=== PATIENT | female | born 1970 | race Caucasian/White ===

== ENCOUNTER 2017-05-13 05:35 | Inpatient (IN) | payer MEDICARE, MEDICAID ==
[2017-05-13 06:06] LABS: #Eosinphils 0.1 thou/uL (0.0-0.7); #Lymphocytes 2.1 thou/uL (1.20-3.40); #Monocytes 0.7 thou/uL (0.11-0.59); #Neutrophils 7.8 thou/uL (1.40-6.50); %Basophils 0.4 % (0.0-1.0); %Eosinophils 0.8 % (0.0-10.0); %Lymphocytes 19.8 % (21.0-51.0); %Monocytes 6.5 % (0.0-10.0); %Neutrophils 72.5 % (42.0-75.0); Hemoglobin 14.6 g/dL (12.0-16.0); Mean Corpuscular HGB CONC 32.3 g/dL (32.0-36.0); Mean Corpuscular Hemoglobin 29.3 pg (27.0-31.0); Mean Corpuscular Volume 90.7 fl (81.0-99.0); Mean Platelet Volume 8.3 fL (7.4-10.4); Platelet Count 373 thou/uL (130-400); RBC Distribution Width 14.6 % (11.5-14.5); Red Blood Cell (RBC) Count 4.99 mill/uL (4.20-5.40); White Blood Cell (WBC) Count 10.8 thou/uL (4.8-10.8)
[2017-05-13] MEDS ORDERED: Nitroglycerin 2% Ointment 1 INCH/1 GM Packet ONE (06:15)
[2017-05-13] MEDS ORDERED: Metoprolol Tartrate 5 MG/5 ML VIAL ONE (06:15)
[2017-05-13 06:23] LABS: ALT (SGPT) 9 U/L (8-55); AST (SGOT) 9 U/L (5-34); Alkaline Phosphatase 97 U/L (40-150); Anion Gap 14 mmol/L (10-20); BUN (Urea Nitrogen) 19 mg/dL (7.0-18.7); Bilirubin, Total 0.2 mg/dL (0.2-1.2); CK (CPK) 32 U/L (29-168); Calc. Creatinine Clearance 0 mL/min (70-130); Calcium 9.7 mg/dL (7.8-10.44); Carbon Dioxide 22 mmol/L (22-29); Chloride 98 mmol/L (98-107); Estimated GFR-MDRD 58; Globulin 3.2 g/dL (2.4-3.5); Lipase 14 U/L (8-78); Potassium 4.4 mmol/L (3.5-5.1); Protein, Total 7.2 g/dL (6.0-8.3); Sodium 130 mmol/L (136-145)
[2017-05-13 06:27] LABS: CKMB 1.4 ng/mL (0-6.6); Troponin I 0.011 ng/mL (< 0.028)
[2017-05-13 06:29] LABS: Glucose 568 mg/dL (70-105)
[2017-05-13] MEDS ORDERED: Insulin Regular 300 UNITS/3 ML VIAL ONE (06:32)
[2017-05-13 06:49] LABS: Magnesium 1.9 mg/dL (1.6-2.6)
[2017-05-13 06:55] LABS: Bicarbonate (HCO3v) 23.5 mmol/L (1.0-85.0); CO2 Tension (PvCO2) 34.2 mmHg (41.0-51.0); Calcium, Ionized 1.08 mmol/L (1.12-1.32); Hemoglobin - Calc 16.1 g/dL (12.0-18.0); O2 Tension (PvO2) 98.3 mmHg (35.0-45.0); Potassium 3.8 mmol/L (3.4-4.7); T. Carbon Dioxide 24.5 mmol/L (1.0-85.0); pH (Venous) 7.445 (7.35-7.45)
[2017-05-13] MEDS ORDERED: HYDROcodone/Acetaminophen 10/325 mg Tablet ONE (06:57)
[2017-05-13] MEDS ORDERED: Insulin Regular 300 UNITS/3 ML VIAL SC SCH (07:00)
[2017-05-13] MEDS ORDERED: Metoprolol Tartrate 5 MG/5 ML VIAL IVP SCH (07:00)
[2017-05-13] MEDS ORDERED: Nitroglycerin 2% Ointment 1 INCH/1 GM Packet TOP SCH (07:00)
[2017-05-13] MEDS ORDERED: Sodium Chloride 0.9% 1,000 ML IV SCH (07:00)
[2017-05-13] MEDS ORDERED: cefTRIAXone\\ROCEPHIN 2 GM in Sodium Chloride 0.9% 100 ML IVPB SCH ×2 (07:00→10:30)
[2017-05-13] MEDS ORDERED: Azithromycin 500 MG in Sodium Chloride 0.9% 250 ML 250 ML IVPB SCH ×2 (07:00→11:00)
--- NOTE | 2017-05-13 07:42 | RAD ---
2 VIEWS CHEST: Date: 05/13/17 COMPARISON: 07/27/16. HISTORY: Chest pain for 3 weeks. FINDINGS: Two views of the chest show a normal sized cardiomediastinal silhouette. The patient is status post s ternotomy. There is no evidence of consolidation, mass, or pleural effusion. Degenerative changes are seen in the spine. IMPRESSION: No evidence of acute cardiopulmonary disease. POS: [facility]
[2017-05-13 08:03] LABS: Bilirubin Negative (Negative); Blood, Urine Negative (Negative); Clarity CLEAR (Clear); Glucose, Urine (Dipstick) >=1000 mg/dL (Negative); Leukocyte Negative (Negative); Nitrite Negative (Negative); Protein, Urine (Dipstick) Negative (Neg-Trace); Specific Gravity, Urine 1.031 (1.002-1.036); Urobilinogen 0.2 mg/dL (0.2-1.0)
[2017-05-13 09:36] LABS: Troponin I Less than 0.010 ng/mL (< 0.028)
[2017-05-13] MEDS ORDERED: Artificial Tears 18 DROP/0.9 ML EA EYE PRN (09:40)
[2017-05-13] MEDS ORDERED: Ondansetron HCl/PF 4 MG/2 ML Vial IVP PRN (09:40)
[2017-05-13] MEDS ORDERED: Insulin Regular 300 UNITS/3 ML VIAL SC PRN (09:40)
[2017-05-13] MEDS ORDERED: Mag-Al 1200 mg/1200 mg/30 ML UDCUP PO PRN (09:40)
[2017-05-13] MEDS ORDERED: hydrALAZINE 20 MG/ML VIAL SLOW IVP PRN (09:40)
[2017-05-13] MEDS ORDERED: Milk Of Magnesia 30 ML UDCUP PO PRN (09:40)
[2017-05-13] MEDS ORDERED: Zolpidem Tartrate 5 MG TAB PO PRN (09:40)
[2017-05-13] MEDS ORDERED: Senokot 8.6 MG TAB PO PRN (09:40)
[2017-05-13] MEDS ORDERED: Loratadine 10 MG TAB PO PRN (09:40)
[2017-05-13] MEDS ORDERED: Loperamide HCl 2 MG CAP PO PRN (09:40)
[2017-05-13] MEDS ORDERED: Diabetic Tussin 200 MG/10 ML UDCUP PO PRN (09:40)
[2017-05-13] MEDS ORDERED: Ondansetron ODT 4 MG TAB PO PRN (09:40)
[2017-05-13] MEDS ORDERED: Acetaminophen 325 MG TAB PO PRN (09:40)
[2017-05-13] MEDS ORDERED: Sodium Chloride 0.65% Nasal 44 ML BOT EA NARE PRN (09:40)
[2017-05-13] MEDS ORDERED: Dextrose 5% in Water 1,000 ML IV PRN (09:40)
[2017-05-13] MEDS ORDERED: Dextrose 50% Abboject 50 ML SYRINGE SLOW IVP PRN (09:40)
[2017-05-13] MEDS ORDERED: Eucerin (Mineral Oil/Petrolatum,White) 30 gm Jar TOP PRN (09:40)
[2017-05-13] MEDS ORDERED: Chloraseptic Spray 180 ml Bottle PO PRN (09:40)
[2017-05-13] MEDS ORDERED: Nitroglycerin 0.4 MG TAB (25 Tab Bottle) SL PRN (09:40)
[2017-05-13 11:17] VITALS: BMI 50.8
[2017-05-13] MEDS: Insulin Regular 300 UNITS/3 ML VIAL SC PRN ×2 (11:55→17:11)
[2017-05-13] MEDS ORDERED: Cyclobenzaprine 10 MG TAB PO PRN (11:58)
[2017-05-13] MEDS: Enoxaparin Sodium 40 MG/0.4 ML SYRINGE SC SCH (12:16)
[2017-05-13] MEDS: oxyCODONE ER 20 MG TAB PO SCH ×3 (12:16→19:50)
[2017-05-13] MEDS: Famotidine 20 MG TAB PO SCH ×2 (12:18→19:49)
[2017-05-13] MEDS ORDERED: Benzonatate 100 MG CAP PO PRN (12:40)
[2017-05-13 13:24] LABS: Troponin I 0.012 ng/mL (< 0.028)
[2017-05-13] MEDS: HYDROcodone/Acetaminophen 10/325 mg Tablet PO PRN ×2 (13:47→21:34)
--- NOTE | 2017-05-13 14:11 | HP ---
PRIMARY CARE PHYSICIAN: Dr. Coni Crooks. REASON FOR ADMISSION: Hyperglycemia, chest pain, and atypical pneumonia. HISTORY OF PRESENT ILLNESS: A 46-year-old female, who has multiple medical problems including HIV, d iabetes, hypertension, coronary artery disease, required CABG, who came to the emergency room for sofya luation of chest pain. Patient has on and off chest pain for about 1 month. She was describing ches t pain, squeezing sensation in the substernal area associated with nausea, shortness of breath, and w eakness. The patient gets this pain on exertion and gets better with relaxation. This type of on an d off pain was keep going on for about 1 month. She was trying to come to the hospital, but she was ignoring her symptoms. She also started feeling shortness of breath after the exertion. For the las t 1 week, the patient was having upper respiratory infection including runny nose, sore throat, and c ough, which has gradually gotten worse. She was having fever at home. She was feeling excessive madhav phoresis because of coughing, her chest pain gotten worse and she was feeling more weak and more fati gued and that is why she decided to come to the emergency room for evaluation. Her intensity of pain is about 7/10. Currently, her main symptom is cough and shortness of breath and low grade fever. To day in the emergency room, patient was found with hyperglycemia, pseudohyponatremia, and her chest x- ray was consistent with atypical chronic interstitial changes. REVIEW OF SYSTEMS: The following complete review of systems was negative, unless otherwise mentioned in the HPI or below: Constitutional: Weight loss or gain, ability to conduct usual activities. Skin: Rash, itching. Eyes: Double vision, pain. ENT/Mouth: Nose bleeding, neck stiffness, pain, tenderness. Cardiovascular: Palpitations, dyspnea on exertion, orthopnea. Respiratory: Shortness of breath, wheezing, cough, hemoptysis, fever or night sweats. Gastrointestinal: Poor appetite, abdominal pain, heartburn, nausea, vomiting, constipation, or diarrh ea. Genitourinary: Urgency, frequency, dysuria, nocturia. Musculoskeletal: Pain, swelling. Neurologic/Psychiatric: Anxiety, depression. Allergy/Immunologic: Skin rash, bleeding tendency. Please see my HPI for pertinent positives and negatives, other review of systems reviewed and negativ e except as mentioned in the HPI. ALLERGIES: SEROQUEL, GEODON, and LATEX. CURRENT HOME MEDICATIONS: ProAir HFA 2 puffs q.4 hourly p.r.n., aspirin 81 mg p.o. daily, Clonazepam 0.5 mg p.o. b.i.d., Flexeril 5 mg p.o. t.i.d. p.r.n., Genvoya tablet daily, Prozac 20 mg p.o. b.i.d. , Humalog insulin as per sliding scale, Coalgood 10 two tablets q.i.d. p.r.n., Lantus 75 units subcu b.i .d., lamotrigine 100 mg p.o. b.i.d., Remeron 15 mg p.o. at bedtime, OxyContin ER 20 mg p.o. b.i.d., p erphenazine 4 mg p.o. t.i.d., Lyrica 100 mg p.o. b.i.d., and Ambien 12.5 mg p.o. at bedtime. EMERGENCY ROOM COURSE: Patient has received Rocephin, azithromycin, Coalgood, IV fluid, Novolin R 10 un its, nitropatch 1 inch, and metoprolol tartrate 5 mg IV push. PAST MEDICAL HISTORY: HIV, diabetes type 2, hypertension, dyslipidemia, coronary artery disease; req uiring CABG, morbid obesity, and gastroesophageal reflux disease. PAST SURGICAL HISTORY: Right wrist surgery, right knee surgery, cholecystectomy, CABG x4, x2, hysterectomy, and thyroidectomy. PAST PSYCHIATRIC HISTORY: Anxiety, depression, bipolar disorder, schizophrenia, history of inpatient psychiatric admission in [place]. SOCIAL HISTORY: The patient is smoking about 1 pack per day since the age of 13. She lives at home with her roommate. She denies any alcohol abuse. She denies any other illicit drug abuse. FAMILY HISTORY: Positive for diabetes, hypertension, and coronary artery disease among several famil y members. PHYSICAL EXAMINATION: VITAL SIGNS: Currently, blood pressure 141/92, pulse 101, respiratory rate 18, temperature 98.4, sat uration 93% on room air, and weight 148.3 kilograms. GENERAL: Patient is currently alert, awake, in no obvious acute distress. HEENT: Head is normocephalic, atraumatic. Eyes: Pupils round, reactive to light. Extraocular musc les intact. ENT: Oropharynx within normal limits, mild pharyngeal erythema noted. No exudate. No oral thrush. NECK: Supple, no JVD, no thyromegaly, no carotid bruits. LUNGS: Bilateral coarse breath sounds noted. No rhonchi, rales, or wheezing. No accessory muscles of respiration in use. CARDIAC: S1 and S2, regular, tachycardia, no murmur, no gallop, no rub. ABDOMEN: Obesity limiting examination. No peritoneal sign, no organomegaly, no mass, no distention, no suprapubic tenderness, no Perez sign. BACK: Unremarkable, no CVA tenderness. EXTREMITIES: Upper extremity passive movement of all joints are normal. Lower extremities: No mansoor a. Good peripheral pulsation. SKIN: No skin rash. HEMATOLOGICAL: No lymphadenopathy. PSYCHIATRIC: Normal affect. NEUROLOGIC: Nonfocal examination. SIGNIFICANT LABORATORY DATA: EKG based on my review reveals normal sinus rhythm, slightly prolonged QTC interval, nonspecific ST-T changes. Chest x-ray: Diffuse interstitial changes, no lobar consoli dation. CBC: WBC 10.8, hemoglobin 14.6, platelets 373. D-dimer less than 0.27. VBG: pH 7.44, bicarbonate 23.5, CO2 of 34.2, O2 of 98.3. BMP: Sodium 130, potassium 4.4, chloride 98, carbon dioxide 22, BUN 19, creatinine 1.02, glucose 568 , calcium 9.7. LFT: AST 9, ALT 9, alkaline phosphatase 97, albumin 4.0, lipase 14. CK is 32, CK-MB 1.4, troponin l ess than 0.010. Urinalysis: Glucosuria, serum ketones 0.08. ASSESSMENT AND PLAN: 1. Chest pain. The patient's chest pain description is atypical for angina. Given she has coronary artery disease and coronary artery bypass graft required in her young age as well as her underlying risk factors are not well controlled due to noncompliance. She is at risk for coronary artery diseas e. Her D-dimer is negative, so thromboembolic disorder is extremely unlikely. At this point, we lauren l do serial cardiac enzymes x3. We will consider doing stress test before discharge. We will try to do stress test tomorrow morning. We will keep her n.p.o. after midnight. Meanwhile, we will contin ue with nitro patch q.8 hourly, aspirin 325 mg p.o. daily. We will check lipid profile for risk stra tification. 2. Atypical pneumonia. Patient has cough, respiratory symptoms, low grade fever. She does not have leukocytosis, but she has underlying HIV. At this point, we will check respiratory virus panel to r ule out any associated viral illness. Meanwhile, we will treat with Rocephin, azithromycin, and symp tomatic treatment for cough. 3. Hyperglycemia associated with diabetes type 2. This patient was not taking insulin because of he r noncompliance. At this time, I will resume Levemir insulin 75 units subcu b.i.d., Humalog insulin as per aggressive sliding scale and we will adjust insulin dose depending upon Accu-Cheks. 4. Pseudohyponatremia likely due to hyperglycemia. We will repeat BMP tomorrow. 5. Morbid obesity with BMI of 50. Dietary education given, weight loss education given. Healthy li festyle measures discussed with the patient. 6. Tobacco abuse disorder. Smoking cessation counseling given. We will offer nicotine patch if nee ded. 7. Anxiety and depression. We will continue Clonazepam 0.5 mg p.o. b.i.d., Prozac 20 mg p.o. b.i.d. , Remeron 15 mg p.o. daily, lamotrigine 100 mg twice daily, and perphenazine 4 mg t.i.d. 8. Chronic low back pain and chronic pain disorder. We will continue Flexeril 5 mg p.o. t.i.d. p.r. n., Lyrica 100 mg p.o. b.i.d., and OxyContin 20 mg q.12 hourly, and Coalgood on a p.r.n. basis. 9. Human immunodeficiency virus. We will continue Genvoya 1 tablet p.o. at bedtime. 10. Coronary artery disease with history of coronary artery bypass grafting. We will monitor on tel emetry floor. 11. Deep venous thrombosis prophylaxis. Lovenox 40 mg subcu daily. 12. Gastrointestinal prophylaxis. Pepcid 20 mg p.o. b.i.d. 13. Code status: The patient is FULL CODE. The patient does not have any surrogate decision maker. Disposition plan based on clinical course. We are expecting patient's stay in hospital for more than 2 midnights. Plan of care discussed with the patient in detail.
[2017-05-13] MEDS: Nitroglycerin 2% Ointment 1 INCH/1 GM Packet TOP SCH ×2 (16:20→19:57)
[2017-05-13] MEDS: Perphenazine 2 MG TAB PO SCH ×2 (17:01→19:50)
[2017-05-13] MEDS: Elviteg/Cob/Emtri/Tenof Alafen [Genvoya Tablet] 1 EACH PO SCH (17:12)
[2017-05-13] MEDS: clonazePAM 0.5 MG TAB PO SCH (19:49)
[2017-05-13] MEDS: FLUoxetine HCl 20 MG CAP PO SCH (19:49)
[2017-05-13] MEDS: INSULIN DETEMIR SC SCH (19:49)
[2017-05-13] MEDS: guaiFENesin ER 600 MG TAB PO SCH (19:49)
[2017-05-13] MEDS: lamoTRIgine 100 MG TAB PO SCH (19:49)
[2017-05-13] MEDS: Pregabalin 50 MG CAP PO SCH (19:50)
[2017-05-13] MEDS ORDERED: INSULIN GLARGINE HUM REC ANLOG 75 UNIT SQ SCH (21:00)
[2017-05-14 04:43] LABS: #Basophils 0.1 thou/uL (0.0-0.2); #Eosinphils 0.2 thou/uL (0.0-0.7); #Lymphocytes 2.4 thou/uL (1.20-3.40); #Monocytes 0.6 thou/uL (0.11-0.59); #Neutrophils 5.1 thou/uL (1.40-6.50); %Basophils 0.7 % (0.0-1.0); %Lymphocytes 28.7 % (21.0-51.0); %Monocytes 7.6 % (0.0-10.0); Hemoglobin 14.1 g/dL (12.0-16.0); Mean Corpuscular HGB CONC 32.1 g/dL (32.0-36.0); Mean Corpuscular Hemoglobin 29.4 pg (27.0-31.0); Mean Corpuscular Volume 91.5 fl (81.0-99.0); Mean Platelet Volume 8.7 fL (7.4-10.4); Platelet Count 297 thou/uL (130-400); RBC Distribution Width 14.5 % (11.5-14.5); White Blood Cell (WBC) Count 8.3 thou/uL (4.8-10.8)
[2017-05-14 05:08] LABS: Anion Gap 14 mmol/L (10-20); BUN (Urea Nitrogen) 15 mg/dL (7.0-18.7); Calc. Creatinine Clearance 187 mL/min (70-130); Calcium 10.2 mg/dL (7.8-10.44); Carbon Dioxide 26 mmol/L (22-29); Cardiac Risk 6.8 (Less than 4.5); Chloride 102 mmol/L (98-107); Cholesterol 251 mg/dl (< 200 Desired); Estimated GFR-MDRD 72; Glucose 213 mg/dL (70-105); HDL Cholesterol 37 mg/dL (>60 Neg Risk); Potassium 4.6 mmol/L (3.5-5.1); Sodium 137 mmol/L (136-145); Triglycerides 506 mg/dL (Less than 150)
[2017-05-14] MEDS: cefTRIAXone\\ROCEPHIN 2 GM in Sodium Chloride 0.9% 100 ML IVPB SCH (05:53)
[2017-05-14] MEDS: Nitroglycerin 2% Ointment 1 INCH/1 GM Packet TOP SCH ×3 (05:57→20:39)
[2017-05-14] MEDS ORDERED: Regadenoson 0.4 MG/5 ML SYRINGE ONE (08:15)
[2017-05-14] MEDS: Azithromycin 500 MG in Sodium Chloride 0.9% 250 ML 250 ML IVPB SCH (08:29)
[2017-05-14] MEDS: oxyCODONE ER 20 MG TAB PO SCH ×2 (08:40→17:51)
--- NOTE | 2017-05-14 08:59 | PDOC.PN ---
- Subjective Encounter Start Date: 05/14/17 Encounter Start Time: 07:10 -: old records requested/rev Patient seen and examined. No new complaints. No overnight events - Objective Resuscitation Status: Resuscitation Status FULL:Full Resuscitation MAR Reviewed: Yes Vital Signs & Weight: Vital Signs (12 hours) Temp Pulse Resp BP Pulse Ox 05/14/17 07:57 98.6 F 76 20 05/14/17 07:46 98.6 F 76 20 155/73 H 92 L 05/14/17 04:00 97.9 F 89 18 156/81 H 97 Weight Weight 315 lb 1.6 oz I&O: 05/13/17 05/14/17 05/15/17 06:59 06:59 06:59 Intake Total 720 200 Balance 720 200 Result Diagrams: 05/14/17 04:09 05/14/17 04:09 Additional Labs: Accuchecks 05/13/17 05/13/17 05/13/17 19:48 16:31 10:59 POC Glucose 316 H 313 H 373 H Phys Exam - Physical Examination Constitutional: NAD HEENT: PERRLA, moist MMs, sclera anicteric Neck: no JVD, supple Respiratory: no wheezing, no rales, no rhonchi Cardiovascular: RRR, no significant murmur, no rub Gastrointestinal: soft, non-tender, no distention, positive bowel sounds Musculoskeletal: no edema, pulses present Neurological: non-focal, normal sensation, moves all 4 limbs Psychiatric: normal affect, A&O x 3 Skin: no rash, normal turgor Dx/Plan (1) Atypical pneumonia Code(s): J18.9 - PNEUMONIA, UNSPECIFIED ORGANISM Status: Acute (2) Chest pain Code(s): R07.9 - CHEST PAIN, UNSPECIFIED Status: Acute (3) Hyperglycemia due to type 2 diabetes mellitus Code(s): E11.65 - TYPE 2 DIABETES MELLITUS WITH HYPERGLYCEMIA Status: Acute (4) Hyponatremia Code(s): E87.1 - HYPO-OSMOLALITY AND HYPONATREMIA Status: Acute (5) Anxiety and depression Code(s): F41.8 - OTHER SPECIFIED ANXIETY DISORDERS Status: Chronic (6) Dyslipidemia Code(s): E78.5 - HYPERLIPIDEMIA, UNSPECIFIED Status: Chronic (7) HIV (human immunodeficiency virus infection) Status: Chronic (8) Hypertension Code(s): I10 - ESSENTIAL (PRIMARY) HYPERTENSION Status: Chronic (9) Morbid obesity with BMI of 50.0-59.9, adult Code(s): E66.01 - MORBID (SEVERE) OBESITY DUE TO EXCESS CALORIES; Z68.43 - BODY MASS INDEX (BMI) 50-59.9 , ADULT Status: Chronic (10) Noncompliance with medication regimen Code(s): Z91.14 - PATIENT'S OTHER NONCOMPLIANCE WITH MEDICATION REGIMEN Status : Chronic - Plan cont current plan of care, continue antibiotics * add tricor 145 mg po daily * medication reviewed as below * symptomatic treatment. * today stress test and echo * continue rocephin and azithromycin * control diabetes today Review of Systems - Review of Systems ENT: negative: Ear Pain, Ear Discharge, Nose Pain, Nose Discharge, Nose Congestion, Mouth Pain, Mouth Swelling, Throat Pain, Throat Swelling, Other Respiratory: negative: Cough, Dry, Shortness of Breath, Hemoptysis, SOB with Excertion, Pleuritic Pain, Sputum, Wheezing Cardiovascular: negative: chest pain, palpitations, orthopnea, paroxysmal nocturnal dyspnea, edema, light headedness, other Gastrointestinal: negative: Nausea, Vomiting, Abdominal Pain, Diarrhea, Constipation, Melena, Hematochezia, Other Genitourinary: negative: Dysuria, Frequency, Incontinence, Hematuria, Retention , Other Musculoskeletal: negative: Neck Pain, Shoulder Pain, Arm Pain, Back Pain, Hand Pain, Leg Pain, Foot Pain, Other Skin: negative: Rash, Lesions, Gamaliel, Bruising, Other - Medications/Allergies Allergies/Adverse Reactions: Allergies Allergy/AdvReac Type Severity Reaction Status Date / Time latex Allergy Rash Verified 11/24/16 13:24 quetiapine [From Seroquel] Allergy Verified 11/24/16 13:24 ziprasidone [From Geodon] Allergy Anaphylaxis Verified 11/24/16 13:24 Medications: Current Medications Acetaminophen (Tylenol) 650 mg PO Q4H PRN PRN Reason: Headache/Fever or Pain Hydrocodone Bitart/Acetaminophen (Adrian 5/325) 1 tab PO Q4H PRN PRN Reason: Moderate Pain (4-6) Hydrocodone Bitart/Acetaminophen (Adrian 10/325) 2 tab PO QID PRN PRN Reason: Pain Last Admin: 05/13/17 21:34 Dose: 2 tab Al Hydroxide/Mg Hydroxide (Maalox) 30 ml PO Q6H PRN PRN Reason: Heartburn or Indigestion Artificial Tears (Tears Naturale) 0 drop EA EYE PRN PRN PRN Reason: Dry Eyes Aspirin (Aspirin) 325 mg PO DAILY [facility] Benzonatate (Tessalon) 100 mg PO Q4H PRN PRN Reason: Cough Clonazepam (Klonopin) 0.5 mg PO BID [facility] Last Admin: 05/13/17 19:49 Dose: 0.5 mg Cyclobenzaprine HCl (Flexeril) 5 mg PO TID PRN PRN Reason: Muscle Spasm Dextrose/Water (Dextrose 50%) 25 gm SLOW IVP PRN PRN PRN Reason: Hypoglycemia Enoxaparin Sodium (Lovenox) 40 mg SC 0900 [facility] Last Admin: 05/13/17 12:16 Dose: 40 mg Famotidine (Pepcid) 20 mg PO BID [facility] Last Admin: 05/13/17 19:49 Dose: 20 mg Fluoxetine HCl (Prozac) 20 mg PO BID [facility] Last Admin: 05/13/17 19:49 Dose: 20 mg Glucagon (Glucagon) 1 mg IM PRN PRN PRN Reason: Hypoglycemia Guaifenesin (Robitussin Sf) 200 mg PO Q4H PRN PRN Reason: Cough Guaifenesin (Mucinex) 600 mg PO Q12HR [facility] Last Admin: 05/13/17 19:49 Dose: 600 mg Hydralazine HCl (Apresoline) 10 mg SLOW IVP Q4H PRN PRN Reason: Systolic BP > 180 Dextrose/Water (D5w) 1,000 mls @ 0 mls/hr IV .Q0M PRN; As Directed PRN Reason: Hypoglycemia Ceftriaxone Sodium 2 gm/ (Sodium Chloride) 100 mls @ 200 mls/hr IVPB 0700 [facility] Last Admin: 05/14/17 05:53 Dose: 100 mls Azithromycin 500 mg/ Sodium (Chloride) 250 mls @ 250 mls/hr IVPB 0800 [facility] Last Admin: 05/14/17 08:29 Dose: 250 mls Insulin Detemir 75 units/ (Syringe) 0.75 mls @ 0 mls/hr SC BID [facility] Last Admin: 05/13/17 19:49 Dose: 0.75 mls Insulin Human Regular (Humulin R) 0 units SC .AGGRESSIVE SLIDING PRN PRN Reason: Aggressive Sliding Scale Last Admin: 05/13/17 17:11 Dose: 11 unit Insulin Human Regular (Humulin R) 0 units SC .BEDTIME SLIDING SC PRN PRN Reason: Bedtime Correctional Scale Lamotrigine (Lamictal) 100 mg PO BID [facility] Last Admin: 05/13/17 19:49 Dose: 100 mg Loperamide HCl (Imodium) 2 mg PO PRN PRN PRN Reason: Diarrhea/Loose Stools Loratadine (Claritin) 10 mg PO DAILYPRN PRN PRN Reason: Sinus Symptoms Magnesium Hydroxide (Milk Of Magnesium) 30 ml PO DAILYPRN PRN PRN Reason: Constipation Mineral Oil/White Petrolatum (Eucerin Cream) 0 gm TOP BIDPRN PRN PRN Reason: Dry Skin Mirtazapine (Remeron) 15 mg PO DAILY [facility] Nitroglycerin (Nitrostat) 0.4 mg SL Q5MIN PRN PRN Reason: Chest Pain Nitroglycerin (Nitro-Bid 2% Ointment) 0.5 inch TOP Q8HR [facility] Last Admin: 05/14/17 05:57 Dose: Not Given Ondansetron HCl (Zofran Odt) 4 mg PO Q6H PRN PRN Reason: Nausea/Vomiting Ondansetron HCl (Zofran) 4 mg IVP Q6H PRN PRN Reason: Nausea/Vomiting Oxycodone HCl (Oxycontin) 20 mg PO 0600,1800 [facility] Last Admin: 05/14/17 08:40 Dose: 20 mg Elviteg/Cob/Emtri/Tenof Alafen [ Genvoya Tablet] 1 Each 1 each PO 1700 [facility] Last Admin: 05/13/17 17:12 Dose: 1 each Perphenazine (Trilafon) 4 mg PO TID [facility] Last Admin: 05/13/17 19:50 Dose: 4 mg Phenol (Chloraseptic [place] 180 Ml Bot) 0 ml PO PRN PRN PRN Reason: Sore Throat Pregabalin (Lyrica) 100 mg PO BID [facility] Last Admin: 05/13/17 19:50 Dose: 100 mg Senna (Senokot) 2 tab PO HSPRN PRN PRN Reason: Constipation Sodium Chloride ([place] Nasal [place] 0.65%) 0 ml EA NARE QIDPRN PRN PRN Reason: Nasal Congestion Zolpidem Tartrate (Ambien) 5 mg PO HSPRN PRN PRN Reason: Insomnia
[2017-05-14] MEDS: Enoxaparin Sodium 40 MG/0.4 ML SYRINGE SC SCH (09:45)
[2017-05-14] MEDS: INSULIN DETEMIR SC SCH ×3 (09:45→20:26)
[2017-05-14] MEDS: FLUoxetine HCl 20 MG CAP PO SCH ×2 (11:41→20:35)
[2017-05-14] MEDS: Fenofibrate Nanocrystallized 145 MG TAB PO SCH (11:41)
[2017-05-14] MEDS: lamoTRIgine 100 MG TAB PO SCH ×2 (11:41→20:35)
[2017-05-14] MEDS: Pregabalin 50 MG CAP PO SCH ×2 (11:41→20:35)
[2017-05-14] MEDS: clonazePAM 0.5 MG TAB PO SCH ×2 (11:42→20:35)
[2017-05-14] MEDS: Famotidine 20 MG TAB PO SCH ×2 (11:42→20:35)
[2017-05-14] MEDS: HYDROcodone/Acetaminophen 5/325 mg Tablet PO PRN ×2 (11:42→16:05)
[2017-05-14] MEDS: guaiFENesin ER 600 MG TAB PO SCH ×2 (11:42→20:35)
[2017-05-14] MEDS: Mirtazapine 15 MG TAB PO SCH (11:42)
[2017-05-14] MEDS: Aspirin 325 MG TAB PO SCH (11:42)
[2017-05-14] MEDS: Elviteg/Cob/Emtri/Tenof Alafen [Genvoya Tablet] 1 EACH PO SCH (11:50)
[2017-05-14] MEDS: Perphenazine 2 MG TAB PO SCH ×3 (11:58→20:39)
--- NOTE | 2017-05-14 13:04 | NM ---
CARDIAC SPECT WITH EJECTION FRACTION AND WALL MOTION: HISTORY: 46-year-old female with chest pain. History of coronary artery disease. Status post coronary artery b ypass graft. HIV. Hypertension. Diabetes mellitus. Dyslipidemia. Smoking history. TECHNIQUE/FINDINGS: Lexiscan sestamibi study is performed. Patient was injected with 30.2 mCi technetium-99m sestamibi intravenously for stress images and patie nt was injected with 32.0 mCi of technetium-99m sestamibi intravenously for resting images. Multiple SPECT images in the short axis, vertical long axis, and horizontal long axis demonstrate abn ormal decreased activity on both stress and resting images in the inferior septum, inferior and poste rolateral pringle, evidence for large area of infarct. No scan evidence for overt ischemia. TID: 1.11 LHR: 0.32 EDV: Elevated at 131 mL EF: 50% MYOCARDIAL PERFUSION WALL MOTION: There is some septal hypokinesis. 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 No scan e vidence for ischemia. Elevated EDV. Septal hypokinesis. POS: [facility]
[2017-05-14] MEDS: Insulin Regular 300 UNITS/3 ML VIAL SC PRN (17:51)
[2017-05-15] MEDS: HYDROcodone/Acetaminophen 10/325 mg Tablet PO PRN ×3 (00:22→13:02)
[2017-05-15] MEDS: Insulin Regular 300 UNITS/3 ML VIAL SC PRN (05:12)
[2017-05-15] MEDS: cefTRIAXone\\ROCEPHIN 2 GM in Sodium Chloride 0.9% 100 ML IVPB SCH (05:40)
[2017-05-15] MEDS: oxyCODONE ER 20 MG TAB PO SCH (05:40)
[2017-05-15] MEDS: Nitroglycerin 2% Ointment 1 INCH/1 GM Packet TOP SCH (05:43)
[2017-05-15] MEDS: Fenofibrate Nanocrystallized 145 MG TAB PO SCH (08:11)
[2017-05-15] MEDS: Aspirin 325 MG TAB PO SCH (08:11)
[2017-05-15] MEDS: FLUoxetine HCl 20 MG CAP PO SCH (08:12)
[2017-05-15] MEDS: guaiFENesin ER 600 MG TAB PO SCH (08:12)
[2017-05-15] MEDS: lamoTRIgine 100 MG TAB PO SCH (08:12)
[2017-05-15] MEDS: Pregabalin 50 MG CAP PO SCH (08:12)
[2017-05-15] MEDS: Famotidine 20 MG TAB PO SCH (08:12)
[2017-05-15] MEDS: clonazePAM 0.5 MG TAB PO SCH (08:13)
[2017-05-15] MEDS: Mirtazapine 15 MG TAB PO SCH (08:13)
[2017-05-15] MEDS: Enoxaparin Sodium 40 MG/0.4 ML SYRINGE SC SCH (08:13)
[2017-05-15 08:26] VITALS: BP 130/72; TEMP 98.3
[2017-05-15] MEDS: Azithromycin 500 MG in Sodium Chloride 0.9% 250 ML 250 ML IVPB SCH (10:19)
[2017-05-15] MEDS: INSULIN DETEMIR SC SCH (10:19)
[2017-05-15] MEDS: Perphenazine 2 MG TAB PO SCH (10:20)
--- NOTE | 2017-05-15 10:20 | PDOC.PN ---
- Subjective Encounter Start Date: 05/15/17 Encounter Start Time: 09:00 Patient seen and examined. No new complaints. No overnight events - Objective Resuscitation Status: Resuscitation Status FULL:Full Resuscitation MAR Reviewed: Yes Vital Signs & Weight: Vital Signs (12 hours) Temp Pulse Resp BP Pulse Ox 05/15/17 08:00 98.3 F 82 18 130/72 98 05/15/17 07:41 98.2 F 79 16 05/15/17 03:33 98.2 F 79 16 133/73 92 L Weight Weight 322 lb 11.2 oz I&O: 05/14/17 05/15/17 05/16/17 06:59 06:59 06:59 Intake Total 720 2460 Balance 720 2460 Result Diagrams: 05/14/17 04:09 05/14/17 04:09 Additional Labs: Accuchecks 05/15/17 05/14/17 05/14/17 05:08 20:29 16:58 POC Glucose 327 H 342 H 382 H 05/14/17 11:35 POC Glucose 246 H Radiology Reviewed by me: Yes EKG Reviewed by me: Yes Phys Exam - Physical Examination Constitutional: NAD HEENT: PERRLA, moist MMs, sclera anicteric Neck: no JVD, supple Respiratory: no wheezing, no rales, no rhonchi Cardiovascular: RRR, no significant murmur, no rub Gastrointestinal: soft, non-tender, no distention, positive bowel sounds Musculoskeletal: no edema, pulses present Neurological: non-focal, normal sensation, moves all 4 limbs Psychiatric: normal affect, A&O x 3 Skin: no rash, normal turgor Dx/Plan (1) Atypical pneumonia Code(s): J18.9 - PNEUMONIA, UNSPECIFIED ORGANISM Status: Acute (2) Chest pain Code(s): R07.9 - CHEST PAIN, UNSPECIFIED Status: Acute (3) Hyperglycemia due to type 2 diabetes mellitus Code(s): E11.65 - TYPE 2 DIABETES MELLITUS WITH HYPERGLYCEMIA Status: Acute (4) Hyponatremia Code(s): E87.1 - HYPO-OSMOLALITY AND HYPONATREMIA Status: Acute (5) Anxiety and depression Code(s): F41.8 - OTHER SPECIFIED ANXIETY DISORDERS Status: Chronic (6) Dyslipidemia Code(s): E78.5 - HYPERLIPIDEMIA, UNSPECIFIED Status: Chronic (7) HIV (human immunodeficiency virus infection) Status: Chronic (8) Hypertension Code(s): I10 - ESSENTIAL (PRIMARY) HYPERTENSION Status: Chronic (9) Morbid obesity with BMI of 50.0-59.9, adult Code(s): E66.01 - MORBID (SEVERE) OBESITY DUE TO EXCESS CALORIES; Z68.43 - BODY MASS INDEX (BMI) 50-59.9 , ADULT Status: Chronic (10) Noncompliance with medication regimen Code(s): Z91.14 - PATIENT'S OTHER NONCOMPLIANCE WITH MEDICATION REGIMEN Status : Chronic - Plan cont current plan of care, continue antibiotics * medication reviewed as below * symptomatic treatment * see discharge karen. Review of Systems - Review of Systems ENT: negative: Ear Pain, Ear Discharge, Nose Pain, Nose Discharge, Nose Congestion, Mouth Pain, Mouth Swelling, Throat Pain, Throat Swelling, Other Respiratory: negative: Cough, Dry, Shortness of Breath, Hemoptysis, SOB with Excertion, Pleuritic Pain, Sputum, Wheezing Cardiovascular: negative: chest pain, palpitations, orthopnea, paroxysmal nocturnal dyspnea, edema, light headedness, other Gastrointestinal: negative: Nausea, Vomiting, Abdominal Pain, Diarrhea, Constipation, Melena, Hematochezia, Other Genitourinary: negative: Dysuria, Frequency, Incontinence, Hematuria, Retention , Other Musculoskeletal: negative: Neck Pain, Shoulder Pain, Arm Pain, Back Pain, Hand Pain, Leg Pain, Foot Pain, Other Skin: negative: Rash, Lesions, Gamaliel, Bruising, Other - Medications/Allergies Allergies/Adverse Reactions: Allergies Allergy/AdvReac Type Severity Reaction Status Date / Time latex Allergy Rash Verified 11/24/16 13:24 quetiapine [From Seroquel] Allergy Verified 11/24/16 13:24 ziprasidone [From Geodon] Allergy Anaphylaxis Verified 11/24/16 13:24 Medications: Current Medications Acetaminophen (Tylenol) 650 mg PO Q4H PRN PRN Reason: Headache/Fever or Pain Hydrocodone Bitart/Acetaminophen ([place] 5/325) 1 tab PO Q4H PRN PRN Reason: Moderate Pain (4-6) Last Admin: 05/14/17 16:05 Dose: 1 tab Hydrocodone Bitart/Acetaminophen ([place] 10/325) 2 tab PO QID PRN PRN Reason: Pain Last Admin: 05/15/17 08:11 Dose: 2 tab Al Hydroxide/Mg Hydroxide (Maalox) 30 ml PO Q6H PRN PRN Reason: Heartburn or Indigestion Artificial Tears (Tears Naturale) 0 drop EA EYE PRN PRN PRN Reason: Dry Eyes Aspirin (Aspirin) 325 mg PO DAILY [facility] Last Admin: 05/15/17 08:11 Dose: 325 mg Benzonatate (Tessalon) 100 mg PO Q4H PRN PRN Reason: Cough Clonazepam (Klonopin) 0.5 mg PO BID [facility] Last Admin: 05/15/17 08:13 Dose: 0.5 mg Cyclobenzaprine HCl (Flexeril) 5 mg PO TID PRN PRN Reason: Muscle Spasm Dextrose/Water (Dextrose 50%) 25 gm SLOW IVP PRN PRN PRN Reason: Hypoglycemia Enoxaparin Sodium (Lovenox) 40 mg SC 0900 [facility] Last Admin: 05/15/17 08:13 Dose: 40 mg Famotidine (Pepcid) 20 mg PO BID [facility] Last Admin: 05/15/17 08:12 Dose: 20 mg Fenofibrate (Tricor) 145 mg PO DAILY [facility] Last Admin: 05/15/17 08:11 Dose: 145 mg Fluoxetine HCl (Prozac) 20 mg PO BID [facility] Last Admin: 05/15/17 08:12 Dose: 20 mg Glucagon (Glucagon) 1 mg IM PRN PRN PRN Reason: Hypoglycemia Guaifenesin (Robitussin Sf) 200 mg PO Q4H PRN PRN Reason: Cough Guaifenesin (Mucinex) 600 mg PO Q12HR [facility] Last Admin: 05/15/17 08:12 Dose: 600 mg Hydralazine HCl (Apresoline) 10 mg SLOW IVP Q4H PRN PRN Reason: Systolic BP > 180 Dextrose/Water (D5w) 1,000 mls @ 0 mls/hr IV .Q0M PRN; As Directed PRN Reason: Hypoglycemia Ceftriaxone Sodium 2 gm/ (Sodium Chloride) 100 mls @ 200 mls/hr IVPB 0700 [facility] Last Admin: 05/15/17 05:40 Dose: 100 mls Azithromycin 500 mg/ Sodium (Chloride) 250 mls @ 250 mls/hr IVPB 0800 [facility] Last Admin: 05/14/17 08:29 Dose: 250 mls Insulin Detemir 75 units/ (Syringe) 0.75 mls @ 0 mls/hr SC BID [facility] Last Admin: 05/14/17 20:26 Dose: 0.75 mls Insulin Human Regular (Humulin R) 0 units SC .AGGRESSIVE SLIDING PRN PRN Reason: Aggressive Sliding Scale Last Admin: 05/15/17 05:12 Dose: 11 unit Insulin Human Regular (Humulin R) 0 units SC .BEDTIME SLIDING SC PRN PRN Reason: Bedtime Correctional Scale Last Admin: 05/14/17 20:34 Dose: 5 unit Lamotrigine (Lamictal) 100 mg PO BID [facility] Last Admin: 05/15/17 08:12 Dose: 100 mg Loperamide HCl (Imodium) 2 mg PO PRN PRN PRN Reason: Diarrhea/Loose Stools Loratadine (Claritin) 10 mg PO DAILYPRN PRN PRN Reason: Sinus Symptoms Magnesium Hydroxide (Milk Of Magnesium) 30 ml PO DAILYPRN PRN PRN Reason: Constipation Mineral Oil/White Petrolatum (Eucerin Cream) 0 gm TOP BIDPRN PRN PRN Reason: Dry Skin Mirtazapine (Remeron) 15 mg PO DAILY [facility] Last Admin: 05/15/17 08:13 Dose: 15 mg Nitroglycerin (Nitrostat) 0.4 mg SL Q5MIN PRN PRN Reason: Chest Pain Nitroglycerin (Nitro-Bid 2% Ointment) 0.5 inch TOP Q8HR [facility] Last Admin: 05/15/17 05:43 Dose: Not Given Ondansetron HCl (Zofran Odt) 4 mg PO Q6H PRN PRN Reason: Nausea/Vomiting Ondansetron HCl (Zofran) 4 mg IVP Q6H PRN PRN Reason: Nausea/Vomiting Oxycodone HCl (Oxycontin) 20 mg PO 0600,1800 [facility] Last Admin: 05/15/17 05:40 Dose: 20 mg Elviteg/Cob/Emtri/Tenof Alafen [ Genvoya Tablet] 1 Each 1 each PO 1700 [facility] Last Admin: 05/14/17 11:50 Dose: 1 each Perphenazine (Trilafon) 4 mg PO TID [facility] Last Admin: 05/14/17 20:39 Dose: 4 mg Phenol (Chloraseptic [place] 180 Ml Bot) 0 ml PO PRN PRN PRN Reason: Sore Throat Pregabalin (Lyrica) 100 mg PO BID [facility] Last Admin: 05/15/17 08:12 Dose: 100 mg Senna (Senokot) 2 tab PO HSPRN PRN PRN Reason: Constipation Sodium Chloride ([place] Nasal [place] 0.65%) 0 ml EA NARE QIDPRN PRN PRN Reason: Nasal Congestion Zolpidem Tartrate (Ambien) 5 mg PO HSPRN PRN PRN Reason: Insomnia
--- NOTE | 2017-05-15 10:28 | DIS ---
DATE OF ADMISSION: 05/13/2017 DATE OF DISCHARGE: 05/15/2017 PRIMARY CARE PHYSICIAN: Dr. Coni Crooks. DISCHARGE DISPOSITION: Home. PRIMARY DISCHARGE DIAGNOSES: 1. Atypical pneumonia. 2. Chest pain, ruled out acute coronary syndrome. 3. Hyperglycemia due to diabetes type 2, due to noncompliance. 4. Pseudohyponatremia. 5. Hypertriglyceridemia. SECONDARY DISCHARGE DIAGNOSES: Noncompliance with medication, morbid obesity with BMI 53, hypertensi on, human immunodeficiency virus, dyslipidemia, anxiety and depression, tobacco abuse disorder. PRIMARY PROCEDURE/OPERATION: None. RADIOLOGICAL INVESTIGATION: Chest x-ray was showing no acute process, but we suspected interstitial infiltration. Stress test showed large area of infarct in the inferior septum and inferior wall and inferolateral wall, but no evidence of reversible ischemia. SIGNIFICANT LABORATORY DATA: WBC 8.3, hemoglobin 14.1, platelet 297. D-dimer less than 0.27. Sodiu m 137, potassium 4.6, BUN 15, creatinine 0.85, triglyceride 506, cholesterol 251, HDL 37. LFTs juani l. Cardiac enzymes negative. Urinalysis: Glucosuria. Serum ketones normal. Blood culture negativ e. Urine culture negative. DISCHARGE MEDICATIONS: ProAir HFA 2 puffs q.4 hourly p.r.n., aspirin 81 mg p.o. daily, Tessalon 100 mg q.4 hourly p.r.n., Coreg 3.125 mg p.o. b.i.d., clonazepam 0.5 mg p.o. b.i.d., Flexeril 5 mg p.o. t .i.d. p.r.n., Genvoya 1 tablet p.o. at bedtime, Prozac 20 mg p.o. b.i.d., Mucinex 600 mg twice daily for 7 days, Humalog insulin as per sliding scale, [place] 10 one or two tablets q.i.d. p.r.n., Lantus i nsulin 75 units subcu b.i.d., lamotrigine 100 mg p.o. b.i.d., Levaquin 500 mg p.o. daily for 7 days, Remeron 15 mg p.o. daily, Zofran 4 mg q.4 hourly p.r.n., OxyContin 20 mg p.o. twice daily, perphenazi ne 4 mg p.o. t.i.d., Lyrica 100 mg p.o. b.i.d., Ambien 12.5 mg p.o. at bedtime. CONTRAINDICATIONS: None. CODE STATUS: FULL CODE. INPATIENT CONSULTANTS: None. ALLERGIES: LATEX, SEROQUEL, and GEODON. DISCHARGE PLAN: Post hospital, the patient will follow up with primary care physician in 1 week. HOSPITAL COURSE: A 46-year-old female who was admitted by me. Please see my HPI for further details . She was admitted on 05/13/2017. She was having mainly chest pain. She was having cough and she w as not taking her medication. She was found with hyperglycemia. She had a chest x-ray, which showed interstitial infiltration. Her chest pain description was atypical. During this admission, we yessi mare her as if atypical pneumonia given her cough, shortness of breath, and chest pain. Regarding teresa st pain and her history of coronary artery disease, we did a stress test, which was negative for any reversible ischemia. Her hyperglycemia was controlled with her home dose of insulin therapy. While in hospital, I provided counseling to avoid smoking, and we provided healthy lifestyle measure education. Her triglyceride was very high and that is why we started TriCor as well. The patient is seen and examined at bedside today. Upon discharge, we are prescribing Levaquin thera py. While in hospital, we treated her with Rocephin and azithromycin, and rest of medications will b e continued as per previous. The patient is seen and examined at bedside today. All review of systems reviewed with her and boyd mendosa. PHYSICAL EXAMINATION: VITAL SIGNS: Currently, temperature 98.3, pulse 82, respiratory rate 18, saturation 98%, blood press ure 130/72, weight 322 pounds. GENERAL: The patient is currently alert, awake, in no acute distress. HEAD: Normocephalic, atraumatic. EYES: Pupils round and reactive to light. Extraocular muscles intact. ENT: Oropharynx within normal limits. Moist mucous membranes. No oral lesions. No pharyngeal eryt sebastián, no exudate. NEUROLOGIC: Nonfocal examination. All new medication prescription given to her and patient is medically stable for discharge today.
== END 2017-05-15 13:32 | disposition home or self-care (01) | DRG 194 ==
LOC: ERS 05:35 → 2SE 09:36
PROVIDERS: ADMIT Internal Medicine; ATTEND Internal Medicine
DX: J18.9 Pneumonia, unspecified organism (principal); E87.1 Hypo-osmolality and hyponatremia; E11.65 Type 2 diabetes mellitus with hyperglycemia; Z68.43 Body mass index [BMI] 50.0-59.9, adult; E78.1 Pure hyperglyceridemia; E66.01 Morbid (severe) obesity due to excess calories; F41.9 Anxiety disorder, unspecified; F32.9 Major depressive disorder, single episode, unspecified; Z21 Asymptomatic human immunodeficiency virus [HIV] infection status; F17.210 Nicotine dependence, cigarettes, uncomplicated; I25.10 Atherosclerotic heart disease of native coronary artery without angina pectoris; K21.9 Gastro-esophageal reflux disease without esophagitis; I10 Essential (primary) hypertension; G89.29 Other chronic pain; M54.5 Low back pain; Z91.14 Patient's other noncompliance with medication regimen; Z88.8 Allergy status to other drugs, medicaments and biological substances; Z91.040 Latex allergy status; Z79.4 Long term (current) use of insulin; Z79.82 Long term (current) use of aspirin; Z79.899 Other long term (current) drug therapy; Z95.1 Presence of aortocoronary bypass graft
CPT/HCPCS: 36415; 36416; 71046; 78452; 80048; 80053; 80061; 81003; 82010; 82330; 82553; 82803; 83690; 83735; 84100; 84484; 85025; 85379; 87040; 87086; 93005; 93017; 93306; 96365; 96367; 96375; 99406; A9500; J0456; J0696; J1650; J1815; J2785; J7050; Q0175

== ENCOUNTER 2017-07-21 15:14 | Outpatient (CLI) | payer MEDICARE, MEDICAID ==
--- NOTE | 2017-07-21 17:00 | CT ---
HISTORY: Thyroid nodule status post thyroid cancer. Contrast enhanced CT images of the soft tissue neck is performed. Sternotomy wires seen. There is abnormal enlargement of the pulmonary outflow tract. Surgical jolie seen in the thyroid bed. No significant evidence of residual thyroid gland is seen. By history, the patient has had previous thyroid ultrasound. I do not have access to outside thyroid imaging. There is some minimal left distal common carotid calcifications seen. IMPRESSION: Postsurgical changes in the thyroid bed with no definite significant evidence of residual thyroid tis alex remaining. POS: [facility]
== END 2017-07-21 15:15 | disposition home or self-care (01) ==
LOC: CT 15:14
PROVIDERS: ATTEND Otolaryngology Plastic Surgery within the Head & Neck
DX: E04.1 Nontoxic single thyroid nodule (principal); Z98.890 Other specified postprocedural states
CPT/HCPCS: 70491

== ENCOUNTER 2017-08-16 20:52 | Emergency (ER) | payer MEDICARE, MEDICAID ==
--- NOTE | 2017-08-16 21:41 | RAD ---
FOUR VIEWS OF THE RIGHT KNEE 08/16/17 INDICATION: History of fall with right knee pain. FINDINGS: There is moderate degenerative arthrosis of the right knee. No acute fracture or subluxation is evide nt. There are surgical clips within the soft tissues anteromedial to the right proximal tibia likely related to saphenous vein harvesting. IMPRESSION: No acute osseous abnormality. POS: [facility]
--- NOTE | 2017-08-16 21:42 | RAD ---
THREE VIEWS OF THE LEFT ANKLE: 08/16/17 INDICATION: Fall with ankle pain. FINDINGS: No acute fracture or subluxation is evident. The visualized hindfoot appears within normal limits. IMPRESSION: No acute osseous abnormality. POS: [facility]
[2017-08-16] MEDS ORDERED: Ketorolac Tromethamine 60 MG/2 ML VIAL ONE (22:37)
== END 2017-08-16 23:49 | disposition home or self-care (01) ==
LOC: ERS 20:52
DX: M25.561 Pain in right knee (principal); M25.572 Pain in left ankle and joints of left foot; G89.29 Other chronic pain; M54.9 Dorsalgia, unspecified; M54.2 Cervicalgia; E11.9 Type 2 diabetes mellitus without complications; E78.5 Hyperlipidemia, unspecified; I10 Essential (primary) hypertension; F41.9 Anxiety disorder, unspecified; F31.9 Bipolar disorder, unspecified; F17.210 Nicotine dependence, cigarettes, uncomplicated; Z71.6 Tobacco abuse counseling; Z79.4 Long term (current) use of insulin; Z79.899 Other long term (current) drug therapy; Z21 Asymptomatic human immunodeficiency virus [HIV] infection status; F20.9 Schizophrenia, unspecified; W18.30XA Fall on same level, unspecified, initial encounter
CPT/HCPCS: 96372; 99406; J1885

== ENCOUNTER 2017-11-25 13:49 | Inpatient (IN) | payer MEDICARE, MEDICAID ==
[2017-11-25 14:31] LABS: Bilirubin Negative (Negative); Blood, Urine Negative (Negative); Clarity CLEAR (Clear); Glucose, Urine (Dipstick) >=1000 mg/dL (Negative); Leukocyte Negative (Negative); Nitrite Negative (Negative); Protein, Urine (Dipstick) Negative (Neg-Trace); Specific Gravity, Urine 1.029 (1.002-1.036); Urobilinogen 0.2 mg/dL (0.2-1.0)
[2017-11-25 14:38] LABS: #Eosinphils 0.1 thou/uL (0.0-0.7); #Lymphocytes 2.2 thou/uL (1.20-3.40); #Monocytes 0.5 thou/uL (0.11-0.59); #Neutrophils 7.8 thou/uL (1.40-6.50); %Basophils 0.4 % (0.0-1.0); %Eosinophils 0.5 % (0.0-10.0); %Lymphocytes 20.8 % (21.0-51.0); %Monocytes 5.1 % (0.0-10.0); %Neutrophils 73.3 % (42.0-75.0); Hemoglobin 15.1 g/dL (12.0-16.0); Mean Corpuscular HGB CONC 32.9 g/dL (32.0-36.0); Mean Corpuscular Hemoglobin 30.1 pg (27.0-31.0); Mean Corpuscular Volume 91.5 fL (78.0-98.0); Mean Platelet Volume 9.4 fL (7.4-10.4); Platelet Count 229 thou/uL (130-400); RBC Distribution Width 16.5 % (11.5-14.5); Red Blood Cell (RBC) Count 5.01 mill/uL (4.20-5.40); White Blood Cell (WBC) Count 10.7 thou/uL (4.8-10.8)
--- NOTE | 2017-11-25 14:51 | RAD ---
CHEST TWO VIEWS: History: Shortness of breath. Comparison: 05-25-17 FINDINGS: Heart size is enlarged. Mild pulmonary venous congestion. No pneumothorax or effusion. IMPRESSION: Cardiomegaly. Mild edema. POS: [facility]
[2017-11-25 15:02] LABS: ALT (SGPT) 7 U/L (8-55); AST (SGOT) 7 U/L (5-34); Albumin 3.5 g/dL (3.5-5.0); Alkaline Phosphatase 98 U/L (40-150); Anion Gap 18 mmol/L (10-20); BUN (Urea Nitrogen) 13 mg/dL (7.0-18.7); Bilirubin, Total 0.2 mg/dL (0.2-1.2); Calc. Creatinine Clearance 0 mL/min (70-130); Carbon Dioxide 21 mmol/L (22-29); Chloride 95 mmol/L (98-107); Estimated GFR-MDRD 52; Globulin 2.9 g/dL (2.4-3.5); Protein, Total 6.4 g/dL (6.0-8.3); Sodium 130 mmol/L (136-145)
[2017-11-25 15:19] LABS: Glucose 734 mg/dL (70-105)
[2017-11-25] MEDS ORDERED: Acetaminophen 500 MG TAB ONE (15:47)
[2017-11-25] MEDS ORDERED: Insulin Regular 300 UNITS/3 ML VIAL ONE (16:35)
[2017-11-25 19:34] LABS: Lactic Acid 2.2 mmol/L (0.5-2.2)
[2017-11-25] MEDS ORDERED: Ondansetron HCl/PF 4 MG/2 ML Vial IVP PRN ×2 (21:25→21:57)
[2017-11-25] MEDS ORDERED: Ondansetron ODT 4 MG TAB SL PRN (21:25)
[2017-11-25] MEDS ORDERED: Sodium Chloride 0.9% 1,000 ML IV SCH ×2 (21:25→22:00)
[2017-11-25] MEDS ORDERED: Mag-Al 1200 mg/1200 mg/30 ML UDCUP PO PRN (21:57)
[2017-11-25] MEDS ORDERED: Senokot 8.6 MG TAB PO PRN (21:57)
[2017-11-25] MEDS ORDERED: Calcium Carbonate 500 MG ChewTAB PO PRN (21:57)
[2017-11-25] MEDS ORDERED: Acetaminophen 325 MG TAB PO PRN (21:57)
[2017-11-25] MEDS ORDERED: Bisacodyl 5 MG TAB PO PRN (21:57)
[2017-11-25 21:58] VITALS: BMI 54.1
[2017-11-25] MEDS ORDERED: hydrALAZINE 20 MG/ML VIAL SLOW IVP PRN (22:02)
[2017-11-25] MEDS ORDERED: Dextrose 50% Abboject 50 ML SYRINGE SLOW IVP PRN (22:02)
[2017-11-25] MEDS ORDERED: Dextrose 5% in Water 1,000 ML IV PRN (22:02)
[2017-11-25] MEDS ORDERED: cloNIDine 0.1 MG TAB PO PRN (22:02)
[2017-11-25] MEDS ORDERED: PROVENTIL INHALER 6.7 G (200 INHALATIONS) INH PRN (22:05)
[2017-11-25] MEDS ORDERED: Cyclobenzaprine 10 MG TAB PO PRN (22:05)
[2017-11-25] MEDS ORDERED: Carvedilol 3.125 MG TAB PO SCH (22:45)
[2017-11-25] MEDS ORDERED: Pregabalin 50 MG CAP PO SCH (22:45)
[2017-11-25] MEDS ORDERED: Famotidine 20 MG TAB PO SCH (22:45)
[2017-11-25] MEDS ORDERED: HYDROcodone/Acetaminophen 10/325 mg Tablet PO SCH (22:45)
[2017-11-25] MEDS ORDERED: FLUoxetine HCl 20 MG CAP PO SCH (22:45)
[2017-11-25] MEDS ORDERED: clonazePAM 0.5 MG TAB PO SCH (22:45)
[2017-11-25] MEDS ORDERED: oxyCODONE ER 10 MG TAB PO SCH (22:45)
[2017-11-25] MEDS: HumaLOG 300 UNITS/3 ML VIAL SC PRN (23:08)
[2017-11-26 00:25] LABS: CKMB 0.9 ng/mL (0-6.6); Troponin I Less than 0.010 ng/mL (< 0.028)
--- NOTE | 2017-11-26 00:32 | HP ---
PRIMARY CARE PHYSICIAN: Coni Crooks MD CHIEF COMPLAINT: Shortness of breath and generalized weakness. HISTORY OF PRESENT ILLNESS: Ms. Obrien is a 47-year-old female with past medical history of HIV, cur rently under care with Dr. Sellers who is well controlled as well as diabetes; hypertension; dyslipidem ia; coronary artery disease, status post CABG in 2014; and history of CVA who presented to the emerge ncy room with above-mentioned complaint. History is mainly obtained by the patient herself. [facility] medical records have been reviewed. She was last admitted to our facility in 05/2017 for pneumon ia. The patient reports that she has been feeling short of breath since yesterday. She denies any chest pain, but had some heaviness yesterday which has since resolved. She denies any lower extremity swel ling. She denies any orthopnea or PND. She denies any recent illnesses. No fever, chills, runny no se, or sore throat. No sick contacts. Upon presentation to the emergency room, she was 96% on room air, but little bit tachycardic with a h eart rate of 114. She was found to have hyperglycemia with blood sugar of 734 and mild acute kidney insufficiency with a creatinine of 1.12 and sodium of 130. Her lactic acid was elevated to 4.8. Uri nalysis showed glucosuria and beta hydroxybutyrate levels were normal. Chest x-ray was negative for any evidence of infection or fluid overload. Dr. Sellers was contacted by the emergency room physician and he wanted the patient to come in for observation and rule out infection. Cultures have been obt ained in the emergency room including blood and urine. The patient almost left AMA from the emergenc y room for not getting adequate pain control. PAST MEDICAL HISTORY: 1. Diabetes mellitus type 2, HIV well controlled, compliant with medication follows with Dr. Sellers. 2. Dyslipidemia. 3. Hypertension. 4. Coronary artery disease, status post CABG x4 vessels in 2014. 5. CVA. 6. Left foot drop. 7. History of thyroid cancer, status post thyroidectomy. The patient follows up with Dr. Carlson at [facility]. She is scheduled to undergo radiation therapy later this year. 8. Bipolar disorder. 9. Schizophrenia, requiring multiple psychiatric admissions. PAST SURGICAL HISTORY: 1. CABG x4. 2. Cholecystectomy. 3. Left knee surgery. 4. section x2. 5. Hysterectomy. 6. Thyroidectomy in 10/2016. SOCIAL HISTORY: Smokes 1 pack of cigarettes per day since she was 13 years of age. She lives at [facility] with a roommate. No history of drug or alcohol abuse. FAMILY HISTORY: Significant for diabetes, hypertension, and coronary artery disease among several [facility] members. ALLERGIES: Include LATEX, QUETIAPINE, AND RISPERIDONE. CURRENT HOME MEDICATIONS: As follows, [place] 2 tabs p.o. q.i.d., TriCor 145 mg daily, fluoxetine 20 m g p.o. b.i.d., Flexeril 5 mg p.o. t.i.d. p.r.n., mirtazapine 15 mg daily, lamotrigine 100 mg daily, G envoya 1 tablet at bedtime, Lantus 90 units b.i.d., Humalog 35 units b.i.d., OxyContin 20 mg every 12 hours, Zofran 4 mg every 4 hours p.r.n., clonazepam 0.5 mg p.o. b.i.d., Ambien 12.5 mg at bedtime, L yrica 100 mg p.o. b.i.d., perphenazine 16 mg p.o. b.i.d., Coreg 3.125 mg p.o. b.i.d., aspirin 81 mg d aily, albuterol inhaler as needed. REVIEW OF SYSTEMS: A 12-point review of systems was done. It is negative except for those mentioned in the history and physical. LABORATORY AD DIAGNOSTIC DATA: CBC is unremarkable. Serum chemistries: Sodium 130, chloride 95, bi carbonate 21, creatinine 1.12, blood sugar 734 with repeat blood sugar of 397. Lactic acid 4.8 with repeat lactic acid of 2.2. Urinalysis positive for glucosuria. Beta hydroxybutyrate 0.14. Chest x- ray by my review has no evidence of pleural effusion, edema or infiltrate. Twelve lead EKG by my rev iew shows sinus tachycardia without any acute ST or T-wave changes. PHYSICAL EXAMINATION: VITAL SIGNS: Most recent vital signs, temperature 98.3, pulse of 88, respirations 20, saturating 93% on room air, blood pressure 161/71. GENERAL: No acute distress, awake, alert, oriented x3. She is able to talk in full sentences withou t any acute respiratory distress, though she reports that she feels short of breath. HEENT: Mucous membrane is moist and pink. No oropharyngeal exudate or erythema. Head is normocepha lic, atraumatic. Pupils are equal, reactive to light and accommodation. Extraocular movement intact . NECK: Supple without any lymphadenopathy, JVD, or bruits. CHEST: Clear to auscultation without any wheezing, rales, or rhonchi. Rate and rhythm is regular wi thout any murmur, rubs, or gallops. ABDOMEN: Morbidly obese, soft, nontender, nondistended, positive bowel sounds. EXTREMITIES: Free of any cyanosis, clubbing, or edema. NEUROLOGIC: Nonfocal. PSYCHIATRIC: Normal affect. SKIN: Free of any rashes or bruises. Feel warm and dry to touch. IMPRESSION AND PLAN: 1. Shortness of breath, no clear evidence of hypoxia at this time. No evidence to suggest infection versus edema. We will check BNP and cardiac enzymes that were not done in the emergency room. I cherry ve reviewed her last echocardiogram done in 05/2017, which showed preserved ejection fraction of 55-6 0% without any significant diastolic dysfunction either. She had a cardiac stress test as well in , which did not have any evidence of ischemia. At this time, she will be treated symptomaticall y. We will add DuoNeb as needed and stop the IV fluids that has been started in the emergency room. 2. Lactic acidosis likely secondary to dehydration, it has been normalized. Stop the fluids now to prevent any pulmonary edema. Follow the results of the blood culture. No indication for antibiotics at this time. 3. Hyperglycemia. The patient seems to be uncontrolled diabetic. Continue her home medication and add insulin sliding aggressive scale for now. Blood sugar is much better for now. 4. Acute kidney insufficiency. Recheck labs in the morning. Avoid any more fluid versus resuscitat ion at this point. Avoid any nephrotoxic medications. 5. Morbid obesity, body mass index of 54. 6. History of coronary artery disease. Resume her home medications as dictated above. 7. History of bipolar disorder and schizophrenia. Resume home medications as above. 8. Hypertension, currently uncontrolled. We will restart her Coreg and add p.r.n. antihypertensives . 9. Code status: FULL CODE. Discussed with the patient. 10. Human immunodeficiency virus. We will consult Infectious Disease, Dr. Sellers in the morning. Gi samia her presentation with lactic acidosis and question of some infection. Reportedly, her viral load was undetectable and her CD4 count was "good." We will restart her Genvoya for now. 11. Deep venous thrombosis and gastrointestinal prophylaxis and ambulate patient frequently with the walking program. DISPOSITION: Ms. Obrien is currently being admitted to the hospital for possible infection and hypog lycemia and acute renal insufficiency. Estimated length of stay is at least 2-3 midnight. Further m anagement will depend upon her clinical course.
[2017-11-26] MEDS: Nystatin Powder 15 GM BOT TOP PRN ×2 (00:45→12:02)
[2017-11-26 05:29] LABS: #Eosinphils 0.2 thou/uL (0.0-0.7); #Lymphocytes 1.8 thou/uL (1.20-3.40); #Monocytes 0.5 thou/uL (0.11-0.59); #Neutrophils 5.3 thou/uL (1.40-6.50); %Basophils 0.5 % (0.0-1.0); %Lymphocytes 23.4 % (21.0-51.0); %Monocytes 5.9 % (0.0-10.0); %Neutrophils 68.2 % (42.0-75.0); Hemoglobin 13.9 g/dL (12.0-16.0); Mean Corpuscular HGB CONC 32.4 g/dL (32.0-36.0); Mean Corpuscular Hemoglobin 29.2 pg (27.0-31.0); Mean Corpuscular Volume 90.2 fL (78.0-98.0); Platelet Count 193 thou/uL (130-400); RBC Distribution Width 16.5 % (11.5-14.5); Red Blood Cell (RBC) Count 4.75 mill/uL (4.20-5.40); White Blood Cell (WBC) Count 7.8 thou/uL (4.8-10.8)
[2017-11-26 05:35] LABS: Anion Gap 13 mmol/L (10-20); BUN (Urea Nitrogen) 11 mg/dL (7.0-18.7); Calc. Creatinine Clearance 222 mL/min (70-130); Calcium 8.3 mg/dL (7.8-10.44); Carbon Dioxide 25 mmol/L (22-29); Chloride 102 mmol/L (98-107); Estimated GFR-MDRD 85; Glucose 406 mg/dL (70-105); Potassium 4.5 mmol/L (3.5-5.1); Sodium 135 mmol/L (136-145)
[2017-11-26] MEDS: HumaLOG 300 UNITS/3 ML VIAL SC PRN ×3 (06:07→16:55)
[2017-11-26] MEDS: Fenofibrate Nanocrystallized 145 MG TAB PO SCH (08:51)
[2017-11-26] MEDS: FLUoxetine HCl 20 MG CAP PO SCH ×2 (08:51→21:05)
[2017-11-26] MEDS: Famotidine 20 MG TAB PO SCH ×2 (08:52→21:06)
[2017-11-26] MEDS: Mirtazapine 15 MG TAB PO SCH (08:52)
[2017-11-26] MEDS: lamoTRIgine 100 MG TAB PO SCH (08:52)
[2017-11-26] MEDS: Carvedilol 3.125 MG TAB PO SCH ×2 (08:54→21:06)
[2017-11-26] MEDS: Enoxaparin Sodium 40 MG/0.4 ML SYRINGE SC SCH (08:55)
[2017-11-26] MEDS: clonazePAM 0.5 MG TAB PO SCH ×2 (08:55→21:04)
[2017-11-26] MEDS: HumaLOG 300 UNITS/3 ML VIAL SC SCH ×2 (08:57→21:10)
[2017-11-26] MEDS ORDERED: Non-Formulary Item 1 EACH (Insulin Glargine,Hum.Rec.Anlog [Lantus Solostar] 90 UNIT) SQ SCH (09:00)
[2017-11-26] MEDS: HYDROcodone/Acetaminophen 10/325 mg Tablet PO SCH ×3 (09:01→16:56)
[2017-11-26] MEDS: Pregabalin 50 MG CAP PO SCH ×2 (09:03→21:05)
[2017-11-26] MEDS: oxyCODONE ER 10 MG TAB PO SCH ×2 (09:05→21:05)
[2017-11-26] MEDS: Insulin Glargine 90 UNITS in Pre-Filled Syringe 1 EACH SC SCH ×2 (09:51→21:08)
--- NOTE | 2017-11-26 10:54 | PDOC.PN ---
- Subjective Encounter Start Date: 11/26/17 Encounter Start Time: 10:52 Feeling much better today. Breathing better, but still feels out of breath when she tries to go outside and smoke. Requested a nicotine patch. She reports she has been taking Clindamycin for the ulcer/infection of the left great toe. This was left over from a previous infection. - Objective Vital Signs & Weight: Vital Signs (12 hours) Temp Pulse Resp BP Pulse Ox 11/26/17 09:10 98.7 F 71 18 92 L 11/26/17 07:26 98.7 F 71 18 161/81 H 92 L 11/26/17 04:00 98.8 F 73 22 H 148/79 H 93 L 11/26/17 00:00 98.7 F 83 22 H 147/72 H 95 Weight Weight 325 lb I&O: 11/25/17 11/26/17 11/27/17 06:59 06:59 06:59 Intake Total 700 Balance 700 Result Diagrams: 11/26/17 04:09 11/26/17 04:09 Additional Labs: Accuchecks 11/26/17 11/25/17 05:39 21:48 POC Glucose 357 H 397 H Phys Exam - Physical Examination Constitutional: NAD Morbidly obese. Neck: no JVD, supple Respiratory: no rales, no rhonchi Modest scatted wheezes. Diminished BS througout. Cardiovascular: RRR, no significant murmur Gastrointestinal: soft, non-tender, no distention, positive bowel sounds Musculoskeletal: no edema No touch sensation in the feet. Deviation from normal: Ulceration of the base of the left great toe. Halo of erythema. Dx/Plan (1) Dyspnea Code(s): R06.00 - DYSPNEA, UNSPECIFIED Status: Acute (2) Diabetes Code(s): E11.9 - TYPE 2 DIABETES MELLITUS WITHOUT COMPLICATIONS Status: Acute (3) Diabetic ulcer of foot associated with diabetes mellitus due to underlying condition, limited to breakdown of skin Code(s): E08.621 - DIABETES MELLITUS DUE TO UNDERLYING CONDITION W FOOT ULCER; L97.501 - NON-PRS CHR ULCER OTH PRT UNSP FOOT LIMITED TO BRKDWN SKIN Status: Acute (4) Hyperglycemia due to type 2 diabetes mellitus Code(s): E11.65 - TYPE 2 DIABETES MELLITUS WITH HYPERGLYCEMIA Status: Acute (5) Dyslipidemia Code(s): E78.5 - HYPERLIPIDEMIA, UNSPECIFIED Status: Chronic Comment: Continue with home meds. (6) HIV (human immunodeficiency virus infection) Status: Chronic (7) Hypertension Code(s): I10 - ESSENTIAL (PRIMARY) HYPERTENSION Status: Chronic Comment: Home meds. (8) Morbid obesity with BMI of 50.0-59.9, adult Code(s): E66.01 - MORBID (SEVERE) OBESITY DUE TO EXCESS CALORIES; Z68.43 - BODY MASS INDEX (BMI) 50-59.9 , ADULT Status: Chronic - Plan * Wound care in now to eval the wound on the left great toe. * Will cover with abx for now. * Await cultures. * Nebs as needed * Nicotine patch. * Change to carb consistent diet as she is not remotely close to adhering to a diabetic diet now.
[2017-11-26] MEDS: Nicotine 21 MG PATCH TD SCH (12:00)
[2017-11-26] MEDS: GENVOYA PO SCH (16:56)
--- NOTE | 2017-11-26 23:58 | CON ---
DATE OF CONSULTATION: 11/26/2017 REASON FOR CONSULTATION: Hyperglycemia with hyperosmolar syndrome and elevated lactic acid and respiratory symptoms. HISTORY OF PRESENT ILLNESS: This is a 47-year-old with longstanding HIV infection with adequate control with antiretroviral therapy, good compliance, suppressed viral load and CD4 in the mid 600 range when last checked, just a few months ago, who presents with dyspnea, weakness, and cough. The O2 sats were 93%. Initial temperature was 98.3. She was oriented. White cell count was 10.7, hemoglobin 15. Sodium 135, creatinine 0.73. Initial glucose was 734 and the lactic acid 4.8. Two sets of blood cultures thus far negative. Urine culture pending. Initial urinalysis was normal. Radiology studies included a chest x-ray with cardiomegaly and pulmonary venous congestion. Currently, she is feeling better. She denies headaches. Still coughing intermittently, but breathing better, some wheezing, kind of dark sputum production, no abdominal pain, no dysuria, no diarrhea, no constipation, no bleeding, no joint symptoms. PAST MEDICAL HISTORY: Longstanding HIV infection with adequate adherence to antiretroviral therapy, type 2 diabetes, chronic smoking, probably an element of COPD, bipolar disorder, schizophrenia, dyslipidemia, hypertension, coronary artery disease, bypass graft surgery. PAST SURGICAL HISTORY: Includes also , hysterectomy. SOCIAL HISTORY: Current smoker, lives at home with a roommate and daughter. No drug use. FAMILY HISTORY: Diabetes and high blood pressure. ALLERGIES: LATEX, QUETIAPINE, RISPERIDONE. CURRENT MEDICATIONS: Tylenol, [place], Maalox, Proventil, DuoNeb, aspirin, Dulcolax, Tums, Coreg, Klonopin, Catapres, Flexeril, Lovenox, Pepcid, TriCor, Prozac, hydralazine, insulin, lamotrigine, mirtazapine, Nystatin, Zofran, OxyContin, Genvoya, pregabalin, Senokot. PHYSICAL EXAMINATION: VITAL SIGNS: The patient has been afebrile, BP 130/80, pulse 88, respirations 16, O2 sat 91%-93%. SKIN EXAM: Shows the ulcer in the medial aspect of the left great toe. This area scab has been debrided by Wound Care and now has a healthy-appearing base. No lymphadenopathy. HEENT: Ocular movements conjugate. Oral cavity moist. Numerous teeth in place with some decay. NECK: Supple, no jugular vein distention. LUNGS: With symmetric air entry, faint expiratory wheezing. HEART: S1 and S2, regular rate. No S3 or S4. ABDOMEN: Soft, not distended, no ascites. EXTREMITIES: No joint inflammatory activity. Moves extremities equally. Pulses 1+ in dorsalis pedis. NEUROLOGIC: Cognitive function appears to be intact. LABORATORY DATA: The latest labs with white cell count 7.8, hemoglobin 13, creatinine 0.73, sodium 135, repeat lactic acid 2.2. ASSESSMENT: Longstanding human immunodeficiency virus infection; coronary artery disease; psychiatric illness, on multiple psychotropic medications; admitted with diffuse weakness, hyperglycemia, and elevated lactate. DISCUSSION: Differential diagnosis includes type B hyperlactatemia associated with hyperglycemia, possible drug use that was not reported; for example, cocaine can be associated with type B hyperlactatemia. She did have some decrease in CO2 on admission to 21 and has since recovered. The other possibility that she was transiently bacteremic from possibly, for example, the foot ulcer, which then caused a transient decrease in blood pressure and hypoperfusion, but this appears to be less likely. She takes a number of medications plus antiretroviral medication and maybe that interacted to lead to type B hyperlactatemia. From practical standpoint, we would continue with the current measures. I do not think she has been given any antimicrobial therapy. If she has remained stable, then discharge planning as long as her blood cultures remain negative. GAL
[2017-11-27] MEDS: HYDROcodone/Acetaminophen 10/325 mg Tablet PO SCH ×5 (00:11→22:26)
[2017-11-27] MEDS: HumaLOG 300 UNITS/3 ML VIAL SC PRN ×4 (05:37→21:15)
[2017-11-27] MEDS: Carvedilol 3.125 MG TAB PO SCH ×2 (08:28→21:10)
[2017-11-27] MEDS: FLUoxetine HCl 20 MG CAP PO SCH ×2 (08:28→21:07)
[2017-11-27] MEDS: lamoTRIgine 100 MG TAB PO SCH (08:28)
[2017-11-27] MEDS: Fenofibrate Nanocrystallized 145 MG TAB PO SCH (08:28)
[2017-11-27] MEDS: Famotidine 20 MG TAB PO SCH ×2 (08:28→21:10)
[2017-11-27] MEDS: Mirtazapine 15 MG TAB PO SCH (08:28)
[2017-11-27] MEDS: clonazePAM 0.5 MG TAB PO SCH ×2 (08:29→21:07)
[2017-11-27] MEDS: Pregabalin 50 MG CAP PO SCH ×2 (08:29→21:07)
[2017-11-27] MEDS: oxyCODONE ER 10 MG TAB PO SCH ×2 (08:30→21:08)
[2017-11-27] MEDS: HumaLOG 300 UNITS/3 ML VIAL SC SCH ×2 (08:39→21:13)
[2017-11-27] MEDS: Enoxaparin Sodium 40 MG/0.4 ML SYRINGE SC SCH (08:40)
[2017-11-27] MEDS: Insulin Glargine 90 UNITS in Pre-Filled Syringe 1 EACH SC SCH ×2 (10:00→21:12)
--- NOTE | 2017-11-27 10:53 | PDOC.PN ---
- Subjective Encounter Start Date: 11/27/17 Encounter Start Time: 10:52 No complaints today. Daughter wheeling her downstairs. - Objective Vital Signs & Weight: Vital Signs (12 hours) Temp Pulse Resp BP Pulse Ox 11/27/17 08:00 98.2 F 89 18 142/84 H 98 Weight Admit Weight 325 lb Weight 325 lb I&O: 11/26/17 11/27/17 11/28/17 06:59 06:59 06:59 Intake Total 700 1310 Balance 700 1310 Result Diagrams: 11/26/17 04:09 11/26/17 04:09 Additional Labs: Accuchecks 11/27/17 11/26/17 11/26/17 04:08 19:07 16:39 POC Glucose 188 H 292 H 359 H 11/26/17 11:01 POC Glucose 219 H Phys Exam - Physical Examination Constitutional: NAD Morbidly obese Respiratory: no wheezing, no rales, no rhonchi, clear to auscultation bilateral Cardiovascular: RRR, no significant murmur, no rub Gastrointestinal: soft, non-tender, no distention, positive bowel sounds Musculoskeletal: no edema Wound dressed Psychiatric: normal affect Dx/Plan (1) Dyspnea Code(s): R06.00 - DYSPNEA, UNSPECIFIED Status: Resolved (2) Diabetes Code(s): E11.9 - TYPE 2 DIABETES MELLITUS WITHOUT COMPLICATIONS Status: Acute Comment: Poor control. Patient has not been terribly compliant with diet. Continue with ISS. (3) Diabetic ulcer of foot associated with diabetes mellitus due to underlying condition, limited to breakdown of skin Code(s): E08.621 - DIABETES MELLITUS DUE TO UNDERLYING CONDITION W FOOT ULCER; L97.501 - NON-PRS CHR ULCER OTH PRT UNSP FOOT LIMITED TO BRKDWN SKIN Status: Acute Comment: Wound Care eval'd patient again. Will need outpatient follow up. (4) Hyperglycemia due to type 2 diabetes mellitus Code(s): E11.65 - TYPE 2 DIABETES MELLITUS WITH HYPERGLYCEMIA Status: Acute (5) Dyslipidemia Code(s): E78.5 - HYPERLIPIDEMIA, UNSPECIFIED Status: Chronic Comment: Continue with home meds. (6) HIV (human immunodeficiency virus infection) Status: Chronic (7) Hypertension Code(s): I10 - ESSENTIAL (PRIMARY) HYPERTENSION Status: Chronic Comment: Home meds. (8) Morbid obesity with BMI of 50.0-59.9, adult Code(s): E66.01 - MORBID (SEVERE) OBESITY DUE TO EXCESS CALORIES; Z68.43 - BODY MASS INDEX (BMI) 50-59.9 , ADULT Status: Chronic - Plan * Appreciate the ID consult. She is afeb with no leukocytosis. Will watch until the blood cultures are negative in the morning and then discharge for outpatient follow up.
[2017-11-27] MEDS: Nicotine 21 MG PATCH TD SCH (11:56)
[2017-11-27] MEDS: GENVOYA PO SCH (17:01)
[2017-11-28] MEDS: HumaLOG 300 UNITS/3 ML VIAL SC PRN ×2 (05:15→12:01)
[2017-11-28] MEDS: Nystatin Powder 15 GM BOT TOP PRN (05:21)
[2017-11-28] MEDS: oxyCODONE ER 10 MG TAB PO SCH (08:16)
[2017-11-28] MEDS: Insulin Glargine 90 UNITS in Pre-Filled Syringe 1 EACH SC SCH (08:17)
[2017-11-28] MEDS: Carvedilol 3.125 MG TAB PO SCH (08:18)
[2017-11-28] MEDS: Pregabalin 50 MG CAP PO SCH (08:18)
[2017-11-28] MEDS: Famotidine 20 MG TAB PO SCH (08:19)
[2017-11-28] MEDS: Mirtazapine 15 MG TAB PO SCH (08:19)
[2017-11-28] MEDS: Fenofibrate Nanocrystallized 145 MG TAB PO SCH (08:19)
[2017-11-28] MEDS: FLUoxetine HCl 20 MG CAP PO SCH (08:19)
[2017-11-28] MEDS: clonazePAM 0.5 MG TAB PO SCH (08:19)
[2017-11-28] MEDS: HYDROcodone/Acetaminophen 10/325 mg Tablet PO SCH ×3 (08:19→16:04)
[2017-11-28] MEDS: lamoTRIgine 100 MG TAB PO SCH (08:19)
[2017-11-28] MEDS: Enoxaparin Sodium 40 MG/0.4 ML SYRINGE SC SCH (08:20)
[2017-11-28] MEDS: HumaLOG 300 UNITS/3 ML VIAL SC SCH (08:21)
[2017-11-28] MEDS: Nicotine 21 MG PATCH TD SCH (10:22)
--- NOTE | 2017-11-28 14:13 | PQF ---
DATE: 11-28-17 ATTN: DR. OCTAVIA LINDQUIST Please exercise your independent, professional judgment in responding to the clarification form. Clinical indicators are provided on the bottom of this form for your review Please check appropriate box(s): [ x] Acute Renal Failure (ARF) / Acute Kidney Injury (PEACE) [ ] Acute on Chronic Renal Failure please specify Stage of CKD (see below) [ ] CKD without ARF/PEACE please specify Stage of CKD [ ] Other diagnosis [ ] Unable to determine In addition, please specify: Present on Admission (POA): [ x] Yes [ ] No [ ] Unable to determine National Kidney Foundation Guidelines for CKD Staging Stage I Kidney damage with normal or increased GFR GFR > 90 Stage II Kidney damage with mildly decreased GFR GFR 60-89 Stage III Kidney damage with moderately decreased GFR GFR 30-59 Stage IV Kidney damage with severely decreased GFR GFR 16- 29 Stage V Kidney failure GFR<15 ESRD End Stage Renal Disease On dialysis Acute Renal Failure/Acute Kidney Failure defined as: Increases in SCr by (>) 0.3 mg/dl within 48 hours OR- Increases in SCr by (>) 1.5 times baseline, known or presumed to have occurred within the prior 7 days OR- Urine volume < 0.5 ml/kg/hour for 6 hours (KDIGO supplement 2012 for RIFLE/MCKENZIE criteria) For continuity of documentation, please document condition throughout progress notes and discharge summary. Thank You. CLINICAL INDICATORS - SIGNS / SYMPTOMS / LABS H&P: MILD ACUTE KIDNEY INSUFFICIENCY WITH A CREATININE OF 1.12, GENERALIZED WEAKNESS H&P: ACUTE KIDNEY INSUFFICIENCY. RECHECK LABS IN MORNING. AVOID ANY MORE FLUID VS RESUSCITATION AT THIS POINT. AVOID ANY NEPHROTOXIC MEDICATIONS. GFR: 11-25-17: 52 11-26-17: 85 CREATININE: 11-25-17: 1.12 11-26-17: 0.73 BUN: 11-25-17: 13 11-26-17: 11 RISK FACTORS: H&P: LACTIC ACIDOSIS LIKELY SECONDARY TO DEHYDRATION H&P: HOME MEDS: NARCO, FLEXERIL, ASA, OXYCONTIN, LYRICA TREATMENTS: H&P: ACUTE KIDNEY INSUFFICIENCY. RECHECK LABS IN MORNING. AVOID ANY MORE FLUID VS RESUSCITATION AT THIS POINT. AVOID ANY NEPHROTOXIC MEDICATIONS. This form is maintained as a part of the permanent medical record) 2014 [employer]. All Rights Reserved [email or web address] Office: [phone] [facility]
[2017-11-28] MEDS: GENVOYA PO SCH (16:05)
[2017-11-28 16:44] VITALS: BP 121/77; TEMP 98.6
== END 2017-11-28 16:57 | disposition home or self-care (01) | DRG 682 ==
LOC: ERS 13:49 → EEVIPCON 20:54 → T4-A 20:54
PROVIDERS: ADMIT Family Medicine; ATTEND Family Medicine
DX: N17.9 Acute kidney failure, unspecified (principal); E11.00 Type 2 diabetes mellitus with hyperosmolarity without nonketotic hyperglycemic-hyperosmolar coma (NKHHC); B20 Human immunodeficiency virus [HIV] disease; Z68.43 Body mass index [BMI] 50.0-59.9, adult; E87.2 Acidosis; R06.02 Shortness of breath; E86.0 Dehydration; E11.621 Type 2 diabetes mellitus with foot ulcer; L97.521 Non-pressure chronic ulcer of other part of left foot limited to breakdown of skin; I10 Essential (primary) hypertension; I25.10 Atherosclerotic heart disease of native coronary artery without angina pectoris; N28.9 Disorder of kidney and ureter, unspecified; E66.01 Morbid (severe) obesity due to excess calories; C73 Malignant neoplasm of thyroid gland; E11.65 Type 2 diabetes mellitus with hyperglycemia; F31.9 Bipolar disorder, unspecified; F20.9 Schizophrenia, unspecified; F17.210 Nicotine dependence, cigarettes, uncomplicated; Z86.73 Personal history of transient ischemic attack (TIA), and cerebral infarction without residual deficits; M21.372 Foot drop, left foot; E78.5 Hyperlipidemia, unspecified; J44.9 Chronic obstructive pulmonary disease, unspecified; Z95.1 Presence of aortocoronary bypass graft; Z79.4 Long term (current) use of insulin; Z79.82 Long term (current) use of aspirin; Z79.899 Other long term (current) drug therapy
CPT/HCPCS: 36415; 36416; 71046; 80048; 80053; 81003; 82010; 82553; 83605; 83880; 84484; 85025; 87040; 87077; 87086; 93005; 94760; 96361; 96374; 96375; A4216; J1650; J1815; J2270

== ENCOUNTER 2018-01-26 08:04 | Outpatient (CLI) | payer MEDICARE, MEDICAID ==
[2018-01-26] MEDS ORDERED: Sodium Chloride 0.9% 15 ML NEB ONE (10:14)
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
== END 2018-01-26 08:05 | disposition home or self-care (01) ==
LOC: WCC 08:04
PROVIDERS: ATTEND Family Medicine
DX: E11.621 Type 2 diabetes mellitus with foot ulcer (principal); L97.529 Non-pressure chronic ulcer of other part of left foot with unspecified severity; I10 Essential (primary) hypertension; G43.909 Migraine, unspecified, not intractable, without status migrainosus; I25.10 Atherosclerotic heart disease of native coronary artery without angina pectoris; M21.372 Foot drop, left foot; M54.5 Low back pain; Z86.39 Personal history of other endocrine, nutritional and metabolic disease; Z86.73 Personal history of transient ischemic attack (TIA), and cerebral infarction without residual deficits; Z90.89 Acquired absence of other organs
CPT/HCPCS: 11042; 82962; 97139; G0463; 36416; 99203; A4218

== ENCOUNTER 2018-02-03 13:58 | Outpatient (CLI) | payer MEDICARE, MEDICAID ==
--- NOTE | 2018-02-03 16:09 | MRI ---
NONCONTRAST MRI LUMBAR SPINE: Date: 02/03/18 HISTORY: Low back pain that radiates down into bilateral lower extremities. Lumbar stenosis. History of prior lumbar surgery in 2010. FINDINGS: There are postsurgical changes at the lumbosacral junction with metallic susceptibility artifact rela mare to bipedicular screws and posterior rods transfixing the lumbosacral junction. There are interver tebral cage devices seen within the intervertebral disc space. Conus medullaris terminates at the level of the L1 vertebral body and has a normal appearance. There is normal signal intensity seen throughout the bone marrow. L1-2 Level: There is no disc bulge or disc herniation. Central spinal canal and neural foramina are patent. L2-3 Level: There is no disc bulge or disc herniation. Central spinal canal and neural foramina are patent. L3-4 Level: There is no disc bulge or disc herniation. Central spinal canal and neural foramina are patent. L4-5 Level: There is mild disc osteophyte complex which results in slight flattening of the anterior aspect of th e thecal sac. The neural foramina are patent bilaterally. L5-S1 Level: Postsurgical changes related to posterior fusion are noted as described above. There is posterior ost eophyte formation present. There is heterogeneous material seen centrally within the anterior aspect of the central spinal canal and epidural space which extends posterior to the central aspect of the S 1 vertebral body. While this could be related to calcification or ossification, this is favored to re present extrusion of disc material inferiorly to the level of the lower portion of the S1 vertebral b krys. This results in slight mass effect on the anterior aspect of the thecal sac and there is encroac hment on the traversing S1 nerve roots, but it does not appear to particularly displace or deform the traversing S1 nerve roots. The neural foramina at this level are patent. Mild subcutaneous edema posterior to the lumbar spine which is nonspecific. Paravertebral soft tissue s otherwise within normal limits. Increased T2-weighted signal intensity lesions are seen in the inferior pole left kidney, largest luciano suring approximately 2.8 cm, statistically likely representing small cysts. Low density lesions were seen in this region on prior CT lumbar spine dated 12/01/16. These lesions are favored to represent r enal cysts, but follow-up renal sonogram for confirmation would be helpful. IMPRESSION: 1. Mild degenerative changes at the L4-5 level, but there is no significant narrowing of the neural foramina. 2. Postsurgical changes related to posterior fusion at the lumbosacral junction. There is heterogene ous material seen posterior to the S1 vertebral body which is favored to represent extrusion of disc material inferiorly, which results in only slight mass effect on the anterior aspect of the thecal sa c with encroachment on the traversing bilateral S1 nerve roots without deformity or displacement of t hese nerve roots. 3. Increased T2-weighted signal intensity lesions in the inferior pole left kidney. These lesions ar e favored to represent renal cysts, but follow-up renal sonogram for confirmation would be helpful. POS: [facility]
== END 2018-02-03 13:59 | disposition home or self-care (01) ==
LOC: TBSIIMAG 13:58
PROVIDERS: ATTEND Family Medicine
DX: M48.061 Spinal stenosis, lumbar region without neurogenic claudication (principal); M47.896 Other spondylosis, lumbar region; N28.9 Disorder of kidney and ureter, unspecified; Z98.1 Arthrodesis status
CPT/HCPCS: 72148

== ENCOUNTER 2018-06-09 06:25 | Inpatient (IN) | payer MEDICARE, OTHER ==
[2018-06-09 07:43] LABS: #Eosinphils 0.1 thou/uL (0.0-0.7); #Lymphocytes 1.5 thou/uL (1.20-3.40); #Monocytes 0.6 thou/uL (0.11-0.59); #Neutrophils 7.6 thou/uL (1.40-6.50); %Basophils 0.4 % (0.0-1.0); %Eosinophils 1.2 % (0.0-10.0); %Lymphocytes 14.7 % (21.0-51.0); %Monocytes 6.3 % (0.0-10.0); %Neutrophils 77.4 % (42.0-75.0); Hemoglobin 16.2 g/dL (12.0-16.0); Mean Corpuscular HGB CONC 32.3 g/dL (32.0-36.0); Mean Corpuscular Hemoglobin 29.4 pg (27.0-31.0); Mean Corpuscular Volume 90.8 fL (78.0-98.0); Mean Platelet Volume 10.3 fL (7.4-10.4); Platelet Count 306 thou/uL (130-400); RBC Distribution Width 13.7 % (11.5-14.5); Red Blood Cell (RBC) Count 5.52 mill/uL (4.20-5.40); White Blood Cell (WBC) Count 9.8 thou/uL (4.8-10.8)
[2018-06-09 08:09] LABS: ALT (SGPT) 8 U/L (8-55); AST (SGOT) 8 U/L (5-34); Albumin 3.8 g/dL (3.5-5.0); Alkaline Phosphatase 125 U/L (40-150); Anion Gap 21 mmol/L (10-20); BUN (Urea Nitrogen) 14 mg/dL (7.0-18.7); Bilirubin, Total 0.3 mg/dL (0.2-1.2); Calc. Creatinine Clearance 0 mL/min (70-130); Calcium 9.2 mg/dL (7.8-10.44); Carbon Dioxide 19 mmol/L (22-29); Chloride 91 mmol/L (98-107); Estimated GFR-MDRD 46; Globulin 3.5 g/dL (2.4-3.5); Potassium 4.4 mmol/L (3.5-5.1); Protein, Total 7.3 g/dL (6.0-8.3); Sodium 127 mmol/L (136-145)
[2018-06-09 08:24] LABS: Glucose 845 mg/dL (70-105)
--- NOTE | 2018-06-09 08:30 | RAD ---
2 VIEWS CHEST: Date: 06/09/18 COMPARISON: 11/25/17. HISTORY: Dyspnea. Chest pain on inspiration. FINDINGS: Two views of the chest show a normal sized cardiomediastinal silhouette. The patient is status post C ABG. There is no evidence of consolidation, mass, or pleural effusion. IMPRESSION: No evidence of acute cardiopulmonary disease. POS: [facility]
[2018-06-09] MEDS ORDERED: Insulin Regular 300 UNITS/3 ML VIAL ONE (08:33)
[2018-06-09 09:03] LABS: Base Excess-Venous 1.5 mmol/L (-2.0 to 3.0); CO2 Tension (PvCO2) 44.5 mmHg (40.0-50.0); Calcium, Ionized 1.08 mmol/L (See Comments:); Chloride 94 mmol/L (98-107); Hemoglobin - Calc 17.6 g/dL (12.0-16.0); O2 Tension (PvO2) 51.7 mmHg (35.0-45.0); Potassium 4.3 mmol/L (3.5-5.1); Sodium 128 mmol/L (138-145); T. Carbon Dioxide 28.4 mmol/L (22.0-28.0); pH (Venous) 7.392 (7.320-7.430); vO2 Saturation-calc 85.6 % (60.0-85.0)
[2018-06-09 09:07] LABS: Lipase 21 U/L (8-78); Magnesium 2.2 mg/dL (1.6-2.6); Phosphorus 3.1 mg/dL (2.3-4.7)
[2018-06-09] MEDS ORDERED: HUMULIN R 100 UNITS in Sodium Chloride 0.9% 100 ML IVPB SCH ×2 (09:30→09:45)
[2018-06-09] MEDS ORDERED: Sodium Chloride 0.9% 1,000 ML IV PRN ×4 (09:36)
[2018-06-09] MEDS ORDERED: Dextrose 5 %-0.45 % NaCl 1,000 ML IV PRN (09:36)
[2018-06-09] MEDS ORDERED: NS 0.9% w/ 20 MEQ KCL 1,000 ML IV PRN (09:36)
[2018-06-09] MEDS ORDERED: Zolpidem Tartrate 5 MG TAB PO PRN (09:36)
[2018-06-09] MEDS ORDERED: Ondansetron ODT 4 MG TAB PO PRN (09:36)
[2018-06-09] MEDS ORDERED: CCU Electrolyte Replacement 1 EACH IVPB ONE (09:36)
[2018-06-09] MEDS ORDERED: Potassium Chloride 40 MEQ in Premix Bag 1 BAG IVPB PRN (10:08)
[2018-06-09] MEDS ORDERED: Potassium Chloride 40 MEQ in Sodium Chloride 0.9% 250 ML 250 ML IVPB PRN (10:08)
[2018-06-09] MEDS ORDERED: Potassium Phosphate 15 MMOL in Sodium Chloride 0.9% 250 ML 250 ML IV PRN (10:08)
[2018-06-09] MEDS ORDERED: Potassium Chloride 20 MEQ TAB PO PRN (10:08)
[2018-06-09] MEDS ORDERED: CCU ELECTROLYTE REPLACEMENT PROTOCOL FS PRN (10:08)
[2018-06-09] MEDS ORDERED: Magnesium Oxide 400 MG TAB PO PRN ×2 (10:08)
[2018-06-09] MEDS ORDERED: Potassium Phosphate 12 MMOL in Sodium Chloride 0.9% 250 ML 250 ML IV PRN (10:08)
[2018-06-09] MEDS ORDERED: Magnesium 2 GM/NS 0.9% 100 ML 2 GM in Premix Bag 1 BAG IVPB PRN (10:08)
[2018-06-09] MEDS ORDERED: Potassium Phosphate 9 MMOL in Sodium Chloride 0.9% 100 ML IVPB PRN (10:08)
[2018-06-09 10:37] LABS: Anion Gap 16 mmol/L (10-20); BUN (Urea Nitrogen) 13 mg/dL (7.0-18.7); Calc. Creatinine Clearance 0 mL/min (70-130); Calcium 9.3 mg/dL (7.8-10.44); Carbon Dioxide 22 mmol/L (22-29); Chloride 94 mmol/L (98-107); Estimated GFR-MDRD 53; Potassium 4.3 mmol/L (3.5-5.1); Sodium 128 mmol/L (136-145)
[2018-06-09 10:57] LABS: Glucose 665 mg/dL (70-105)
[2018-06-09 11:08] VITALS: BMI 48.6
--- NOTE | 2018-06-09 11:08 | HP ---
PRIMARY CARE PHYSICIAN: No PCP. HISTORY OF PRESENT ILLNESS: The patient referred to [facility] Hospitalist Service by [facility]. The patient presented in the emergency room complaining of some shortness of breath, some pleuritic chest pain, some cough. No fever, but some chills. She was suspicious that her pneumonia had come back. She was seen, evaluated, and referred to the hospitalist service for diabetic ketoacidosis. It is pertinent that she has multiple medical problems and had stopped all of her medications with the exception of her HIV medicines. PAST MEDICAL HISTORY: She is HIV positive for about 2-1/2 years. She has a history of coronary artery disease, post coronary artery bypass graft in the distant past. She has diabetes mellitus, type 2, insulin dependent. She has a history of thyroid cancer in 10/2017. She had 2 surgeries on the same. She has failed to comply with prescribed radiation therapy. She has hypertension and dyslipidemia. She has a left footdrop, bipolar/schizophrenia disease. In addition to her coronary artery bypass graft in 2014, she has cholecystectomy, left knee surgery, section x2, hysterectomy, and the aforementioned thyroidectomy a year ago. CURRENT MEDICATIONS: The only medication she admits to taking at the present time is GENVOYA one tablet at bedtime, her HIV medicine. She has been on large doses of Lantus, OxyContin, clonazepam, Lyrica, perphenazine. She has also been on TriCor, fluoxetine, lamotrigine, Coreg, and aspirin in the past. ALLERGIES: SHE IS ALLERGIC TO GEODON AND SEROQUEL. FAMILY HISTORY: Father and a cousin have hepatitis C. Father and grandfather had diabetes mellitus. Her mother has coronary artery disease. SOCIAL HISTORY: Status: She is . She has been from her for about 12 years. Cigarettes: She is down from two packs a day to half a pack a day. She denies alcohol. She states she has used meth in the past, but none recently. REVIEW OF SYSTEMS: GENERAL: She has headache, pain behind her right eye every day. No dizziness or fainting. EYES: She has blurred vision. No double vision or flashing lights. EARS, NOSE, AND THROAT: No ear pain or drainage. No nasal bleeding. No trouble swallowing. CARDIAC: No chest pain other than the pleuritic pain. No pressure or chest pain with exertion, etc. No orthopnea or paroxysmal nocturnal dyspnea. RESPIRATIONS: No asthma or wheezing, but she has had a cough, nonproductive. GASTROINTESTINAL: She has had nausea and recently she has had diarrhea for months. She states there are occasional streaks of blood in her stools. No formed stools. No abdominal pain. GENITOURINARY: No hematuria, nocturia, or dysuria. MUSCULOSKELETAL: She has a left footdrop. She said it occurred post coronary artery bypass graft. No pain or swelling in her legs. NEUROLOGIC: She states she had a stroke post coronary artery bypass graft that left with a footdrop. PSYCHIATRIC: Long history of bipolar and schizophrenic disorder. She is oriented x3. SKIN: She has a rash under left breast and her buttocks. HEME/LYMPH: No tender or swollen lymph nodes in the axilla, inguinal, or cervical area. PHYSICAL EXAMINATION: VITAL SIGNS: Her blood pressure was 148/78, pulse 100, respirations 20, and temperature 98. HEAD, EYES, EARS, NOSE, AND THROAT: Revealed pupils equal, round, and reactive to light. Extraocular movements are intact. Sclerae are white. Tympanic membranes clear. Nose is clear. Mouth, she is edentulous. NECK: No jugular venous distention, adenopathy, or thyromegaly. CHEST: Clear to auscultation and percussion. HEART: Regular rate and rhythm. First and second heart sounds are clear. There are no murmurs or gallops. ABDOMEN: Soft. Bowel sounds are normal. No hepatosplenomegaly. No mass. No rebound. No bruits. EXTREMITIES: Reveal no cyanosis, clubbing, or edema. PULSES: Carotid, radial, and femoral pulses are intact. Pedal pulses diminished symmetrically. SKIN: Warm and dry without bruises or rash. HEME/LYMPH: No tender or swollen lymph nodes in the axilla, inguinal, or cervical area. NEUROLOGIC: Cranial nerves 2 through 12 intact. Moves all extremities. Left footdrop. Decreased sensation in her feet. IMAGING STUDIES: Chest x-ray; post median sternotomy changes, vertical heart, no heart failure or infiltrate, reviewed by me. EKG, pending, we will review when available. LABORATORY DATA: Beta-hydroxybutyrate 1.02. Sodium 127, potassium 4.4, CO2 of 19, BUN 14, creatinine 1.25, blood sugar 845, . Liver function test unremarkable. D-dimer less than 0.027. White count 9.8 with mild neutrophilia, hemoglobin 16.2, and platelet count 306,000. ADMITTING DIAGNOSES: 1. Diabetic ketoacidosis secondary to noncompliance. 2. Human immunodeficiency virus, on medications. 3. Bipolar/schizophrenia, off medicines. 4. Coronary artery disease, post coronary artery bypass graft, off medicines. 5. Diabetes mellitus, type 2, insulin dependent, off medicines. 6. Hypertension, off medicines. 7. Thyroid cancer, postoperative, has not had radiation therapy as instructed. PLAN: 1. Diabetic ketoacidosis protocol with insulin infusion. 2. Resume previous aspirin and Coreg doses. As her diabetic ketoacidosis stabilizes, other of her previous medicines will be introduced as appropriate. Lantus insulin and a regular insulin with meals will be instituted. Job ID: [id number]
[2018-06-09] MEDS: NS 0.9% w/ 20 MEQ KCL 1,000 ML IV PRN ×2 (13:38→15:49)
[2018-06-09 14:29] LABS: Anion Gap 10 mmol/L (10-20); BUN (Urea Nitrogen) 11 mg/dL (7.0-18.7); Calc. Creatinine Clearance 191 mL/min (70-130); Calcium 8.7 mg/dL (7.8-10.44); Carbon Dioxide 25 mmol/L (22-29); Chloride 102 mmol/L (98-107); Estimated GFR-MDRD 82; Glucose 266 mg/dL (70-105); Potassium 3.3 mmol/L (3.5-5.1); Sodium 134 mmol/L (136-145)
[2018-06-09] MEDS: Acetaminophen 325 MG TAB PO PRN ×2 (14:35→23:06)
[2018-06-09] MEDS ORDERED: [UNRECOGNIZED DRUG - OTHER] PO SCH (17:00)
[2018-06-09 18:06] LABS: Anion Gap 9 mmol/L (10-20); BUN (Urea Nitrogen) 10 mg/dL (7.0-18.7); Calc. Creatinine Clearance 208 mL/min (70-130); Calcium 8.3 mg/dL (7.8-10.44); Carbon Dioxide 25 mmol/L (22-29); Chloride 104 mmol/L (98-107); Estimated GFR-MDRD 90; Glucose 162 mg/dL (70-105); Potassium 3.7 mmol/L (3.5-5.1); Sodium 134 mmol/L (136-145)
[2018-06-09] MEDS: D5 1/2 NS w/20 mEq KCL 1,000 ML IV PRN ×2 (18:26→22:08)
[2018-06-09] MEDS: Carvedilol 3.125 MG TAB PO SCH (20:19)
[2018-06-10 00:28] VITALS: TEMP 97.6
[2018-06-10] MEDS: D5 1/2 NS w/20 mEq KCL 1,000 ML IV PRN ×2 (02:12→06:12)
[2018-06-10 06:51] LABS: Anion Gap 11 mmol/L (10-20); BUN (Urea Nitrogen) 7 mg/dL (7.0-18.7); Calc. Creatinine Clearance 208 mL/min (70-130); Calcium 8.1 mg/dL (7.8-10.44); Carbon Dioxide 21 mmol/L (22-29); Chloride 105 mmol/L (98-107); Estimated GFR-MDRD 90; Glucose 259 mg/dL (70-105); Potassium 4.2 mmol/L (3.5-5.1); Sodium 133 mmol/L (136-145)
[2018-06-10] MEDS: Carvedilol 3.125 MG TAB PO SCH (08:55)
[2018-06-10] MEDS: Acetaminophen 325 MG TAB PO PRN (08:56)
[2018-06-10] MEDS ORDERED: Aspirin Chewable 81 MG TAB PO SCH (09:00)
[2018-06-10] MEDS ORDERED: Enoxaparin Sodium 40 MG/0.4 ML SYRINGE SC SCH (09:00)
[2018-06-10] MEDS ORDERED: Dextrose 50% Abboject 50 ML SYRINGE SLOW IVP PRN (11:07)
[2018-06-10] MEDS ORDERED: Dextrose 5% in Water 1,000 ML IV PRN (11:07)
[2018-06-10] MEDS ORDERED: Insulin Regular 300 UNITS/3 ML VIAL SC PRN ×2 (11:07)
[2018-06-10] MEDS ORDERED: clonazePAM 0.5 MG TAB PO PRN (11:10)
[2018-06-10] MEDS ORDERED: DC Electrolyte Protocol FS ONE (11:12)
[2018-06-10] MEDS ORDERED: 1/2 NS w/KCL 20 mEq 1,000 ML IV SCH (11:15)
[2018-06-10] MEDS ORDERED: Fluconazole 100 MG TAB PO SCH (11:15)
[2018-06-10] MEDS ORDERED: Insulin Glargine 25 UNITS in Pre-Filled Syringe 1 EACH SC SCH ×2 (11:15→21:00)
[2018-06-10] MEDS ORDERED: Insulin Regular 300 UNITS/3 ML VIAL SC SCH ×2 (11:30→16:30)
--- NOTE | 2018-06-10 13:58 | PDOC.PN ---
- Subjective Encounter Start Date: 06/10/18 Encounter Start Time: 11:30 Patient seen and examined for DKA. No CP. SOB improved. No new complaints. No overnight events - Objective Resuscitation Status - Order Detail: 06/09/18 09:34 Resuscitation Status Routine Resuscitation Status: FULL: Full Resuscitation MAR Reviewed: Yes Vital Signs & Weight: Vital Signs (12 hours) Temp Pulse Ox 06/10/18 08:00 98 06/10/18 04:00 97.6 F Weight Admit Weight 292 lb Weight 292 lb Most Recent Monitor Data Heart Rate from ECG 66 NIBP 121/57 NIBP BP-Mean 78 Respiration from ECG 18 SpO2 95 I&O: 06/09/18 06/10/18 06/11/18 06:59 06:59 06:59 Intake Total 30191 2257 Output Total 4850 2250 Balance 6647 7 Result Diagrams: 06/09/18 07:37 06/10/18 05:18 Additional Labs: Accuchecks 06/10/18 06/10/18 06/10/18 09:00 07:59 07:41 POC Glucose 267 H 200 H 211 H 06/10/18 06/10/18 06/10/18 06:10 05:20 04:08 POC Glucose 243 H 237 H 245 H 06/10/18 06/10/18 06/10/18 03:00 02:14 01:12 POC Glucose 249 H 241 H 231 H 06/10/18 06/09/18 06/09/18 00:00 23:04 22:08 POC Glucose 217 H 168 H 139 H 06/09/18 06/09/18 06/09/18 21:01 20:08 19:13 POC Glucose 128 H 134 H 154 H 06/09/18 06/09/18 06/09/18 18:42 16:04 15:16 POC Glucose 157 H 216 H 250 H 06/09/18 14:24 POC Glucose 263 H Radiology Reviewed by me: Yes (CXR - Neg) EKG Reviewed by me: Yes (Tele SR) Phys Exam - Physical Examination Constitutional: NAD HEENT: PERRLA, sclera anicteric Neck: no nodes, no JVD Respiratory: no wheezing, no rales, no rhonchi, clear to auscultation bilateral Cardiovascular: RRR, no significant murmur, no rub no heaves Gastrointestinal: soft, non-tender, no distention, positive bowel sounds Musculoskeletal: no edema Neurological: non-focal, normal sensation, moves all 4 limbs Psychiatric: normal affect, A&O x 3 Dx/Plan - Plan IMPRESSION: 1. DKA 2. CAD 3. Hyponatremia/Hypokalemia 4. CAD 5. HIV 6. Med noncompliance 7. Morbid obesity PLAN: DC Insulin drip Start Lantus 25 units BID with aggressive sliding scale AM labs Resume HIV meds Confirm other home meds Counselled on med compliance Patient already scheduled to see Dr Michael at [facility] Review of Systems - Review of Systems Respiratory: negative: Cough, Dry, Shortness of Breath, Hemoptysis, SOB with Excertion, Pleuritic Pain, Sputum, Wheezing Cardiovascular: negative: chest pain, palpitations, orthopnea, paroxysmal nocturnal dyspnea, edema, light headedness, other Gastrointestinal: negative: Nausea, Vomiting, Abdominal Pain, Diarrhea, Constipation, Melena, Hematochezia, Other - Medications/Allergies Allergies/Adverse Reactions: Allergies Allergy/AdvReac Type Severity Reaction Status Date / Time latex Allergy Rash Verified 11/25/17 21:45 quetiapine [From Seroquel] Allergy Verified 11/25/17 21:45 ziprasidone [From Geodon] Allergy Anaphylaxis Verified 11/25/17 21:45
--- NOTE | 2018-06-10 14:06 | DIS ---
DATE OF ADMISSION: 06/09/2018 DATE OF DISCHARGE: 06/10/2018 DISCHARGE DISPOSITION: The patient signed against medical advice. The patient was seen and examined on the day of discharge. Denies any new complaints. No chest pain, shortness of breath, or palpitations reported. Vital signs were stable. SIGNIFICANT LABS: Ketones of 1.02. Blood sugar on admission was 665 with sodium of 128. BRIEF HOSPITAL COURSE: The patient is a 47-year-old female with HIV and diabetes mellitus type 2, presented to the hospital with generalized weakness along with shortness of breath. Please note that the patient has discontinued taking all of her medications. She is followed by [facility] and currently takes all of her psychotropic medications. She is also compliant with HIV medications. She used to be on more than 100 units of long-acting insulin and more than 30 units three times a day of short-acting insulin. She has not taken her insulin for few weeks. Her workup was consistent with diabetic ketoacidosis. She was started on insulin drip. Her labs were monitored closely with Accu-Cheks every hour. Anion gap has closed. She was started on subcu insulin. However, the patient signed against medical advice. Risks, not limited to, was discussed with the patient. She stated understanding. She was extensively counseled to be compliant with all of her medications. She was given an appointment with Dr. Michael at [facility]. FINAL DIAGNOSES: 1. Diabetic ketoacidosis. 2. Hyponatremia. 3. Hypokalemia. 4. Diabetes mellitus type 2. 5. Morbid obesity with a body mass index of 48.6. 6. Dehydration. 7. Coronary artery disease, status post coronary artery bypass grafting. 8. Human immunodeficiency viruses, followed by Dr. Sellers. 9. History of thyroid cancer. 10. Hypertension. 11. Dyslipidemia. 12. Schizophrenia/bipolar disorder, followed by [facility]. 13. Medication noncompliance. Job ID: [id number]
[2018-06-10] MEDS ORDERED: Nystatin Powder 15 GM BOT TOP SCH (21:00)
[2018-06-10] MEDS ORDERED: Non-Formulary Item 1 EACH (Fluoxetine Hcl [Fluoxetine Hcl] 20 MG) PO SCH (21:00)
[2018-06-10] MEDS ORDERED: lamoTRIgine 100 MG TAB PO SCH (21:00)
[2018-06-10] MEDS ORDERED: FLUoxetine HCl 20 MG CAP PO SCH (21:00)
[2018-06-10] MEDS ORDERED: Perphenazine 2 MG TAB PO SCH (21:00)
[2018-06-11] MEDS ORDERED: Insulin Regular 300 UNITS/3 ML VIAL SC SCH (07:30)
[2018-06-11] MEDS ORDERED: Mirtazapine 15 MG TAB PO SCH (09:00)
[2018-06-11] MEDS ORDERED: Insulin Glargine 25 UNITS in Pre-Filled Syringe 1 EACH SC SCH (09:00)
[2018-06-11] MEDS ORDERED: Fluconazole 100 MG TAB PO SCH (09:00)
--- NOTE | 2018-06-12 06:59 | CON ---
DATE OF CONSULTATION: HISTORY OF PRESENT ILLNESS: A 47-year-old morbidly obese female, long-time two pack a day smoker, 132 kg, presented to the hospital with shortness breath, cough, apparently green sputum. She also denies chills or sweats. Mostly, she can barely walk even 50 feet without getting markedly short of breath. She says this is secondary to a CVA, which had left her with some left-sided weakness. She has multiple medical problems for someone being only 47 years of age. PAST MEDICAL HISTORY: HIV, she says this is secondary to blood transfusion done in the past. She clearly was doing methamphetamine abuse; history of coronary artery disease, status post CABG; diabetes; hypertension; stroke; thyroid cancer; and multiple pneumonias. PAST SURGICAL HISTORY: Previous surgeries otherwise included multiple bypass surgery in [place], [place]; thyroid surgery; hysterectomy; bipolar disorder. Seeing someone for drug abuse, suicide problems. Previous lung collapse, apparently requiring respiratory failure vent. MEDICATIONS: Home medicine includes; 1. Clonazepam 0.5 twice a day. 2. Zolpidem 12.5. 3. Lyrica 100 twice a day. 4. OxyContin 20 twice a day. 5. Zofran. 6. Mirtazapine 15 twice a day. 7. Synthroid 1 mcg. 8. Lamotrigine 100 once a day. 9. Insulin 90 twice a day. 10. Prozac 20. 11. Genvoya one tablet a day. 12. Coreg 3.125. 13. Aspirin. 14. Albuterol HFA. ALLERGIES: INCLUDING GEODON AND SEROQUEL. SOCIAL HISTORY: At one time, she was a afterschool. Tobacco, as noted. Alcohol, as noted. Substance abuse in the past. She is clean right now. REVIEW OF SYSTEMS: Ten-point negative, but pertinent for maybe snoring, sleep apnea, and daytime fatigue. PHYSICAL EXAMINATION: VITAL SIGNS: Blood pressure is 103/48, heart rate 67, respiratory rate 24, sats 98% on 2 L, and afebrile. CHEST: With decreased breath sounds. No wheezing. CARDIAC: Normal S1 and S2. No gallops. ABDOMEN: No masses. IMPRESSION: 1. Uncontrolled diabetes. 2. Coronary artery disease. 3. Human immunodeficiency virus. 4. Chronic obstructive pulmonary disease. 5. Sleep apnea. 6. Bipolar disorder. PLAN: Pulmonary-bryson, she needs an outpatient sleep study. She can be transitioned over to her home medication. At this stage, continue neb treatments, supportive care, PT. Encourage to lose weight. Primary will follow while in the MICU. Job ID: [id number]
== END 2018-06-10 13:30 | disposition left against medical advice (07) | DRG 638 ==
LOC: ERS 06:25 → IMCU/EMU 09:31
PROVIDERS: ADMIT Internal Medicine; ATTEND Internal Medicine
DX: E11.10 Type 2 diabetes mellitus with ketoacidosis without coma (principal); E87.1 Hypo-osmolality and hyponatremia; Z68.42 Body mass index [BMI] 45.0-49.9, adult; E87.6 Hypokalemia; E66.01 Morbid (severe) obesity due to excess calories; E86.0 Dehydration; I25.10 Atherosclerotic heart disease of native coronary artery without angina pectoris; I10 Essential (primary) hypertension; E78.5 Hyperlipidemia, unspecified; F31.9 Bipolar disorder, unspecified; F20.9 Schizophrenia, unspecified; F17.210 Nicotine dependence, cigarettes, uncomplicated; J44.9 Chronic obstructive pulmonary disease, unspecified; G47.30 Sleep apnea, unspecified; Z21 Asymptomatic human immunodeficiency virus [HIV] infection status; Z85.850 Personal history of malignant neoplasm of thyroid; Z95.1 Presence of aortocoronary bypass graft; Z91.14 Patient's other noncompliance with medication regimen; Z90.49 Acquired absence of other specified parts of digestive tract; Z90.710 Acquired absence of both cervix and uterus; Z90.89 Acquired absence of other organs; Z98.890 Other specified postprocedural states; Z88.8 Allergy status to other drugs, medicaments and biological substances; Z86.73 Personal history of transient ischemic attack (TIA), and cerebral infarction without residual deficits; Z79.82 Long term (current) use of aspirin; Z79.899 Other long term (current) drug therapy; Z79.4 Long term (current) use of insulin
CPT/HCPCS: 36415; 36416; 71046; 80048; 80053; 82010; 82330; 82803; 83690; 83735; 83930; 84100; 84484; 85025; 85379; 93005; 94640; 96361; 96365; J1650; J1815; J1825; J3480; J7050; J7620; Q0175

== ENCOUNTER 2018-09-28 16:20 | Inpatient (IN) | payer MEDICARE, OTHER ==
[2018-09-28 18:17] LABS: #Eosinphils 0.1 thou/uL (0.0-0.7); #Lymphocytes 1.8 thou/uL (1.20-3.40); #Monocytes 0.8 thou/uL (0.11-0.59); #Neutrophils 12.8 thou/uL (1.40-6.50); %Basophils 0.1 % (0.0-1.0); %Eosinophils 0.9 % (0.0-10.0); %Lymphocytes 11.6 % (21.0-51.0); %Monocytes 5.1 % (0.0-10.0); %Neutrophils 82.3 % (42.0-75.0); Hemoglobin 14.3 g/dL (12.0-16.0); Mean Corpuscular HGB CONC 30.8 g/dL (32.0-36.0); Mean Corpuscular Hemoglobin 27.9 pg (27.0-31.0); Mean Corpuscular Volume 90.5 fL (78.0-98.0); Mean Platelet Volume 9.2 fL (7.4-10.4); Platelet Count 308 thou/uL (130-400); RBC Distribution Width 14.3 % (11.5-14.5); Red Blood Cell (RBC) Count 5.14 mill/uL (4.20-5.40); White Blood Cell (WBC) Count 15.5 thou/uL (4.8-10.8)
[2018-09-28] MEDS ORDERED: Lidocaine 1% w/Epinephrine 1:100K 20 ML VIAL ONE (18:34)
[2018-09-28 18:37] LABS: ALT (SGPT) 11 U/L (8-55); AST (SGOT) 8 U/L (5-34); Albumin 3.6 g/dL (3.5-5.0); Alkaline Phosphatase 136 U/L (40-150); Anion Gap 16 mmol/L (10-20); BUN (Urea Nitrogen) 15 mg/dL (7.0-18.7); Bilirubin, Total 0.4 mg/dL (0.2-1.2); Calc. Creatinine Clearance 0 mL/min (70-130); Calcium 9.2 mg/dL (7.8-10.44); Carbon Dioxide 26 mmol/L (22-29); Chloride 97 mmol/L (98-107); Estimated GFR-MDRD 63; Globulin 3.2 g/dL (2.4-3.5); Glucose 273 mg/dL (70-105); Potassium 4.5 mmol/L (3.5-5.1); Protein, Total 6.8 g/dL (6.0-8.3); Sodium 134 mmol/L (136-145)
[2018-09-28] MEDS ORDERED: Clindamycin/D5W 600 mg/50 ml Premix Bag ONE (19:34)
[2018-09-28] MEDS ORDERED: Ondansetron PF 4 MG/2 ML Vial ONE (19:34)
[2018-09-28] MEDS ORDERED: Piperacillin/Tazobactam 4.5 GM VIAL ONE (19:34)
[2018-09-28] MEDS ORDERED: Morphine 4 MG/ML VIAL ONE (19:34)
--- NOTE | 2018-09-28 20:18 | RAD ---
PORTABLE CHEST: 09/28/18 HISTORY: Cough. COMPARISON: 09/14/16. Cardiomegaly with postop sternotomy change. Vascular congestion. Mild interstitial congestion. No jenise eolar infiltrate or edema. No significant effusion. IMPRESSION: Cardiomegaly with mild vascular congestion. Mild interstitial congestion is noted. POS: [facility]
[2018-09-28] MEDS ORDERED: Dextrose 50% Abboject 50 ML SYRINGE SLOW IVP PRN (20:25)
[2018-09-28] MEDS ORDERED: Dextrose 5% in Water 1,000 ML IV PRN (20:25)
[2018-09-28] MEDS ORDERED: Acetaminophen 650 MG Suppository PR PRN (20:36)
--- NOTE | 2018-09-28 21:50 | HP ---
CHIEF COMPLAINT: Persistent cough, bilateral arm swelling. HISTORY OF PRESENT ILLNESS: Ms. Obrien is a 47-year-old woman with a known history of diabetes, noncompliant with insulin, and positive for HIV. However, she is compliant with HIV medications and follows with Dr. Sellers. The patient is also morbidly obese with a history of recurrent abscesses. She presents with complaints of feeling generally unwell since yesterday. She states she noted swelling in the bilateral arms over the weekend. Her arms became red and warm to touch and she noted a recurrent abscess to the left axilla. Last night, she developed a severe persisting cough with associated shortness of breath. The patient states she has difficulty taking in a deep breath due to the fact that it exacerbates her cough and causes coughing fits. Her cough is dry without any sputum or hemoptysis. She denies experiencing any fevers, but feels generally drained and achy. Has not been around anyone sick at home. She has not had any fevers or sweats. In the ED, she underwent I and D of the left axillary abscess and was started on IV antibiotic treatment with vancomycin, clindamycin, and also given Zosyn. Laboratory studies done demonstrated an elevated white count of 15.5 and a lactic acid of 2.7. Her glucose is elevated at 273. The patient's vital signs are stable. REVIEW OF SYSTEMS: All other review of systems apart from those mentioned above in HPI are negative. She has long-standing peripheral vascular disease with pain and decreased circulation involving the bilateral legs. This is at baseline. PAST MEDICAL HISTORY: 1. Type 2 diabetes mellitus. 2. Noncompliance with diabetes medications including insulin. 3. HIV positive. 4. Hyperlipidemia. 5. Hypertension. 6. CVA. 7. Left footdrop. 8. DC in 2015. 9. History of thyroid cancer, status post thyroidectomy. 10. Tobacco use. 11. Anxiety. 12. Bipolar. 13. Schizophrenia requiring multiple inpatient psychiatric admissions. 14. Recurrent abscesses, the last I and D was done in 2014. PAST SURGICAL HISTORY: 1. Cholecystectomy. 2. Left knee surgery. 3. CABG x4. 4. . 5. Hysterectomy. 6. Thyroidectomy. SOCIAL HISTORY: The patient denies any alcohol consumption. Denies any drug use. Currently smokes one pack per day since age 13. ALLERGIES: 1. GEODON. 2. LATEX. 3. SEROQUEL. CURRENT MEDICATIONS: 1. Taylor. 2. Oxycodone. 3. Lyrica. 4. Klonopin. 5. Ambien. 6. Remeron. PHYSICAL EXAMINATION: GENERAL: The patient appears generally well, morbidly obese, and in no acute distress. VITAL SIGNS: Temperature 98.3, pulse 96, respirations 18, O2 saturation 95% on room air, blood pressure 106/64. HEENT: Normocephalic, atraumatic. Pupils are equal, round, and reactive to light. Sclerae are without icterus. Oropharynx is clear. No erythema or exudates. NECK: Supple without lymphadenopathy. LUNGS: No audible wheezing. The patient with difficulty on deep inspirations due to persistent coughing fits. CARDIAC: Regular rate and rhythm. ABDOMEN: Obese, soft, nontender, nondistended. No guarding or rigidity. No renal angle tenderness. EXTREMITIES: Upper extremities are notable for swelling bilaterally, worse on the right side. Slight erythema and warmth. Left axilla with wound from I and D. Lower extremities are notable for cool touch to bilateral lower extremities and stasis dermatitis involving the bilateral lower legs with rubor/cyanotic appearance to the left toe. NEUROLOGIC: Alert and oriented x3. LABORATORY DATA: White blood count 15.5, hemoglobin 14.3, hematocrit 46.5, platelets 308. Sodium 134, potassium 4.5, carbon dioxide 26, anion gap 16, BUN 15, creatinine 0.95, GFR 63, glucose 273, lactic acid 2.7, calcium 9.2, total bilirubin 0.4, AST 8, ALT 11, alkaline phosphatase 136, albumin 3.6. IMAGING DATA: The patient states she just underwent a chest x-ray prior to be coming in. IMPRESSION AND PLAN: Ms. Obrien is presenting for management of the following. 1. Cough with shortness of breath. The patient states she is a chronic smoker and often does have a cough that has significantly worsened since last night. It is nonproductive. We will await results of the chest x-ray to assess for any underlying pneumonia. Continue to monitor O2 saturations. She is not short of breath at present and states this is with exertion only. She does have a persistent cough, especially exacerbated with deep inspiration. We will provide DuoNeb and cough suppressants. The patient has undergone an echocardiogram in May 2017. At that time, she had an EF of 55% to 60% with borderline concentric left ventricular hypertrophy. We will check BNP. She may benefit from repeat echocardiogram. 2. Leukocytosis with lactic acidosis, attributed to left axillary abscess and possibly bilateral upper extremity cellulitis. The patient on IV antibiotics. Continue with treatment. We will request blood cultures. 3. Hyperglycemia. The patient noncompliant with diabetes medications. Insulin sliding scale ordered and we will continue to monitor glucose. 4. Hypertension. Resume home medications once verified. Monitor blood pressure. 5. Bipolar/schizophrenia. Resume home medications once verified. 6. Gastrointestinal prophylaxis. 7. Full code status. Her surrogate decision maker is her son, Nayan Peng. The patient's case will be discussed with attending for further recommendations. Job ID: [id number]
[2018-09-28 22:26] VITALS: BMI 49.6
[2018-09-28] MEDS: Acetaminophen 325 MG TAB PO PRN (22:26)
[2018-09-28] MEDS: Benzonatate 100 MG CAP PO SCH (22:26)
[2018-09-28] MEDS: Nicotine 14 MG PATCH TD SCH (22:26)
[2018-09-28] MEDS: Famotidine/PF 20 mg/2ml Vial SLOW IVP SCH (22:26)
[2018-09-28] MEDS: guaiFENesin 200 MG TAB PO PRN (22:27)
[2018-09-28] MEDS ORDERED: Vancomycin HCl 1.5 GM in Sodium Chloride 0.9% 250 ML 300 ML IVPB SCH (23:00)
[2018-09-28] MEDS: HumaLOG 300 UNITS/3 ML VIAL SC PRN (23:40)
[2018-09-29] MEDS ORDERED: Nystatin Powder 15 GM BOT TOP PRN (00:35)
[2018-09-29] MEDS: Piperacillin/Tazobactam 4.5 GM in Sodium Chloride 0.9% 100 ML IVPB SCH ×4 (01:11→20:58)
[2018-09-29 01:32] LABS: Bilirubin Negative (Negative); Blood, Urine Negative (Negative); Clarity CLOUDY (Clear); Glucose, Urine (Dipstick) >=1000 mg/dL (Negative); Leukocyte Negative (Negative); Nitrite Negative (Negative); Protein, Urine (Dipstick) 100 mg/dL (Neg-Trace); Specific Gravity, Urine 1.024 (1.002-1.036); Urobilinogen 0.2 mg/dL (0.2-1.0)
[2018-09-29 01:38] LABS: Urine Culture Reflex No No
[2018-09-29 01:39] LABS: Amphetamine Detected (NotDetected); Barbiturates Screen Not Detected (NotDetected); Benzodiazepine Screen Not Detected (NotDetected); Cocaine Metabolite Screen Not Detected (NotDetected); Medtox Control Line Valid? VALID (VALID); Medtox Reader # READER 1; Methadone Not Detected (NotDetected); Methamphetamine Detected (NotDetected); Opiate Screen Detected (NotDetected); Oxycodone Screen Not Detected (NotDetected); Phencyclidine (PCP) Not Detected (NotDetected); THC/Cannabinoid Screen Not Detected (NotDetected); Tricyclic Screen Not Detected (NotDetected)
[2018-09-29 01:52] LABS: RBC/HPF 0-3 HPF (0-3); WBC/HPF 0-3 HPF (0-3)
[2018-09-29 01:53] LABS: Bacteria/HPF None Seen HPF (None Seen); Hyaline Casts/LPF NONE SEEN LPF (0-3 Hyaline)
[2018-09-29] MEDS: Clindamycin/D5W 600 MG in Premix Bag 1 BAG IVPB SCH ×4 (02:13→21:53)
[2018-09-29] MEDS: guaiFENesin 200 MG TAB PO PRN (02:14)
[2018-09-29] MEDS ORDERED: Clindamycin/D5W 600 MG in Premix Bag 1 BAG IVPB SCH (04:45)
[2018-09-29] MEDS ORDERED: HumaLOG 300 UNITS/3 ML VIAL SC SCH (06:00)
[2018-09-29] MEDS: Acetaminophen 325 MG TAB PO PRN ×3 (06:02→20:29)
[2018-09-29] MEDS: Famotidine/PF 20 mg/2ml Vial SLOW IVP SCH ×2 (08:27→20:44)
[2018-09-29 08:41] LABS: #Eosinphils 0.2 thou/uL (0.0-0.7); #Lymphocytes 1.2 thou/uL (1.20-3.40); #Monocytes 0.5 thou/uL (0.11-0.59); #Neutrophils 9.2 thou/uL (1.40-6.50); %Basophils 0.2 % (0.0-1.0); %Eosinophils 1.6 % (0.0-10.0); %Lymphocytes 10.5 % (21.0-51.0); %Monocytes 4.6 % (0.0-10.0); %Neutrophils 83.1 % (42.0-75.0); Hemoglobin 12.9 g/dL (12.0-16.0); Mean Corpuscular HGB CONC 33.6 g/dL (32.0-36.0); Mean Corpuscular Hemoglobin 30.2 pg (27.0-31.0); Mean Corpuscular Volume 89.7 fL (78.0-98.0); Mean Platelet Volume 9.5 fL (7.4-10.4); Platelet Count 222 thou/uL (130-400); RBC Distribution Width 14.2 % (11.5-14.5); Red Blood Cell (RBC) Count 4.28 mill/uL (4.20-5.40)
[2018-09-29 09:09] LABS: Lactic Acid 2.3 mmol/L (0.5-2.2)
[2018-09-29 09:16] LABS: Anion Gap 15 mmol/L (10-20); BUN (Urea Nitrogen) 20 mg/dL (7.0-18.7); Calc. Creatinine Clearance 142 mL/min (70-130); Calcium 9.3 mg/dL (7.8-10.44); Carbon Dioxide 26 mmol/L (22-29); Chloride 98 mmol/L (98-107); Estimated GFR-MDRD 49; Glucose 466 mg/dL (70-105); Potassium 4.3 mmol/L (3.5-5.1); Sodium 135 mmol/L (136-145)
[2018-09-29] MEDS: Benzonatate 100 MG CAP PO SCH ×3 (09:43→20:29)
[2018-09-29] MEDS ORDERED: Insulin Glargine 60 UNITS in Pre-Filled Syringe 1 EACH SC SCH ×2 (10:45→21:00)
--- NOTE | 2018-09-29 14:17 | PDOC.PN ---
- Subjective Encounter Start Date: 09/29/18 Encounter Start Time: 10:40 Still has some pain in the axilla. Blood sugars are very high. She says the Humalog no longer works for her. Persistent cough. - Objective Resuscitation Status - Order Detail: 09/28/18 20:36 Resuscitation Status Routine Co-Sign Provider: Resuscitation Status: FULL: Full Resuscitation Vital Signs & Weight: Vital Signs (12 hours) Temp Pulse Resp BP Pulse Ox 09/29/18 10:26 85 16 92 L 09/29/18 08:00 99.0 F 96 20 151/83 H 93 L 09/29/18 06:50 93 16 94 L 09/29/18 04:00 99.0 F 96 22 H 114/57 L Weight Weight 336 lb I&O: 09/28/18 09/29/18 09/30/18 06:59 06:59 06:59 Intake Total 2250 Balance 2250 Result Diagrams: 09/29/18 08:13 09/29/18 08:13 Additional Labs: Accuchecks 09/29/18 09/29/18 09/28/18 10:55 05:10 23:42 POC Glucose 396 H 414 H 393 H Phys Exam - Physical Examination Constitutional: NAD Extremely obese. Respiratory: no wheezing, no rhonchi Scattered rales. Cardiovascular: RRR, no significant murmur, no rub Gastrointestinal: soft, non-tender, no distention, positive bowel sounds Musculoskeletal: no edema, pulses present Psychiatric: normal affect, A&O x 3 Deviation from normal: Left axilla with packing strip from the I and D opening with persistent -: brown purulent fluid draining with compression. Dx/Plan (1) Abscess of axilla, left Code(s): L02.412 - CUTANEOUS ABSCESS OF LEFT AXILLA Status: Acute (2) Diabetes Code(s): E11.9 - TYPE 2 DIABETES MELLITUS WITHOUT COMPLICATIONS Status: Acute Comment: Poor control. Patient has not been terribly compliant with diet. Continue with ISS. (3) Hyperglycemia due to type 2 diabetes mellitus Code(s): E11.65 - TYPE 2 DIABETES MELLITUS WITH HYPERGLYCEMIA Status: Acute (4) HIV (human immunodeficiency virus infection) Status: Chronic (5) Hypertension Code(s): I10 - ESSENTIAL (PRIMARY) HYPERTENSION Status: Chronic Comment: Home meds. (6) Morbid obesity with BMI of 50.0-59.9, adult Code(s): E66.01 - MORBID (SEVERE) OBESITY DUE TO EXCESS CALORIES; Z68.43 - BODY MASS INDEX (BMI) 50-59.9, ADULT Status: Chronic - Plan * Continue ABX. * Consult surgery - may need more aggressive intervention of the abscess. * Infection complicated by HIV status although she is apparently compliant and a good white cell count. * Infection also compromised by the poorly controlled DM. Blood sugars are extremely high. On huge doses of insulin at home. On Moderate SSI here. Will re-introduce long-acting insulin similar to her home dose. Continue SSI. *
--- NOTE | 2018-09-29 14:28 | CON ---
DATE OF CONSULTATION: 09/29/2018 CHIEF COMPLAINT: Left axillary pain and drainage. HISTORY OF PRESENT ILLNESS: This is a 47-year-old female with history of diabetes mellitus, who presents with swelling and pain in the left axilla. She underwent I and D in the emergency room last night. I have been consulted for whether this needs any further surgery. She is complaining of pain in the area. PAST MEDICAL HISTORY: Includes type 2 diabetes, noncompliance, HIV positive, hyperlipidemia, hypertension, history of drop foot, MT, anxiety, and bipolar. MEDICATIONS: See list. ALLERGIES: LATEX, QUETIAPINE, AND . SOCIAL HISTORY: Smokes pack a day. No alcohol or other drugs. REVIEW OF SYSTEMS: Otherwise negative. PHYSICAL EXAMINATION: VITAL SIGNS: Blood pressure is 151/83, pulse 96, and respirations 20. She is afebrile. T-max is 99.0. HEENT: Sclerae anicteric. Oropharynx clear. NECK: No lymphadenopathy. CHEST: Clear. HEART: Regular rate and rhythm. ABDOMEN: Soft and nontender. EXTREMITIES: Examination the left axilla reveals open wound with iodoform presents. The iodoform was removed. There was no significant purulence present. Dressings were replaced. ASSESSMENT: Left axillary abscess, status post incision and drainage. No further incision and drainage needed for now. PLAN: Just cover with dry dressings daily. We will follow with you to be sure that she does not require any additional treatment for this. Job ID: [id number]
[2018-09-29] MEDS: HYDROcodone/Acetaminophen 7.5/325 mg Tablet PO PRN ×2 (15:33→21:53)
[2018-09-29] MEDS: HumaLOG 300 UNITS/3 ML VIAL SC PRN ×2 (17:00→20:42)
[2018-09-29] MEDS: Nicotine 14 MG PATCH TD SCH (22:15)
[2018-09-30] MEDS: Piperacillin/Tazobactam 4.5 GM in Sodium Chloride 0.9% 100 ML IVPB SCH ×4 (02:06→20:03)
[2018-09-30] MEDS: Acetaminophen 325 MG TAB PO PRN ×2 (02:28→20:20)
[2018-09-30] MEDS: guaiFENesin 200 MG TAB PO PRN ×2 (03:05→12:00)
[2018-09-30] MEDS: Clindamycin/D5W 600 MG in Premix Bag 1 BAG IVPB SCH ×4 (03:05→21:04)
[2018-09-30] MEDS: HumaLOG 300 UNITS/3 ML VIAL SC PRN ×3 (03:11→16:42)
[2018-09-30] MEDS: HYDROcodone/Acetaminophen 7.5/325 mg Tablet PO PRN ×4 (04:13→22:42)
[2018-09-30 08:44] LABS: Vancomycin, Trough 13.2 ug/mL
[2018-09-30] MEDS: Benzonatate 100 MG CAP PO SCH ×3 (08:46→20:03)
[2018-09-30] MEDS: Insulin Glargine 120 UNITS in Pre-Filled Syringe 1 EACH SC SCH (08:47)
[2018-09-30] MEDS: Famotidine/PF 20 mg/2ml Vial SLOW IVP SCH ×2 (08:47→20:03)
[2018-09-30] MEDS ORDERED: GENVOYA PO SCH (09:00)
--- NOTE | 2018-09-30 11:22 | PDOC.GSPN ---
Surgery Progress Note: Subj - Subjective Narrative: Still complaining of pain in left axilla Surgery Progress Note: Obj - Vital signs Vital signs: Vital Signs - Most Recent Temp Pulse Resp BP Pulse Ox 98.6 F 84 18 138/61 92 L 09/30/18 06:56 09/30/18 11:16 09/30/18 11:16 09/30/18 06:56 09/30/18 11:16 - Physical Exam General: no distress Wound: other (left axillary wound with small amount of drainage, No erythema) Surgery Progress Note: Results - Labs Result Diagrams: 09/29/18 08:13 09/29/18 08:13 Lab results: Laboratory Results - last 24 hr 09/30/18 09/30/18 09/30/18 00:22 03:12 06:14 POC Glucose 426 H 377 H 250 H Vancomycin Trough 09/30/18 08:01 POC Glucose Vancomycin Trough 13.2 Surgery Progress Note: A/P - Problem (1) Abscess of axilla, left Current Visit: Yes Code(s): L02.412 - CUTANEOUS ABSCESS OF LEFT AXILLA Status: Acute Assessment and Plan: packing removed. -no further I&D needed.
--- NOTE | 2018-09-30 12:50 | PDOC.PN ---
- Subjective Encounter Start Date: 09/30/18 Encounter Start Time: 10:30 Doing ok. Thinks she has been on a fluid restriction and wants that stopped. Axilla feels better. Has her home Tresiba and HIV meds. Would like to take those. - Objective Resuscitation Status - Order Detail: 09/28/18 20:36 Resuscitation Status Routine Co-Sign Provider: Resuscitation Status: FULL: Full Resuscitation Vital Signs & Weight: Vital Signs (12 hours) Temp Pulse Resp BP Pulse Ox 09/30/18 11:16 84 18 92 L 09/30/18 08:40 95 09/30/18 08:20 80 18 95 09/30/18 06:56 98.6 F 80 19 138/61 91 L 09/30/18 03:52 98.2 F 88 18 165/82 H 91 L 09/30/18 02:41 88 16 94 L Weight Weight 336 lb I&O: 09/29/18 09/30/18 10/01/18 06:59 06:59 06:59 Intake Total 2250 Balance 2250 Result Diagrams: 09/29/18 08:13 09/29/18 08:13 Additional Labs: Accuchecks 09/30/18 09/30/18 09/30/18 11:32 06:14 03:12 POC Glucose 316 H 250 H 377 H 09/30/18 09/29/18 09/29/18 00:22 20:41 16:33 POC Glucose 426 H 362 H 421 H Phys Exam - Physical Examination Constitutional: NAD Morbidly obese Respiratory: no wheezing, no rales, no rhonchi, clear to auscultation bilateral Cardiovascular: RRR, no significant murmur, no rub Gastrointestinal: soft, non-tender, no distention, positive bowel sounds Musculoskeletal: no edema Psychiatric: normal affect, A&O x 3 Skin: no rash, normal turgor, cap refill <2 seconds Deviation from normal: Left axilla lesion with no drng. Still indurated. Minimal erythema. Dx/Plan (1) Abscess of axilla, left Code(s): L02.412 - CUTANEOUS ABSCESS OF LEFT AXILLA Status: Acute (2) Diabetes Code(s): E11.9 - TYPE 2 DIABETES MELLITUS WITHOUT COMPLICATIONS Status: Acute Comment: Poor control. Patient has not been terribly compliant with diet. Continue with ISS. (3) Hyperglycemia due to type 2 diabetes mellitus Code(s): E11.65 - TYPE 2 DIABETES MELLITUS WITH HYPERGLYCEMIA Status: Acute (4) HIV (human immunodeficiency virus infection) Status: Chronic (5) Hypertension Code(s): I10 - ESSENTIAL (PRIMARY) HYPERTENSION Status: Chronic Comment: Home meds. (6) Morbid obesity with BMI of 50.0-59.9, adult Code(s): E66.01 - MORBID (SEVERE) OBESITY DUE TO EXCESS CALORIES; Z68.43 - BODY MASS INDEX (BMI) 50-59.9, ADULT Status: Chronic - Plan * Will continue IV abx today. * Looking better. May be able to change to po's tomorrow. * No cultures obtained from the abscess. Blood cultures negative. * Allow her to use her own HIV meds and Tresiba. * No fluid restriction order.
[2018-09-30] MEDS ORDERED: Ondansetron ODT 4 MG TAB PO PRN (16:11)
[2018-09-30] MEDS ORDERED: Ondansetron PF 4 MG/2 ML Vial SLOW IVP PRN (16:11)
[2018-09-30] MEDS: Nicotine 14 MG PATCH TD SCH (20:21)
[2018-10-01] MEDS: HumaLOG 300 UNITS/3 ML VIAL SC PRN ×4 (00:36→12:45)
[2018-10-01] MEDS: Piperacillin/Tazobactam 4.5 GM in Sodium Chloride 0.9% 100 ML IVPB SCH ×3 (01:51→15:53)
[2018-10-01] MEDS: Clindamycin/D5W 600 MG in Premix Bag 1 BAG IVPB SCH ×3 (02:46→15:53)
[2018-10-01] MEDS: HYDROcodone/Acetaminophen 7.5/325 mg Tablet PO PRN ×3 (04:38→15:50)
[2018-10-01] MEDS ORDERED: Levothyroxine Sodium 125 MCG TAB PO SCH ×2 (06:00)
[2018-10-01] MEDS: guaiFENesin 200 MG TAB PO PRN (06:21)
[2018-10-01] MEDS: Benzonatate 100 MG CAP PO SCH ×2 (08:40→15:48)
[2018-10-01] MEDS: Famotidine/PF 20 mg/2ml Vial SLOW IVP SCH (08:41)
[2018-10-01] MEDS: Insulin Glargine 120 UNITS in Pre-Filled Syringe 1 EACH SC SCH (08:41)
[2018-10-01] MEDS ORDERED: GENVOYA PO SCH (09:00)
[2018-10-01 09:08] LABS: Vancomycin, Trough 18.3 ug/mL
[2018-10-01 16:46] VITALS: BP 154/89; TEMP 97.7
--- NOTE | 2018-10-02 00:08 | DIS ---
DATE OF ADMISSION: 09/28/2018 DATE OF DISCHARGE: 10/01/2018 DISCHARGE DIAGNOSES: 1. Abscess of the left axilla. 2. Rhinovirus infection. 3. HIV positive. 4. Severe hyperglycemia secondary to diabetes mellitus. 5. History of bipolar/schizophrenia. 6. History of hypothyroidism. HISTORY OF PRESENT ILLNESS: The patient is a 47-year-old female with severe morbid obesity with a BMI of 50, who has HIV positivity and history of bipolar disorder and schizophrenia. The patient has extreme insulin resistance and diabetes and has had prior abscesses of the skin. She presented to the hospital primarily presenting with some cough and shortness of breath and incidentally with the abscess in the left axilla. The patient had mild lactic acidosis and leukocytosis with a white count of 15.5. The patient was initially worrisome for high white count and her respiratory symptoms. However, chest x-rays remained negative. No evidence of pneumonia. She had left axillary skin abscess, I and D'd in the emergency department. Blood cultures were obtained. Unfortunately, the fluid from the abscess was not sent for culture. HOSPITAL COURSE: The patient was admitted to the hospital, started on broad-spectrum antibiotics to cover the abscess and potential underlying pneumonia. Her blood sugars went extremely high and we continued with her insulin and ultimately were able to get her back on her usual home regimen and her blood sugars improved greatly. Her abscess in the axilla shows some persistent drainage. Surgery was consulted and felt that there was no additional intervention necessary. She remained afebrile and her white count did come down. She continued to have a persistent cough. However, respiratory viral screen did show rhinovirus with the patient's abscess looking better. She was felt to be in stable condition and ready for discharge to home. PHYSICAL EXAMINATION: VITAL SIGNS: On the day of discharge, temperature is 98.3, pulse 74, respirations 22, O2 saturation 92% on room air, BP 128/63 up to 152/77. GENERAL APPEARANCE: Morbidly obese, age-appropriate female. She is in no distress. She is awake, alert, and oriented. HEART: Regular rate and rhythm. LUNGS: Clear bilaterally without significant wheezes or rales. ABDOMEN: Soft, nontender, and nondistended. Morbidly obese. EXTREMITIES: No edema. Left axilla had incision about 1 cm along with tenderness, erythema and induration. There was no persistent drainage. Blood cultures remain negative. DISPOSITION: The patient is discharged home. ACTIVITY: As tolerated. DIET: She will be on a diabetic diet. DISCHARGE MEDICATIONS: She will have Tylenol No. 3 one p.o. q.6 hours p.r.n. pain, as well as Augmentin 875 one p.o. b.i.d. She will continue with her usual home medications includin. Clonazepam. 2. Mirtazapine. 3. Lamotrigine. 4. Fluoxetine. 5. Levothyroxine. 6. Zolpidem. 7. Genvoya. 8. Tresiba. 9. Humalog. FOLLOWUP: She is to follow up with Dr. Sellers and Dr. Dejesus. She should see her PCP in followup as well. The patient also had an echocardiogram in the hospital , which revealed ejection fraction of 50% to 60% with some evidence of mild diastolic dysfunction. Time spent in discharge activities, including face to face time with the patient , was 35 min. Job ID: [id number] MTDD
--- NOTE | 2018-10-03 11:00 | PQF ---
[facility]IS[facility] PHAM DAVID R MD [id number] CLINICAL DOCUMENTATION IMPROVEMENT CLARIFICATION FORM: ICD-10 Updated PLEASE DO AN ADDENDUM TO THE PROGRESS NOTE WITH ANY DOCUMENTATION UPDATES OR ADDITIONS AND CARRY THROUGH TO DC SUMMARY. THANK YOU. DATE: 10/03 ATTN: DR. OCTAVIA LINDQUIST Please exercise your independent, professional judgment in responding to the clarification form. Clinical indicators are provided on the bottom of this form for your review. Please check appropriate box(es): [ ] Sepsis due to: [ ] Localized infection without sepsis [ ] Other diagnosis [ ] Unable to determine In addition, please specify: Present on Admission (POA): [ ] Yes [ ] No [ ] Unable to determine For continuity of documentation, please document condition throughout progress notes and discharge summary. Thank You. CLINICAL INDICATORS - SIGNS / SYMPTOMS / LABS ER PRESENTATION 09/28: RR: 22 WBC: 15.5 LACTIC ACID: 2.7 L AXILLA ABSCESS ER TREATMENT: I&D L AXILLA, INCISION OVER FLUCTUANCE, EXPLORED FOR LOCULATIONS , IRRIGATED, DRAINED PUS (MODERATE AMOUNT) ER PHYSICIAN DIAGNOSES: SEPSIS, L AXILLARY ABSCESS H&P 09/28 (MARIO): IMPRESSION/PLAN: 2) LEUKOCYTOSIS W/LACTIC ACIDOSIS, ATTRIBUTED TO L AXILLARY ABSCESS; 3) HYPERGLYCEMIA. THE PT IS NONCOMPLIANT W/ DIABETES MEDICATIONS PN 09/29 - 10/01 (AMEENA): DX/PLAN: 1) ABSCESS OF L AXILLA WBC: 15.5 LACTIC ACID: 2.7 - 2.3 RR: 22 RISKS: IMMUNOCOMPROMISED (HIV POSITIVE & DM II) L AXILLA ABSCESS TREATMENT: IV ANTIBIOTICS (CLEOCIN, ZOSYN & VANCOMYCIN 09/28 -10/01) I&D L AXILLA ABSCESS (ER 09/28) THANK YOU! Lelia (This form is maintained as a part of the permanent medical record) 2014 [employer]. All Rights Reserved Lelia Ng RN, BSN [email or web address] Office: [phone] [facility]
== END 2018-10-01 17:24 | disposition home or self-care (01) | DRG 602 ==
LOC: ERS 16:20 → T4-A 21:46
PROVIDERS: ADMIT Internal Medicine; ATTEND Internal Medicine
PROC: 0X950ZZ Drainage of Left Axilla, Open Approach (ICD-10-PCS; principal; 2018-09-28)
DX: L02.412 Cutaneous abscess of left axilla (principal); J18.9 Pneumonia, unspecified organism; Z68.42 Body mass index [BMI] 45.0-49.9, adult; E11.65 Type 2 diabetes mellitus with hyperglycemia; E66.01 Morbid (severe) obesity due to excess calories; E78.5 Hyperlipidemia, unspecified; M21.372 Foot drop, left foot; B34.8 Other viral infections of unspecified site; F20.9 Schizophrenia, unspecified; F41.9 Anxiety disorder, unspecified; E89.0 Postprocedural hypothyroidism; Z21 Asymptomatic human immunodeficiency virus [HIV] infection status; I25.2 Old myocardial infarction; Z91.040 Latex allergy status; Z90.49 Acquired absence of other specified parts of digestive tract; Z95.1 Presence of aortocoronary bypass graft; Z86.73 Personal history of transient ischemic attack (TIA), and cerebral infarction without residual deficits; Z90.710 Acquired absence of both cervix and uterus; Z79.4 Long term (current) use of insulin; Z91.14 Patient's other noncompliance with medication regimen; Z88.8 Allergy status to other drugs, medicaments and biological substances
CPT/HCPCS: 10060; 36415; 36416; 71045; 80048; 80053; 80202; 80306; 81001; 83605; 83880; 85025; 87040; 87633; 93306; 94640; 96365; 96367; 96375; J1825; J2001; J2270; J2405; J2543; J3370; J3490; J7050; J7620; Q0162; S0028

== ENCOUNTER 2019-01-31 21:16 | Inpatient (IN) | payer MEDICARE, OTHER ==
[~2019-01-31 21:16] MED LIST: ISOVUE-370 76%-LOCM 1 ML ONE
[2019-01-31 22:05] LABS: #Eosinphils 0.1 thou/uL (0.0-0.7); #Lymphocytes 1.7 thou/uL (1.20-3.40); #Monocytes 0.5 thou/uL (0.11-0.59); #Neutrophils 6.5 thou/uL (1.40-6.50); %Basophils 0.1 % (0.0-1.0); %Eosinophils 1.4 % (0.0-10.0); %Lymphocytes 19.6 % (21.0-51.0); %Monocytes 5.8 % (0.0-10.0); %Neutrophils 73.2 % (42.0-75.0); Hemoglobin 13.6 g/dL (12.0-16.0); Mean Corpuscular HGB CONC 33.2 g/dL (32.0-36.0); Mean Corpuscular Hemoglobin 29.3 pg (27.0-31.0); Mean Corpuscular Volume 88.4 fL (78.0-98.0); Mean Platelet Volume 9.6 fL (7.4-10.4); Platelet Count 260 thou/uL (130-400); RBC Distribution Width 13.9 % (11.5-14.5); Red Blood Cell (RBC) Count 4.65 mill/uL (4.20-5.40); White Blood Cell (WBC) Count 8.9 thou/uL (4.8-10.8)
[2019-01-31 22:29] LABS: ALT (SGPT) 10 U/L (8-55); AST (SGOT) 8 U/L (5-34); Albumin 3.4 g/dL (3.5-5.0); Alkaline Phosphatase 102 U/L (40-110); Anion Gap 13 mmol/L (10-20); BUN (Urea Nitrogen) 14 mg/dL (7.0-18.7); Bilirubin, Total Less than 0.2 mg/dL (0.2-1.2); Calc. Creatinine Clearance 0 mL/min (70-130); Calcium 8.6 mg/dL (7.8-10.44); Carbon Dioxide 27 mmol/L (22-29); Chloride 98 mmol/L (98-107); Estimated GFR-MDRD 52; Globulin 2.8 g/dL (2.4-3.5); Glucose 487 mg/dL (70-105); Protein, Total 6.2 g/dL (6.0-8.3); Sodium 134 mmol/L (136-145)
--- NOTE | 2019-01-31 22:32 | RAD ---
RADIOGRAPH CHEST 1 VIEW: DATE: 01/31/2019 TIME: 9:34 PM HISTORY: 48-year-old female with dyspnea COMPARISON: 12/15/2018 FINDINGS: The cardiac size appears larger on the current study. That may be due to slightly more lordotic posit ioning, and together with body habitus, this is probably due to magnification alone. Interstitial markings appear to be diffusely prominent, but that could be due to the very large body habitus. No l arge consolidation. Lateral costophrenic angles are sharp. No pneumothorax. Signs of previous CABG. IMPRESSION: 1. Limited study because of body habitus. 2. No gross large consolidation. 3. Status post coronary artery bypass graft surgery is evidence for coronary atherosclerotic disease.
[2019-01-31 22:39] LABS: BHCG - Serum Negative (NEGATIVE); Pregs Control Background? CLEAR/WHITE (CLR/WHITE); Pregs Control Bar Appear? YES (CONTROL BAR)
[2019-01-31 22:50] LABS: CKMB 1.7 ng/mL (0-6.6)
--- NOTE | 2019-01-31 23:28 | CT ---
CT ANGIOGRAM THORAX WITH CONTRAST: (CTA pulmonary angiogram) DATE: 01/31/2019 HISTORY: 48-year-old female with dyspnea and chest pain TECHNIQUE: IV injection of iodinated contrast. Scan acquisition timing attempted to coincide with iodinated contrast bolus reaching maximal density in pulmonary arteries. 3-D MIP reconstructions. FINDINGS: Mild diffuse heterogeneously distributed groundglass densities throughout bilateral lungs. This is no nspecific, but favored to represent mild pulmonary interstitial edema. The pulmonic trunk is dilated, and is larger in caliber than the aorta. It measures approximate 4.5 c m in transverse dimension. No thromboembolism is identified in the pulmonic trunk or left and right main pulmonary arteries. How ever, due to the very large body habitus and slightly suboptimal IV contrast opacification of the vessels, the branches of the right and left main pulmonary arteries, especially the mid and distal le brenda branches, are more difficult to evaluate for PE. No pleural effusion or pneumothorax. There is lipomatous hypertrophy of the interatrial septum. There is a extension process of this exten ding into the lumen of the posterior aspect of the right atrium which has the appearance of a small lipoma. No thoracic aortic aneurysm or dissection. Sternotomy wires. Liver is very enlarged. No mediastinal l ymphadenopathy. IMPRESSION: 1) no central pulmonary thromboembolism. 2. Unable to evaluate for thromboembolism of branches of the right and left main pulmonary arteries b ecause of very large body habitus and slightly suboptimal contrast timing. 3) dilated pulmonic trunk suggestive of pulmonary arterial hypertension. 4) lipomatous hypertrophy of the interatrial septum. 5. Close (probable mild pulmonary interstitial edema. 6) status post open heart surgery. 7) hepatomegaly.
[2019-02-01 01:45] LABS: Troponin I 0.091 ng/mL (< 0.028)
--- NOTE | 2019-02-01 01:49 | PDOC.FPRHP ---
- History of Present Illness Chief Complaint: chest pain History of Present Illness: Patient is a 48F with PMHx of DM2, COPD, HTN, CVA s/p CT (january 2015), 4- vessel bypass, HIV, HLD, hypothyroidism, diastolic heart failure presenting today after an episode of chest pain. Patient reports that yesterday evening she felt sharp left-sided chest pain that radiated to her neck, only alleviated by the nitro EMS gave her on the way to the hospital. She states that this chest pain has been occuring for several months, and will happen when she is sitting, standing, or sleeping. She reports that she called EMS because this episode of chest pain was worse than others she has had. Patient was somewhat uncooperative throughout the exam, resistant to asking questions and participating in the physical exam. ED Course: 1L JERRY, melia - Allergies/Adverse Reactions Allergies Allergy/AdvReac Type Severity Reaction Status Date / Time latex Allergy Rash Verified 02/01/19 03:56 quetiapine [From Seroquel] Allergy Verified 02/01/19 03:56 ziprasidone [From Geodon] Allergy Anaphylaxis Verified 02/01/19 03:56 - Home Medications Medication Instructions Recorded Confirmed Type Lamotrigine [lamoTRIgine] 150 mg PO TID 10/04/16 02/01/19 History Mirtazapine 15 mg PO BID 10/04/16 02/01/19 History clonazePAM 0.5 mg PO BID 10/04/16 02/01/19 History FLUoxetine HCl [Fluoxetine HCl] 1 cap PO BID 09/29/18 02/01/19 History HumaLOG [HumaLOG Vial] 75 units SQ TID 09/29/18 02/01/19 History Insulin Degludec [Tresiba 180 units SQ DAILY 09/29/18 02/01/19 History Flextouch U-200] Levothyroxine Sodium [Synthroid] 2 tab PO DAILY 09/29/18 02/01/19 History Zolpidem Tartrate [Ambien] 10 mg PO HS 09/29/18 02/01/19 History Atorvastatin Calcium 1 tab PO DAILY 12/15/18 02/01/19 History Elviteg/Cob/Emtri/Tenof Alafen 1 tab PO DAILY 12/15/18 02/01/19 History [Genvoya Tablet] Ipratropium/Albuterol Sulfate 3 ml NEB [id number] PRN 02/01/19 02/01/19 History [DuoNeb] Lisinopril [Zestril] 5 mg PO DAILY 02/01/19 02/01/19 History Perphenazine [Trilafon] 16 mg PO DAILY 02/01/19 02/01/19 History - History PMHx: DM2, COPD, HTN, CVA s/p CT (january 2015), 4-vessel bypass, HIV, HLD, hypothyroidism, diastolic heart failure PSHx: hysterectomy, cholecystectomy, right breast biopsy, left knee tendon repair, thyroidectomy s/p thyroid cancer, cardiac 4-vessel bypass FHx: mother and maternal grandmother passed of CT at age 64 Social: smokes 1/2ppd, denies drug and alcohol use - Review of Systems General: denies: fever/chills, weight/appetite/sleep changes Eyes: denies: eye pain, vision changes ENT: denies: nasal congestion, rhinorrhea Respiratory: denies: cough, shortness of breath Cardiovascular: reports: chest pain. denies: palpitation Gastrointestinal: denies: nausea, vomiting, diarrhea Genitourinary: denies: dysuria, discharge Skin: denies: rashes, lesions Musculoskeletal: reports: pain (chronic pain in her legs) Neurological: reports: numbness (lle numbness, chronic) Psychological: denies: anxiety, depression - Vital signs BP: [165/99] HR: [82] RR: [19] Tmax: [98.5] Pox: [95]% on [RA] Wt: [169.kg] - Physical Exam Constitutional: NAD, awake, alert and oriented HEENT: normocephalic and atraumatic, grossly normal hearing Neck: supple, trachea midline Chest: no-tender to palpation, no lesions Heart: RRR, normal S1/S2 Lungs: CTAB, no respiratory distress, other (poor air movement) Abdomen: soft, non-tender Musculoskeletal: normal structure Neurological: CN II-XII intact, other (LLE numbness residual from 2015 CVA) Skin: no rash/lesions, no jaundice Heme/Lymphatic: no unusual bruising or bleeding, no purpura Psychiatric: good judgment and insight, intact recent and remote memory FMR H&P: Results - Labs Result Diagrams: 01/31/19 21:54 01/31/19 21:54 Lab results: WBC 8.9 thou/uL (4.8-10.8) 01/31/19 21:54 Hgb 13.6 g/dL (12.0-16.0) 01/31/19 21:54 Hct 41.1 % (36.0-47.0) 01/31/19 21:54 MCV 88.4 fL (78.0-98.0) 01/31/19 21:54 Plt Count 260 thou/uL (130-400) 01/31/19 21:54 Neutrophils % 73.2 % (42.0-75.0) 01/31/19 21:54 Sodium 134 mmol/L (136-145) L 01/31/19 21:54 Potassium 4.0 mmol/L (3.5-5.1) 01/31/19 21:54 Chloride 98 mmol/L (98-107) 01/31/19 21:54 Carbon Dioxide 27 mmol/L (22-29) 01/31/19 21:54 BUN 14 mg/dL (7.0-18.7) 01/31/19 21:54 Creatinine 1.12 mg/dL (0.6-1.1) H 01/31/19 21:54 Glucose 487 mg/dL (70-105) H 01/31/19 21:54 Calcium 8.6 mg/dL (7.8-10.44) 01/31/19 21:54 Total Bilirubin Less than 0.2 mg/dL (0.2-1.2) L 01/31/19 21:54 AST 8 U/L (5-34) 01/31/19 21:54 ALT 10 U/L (8-55) 01/31/19 21:54 Alkaline Phosphatase 102 U/L (40-110) 01/31/19 21:54 CK-MB (CK-2) 1.7 ng/mL (0-6.6) 01/31/19 21:54 Serum Total Protein 6.2 g/dL (6.0-8.3) 01/31/19 21:54 Albumin 3.4 g/dL (3.5-5.0) L 01/31/19 21:54 - EKG Interpretation EKG: Normal sinus rhythm, no ST elevation - Radiology Interpretation CT scan - chest Status: report reviewed by me (CTA: no central pulmonary embolism) Chest x-ray Status: report reviewed by me (No large gross consolidation) FMR H&P: A/P - Problem List (1) Elevated troponin Current Visit: Yes Status: Acute Code(s): R79.89 - OTHER SPECIFIED ABNORMAL FINDINGS OF BLOOD CHEMISTRY (2) PEACE (acute kidney injury) Current Visit: Yes Status: Acute Code(s): N17.9 - ACUTE KIDNEY FAILURE, UNSPECIFIED (3) Hypothyroidism Current Visit: Yes Status: Acute Code(s): E03.9 - HYPOTHYROIDISM, UNSPECIFIED (4) COPD (chronic obstructive pulmonary disease) Current Visit: Yes Status: Acute (5) HLD (hyperlipidemia) Current Visit: Yes Status: Acute Code(s): E78.5 - HYPERLIPIDEMIA, UNSPECIFIED (6) Heart failure, diastolic, chronic Current Visit: Yes Status: Acute Code(s): I50.32 - CHRONIC DIASTOLIC ( CONGESTIVE) HEART FAILURE (7) Chest pain Current Visit: No Status: Acute Code(s): R07.9 - CHEST PAIN, UNSPECIFIED (8) Diabetes Current Visit: No Status: Acute Code(s): E11.9 - TYPE 2 DIABETES MELLITUS WITHOUT COMPLICATIONS Comment: Poor control. Patient has not been terribly compliant with diet. Continue with ISS. (9) Hyperglycemia due to type 2 diabetes mellitus Current Visit: No Status: Acute Code(s): E11.65 - TYPE 2 DIABETES MELLITUS WITH HYPERGLYCEMIA (10) HIV (human immunodeficiency virus infection) Current Visit: No Status: Chronic (11) Hypertension Current Visit: No Status: Chronic Code(s): I10 - ESSENTIAL (PRIMARY) HYPERTENSION Comment: Home meds. (12) Morbid obesity with BMI of 50.0-59.9, adult Current Visit: No Status: Chronic Code(s): E66.01 - MORBID (SEVERE) OBESITY DUE TO EXCESS CALORIES; Z68.43 - BODY MASS INDEX (BMI) 50.0-59.9, ADULT (13) Schizophrenia Current Visit: Yes Status: Acute Code(s): F20.9 - SCHIZOPHRENIA, UNSPECIFIED (14) Bipolar disorder Current Visit: Yes Status: Acute Code(s): F31.9 - BIPOLAR DISORDER, UNSPECIFIED - Plan Patient is a 48F with PMHx of DM2, COPD, HTN, CVA, CT s/p 4-vessel bypass, HIV, HLD, hypothyroidism, diastolic heart failure admitted to obs for cp r/o #CP r/o -hx of CT, s/p 4-vessel bypass -patient reports intermittent cp the last few months -reports worsening cp that radiated to her neck late last night, alleviated by nitro from EMS -troponins 0.035>0.091, indeterminate range, continue to trend -EKG showed nsr, no ST segment elevation -most recent echo august 2018: EF 50-60%, impaired relaxation consistent with diastolic heart failure -last stress test 2017 showed septal infarct, but nothing that recommended patient to go to lab technologist -stress test ordered -npo -telemetry obs, continue to monitor -asa, home statin #PEACE -creatinine 1.12, GFR 52 -november 2018: creatinine 0.84, GFR 72 -received 1L NS in ED -IVF -continue to monitor #DM2 -continue home tresiba -hold home 75u humalog TID, as patient is NPO for stress test -ISS -continue to monitor -A1C pending #Hypothyroidism -patient s/p thyroidectomy from thyroid cancer -TSH pending -continue home meds #COPD -patient not in respiratory distress on exam, satting 95% on RA -duonebs prn -continue to monitor #HTN -patient hypertensive on exam -patient has not seen a pcp in a "while," not on hypertensive medications -consider starting lisinopril #HIV -followed by Dr. Sellers -continue home genvoya -afebrile at this time #HLD -continue home atorvastatin #Psychiatric illnesses: bipolar and schizophrenia -patient reports that she has both bipolar disorder and schizophrenia -reports she takes prozac -will have day team call [facility] in the am to get an accurate account of her meds #Nicotine dependence -patient reports that she has recently cut back to 1/2ppd -encouraged continued cessation -smoking cessation education ordered DVT: lovenox Diet: NPO Code: DNR Dispo: obs for cp r/o, stress test ordered FMR H&P: Upper Level - Pertinent history 48 yo F with hx of COPD, CAD s/p multi vessel CABG, CVA and DM2 here with complaint of L sided chest pain that radiates to her neck. Pain has been intermittent for the past week, however last night it became significantly worse and woke her from her sleep. She denies association with exercise. No diaphoresis, n/v, or SOB. Her last stress test was in May which found a large infarct involving her septum, inferior wall, and inferiolateral wall. An echo in August found normal EF with diastolic dysfunction. Regarding her DM2 , she states that she has not seen a PCP in a long time and gets her insulin due to a lot of refills. She states that she has been taking her insulin as scheduled. PMHx CVA CAD s/p 4v CABG DM2 COPD Bipolar disorder Schizophrenia Thyroid ca s/p thyroidectomy Hypothyroid Surgical Hx CABG Thyroidectomy Cholecystectomy L knee repair - Pertinent findings See applications intern note for full ROS, PE, vitals, and labs ROS General denies fever, chills, malaise CV Complains of L sided stabbing chest pain that radiates to her neck Resp denies SOB or cough GI denies n/v/d/c or abdominal pain denies frequency or dysuria Neuro denies weakness or numbness PE General NAD, A&O x4 HEENT NCAT CV RRR, no murmur Resp CTA b/l Abd non tender, no distension, normal BS Extremities no edema, normal pedal pulses Skin no rashes Neuro L foot numbness, CN II-XII grossly intact - Plan Date/Time: 02/01/19 0149 IVentura DO, have evaluated this patient and agree with findings/plan as outlined by applications intern resident. Pertinent changes/additions are listed here. 1.Chest pain -Patient states that this feels like her previous CT and the pain was relieved by nitro. Given her hx will admit to tele obs -Trend trops -EKG reassuring, no ST or T wave changes -Stress test in am -Check TSH 2.PEACE -Start IVF -Monitor BMP 3.Elevated trops -As above 4.CAD -Restart home statin and ASA 5.DM2 -Restart home insulin -Will cover with SSI given that she states she has been taking her insulin and her glucose is over 300 -Accucheck ACHS -Low carb diet after stress test -Check A1c 6.Hypothyroid -Restart home synthroid 7.HTN -Restart home meds 8.Tobacco use -Discuss cessation, pt states that she is cutting back in attempt to quit. 9.HIV -Restart home meds Diet Low carb after stress test Code DNR Dispo: patient is stable and does not currently appear to have ACS. Hospital course pending results of stress test
[2019-02-01] MEDS ORDERED: Dextrose 50% Abboject 50 ML SYRINGE SLOW IVP PRN (02:23)
[2019-02-01] MEDS ORDERED: Dextrose 5% in Water 1,000 ML IV PRN (02:23)
[2019-02-01] MEDS ORDERED: Ondansetron ODT 4 MG TAB PO PRN (02:23)
[2019-02-01] MEDS ORDERED: HumaLOG 300 UNITS/3 ML VIAL SC PRN ×2 (02:23)
[2019-02-01] MEDS ORDERED: Famotidine 20 MG TAB PO PRN (02:42)
[2019-02-01] MEDS ORDERED: Lactated Ringer's 1,000 ML IV SCH (02:45)
[2019-02-01 03:48] VITALS: BMI 60.9
[2019-02-01] MEDS: Levothyroxine Sodium 125 MCG TAB PO SCH (05:47)
[2019-02-01 07:09] LABS: #Eosinphils 0.1 thou/uL (0.0-0.7); #Lymphocytes 1.6 thou/uL (1.20-3.40); #Monocytes 0.4 thou/uL (0.11-0.59); #Neutrophils 4.4 thou/uL (1.40-6.50); %Basophils 0.3 % (0.0-1.0); %Lymphocytes 24.6 % (21.0-51.0); %Monocytes 6.6 % (0.0-10.0); %Neutrophils 66.5 % (42.0-75.0); Mean Corpuscular HGB CONC 32.7 g/dL (32.0-36.0); Mean Corpuscular Volume 88.6 fL (78.0-98.0); Mean Platelet Volume 9.5 fL (7.4-10.4); Platelet Count 238 thou/uL (130-400); RBC Distribution Width 13.9 % (11.5-14.5); Red Blood Cell (RBC) Count 4.84 mill/uL (4.20-5.40); White Blood Cell (WBC) Count 6.6 thou/uL (4.8-10.8)
[2019-02-01 07:19] LABS: INR-International Normal Ratio 0.9; PTT 27.6 SEC (22.9-36.1); Prothrombin Time 12.1 SEC (12.0-14.7)
[2019-02-01 07:25] LABS: Hemoglobin A1c 13.3 % (4.0-6.0)
[2019-02-01 07:38] LABS: Anion Gap 12 mmol/L (10-20); BUN (Urea Nitrogen) 10 mg/dL (7.0-18.7); Calc. Creatinine Clearance 231 mL/min (70-130); Calcium 8.3 mg/dL (7.8-10.44); Carbon Dioxide 25 mmol/L (22-29); Chloride 103 mmol/L (98-107); Estimated GFR-MDRD 79; Glucose 300 mg/dL (70-105); Sodium 136 mmol/L (136-145)
[2019-02-01 07:50] LABS: Troponin I 0.429 ng/mL (< 0.028)
[2019-02-01] MEDS ORDERED: INSULIN DEGLUDEC 180 UNIT SQ SCH (09:00)
[2019-02-01] MEDS ORDERED: Enoxaparin Sodium 40 MG/0.4 ML SYRINGE SC SCH ×2 (09:00)
[2019-02-01] MEDS ORDERED: FLUoxetine HCl 20 MG CAP PO SCH (09:00)
[2019-02-01] MEDS ORDERED: Enoxaparin Sodium 100 MG/ML SYRINGE SC SCH (09:00)
--- NOTE | 2019-02-01 09:41 | HP ---
HISTORY OF PRESENT ILLNESS: I have examined the patient and discussed the case with Dr. Josette Dubois and agree with her assessment and plan. Briefly, Ms. Obrien is a 48-year-old white female with a prior history of coronary artery disease and CABG, who is presenting with chest pain. Her initial troponins were negative, but her last troponin has bumped to 0.4, consistent with an NSTEMI. She is currently chest pain free, although she had presented with chest pain and was treated appropriately with oxygen, aspirin, and nitrates. PHYSICAL EXAMINATION: VITAL SIGNS: Her blood pressure is 160/95, her heart rate is 82 and regular, respirations are 18. She is afebrile. Her room air pulse ox is 95%. GENERAL: This morning, she is awake, alert, and currently chest pain free. EARS, NOSE, AND THROAT: No erythema or exudate. NECK: Supple. CARDIAC: Heart and rhythm regular. No gallop or murmur noted. LUNGS: Clear without rales or wheezes. ABDOMEN: Obese, but flat and soft. No guarding or rebound. No rigidity. EXTREMITIES: Trace edema. NEUROLOGIC: No focal deficits. LABORATORY DATA: CBC; white count is 8900, hemoglobin 13.6, and hematocrit 41.1 with an MCV of 88. Chemistries; her sodium is 134, potassium is 4, chloride 98, bicarb 27, BUN 14, and creatinine 1.12. Her glucose initially was 487, currently 389. Her initial troponin was 0.035. Her latest troponin this morning was 0.429 consistent again with NSTEMI. TSH is elevated at 38. ASSESSMENT: Puq-NN-rbfuvnsim myocardial infarction in a patient with multiple cardiac risk factors including previous coronary artery bypass graft, type 2 diabetes, hypertension. PLAN: We will consult with Cardiology if she will possibly need a re-cath. We will continue to treat and monitor her type 2 diabetes and adjust her Synthroid given that her TSH is elevated. Job ID: [id number]
[2019-02-01 10:05] LABS: Cardiac Risk 5.2 (Less than 4.5)
[2019-02-01] MEDS: Aspirin 325 mg Enteric Coated Tablet PO SCH (10:49)
[2019-02-01] MEDS: Atorvastatin Calcium 40 MG TAB PO SCH (10:49)
[2019-02-01] MEDS ORDERED: Enoxaparin Sodium 80 MG/0.8 ML SYRINGE SC SCH ×2 (12:15→21:00)
--- NOTE | 2019-02-01 13:57 | CON ---
DATE OF CONSULTATION: 02/01/2019 PRIMARY PERFORMANCE MAKEUP ARTIST: Wily Mandel MD REASON FOR CONSULTATION: Chest pain and non-STEMI. HISTORY OF PRESENT ILLNESS: Ms. Obrien is a very pleasant 48-year-old white female, who comes to the hospital for chest pain. She states she felt a sharp left-sided chest pain that radiated to her left neck. This was yesterday evening. She decided to call 911 as nitroglycerin alleviated some of this pain. She was brought in. The chest pain has been occurring for several months now; really it was all the time, sitting, standing, and sleeping. This episode of chest pain was worse than the other she has had before. PAST MEDICAL HISTORY: 1. Coronary artery disease, status post CABG x4 in January 2015. 2. History of CVA. 3. COPD. 4. Hypertension. 5. Type 2 diabetes. 6. HIV. 7. Hyperlipidemia. 8. Hypothyroidism. 9. Diastolic cardiac failure. 10. Noncompliance. 11. Bipolar disorder. PAST SURGICAL HISTORY: 1. Hysterectomy. 2. Cholecystectomy. 3. Right breast biopsy. 4. Left knee tendon repair. 5. Thyroidectomy. 6. Four-vessel bypass in 2014. FAMILY HISTORY: MIs in mother and maternal grandmother in her 60s. SOCIAL HISTORY: Continues to smoke half pack a day. No drug or alcohol use. REVIEW OF SYSTEMS: A 12-point review of systems was done and was all negative unless stated in the history of present illness. OUTPATIENT MEDICATIONS: 1. Lamotrigine. 2. Mirtazapine. 3. Clonazepam. 4. Fluoxetine. 5. Humalog. 6. Tresiba. 7. Synthroid 2 tablets a day. 8. Ambien. 9. Atorvastatin. 10. Genvoya. 11. DuoNebs. 12. Lisinopril 5 mg a day. 13. Trilafon. ALLERGIES: 1. LATEX. 2. QUETIAPINE. 3. ZIPRASIDONE GIVES HER ANAPHYLAXIS. PHYSICAL EXAMINATION: VITAL SIGNS: Temperature 98, pulse 76, respiratory rate 20, satting 93% on room air, and blood pressure 132/67. GENERAL: Awake, alert, oriented x3. No distress. HEENT: Normocephalic and atraumatic. NECK: Supple. LUNGS: Clear. CARDIOVASCULAR: S1 and S2. No S3 or S4. No murmurs. ABDOMEN: Soft. Positive bowel sounds. EXTREMITIES: Trace edema. SKIN: Warm and dry. LABORATORY DATA: Laboratory work was reviewed. CBC with a white count of 6, hemoglobin of 14, hematocrit of 42, platelet count of 238. Coags were normal. Chemistry was unremarkable except for glucose of 300. Hemoglobin A1c of 13. TSH of 37. Triglycerides of 256, cholesterol total of 258, LDL of 157, HDL of 50. Beta-hydroxybutyrate was normal. Troponins went from 0.03 to 0.09 to 0.4. ASSESSMENT: 1. Gdp-XE-djaaseohx myocardial infarction. 2. Coronary artery disease, status post coronary artery bypass grafting x4 in 2015. 3. Noncompliance. 4. Human immunodeficiency virus. 5. Chronic obstructive pulmonary disease. 6. Type 2 diabetes. 7. Hypertension. 8. Morbid obesity. 9. Noncompliance with medications. PLAN: 1. I spoke with Ms. Obrien about doing a heart catheterization and at this moment she is not interested. She states that she does not want to lay flat for any procedure. She does not want to lay flat after the procedure. She is pain free at this time, but she would like to be treated medically. I stated that for this, she would have to be in the hospital at least 48 hours to do anticoagulation. She states she does not want to stay for that long, but she will stay if that was needed. 2. I recommend full dose Lovenox for a total of four doses, that would be 48 hours. If her chest pain recur, she may reconsider. 3. If heart catheterization is done, a bare-metal stent would be the only option as she has noncompliance and she is high risk for in-stent thrombosis. 4. We will do an echocardiogram. Thank you for letting me to participate in the care of your patient. We will follow. Job ID: [id number]
[2019-02-01 13:58] LABS: Free T4 (Free Thyroxine) Less than 0.40 ng/dL (0.70-1.48)
[2019-02-01] MEDS: INSULIN GLARGINE SC SCH (15:52)
[2019-02-01] MEDS: HumaLOG 300 UNITS/3 ML VIAL SC SCH ×2 (15:52→21:04)
[2019-02-01] MEDS: PRE FILLED SC SCH (15:52)
[2019-02-01] MEDS: lamoTRIgine 100 MG TAB PO SCH ×2 (15:53→21:02)
[2019-02-01] MEDS ORDERED: FLU VACC QS2019-20(6MOS UP)/PF 60 MCG/0.5 ML SYRINGE IM ONE (21:00)
[2019-02-01] MEDS: Zolpidem Tartrate 5 MG TAB PO SCH (21:03)
[2019-02-01] MEDS: Mirtazapine 15 MG TAB PO SCH (21:03)
[2019-02-01] MEDS: Elviteg/Cob/Emtri/Tenof Alafen [Genvoya Tablet] 1 TAB PO SCH (21:39)
[2019-02-02] MEDS: Levothyroxine Sodium 125 MCG TAB PO SCH (05:25)
[2019-02-02] MEDS: Acetaminophen 325 MG TAB PO PRN (05:28)
[2019-02-02 06:59] LABS: Hemoglobin 13.8 g/dL (12.0-16.0); Platelet Count 234 thou/uL (130-400)
--- NOTE | 2019-02-02 08:01 | PDOC.FM ---
- Subjective Subjective: Overnight, patient complained of right arm pain. She states it felt swollen. This morning, patient is resting comfortably in bed. Patient still complaining of arm pain - described as a tingling/stinging pain. She states the tylenol did not help with this pain. She denies any fever/chills. Patient states that she does take her insulin daily. She admits that she rarely takes her thyroid medication. - Objective MAR Reviewed: Yes Vital Signs & Weight: Vital Signs (12 hours) Temp Pulse Resp BP BP Pulse Ox 02/02/19 04:00 98.4 F 78 20 113/58 L 92 L 02/02/19 00:00 75 125/64 02/01/19 20:15 98.1 F 88 18 148/73 H 94 L Weight Weight 166.151 kg I&O: 02/01/19 02/02/19 02/03/19 06:59 06:59 06:59 Intake Total 0 2260 Output Total 0 Balance 0 2260 Result Diagrams: 02/02/19 06:49 02/01/19 06:50 Phys Exam - Physical Examination Constitutional: NAD morbidly obese HEENT: PERRLA, moist MMs, sclera anicteric Neck: full ROM Respiratory: clear to auscultation bilateral difficult to fully appreciate due to body habitus Cardiovascular: RRR, no significant murmur, no rub difficult to fully appreicate due to body habitus Gastrointestinal: soft, non-tender Musculoskeletal: pulses present trace edema Neurological: non-focal, moves all 4 limbs Psychiatric: normal affect, A&O x 3 Skin: no rash, normal turgor, cap refill <2 seconds Dx/Plan (1) PEACE (acute kidney injury) Code(s): N17.9 - ACUTE KIDNEY FAILURE, UNSPECIFIED Status: Acute (2) Bipolar disorder Code(s): F31.9 - BIPOLAR DISORDER, UNSPECIFIED Status: Acute (3) COPD (chronic obstructive pulmonary disease) Status: Acute (4) Elevated troponin Code(s): R79.89 - OTHER SPECIFIED ABNORMAL FINDINGS OF BLOOD CHEMISTRY Status : Acute (5) HLD (hyperlipidemia) Code(s): E78.5 - HYPERLIPIDEMIA, UNSPECIFIED Status: Acute (6) Heart failure, diastolic, chronic Code(s): I50.32 - CHRONIC DIASTOLIC (CONGESTIVE) HEART FAILURE Status: Acute (7) Hypothyroidism Code(s): E03.9 - HYPOTHYROIDISM, UNSPECIFIED Status: Acute (8) Schizophrenia Code(s): F20.9 - SCHIZOPHRENIA, UNSPECIFIED Status: Acute (9) Diabetes Code(s): E11.9 - TYPE 2 DIABETES MELLITUS WITHOUT COMPLICATIONS Status: Acute (10) Hyperglycemia due to type 2 diabetes mellitus Code(s): E11.65 - TYPE 2 DIABETES MELLITUS WITH HYPERGLYCEMIA Status: Acute (11) Anxiety and depression Code(s): F41.8 - OTHER SPECIFIED ANXIETY DISORDERS Status: Chronic (12) Dyslipidemia Code(s): E78.5 - HYPERLIPIDEMIA, UNSPECIFIED Status: Chronic (13) HIV (human immunodeficiency virus infection) Status: Chronic (14) Hypertension Code(s): I10 - ESSENTIAL (PRIMARY) HYPERTENSION Status: Chronic (15) Noncompliance with medication regimen Code(s): Z91.14 - PATIENT'S OTHER NONCOMPLIANCE WITH MEDICATION REGIMEN Status : Chronic - Plan Plan: Patient is a 48F with PMHx of DM2, COPD, HTN, CVA, [place] s/p 4-vessel bypass, HIV, HLD, hypothyroidism, diastolic heart failure admitted to obs for chest pain. NSTEMI Troponins 0.09 -> 0.04. EKG showed nsr, no ST segment elevation. Most recent echo august 2018: EF 50-60%, impaired relaxation consistent with diastolic heart failure. Last stress test in 2018 showed septal infarct, but nothing that recommended patient to go to senior cytogenetics laboratory director - Cardiology consulted. Patient declined catheterization. Will anticoagulate patient for 48hrs. Patient has received 2 doses of 160mg SC enoxaparin. Based on anti-Xa will decrease dose to 140mg SC BID. Discussed with pharmacy for appropriate dosing. - Arm pain - differential DVT vs superficial vs MSK. US pending. Will continue to monitor. Tylenol/motrin for pain. PEACE, resolved Creatinine 1.12, GFR 52. - patient tolerating PO, will encourage PO hydration DM2 Patient likely non complaint. A1c 13.3. - continue home tresiba and home insulin - ISS - Continue to monitor Hypothyroidism Patient s/p thyroidectomy from thyroid cancer. TSH 37.9, free T3/4 low. - Discussed with patient how to appropriately take medication. Patient likely non compliant. - Continue synthroid COPD - Duonebs prn - Continue to monitor HTN - patient's BP at goal, will continue to monitor HIV Followed by Dr. Sellers - Continue home genvoya HLD - continue home atorvastatin Psychiatric illnesses: bipolar and schizophrenia - continue home meds Nicotine dependence - Encourage cessation DVT: enoxaparin Diet: HH Code: DNR Dispo: >2midnights, pending clinical course Case discussed with Dr. Osorio
[2019-02-02] MEDS ORDERED: Lisinopril 5 MG TAB PO SCH (09:00)
[2019-02-02] MEDS: Atorvastatin Calcium 40 MG TAB PO SCH (09:24)
[2019-02-02] MEDS: Enoxaparin Sodium 80 MG/0.8 ML SYRINGE SC SCH ×2 (09:24→21:11)
[2019-02-02] MEDS: Aspirin 325 mg Enteric Coated Tablet PO SCH (09:24)
[2019-02-02] MEDS: Lisinopril 5 MG TAB PO SCH (09:24)
[2019-02-02] MEDS: INSULIN GLARGINE SC SCH (09:25)
[2019-02-02] MEDS: PRE FILLED SC SCH (09:25)
[2019-02-02] MEDS: HumaLOG 300 UNITS/3 ML VIAL SC SCH ×3 (09:27→21:13)
[2019-02-02] MEDS: Mirtazapine 15 MG TAB PO SCH ×2 (09:35→21:11)
[2019-02-02] MEDS: lamoTRIgine 100 MG TAB PO SCH ×3 (09:35→21:09)
--- NOTE | 2019-02-02 10:15 | ULT ---
RIGHT UPPER EXTREMITY VENOUS DOPPLER WITH SPECTRAL ANALYSIS AND COLOR FLOW EVALUATION: Date: 02/02/19 HISTORY: Right upper extremity erythema and swelling. FINDINGS: Dee scale, color flow, Doppler evaluation, and spectral analysis of the right upper extremity venous structures is performed with 2D imaging. FINDINGS: There is normal lumen compressibility and flow seen in the right internal jugular, axillary, brachial , ulnar, and radial veins. There is normal flow demonstrated in the right subclavian vein. There is normal lumen compressibility and flow involving the right upper extremity cephalic and basil ic veins. IMPRESSION: No evidence of a deep venous thrombosis involving the visualized deep venous structures right upper e xtremity. POS: OFF
[2019-02-02] MEDS ORDERED: Ibuprofen 600 MG TAB PO PRN (10:24)
[2019-02-02] MEDS ORDERED: Gabapentin 300 MG CAP PO SCH (10:30)
--- NOTE | 2019-02-02 10:53 | PRG ---
DATE OF SERVICE: Ms. Obrien has refused cardiac catheterization, so we are managing her coronary artery disease medically with input from Cardiology. Ms. Obrien also relates that she is a heavy smoker and certainly has a body habitus, there is someone with possible LAZARA. She had been scheduled for a sleep study last week, was unable to obtain a ride. I have encouraged her to reschedule and pursue the sleep study given the significant morbidity associated with LAZARA. I have also suggested that she take her thyroid medications entire weekly dose once weekly since she seems to have problems taking it daily. Job ID: [id number]
--- NOTE | 2019-02-02 15:41 | PDOC.CPN ---
- Subjective Date: 02/02/19 Time: 15:39 - Review of Systems Cardiovascular: reports: chest pain (SOB) Musculoskeletal: reports: pain (to right arm) - Objective Allergies/Adverse Reactions: Allergies Allergy/AdvReac Type Severity Reaction Status Date / Time latex Allergy Rash Verified 02/01/19 03:56 quetiapine [From Seroquel] Allergy Verified 02/01/19 03:56 ziprasidone [From Geodon] Allergy Anaphylaxis Verified 02/01/19 03:56 Visit Medications: Current Medications Acetaminophen (Tylenol) 650 mg PO Q4H PRN PRN Reason: Headache/Fever/Mild Pain (1-3) Last Admin: 02/02/19 05:28 Dose: 650 mg Albuterol/Ipratropium (Duoneb) 3 ml NEB [id number] PRN PRN Reason: SOB &/or Wheezing Aspirin (Ecotrin) 325 mg PO DAILY [facility] Last Admin: 02/02/19 09:24 Dose: 325 mg Atorvastatin Calcium (Lipitor) 40 mg PO DAILY [facility] Last Admin: 02/02/19 09:24 Dose: 40 mg Dextrose/Water (Dextrose 50%) 25 gm SLOW IVP PRN PRN PRN Reason: Hypoglycemia Enoxaparin Sodium (Lovenox) 140 mg SC 0900,2100 [facility] Last Admin: 02/02/19 09:24 Dose: 140 mg Famotidine (Pepcid) 20 mg PO BID PRN PRN Reason: Indigestion Gabapentin (Neurontin) 300 mg PO BID [facility] Glucagon (Glucagon) 1 mg IM PRN PRN PRN Reason: Hypoglycemia Dextrose/Water (D5w) 1,000 mls @ 0 mls/hr IV .Q0M PRN PRN Reason: Hypoglycemia Insulin Glargine 180 units/ (Miscellaneous Medication) 1.8 mls @ 0 mls/hr SC QAM [facility] Last Admin: 02/02/19 09:25 Dose: 1.8 mls Ibuprofen (Motrin) 600 mg PO Q6H PRN PRN Reason: Pain Insulin Human Lispro (Humalog) 0 units SC .AGGRESSIVE SLIDING PRN PRN Reason: Aggressive Correctional Scale Insulin Human Lispro (Humalog) 0 units SC .BEDTIME SLIDING SC PRN PRN Reason: Bedtime Correctional Scale Insulin Human Lispro (Humalog) 75 units SC TID [facility] Last Admin: 02/02/19 09:27 Dose: 75 unit Lamotrigine (Lamictal) 150 mg PO TID [facility] Last Admin: 02/02/19 09:35 Dose: 150 mg Levothyroxine Sodium (Synthroid) 250 mcg PO 0600 [facility] Last Admin: 02/02/19 05:25 Dose: 250 mcg Lisinopril (Zestril) 5 mg PO DAILY [facility] Last Admin: 02/02/19 09:24 Dose: 5 mg Mirtazapine (Remeron) 15 mg PO BID [facility] Last Admin: 02/02/19 09:35 Dose: 15 mg Ondansetron HCl (Zofran Odt) 4 mg PO Q6H PRN PRN Reason: Nausea/Vomiting Elviteg/Cob/Emtri/Tenof Alafen [ Genvoya Tablet] 1 Tab 0 each PO HS [facility] Last Admin: 02/01/19 21:39 Dose: 1 each Zolpidem Tartrate (Ambien) 10 mg PO HS [facility] Last Admin: 02/01/19 21:03 Dose: 10 mg Vital Signs & Weight: Vital Signs Temp Pulse Resp BP Pulse Ox 02/02/19 09:24 78 02/02/19 08:00 98.5 F 67 17 118/59 L 94 L 02/02/19 04:00 98.4 F 78 20 113/58 L 92 L Weight 366 lb 4.8 oz - Physical Exam HEENT: mucus membranes moist, normocephaly Neck: supple neck Cardiac: regular rate and rhythm Lungs: clear to auscultation, normal breath sounds Neuro: coordination normal Abdomen: unremarkable Extremities: no cyanosis Skin: clear Musculoskeletal: normal range of motion - Labs Result Diagrams: 02/02/19 06:49 02/01/19 06:50 Troponin/CKMB CK-MB (CK-2) 1.7 ng/mL (0-6.6) 01/31/19 21:54 Troponin I 0.429 ng/mL (< 0.028) H* 02/01/19 06:50 - Assessment/Plan Assessment/Plan: 1. NSTEMI 2. CAD s/p CABG 2014 3. Noncompliance 4. HIV + 5. HTN 6. HLD 7. DM-II Patient now agreeable to cath. Still with ROTHMAN and intermittent CP while walking in [place]. Plan for LHC possibly Tuesday when Dr. Mandel returns.
[2019-02-02] MEDS: Zolpidem Tartrate 5 MG TAB PO SCH (21:10)
[2019-02-02] MEDS: Gabapentin 300 MG CAP PO SCH (21:11)
[2019-02-02] MEDS: Elviteg/Cob/Emtri/Tenof Alafen [Genvoya Tablet] 1 TAB PO SCH (21:11)
[2019-02-03] MEDS: Ketorolac Tromethamine 10 MG TAB PO PRN ×3 (03:54→23:44)
[2019-02-03] MEDS: Levothyroxine Sodium 125 MCG TAB PO SCH (03:55)
[2019-02-03 05:49] LABS: Hemoglobin 13.7 g/dL (12.0-16.0); Platelet Count 241 thou/uL (130-400)
--- NOTE | 2019-02-03 06:11 | PDOC.FM ---
- Subjective Subjective: Denies chest pain. Still has CP with walking and feels SOB. Some lower back pain from fusion pain. No diaphoresis. - Objective MAR Reviewed: Yes Vital Signs & Weight: Vital Signs (12 hours) Temp Pulse Resp BP Pulse Ox 02/03/19 03:44 96 02/03/19 03:37 97.8 F 18 L 22 H 122/58 L 88 L 02/02/19 19:34 98.5 F 72 18 120/58 L 94 L Weight Weight 166.151 kg I&O: 02/01/19 02/02/19 02/03/19 06:59 06:59 06:59 Intake Total 0 2260 2520 Output Total 0 Balance 0 2260 2520 Result Diagrams: 02/03/19 05:41 02/03/19 10:38 Phys Exam - Physical Examination Constitutional: NAD obese HEENT: PERRLA, moist MMs Neck: full ROM Respiratory: no wheezing, clear to auscultation bilateral Cardiovascular: RRR, no significant murmur Gastrointestinal: soft, non-tender Musculoskeletal: no edema Neurological: non-focal, moves all 4 limbs Psychiatric: normal affect, A&O x 3 Dx/Plan (1) NSTEMI (non-ST elevated myocardial infarction) Code(s): I21.4 - NON-ST ELEVATION (NSTEMI) MYOCARDIAL INFARCTION Status: Acute (2) PEACE (acute kidney injury) Code(s): N17.9 - ACUTE KIDNEY FAILURE, UNSPECIFIED Status: Acute (3) COPD (chronic obstructive pulmonary disease) Status: Acute (4) Heart failure, diastolic, chronic Code(s): I50.32 - CHRONIC DIASTOLIC (CONGESTIVE) HEART FAILURE Status: Acute (5) Hypothyroidism Code(s): E03.9 - HYPOTHYROIDISM, UNSPECIFIED Status: Acute (6) Schizophrenia Code(s): F20.9 - SCHIZOPHRENIA, UNSPECIFIED Status: Acute (7) Diabetes Code(s): E11.9 - TYPE 2 DIABETES MELLITUS WITHOUT COMPLICATIONS Status: Acute (8) Anxiety and depression Code(s): F41.8 - OTHER SPECIFIED ANXIETY DISORDERS Status: Chronic (9) Dyslipidemia Code(s): E78.5 - HYPERLIPIDEMIA, UNSPECIFIED Status: Chronic (10) HIV (human immunodeficiency virus infection) Status: Chronic (11) Hypertension Code(s): I10 - ESSENTIAL (PRIMARY) HYPERTENSION Status: Chronic (12) Morbid obesity with BMI of 50.0-59.9, adult Code(s): E66.01 - MORBID (SEVERE) OBESITY DUE TO EXCESS CALORIES; Z68.43 - BODY MASS INDEX (BMI) 50.0-59.9, ADULT Status: Chronic (13) Noncompliance with medication regimen Code(s): Z91.14 - PATIENT'S OTHER NONCOMPLIANCE WITH MEDICATION REGIMEN Status : Chronic - Plan Plan: Patient is a 48F with PMHx of DM2, COPD, HTN, CVA, [place] s/p 4-vessel bypass, HIV, HLD, hypothyroidism, diastolic heart failure admitted to obs for chest pain. #NSTEMI Troponins 0.09 -> 0.04. EKG showed nsr, no ST segment elevation. Most recent echo august 2018: EF 50-60%, impaired relaxation consistent with diastolic heart failure. Last stress test in 2018 showed septal infarct, but nothing that recommended patient to go to laboratory immunologist - Cardiology consulted-pt now agreeable to cath, plan for tuesday. Pt has received 48 hours of anticoagulation - s/p 2 doses of 160mg SC enoxaparin. Based on anti-Xa will decrease dose to 140mg SC BID. Discussed with pharmacy for appropriate -Discuss with cards need to continue anticoagulation until LHC #PEACE, resolved Creatinine 1.12, GFR 52. - patient tolerating PO, will encourage PO hydration #DM2 Patient likely non complaint. A1c 13.3. - continue home tresiba and home insulin - sliding scale - glucose still elevated, will change insulin regimen #Hypothyroidism Patient s/p thyroidectomy from thyroid cancer. TSH 37.9, free T3/4 low. - Discussed with patient how to appropriately take medication. Patient likely non compliant. - Continue synthroid #COPD - Duonebs prn - Continue to monitor #HTN - patient's BP at goal, will continue to monitor #HIV Followed by Dr. Sellers - Continue home genvoya #HLD - continue home atorvastatin #Psychiatric illnesses: bipolar and schizophrenia - continue home meds #Nicotine dependence - Encourage cessation DVT: enoxaparin, weight based Diet: HH Code: DNR Dispo: >2midnights, plan for LHC on Tuesday Case discussed with Dr. Amezcua Addendum - Attending - Attending Attestation Date/Time: 02/03/19 1126 I personally evaluated the patient and discussed the management with Dr. Olsen. I agree with the History, Examination, Assessment and Plan documented above with any addition or exceptions noted below. The patient is very anxious this morning. She is going to go through with cath on Tuesday. Will restart her klonopin which she takes from [facility] for anxiety as well as her lamictal.
[2019-02-03] MEDS ORDERED: clonazePAM 0.5 MG TAB PO SCH (09:04)
[2019-02-03] MEDS ORDERED: lamoTRIgine 100 MG TAB PO SCH ×2 (09:05→21:00)
[2019-02-03] MEDS: INSULIN GLARGINE SC SCH (09:14)
[2019-02-03] MEDS: HumaLOG 300 UNITS/3 ML VIAL SC SCH ×3 (09:14→20:54)
[2019-02-03] MEDS: PRE FILLED SC SCH (09:14)
[2019-02-03] MEDS: lamoTRIgine 100 MG TAB PO SCH ×2 (09:15→16:22)
[2019-02-03] MEDS: Lisinopril 5 MG TAB PO SCH (09:15)
[2019-02-03] MEDS: Mirtazapine 15 MG TAB PO SCH ×2 (09:15→20:51)
[2019-02-03] MEDS: Aspirin 325 mg Enteric Coated Tablet PO SCH (09:15)
[2019-02-03] MEDS: Enoxaparin Sodium 80 MG/0.8 ML SYRINGE SC SCH ×2 (09:16→20:52)
[2019-02-03] MEDS: Gabapentin 300 MG CAP PO SCH ×2 (09:16→20:51)
[2019-02-03] MEDS: Atorvastatin Calcium 40 MG TAB PO SCH (09:17)
[2019-02-03] MEDS ORDERED: Loratadine 10 MG TAB PO SCH ×2 (10:00→23:45)
[2019-02-03 11:12] LABS: Anion Gap 13 mmol/L (10-20); BUN (Urea Nitrogen) 12 mg/dL (7.0-18.7); Calc. Creatinine Clearance 201 mL/min (70-130); Calcium 9.6 mg/dL (7.8-10.44); Carbon Dioxide 31 mmol/L (22-29); Chloride 96 mmol/L (98-107); Estimated GFR-MDRD 67; Glucose 169 mg/dL (70-105); Potassium 4.5 mmol/L (3.5-5.1); Sodium 135 mmol/L (136-145)
--- NOTE | 2019-02-03 13:09 | PDOC.CPN ---
- Subjective Date: 02/03/19 Time: 10:00 - Review of Systems General: denies: fever/chills, weight/appetite/sleep changes, night sweats, fatigue Respiratory: reports: shortness of breath, exercise intolerance Cardiovascular: denies: chest pain, palpitation, edema, paroxysmal nocturnal dyspnea, orthopnea Musculoskeletal: reports: pain, tenderness Neurological: reports: numbness - Objective Allergies/Adverse Reactions: Allergies Allergy/AdvReac Type Severity Reaction Status Date / Time latex Allergy Rash Verified 02/01/19 03:56 quetiapine [From Seroquel] Allergy Verified 02/01/19 03:56 ziprasidone [From Geodon] Allergy Anaphylaxis Verified 02/01/19 03:56 Visit Medications: Current Medications Acetaminophen (Tylenol) 650 mg PO Q4H PRN PRN Reason: Headache/Fever/Mild Pain (1-3) Last Admin: 02/02/19 05:28 Dose: 650 mg Albuterol/Ipratropium (Duoneb) 3 ml NEB [id number] PRN PRN Reason: SOB &/or Wheezing Aspirin (Ecotrin) 325 mg PO DAILY [facility] Last Admin: 02/03/19 09:15 Dose: Not Given Atorvastatin Calcium (Lipitor) 40 mg PO DAILY [facility] Last Admin: 02/03/19 09:17 Dose: 40 mg Clonazepam (Klonopin) 0.5 mg PO BID [facility] Dextrose/Water (Dextrose 50%) 25 gm SLOW IVP PRN PRN PRN Reason: Hypoglycemia Enoxaparin Sodium (Lovenox) 140 mg SC 0900,2100 [facility] Last Admin: 02/03/19 09:16 Dose: 140 mg Famotidine (Pepcid) 20 mg PO BID PRN PRN Reason: Indigestion Gabapentin (Neurontin) 300 mg PO BID [facility] Last Admin: 02/03/19 09:16 Dose: 300 mg Glucagon (Glucagon) 1 mg IM PRN PRN PRN Reason: Hypoglycemia Dextrose/Water (D5w) 1,000 mls @ 0 mls/hr IV .Q0M PRN PRN Reason: Hypoglycemia Insulin Glargine 180 units/ (Miscellaneous Medication) 1.8 mls @ 0 mls/hr SC QAM [facility] Last Admin: 02/03/19 09:14 Dose: 1.8 mls Ibuprofen (Motrin) 600 mg PO Q6H PRN PRN Reason: Pain Insulin Human Lispro (Humalog) 0 units SC .AGGRESSIVE SLIDING PRN PRN Reason: Aggressive Correctional Scale Insulin Human Lispro (Humalog) 0 units SC .BEDTIME SLIDING SC PRN PRN Reason: Bedtime Correctional Scale Insulin Human Lispro (Humalog) 75 units SC TID [facility] Last Admin: 02/03/19 09:14 Dose: 75 unit Ketorolac Tromethamine (Toradol) 10 mg PO Q6H PRN PRN Reason: Pain Stop: 02/08/19 01:01 Last Admin: 02/03/19 09:20 Dose: 10 mg Lamotrigine (Lamictal) 150 mg PO TID [facility] Last Admin: 02/03/19 09:15 Dose: 150 mg Lamotrigine (Lamictal) 150 mg PO DAILY [facility] Lamotrigine (Lamictal) 300 mg PO QPM [facility] Levothyroxine Sodium (Synthroid) 250 mcg PO 0600 [facility] Last Admin: 02/03/19 03:55 Dose: 250 mcg Lisinopril (Zestril) 5 mg PO DAILY [facility] Last Admin: 02/03/19 09:15 Dose: 5 mg Loratadine (Claritin) 10 mg PO DAILY [facility] Mirtazapine (Remeron) 15 mg PO BID [facility] Last Admin: 02/03/19 09:15 Dose: 15 mg Ondansetron HCl (Zofran Odt) 4 mg PO Q6H PRN PRN Reason: Nausea/Vomiting Elviteg/Cob/Emtri/Tenof Alafen [ Genvoya Tablet] 1 Tab 0 each PO [facility] Last Admin: 02/02/19 21:11 Dose: 1 each Zolpidem Tartrate (Ambien) 10 mg PO [facility] Last Admin: 02/02/19 21:10 Dose: 10 mg Vital Signs & Weight: Vital Signs Temp Pulse Resp BP Pulse Ox 02/03/19 11:45 97.8 F 77 20 151/65 H 94 L 02/03/19 08:45 98.1 F 70 20 129/58 L 96 02/03/19 03:44 96 02/03/19 03:37 97.8 F 18 L 22 H 122/58 L 88 L Weight 366 lb 4.8 oz - Physical Exam General: alert & oriented x3 HEENT: mucus membranes moist Neck: supple neck Cardiac: regular rate and rhythm Lungs: clear to auscultation, no wheeze, rales, rhonchi Neuro: grossly intact Abdomen: unremarkable - Labs Result Diagrams: 02/03/19 05:41 02/03/19 10:38 Troponin/CKMB CK-MB (CK-2) 1.7 ng/mL (0-6.6) 01/31/19 21:54 Troponin I 0.429 ng/mL (< 0.028) H* 02/01/19 06:50 - Telemetry Sinus rhythms and dysrhythmias: sinus rhythm - Assessment/Plan Assessment/Plan: 1. NSTEMI 2. CAD s/p CABG 2014 3. Noncompliance 4. HIV + 5. HTN 6. HLD 7. DM-II No overnight events. Continue current meds. Plan for LHC possibly Tuesday. Pt seen and exaamined No changes Cath tuesday
[2019-02-03] MEDS: Zolpidem Tartrate 5 MG TAB PO SCH (20:50)
[2019-02-03] MEDS: clonazePAM 0.5 MG TAB PO SCH (20:50)
[2019-02-03] MEDS: traMADol HCl 50 MG TAB PO PRN (20:51)
[2019-02-03] MEDS: Elviteg/Cob/Emtri/Tenof Alafen [Genvoya Tablet] 1 TAB PO SCH (20:54)
[2019-02-03] MEDS ORDERED: LAMOTRIGINE 300 MG PO SCH (21:00)
[2019-02-03] MEDS ORDERED: Cetirizine HCl 5 MG/5 ML UDCUP PO SCH (23:15)
[2019-02-03] MEDS ORDERED: Nicotine 7 MG PATCH TD PRN (23:19)
[2019-02-03] MEDS ORDERED: Cetirizine HCl 10 MG TAB PO SCH (23:45)
[2019-02-03] MEDS ORDERED: Cetirizine HCl 5 MG/5 ML UDCUP PO ONE (23:45)
[2019-02-04] MEDS: traMADol HCl 50 MG TAB PO PRN ×2 (05:29→21:09)
[2019-02-04] MEDS: Levothyroxine Sodium 125 MCG TAB PO SCH (05:29)
[2019-02-04] MEDS: Acetaminophen 325 MG TAB PO PRN (05:30)
--- NOTE | 2019-02-04 06:27 | PDOC.FM ---
- Subjective Subjective: NAEO. Denies chest pain. Some trouble breathing at night, curretnly on 2L [place] - Objective MAR Reviewed: Yes Vital Signs & Weight: Vital Signs (12 hours) Temp Pulse Resp BP Pulse Ox 02/03/19 20:49 97.7 F 90 20 150/84 H 94 L Weight Weight 166.151 kg I&O: 02/02/19 02/03/19 02/04/19 06:59 06:59 06:59 Intake Total 0 2520 1979 Balance 0 2520 1979 Result Diagrams: 02/03/19 05:41 02/03/19 10:38 Phys Exam - Physical Examination Constitutional: NAD obese HEENT: PERRLA, moist MMs Respiratory: no wheezing, clear to auscultation bilateral Cardiovascular: RRR, no significant murmur Gastrointestinal: soft, non-tender Musculoskeletal: no edema Neurological: non-focal, moves all 4 limbs Psychiatric: A&O x 3 Skin: no rash, cap refill <2 seconds Dx/Plan (1) NSTEMI (non-ST elevated myocardial infarction) Code(s): I21.4 - NON-ST ELEVATION (NSTEMI) MYOCARDIAL INFARCTION Status: Acute (2) PEACE (acute kidney injury) Code(s): N17.9 - ACUTE KIDNEY FAILURE, UNSPECIFIED Status: Acute (3) COPD (chronic obstructive pulmonary disease) Status: Acute (4) Heart failure, diastolic, chronic Code(s): I50.32 - CHRONIC DIASTOLIC (CONGESTIVE) HEART FAILURE Status: Acute (5) Hypothyroidism Code(s): E03.9 - HYPOTHYROIDISM, UNSPECIFIED Status: Acute (6) Schizophrenia Code(s): F20.9 - SCHIZOPHRENIA, UNSPECIFIED Status: Acute (7) Diabetes Code(s): E11.9 - TYPE 2 DIABETES MELLITUS WITHOUT COMPLICATIONS Status: Acute (8) Anxiety and depression Code(s): F41.8 - OTHER SPECIFIED ANXIETY DISORDERS Status: Chronic (9) Dyslipidemia Code(s): E78.5 - HYPERLIPIDEMIA, UNSPECIFIED Status: Chronic (10) HIV (human immunodeficiency virus infection) Status: Chronic (11) Hypertension Code(s): I10 - ESSENTIAL (PRIMARY) HYPERTENSION Status: Chronic (12) Morbid obesity with BMI of 50.0-59.9, adult Code(s): E66.01 - MORBID (SEVERE) OBESITY DUE TO EXCESS CALORIES; Z68.43 - BODY MASS INDEX (BMI) 50.0-59.9, ADULT Status: Chronic (13) Noncompliance with medication regimen Code(s): Z91.14 - PATIENT'S OTHER NONCOMPLIANCE WITH MEDICATION REGIMEN Status : Chronic - Plan Plan: Patient is a 48F with PMHx of DM2, COPD, HTN, CVA, [place] s/p 4-vessel bypass, HIV, HLD, hypothyroidism, diastolic heart failure admitted to obs for chest pain. #NSTEMI Troponins 0.09 -> 0.04. EKG showed nsr, no ST segment elevation. Most recent echo august 2018: EF 50-60%, impaired relaxation consistent with diastolic heart failure. Last stress test in 2017 showed septal infarct, but nothing that recommended patient to go to chemical laboratory assistant - Cardiology consulted-pt now agreeable to cath, plan for tuesday. Pt has received 48 hours of anticoagulation - s/p 2 doses of 160mg SC enoxaparin. Based on anti-Xa will decrease dose to 140mg SC BID. Discussed with pharmacy for appropriate - Continue th. lovenox #Likely LAZARA -needs outpt sleep study referral -CPAP at night ordered #DM2 Patient likely non complaint. A1c 13.3. - continue home tresiba - pt with elevated night glucose, change lantus to 90 BID for better subQ absorption - humalog 75 TID #HTN - Elevated BP, increased lisinopril #PEACE, resolved Creatinine 1.12, GFR 52. - patient tolerating PO, will encourage PO hydration #Hypothyroidism Patient s/p thyroidectomy from thyroid cancer. TSH 37.9, free T3/4 low. - Discussed with patient how to appropriately take medication. Patient likely non compliant. - Continue synthroid #COPD - Duonebs prn - Continue to monitor #HIV Followed by Dr. Sellers - Continue home genvoya #HLD - continue home atorvastatin #Psychiatric illnesses: bipolar and schizophrenia - continue home meds #Nicotine dependence - Encourage cessation, nicotine patch DVT: enoxaparin, weight based Diet: HH Code: DNR Dispo: >2midnights, plan for LHC on Tuesday Case discussed with Dr. Amezcua Addendum - Attending - Attending Attestation Date/Time: 02/04/19 [id number] I personally evaluated the patient and discussed the management with Dr. Olsen. I agree with the History, Examination, Assessment and Plan documented above with any addition or exceptions noted below. Adjusting insulin. Pt's anxiety is improved. She now has a nicotine patch. Plans for [facility] tomorrow.
[2019-02-04] MEDS ORDERED: HYDROcodone/Acetaminophen 5/325 mg Tablet PO SCH (07:36)
[2019-02-04] MEDS ORDERED: Communication Order-Pharmacy FS SCH (08:00)
[2019-02-04] MEDS ORDERED: Loratadine 10 MG TAB PO SCH (09:00)
[2019-02-04] MEDS ORDERED: Cetirizine HCl 5 MG/5 ML UDCUP PO SCH (09:00)
[2019-02-04] MEDS ORDERED: LAMOTRIGINE 150 MG PO SCH (09:00)
[2019-02-04] MEDS: HumaLOG 300 UNITS/3 ML VIAL SC SCH ×3 (09:13→21:05)
[2019-02-04] MEDS: Enoxaparin Sodium 80 MG/0.8 ML SYRINGE SC SCH ×2 (09:14→21:07)
[2019-02-04] MEDS: Insulin Glargine 90 UNITS in Pre-Filled Syringe 1 EACH SC SCH ×2 (09:14→21:05)
[2019-02-04] MEDS: Gabapentin 300 MG CAP PO SCH ×2 (09:15→21:10)
[2019-02-04] MEDS: Mirtazapine 15 MG TAB PO SCH ×2 (09:15→21:10)
[2019-02-04] MEDS: Atorvastatin Calcium 40 MG TAB PO SCH (09:15)
[2019-02-04] MEDS: Lisinopril 10 MG TAB PO SCH (09:16)
[2019-02-04] MEDS: Aspirin 325 mg Enteric Coated Tablet PO SCH (09:16)
[2019-02-04] MEDS: lamoTRIgine 100 MG TAB PO SCH ×2 (09:17→21:21)
[2019-02-04] MEDS: Sodium Chloride 0.9% 1,000 ML IV SCH ×2 (09:17→18:13)
[2019-02-04] MEDS: clonazePAM 0.5 MG TAB PO SCH ×2 (09:18→21:09)
[2019-02-04] MEDS: Loratadine 10 MG TAB PO SCH (09:18)
[2019-02-04] MEDS ORDERED: Cetirizine HCl 10 MG TAB PO ONE (09:34)
[2019-02-04] MEDS ORDERED: Nicotine 7 MG PATCH TD SCH (18:00)
[2019-02-04] MEDS: Elviteg/Cob/Emtri/Tenof Alafen [Genvoya Tablet] 1 TAB PO SCH (21:06)
[2019-02-04] MEDS: Zolpidem Tartrate 5 MG TAB PO SCH (21:08)
[2019-02-05] MEDS: Sodium Chloride 0.9% 1,000 ML IV SCH (03:03)
[2019-02-05] MEDS: traMADol HCl 50 MG TAB PO PRN ×3 (04:28→17:55)
[2019-02-05] MEDS: Loratadine 10 MG TAB PO SCH (05:57)
[2019-02-05] MEDS: Aspirin 325 mg Enteric Coated Tablet PO SCH (05:57)
[2019-02-05] MEDS: Lisinopril 10 MG TAB PO SCH (05:57)
[2019-02-05] MEDS: lamoTRIgine 100 MG TAB PO SCH ×2 (05:57→21:10)
[2019-02-05] MEDS: Mirtazapine 15 MG TAB PO SCH ×2 (05:57→21:10)
[2019-02-05] MEDS: clonazePAM 0.5 MG TAB PO SCH ×2 (05:57→21:10)
[2019-02-05] MEDS: Gabapentin 300 MG CAP PO SCH (05:58)
[2019-02-05] MEDS: Atorvastatin Calcium 40 MG TAB PO SCH ×2 (05:58→21:11)
[2019-02-05] MEDS: Levothyroxine Sodium 125 MCG TAB PO SCH (05:58)
[2019-02-05] MEDS: Acetaminophen 325 MG TAB PO PRN ×2 (06:31→23:51)
--- NOTE | 2019-02-05 06:43 | PDOC.FM ---
- Subjective Subjective: NAEO. Patient resting comfortably in bed. Patient does complain of some pain in her back this AM. She states that [place] helped with this pain yesterday. SHe denies any chest pain currently. She states she is anxious for the cath today and "wants to get it over with." Denies any SOB. - Objective MAR Reviewed: Yes Vital Signs & Weight: Vital Signs (12 hours) Temp Pulse Resp BP BP BP Pulse Ox 02/05/19 05:57 135/74 02/05/19 03:01 98.1 F 97 22 H 135/74 96 02/04/19 20:58 98.2 F 86 19 120/57 L 94 L Weight Weight 176.266 kg I&O: 02/03/19 02/04/19 02/05/19 06:59 06:59 06:59 Intake Total 0 1979 3759 Balance 0 1979 3759 Result Diagrams: 02/05/19 09:34 02/05/19 09:34 Phys Exam - Physical Examination Constitutional: NAD morbidly obese HEENT: moist MMs, sclera anicteric Neck: full ROM Respiratory: clear to auscultation bilateral unable to fully appreciate due to body habitus Cardiovascular: RRR, no significant murmur, no rub unable to fully appreciate due to body habitus Gastrointestinal: soft, non-tender, positive bowel sounds trace edema b/l Neurological: non-focal, moves all 4 limbs Psychiatric: normal affect, A&O x 3 Dx/Plan (1) PEACE (acute kidney injury) Code(s): N17.9 - ACUTE KIDNEY FAILURE, UNSPECIFIED Status: Acute (2) Bipolar disorder Code(s): F31.9 - BIPOLAR DISORDER, UNSPECIFIED Status: Acute (3) COPD (chronic obstructive pulmonary disease) Status: Acute (4) Elevated troponin Code(s): R79.89 - OTHER SPECIFIED ABNORMAL FINDINGS OF BLOOD CHEMISTRY Status : Acute (5) HLD (hyperlipidemia) Code(s): E78.5 - HYPERLIPIDEMIA, UNSPECIFIED Status: Acute (6) Heart failure, diastolic, chronic Code(s): I50.32 - CHRONIC DIASTOLIC (CONGESTIVE) HEART FAILURE Status: Acute (7) Hypothyroidism Code(s): E03.9 - HYPOTHYROIDISM, UNSPECIFIED Status: Acute (8) Schizophrenia Code(s): F20.9 - SCHIZOPHRENIA, UNSPECIFIED Status: Acute (9) Diabetes Code(s): E11.9 - TYPE 2 DIABETES MELLITUS WITHOUT COMPLICATIONS Status: Acute (10) Hyperglycemia due to type 2 diabetes mellitus Code(s): E11.65 - TYPE 2 DIABETES MELLITUS WITH HYPERGLYCEMIA Status: Acute (11) Anxiety and depression Code(s): F41.8 - OTHER SPECIFIED ANXIETY DISORDERS Status: Chronic (12) Dyslipidemia Code(s): E78.5 - HYPERLIPIDEMIA, UNSPECIFIED Status: Chronic (13) HIV (human immunodeficiency virus infection) Status: Chronic (14) Hypertension Code(s): I10 - ESSENTIAL (PRIMARY) HYPERTENSION Status: Chronic (15) Noncompliance with medication regimen Code(s): Z91.14 - PATIENT'S OTHER NONCOMPLIANCE WITH MEDICATION REGIMEN Status : Chronic - Plan Plan: Patient is a 48F with PMHx of DM2, COPD, HTN, CVA, [place] s/p 4-vessel bypass, HIV, HLD, hypothyroidism, diastolic heart failure admitted to obs for chest pain. NSTEMI Troponins 0.09 -> 0.4. EKG showed NSR, no ST segment elevation. Most recent echo August 2018: EF 50-60%, diastolic heart failure. Last stress test in 2018 showed septal infarct, but nothing that recommended patient to go to [facility] - Cardiology consulted - pt now agreeable to cath, planed for later today. Pt has received >48 hours of anticoagulation. Appreciate recommendations. - Enoxaparin 140mg SC BID - held today for cath. Likely LAZARA - needs outpt sleep study referral -CPAP at night ordered DM2 Patient likely non complaint. A1c 13.3. - continue home tresiba - pt with elevated night glucose, change lantus to 90 BID for better subQ absorption - humalog 75 TID HTN - Elevated BP, increased lisinopril PEACE, resolved Creatinine 1.12, GFR 52. - patient tolerating PO, will encourage PO hydration Hypothyroidism Patient s/p thyroidectomy from thyroid cancer. TSH 37.9, free T3/4 low. - Discussed with patient how to appropriately take medication. Patient likely non compliant. - Continue synthroid COPD - Duonebs prn - Continue to monitor HIV Followed by Dr. Sellers - Continue home genvoya HLD - continue home atorvastatin Psychiatric illnesses: bipolar and schizophrenia - continue home meds #Nicotine dependence - Encourage cessation, nicotine patch DVT: enoxaparin, weight based Diet: NPO for cath Code: DNR Dispo: >2midnights, plan for LHC today Case discussed with Dr. Billy Addendum - Attending - Attending Attestation Date/Time: 02/05/19 [id number] I personally evaluated the patient and discussed the management with Dr. Russell I agree with the History, Examination, Assessment and Plan documented above with any addition or exceptions noted below - Patient c/o back and shoulder pain. Afebrile VSS. A/P: 1) NSTEMI- plan for cath today. 2) DM- continue current meds. 3) CAD- continue beta alireza, statin, ASA.
[2019-02-05] MEDS ORDERED: PERPHENAZINE 16 MG PO SCH (09:00)
[2019-02-05 09:47] LABS: #Eosinphils 0.1 thou/uL (0.0-0.7); #Lymphocytes 1.6 thou/uL (1.20-3.40); #Monocytes 0.7 thou/uL (0.11-0.59); #Neutrophils 5.9 thou/uL (1.40-6.50); %Basophils 0.4 % (0.0-1.0); %Eosinophils 1.1 % (0.0-10.0); %Lymphocytes 19.2 % (21.0-51.0); %Monocytes 8.8 % (0.0-10.0); %Neutrophils 70.6 % (42.0-75.0); Hemoglobin 12.9 g/dL (12.0-16.0); Mean Corpuscular HGB CONC 32.1 g/dL (32.0-36.0); Mean Corpuscular Hemoglobin 29.5 pg (27.0-31.0); Mean Platelet Volume 9.2 fL (7.4-10.4); Platelet Count 224 thou/uL (130-400); Red Blood Cell (RBC) Count 4.36 mill/uL (4.20-5.40); White Blood Cell (WBC) Count 8.3 thou/uL (4.8-10.8)
[2019-02-05 10:07] LABS: Anion Gap 11 mmol/L (10-20); BUN (Urea Nitrogen) 16 mg/dL (7.0-18.7); Calc. Creatinine Clearance 220 mL/min (70-130); Calcium 8.3 mg/dL (7.8-10.44); Carbon Dioxide 27 mmol/L (22-29); Chloride 104 mmol/L (98-107); Estimated GFR-MDRD 69; Glucose 93 mg/dL (70-105); Potassium 4.4 mmol/L (3.5-5.1); Sodium 138 mmol/L (136-145)
[2019-02-05] MEDS: Ketorolac Tromethamine 10 MG TAB PO PRN (10:23)
[2019-02-05] MEDS ORDERED: Lidocaine 1% (PF) 30 ML VIAL ONE ×2 (10:31→11:49)
[2019-02-05] MEDS ORDERED: Heparin 10,000 UNITS/1 ML VIAL ONE (11:07)
[2019-02-05] MEDS ORDERED: Midazolam HCl 2 mg/2 ml Vial ONE (11:12)
[2019-02-05] MEDS ORDERED: Fentanyl 100 MCG/2 ML VIAL ONE ×2 (11:12→12:28)
[2019-02-05] MEDS ORDERED: Protamine Sulfate 50 MG/5 ML VIAL ONE (12:11)
[2019-02-05] MEDS ORDERED: Sodium Chloride 0.9% 200 ML IV PRN (12:42)
[2019-02-05] MEDS ORDERED: Acetaminophen/Codeine 30-300mg Tablet PO PRN (12:42)
[2019-02-05] MEDS ORDERED: Nitroglycerin 0.4 MG TAB (25 Tab Bottle) SL PRN (12:42)
[2019-02-05] MEDS ORDERED: Sodium Chloride 0.9% 1,000 ML IV SCH (12:44)
[2019-02-05] MEDS: Perphenazine 2 MG TAB PO SCH (13:51)
[2019-02-05] MEDS ORDERED: Iopamidol 370 76% 100 ML VIAL ONE (14:02)
[2019-02-05] MEDS ORDERED: Iopamidol 370 76% 50 ML VIAL FS ONE (14:02)
[2019-02-05] MEDS: Carvedilol 3.125 MG TAB PO SCH (16:01)
[2019-02-05] MEDS: Acetaminophen/Codeine 30-300mg Tablet PO PRN ×2 (16:29→21:15)
[2019-02-05] MEDS ORDERED: HumaLOG 300 UNITS/3 ML VIAL SC PRN (19:41)
[2019-02-05] MEDS ORDERED: Nicotine 7 MG PATCH TOP SCH (19:45)
[2019-02-05] MEDS ORDERED: Insulin Glargine 90 UNITS in Pre-Filled Syringe 1 EACH SC SCH (21:00)
[2019-02-05] MEDS: HumaLOG 300 UNITS/3 ML VIAL SC PRN (21:08)
[2019-02-05] MEDS: Zolpidem Tartrate 5 MG TAB PO SCH (21:11)
[2019-02-05] MEDS: Elviteg/Cob/Emtri/Tenof Alafen [Genvoya Tablet] 1 TAB PO SCH (21:11)
[2019-02-05] MEDS ORDERED: Cyclobenzaprine 10 MG TAB PO SCH (23:30)
[2019-02-06] MEDS: HumaLOG 300 UNITS/3 ML VIAL SC PRN (01:42)
[2019-02-06] MEDS: Acetaminophen/Codeine 30-300mg Tablet PO PRN ×5 (01:43→21:00)
[2019-02-06] MEDS: Levothyroxine Sodium 125 MCG TAB PO SCH (05:05)
[2019-02-06 05:40] LABS: Anion Gap 10 mmol/L (10-20); BUN (Urea Nitrogen) 19 mg/dL (7.0-18.7); Calc. Creatinine Clearance 183 mL/min (70-130); Calcium 8.5 mg/dL (7.8-10.44); Carbon Dioxide 28 mmol/L (22-29); Chloride 100 mmol/L (98-107); Estimated GFR-MDRD 54; Glucose 326 mg/dL (70-105); Potassium 5.1 mmol/L (3.5-5.1); Sodium 133 mmol/L (136-145)
--- NOTE | 2019-02-06 06:35 | PDOC.FM ---
- Subjective Subjective: Patient resting comfortably in bed. Patient still complaining of mild pain in back. - Objective MAR Reviewed: Yes Vital Signs & Weight: Vital Signs (12 hours) Temp Pulse Resp BP BP Pulse Ox 02/06/19 03:43 97 18 118/55 L 95 02/05/19 21:06 98.2 F 87 18 113/55 L 97 Weight Weight 181.573 kg I&O: 02/04/19 02/05/19 02/06/19 06:59 06:59 06:59 Intake Total 1979 3759 2520 Output Total 550 Balance 1979 3759 1969 Result Diagrams: 02/05/19 09:34 02/06/19 05:03 Phys Exam - Physical Examination Constitutional: NAD HEENT: PERRLA, moist MMs, sclera anicteric Neck: supple, full ROM Respiratory: no wheezing, clear to auscultation bilateral Cardiovascular: RRR difficult to asculate due to body habitus Gastrointestinal: soft, non-tender, positive bowel sounds Musculoskeletal: no edema, pulses present Neurological: non-focal, moves all 4 limbs Psychiatric: normal affect, A&O x 3 Skin: no rash, normal turgor, cap refill <2 seconds Dx/Plan (1) PEACE (acute kidney injury) Code(s): N17.9 - ACUTE KIDNEY FAILURE, UNSPECIFIED Status: Acute (2) Bipolar disorder Code(s): F31.9 - BIPOLAR DISORDER, UNSPECIFIED Status: Acute (3) COPD (chronic obstructive pulmonary disease) Status: Acute (4) Elevated troponin Code(s): R79.89 - OTHER SPECIFIED ABNORMAL FINDINGS OF BLOOD CHEMISTRY Status : Acute (5) HLD (hyperlipidemia) Code(s): E78.5 - HYPERLIPIDEMIA, UNSPECIFIED Status: Acute (6) Heart failure, diastolic, chronic Code(s): I50.32 - CHRONIC DIASTOLIC (CONGESTIVE) HEART FAILURE Status: Acute (7) Hypothyroidism Code(s): E03.9 - HYPOTHYROIDISM, UNSPECIFIED Status: Acute (8) Schizophrenia Code(s): F20.9 - SCHIZOPHRENIA, UNSPECIFIED Status: Acute (9) Diabetes Code(s): E11.9 - TYPE 2 DIABETES MELLITUS WITHOUT COMPLICATIONS Status: Acute (10) Hyperglycemia due to type 2 diabetes mellitus Code(s): E11.65 - TYPE 2 DIABETES MELLITUS WITH HYPERGLYCEMIA Status: Acute (11) Anxiety and depression Code(s): F41.8 - OTHER SPECIFIED ANXIETY DISORDERS Status: Chronic (12) Dyslipidemia Code(s): E78.5 - HYPERLIPIDEMIA, UNSPECIFIED Status: Chronic (13) HIV (human immunodeficiency virus infection) Status: Chronic (14) Hypertension Code(s): I10 - ESSENTIAL (PRIMARY) HYPERTENSION Status: Chronic (15) Noncompliance with medication regimen Code(s): Z91.14 - PATIENT'S OTHER NONCOMPLIANCE WITH MEDICATION REGIMEN Status : Chronic - Plan Plan: Patient is a 48F with PMHx of DM2, COPD, HTN, CVA, [place] s/p 4-vessel bypass, HIV, HLD, hypothyroidism, diastolic heart failure admitted to obs for chest pain. NSTEMI Troponins 0.09 -> 0.4. EKG showed NSR, no ST segment elevation. Most recent echo August 2018: EF 50-60%, diastolic heart failure. Last stress test in 2018 showed septal infarct, but nothing that recommended patient to go to phlebotomist medical lab assistant. - Cardiology consulted - Cath on 02/05 showing 1/3 grafts patent. CV surg consulted. Pt has received >48 hours of anticoagulation which has been held now. [facility] cards recommendations. Likely LAZARA - needs outpt sleep study referral - CPAP at night ordered DM2 Patient likely non complaint. A1c 13.3. - continue home tresiba - pt with elevated glucose, change lantus to 90 BID for better subQ absorption - Humalog 75 TID HTN - Elevated BP, increased lisinopril. PEACE, resolved Creatinine 1.12, GFR 52. - patient tolerating PO, will encourage PO hydration Hypothyroidism Patient s/p thyroidectomy from thyroid cancer. TSH 37.9, free T3/4 low. - Discussed with patient how to appropriately take medication. Patient likely non compliant. - Continue synthroid COPD - Duonebs prn - Continue to monitor HIV Followed by Dr. Sellers - Continue home genvoya HLD - continue home atorvastatin Psychiatric illnesses: bipolar and schizophrenia - continue home meds #Nicotine dependence - Encourage cessation, nicotine patch DVT: enoxaparin, weight based Diet: NPO for possible procedure with CV surg Code: DNR Dispo: >2midnights, pending clinical course and cards recs Case discussed with Dr. Billy Addendum - Attending - Attending Attestation Date/Time: 02/06/19 9636 I personally evaluated the patient and discussed the management with Dr. Russell I agree with the History, Examination, Assessment and Plan documented above with any addition or exceptions noted below - Patient c/o back, shoulder, and hip pain. Afebrile VSS. A/P: 1) CAD - cath with multivessel disease- medical management as per CV surgery and cardiology. Continue beta alireza, statin, ASA. 2) DM- poorly controlled. Insulin adjusted. Plan to d/c home today.
[2019-02-06] MEDS ORDERED: Nicotine 7 MG PATCH TOP SCH (09:00)
[2019-02-06] MEDS: Insulin Glargine 95 UNITS in Pre-Filled Syringe 1 EACH SC SCH ×2 (09:19→21:49)
[2019-02-06] MEDS: HumaLOG 300 UNITS/3 ML VIAL SC SCH ×3 (09:20→18:40)
[2019-02-06] MEDS: Loratadine 10 MG TAB PO SCH (09:24)
[2019-02-06] MEDS: Carvedilol 3.125 MG TAB PO SCH ×2 (09:24→16:20)
[2019-02-06] MEDS: Lisinopril 10 MG TAB PO SCH (09:24)
[2019-02-06] MEDS: Aspirin 325 mg Enteric Coated Tablet PO SCH (09:24)
[2019-02-06] MEDS: Isosorbide Mononitrate (ER) 30 MG TAB PO SCH (09:24)
[2019-02-06] MEDS: clonazePAM 0.5 MG TAB PO SCH ×2 (09:24→21:03)
[2019-02-06] MEDS: lamoTRIgine 100 MG TAB PO SCH ×2 (09:24→20:59)
[2019-02-06] MEDS: Mirtazapine 15 MG TAB PO SCH ×2 (09:24→21:00)
[2019-02-06] MEDS: Perphenazine 2 MG TAB PO SCH (09:25)
[2019-02-06] MEDS: Ezetimibe 10 MG TAB PO SCH (09:25)
--- NOTE | 2019-02-06 16:20 | CON ---
DATE OF CONSULTATION: HISTORY OF PRESENT ILLNESS: This is a 48-year-old female with multiple medical problems, who presented with chest pain and a troponin bump. She underwent cardiac catheterization yesterday and I have been asked to evaluate her as a possible reoperative candidate. About four years ago, she underwent coronary artery bypass grafting by Dr. Leach with STAPLETON to LAD, saphenous vein graft to PDA and OM with the OM having to be endarterectomized to do the graft. Postoperative course was complicated by hospital stay of about five weeks, then followed by rehabilitation for another month and then sternal wound dehiscence requiring a wound VAC. Ultimately, she did recover; however, has continued to live a rather high-risk lifestyle and has done poorly. Her cardiac catheterization shows occluded vein graft to the OM and right with the [place] vessels also being occluded. The LAD diagonal system is patent with a patent STAPLETON graft and a diffusely diseased system. OM x3 and right system fill via collaterals. PAST MEDICAL HISTORY: Notable for morbid obesity with a BMI of 66, weight of close to 400 pounds. She has a history of type 2 diabetes and hypertension. She is HIV positive, treated by Dr. Sellers in the past. She has hyperlipidemia, hypothyroidism, bipolar disorder, and chronic pain disorder. PAST SURGICAL HISTORY: Includes coronary artery bypass grafting, thyroidectomy, breast biopsy, cholecystectomy, and hysterectomy. REVIEW OF SYSTEMS: The patient has chronic pain in her hips and knees, for which she is currently crying out for pain medicine. SOCIAL HISTORY: She has had drug abuse in the past. Continues to smoke cigarettes. MEDICATIONS: Her medications are multiple and listed in the chart. ALLERGIES: TO LATEX AND OTHER MEDICINES LISTED IN THE CHART. PHYSICAL EXAMINATION: On examination, she is a morbidly obese female, sitting in the bed, rocking back and forth, complaining of pain. Exam is otherwise limited at this time. ASSESSMENT AND PLAN: The patient with occluded circumflex and right systems, patent left internal mammary artery and a patent left anterior descending diagonal system. I think the patient presents a prohibitive reoperative risk and this is not a consideration nor will it be in the future. Medical management is her best option and even with that given her current lifestyle, her long-term prognosis is guarded. Job ID: [id number]
[2019-02-06] MEDS: Elviteg/Cob/Emtri/Tenof Alafen [Genvoya Tablet] 1 TAB PO SCH (20:52)
[2019-02-06] MEDS: Atorvastatin Calcium 40 MG TAB PO SCH (20:59)
[2019-02-06] MEDS: Zolpidem Tartrate 5 MG TAB PO SCH (21:00)
[2019-02-07] MEDS: Levothyroxine Sodium 125 MCG TAB PO SCH (06:12)
--- NOTE | 2019-02-07 06:36 | PDOC.FM ---
- Subjective Subjective: Yesterday, patient had a fall in her room to her knees. Did not hit her head. Patient also noted to have desaturations while ambulating with PT. Previously not on home O2 prior to this hospitalization. This morning on exam patient is resting, laying down in bed. Patient states she wants to leave today. She is ready to go home. - Objective MAR Reviewed: Yes Vital Signs & Weight: Vital Signs (12 hours) Temp Pulse Resp BP Pulse Ox 02/07/19 04:00 98.4 F 104 H 20 144/70 H 100 02/07/19 02:17 96 02/07/19 00:00 92 116/56 L 02/06/19 19:29 97.9 F 86 18 99/52 L 96 Weight Weight 183.342 kg I&O: 02/05/19 02/06/19 02/07/19 06:59 06:59 06:59 Intake Total 3760 2520 1020 Output Total 550 Balance 3760 1970 1020 Result Diagrams: 02/07/19 06:52 02/07/19 06:52 Phys Exam - Physical Examination Constitutional: NAD HEENT: moist MMs, sclera anicteric Neck: supple, full ROM Respiratory: clear to auscultation bilateral Cardiovascular: RRR difficult to fully appreciate due to body habitus Gastrointestinal: soft, non-tender, positive bowel sounds Musculoskeletal: pulses present trace edema b/l Neurological: non-focal, moves all 4 limbs Psychiatric: normal affect, A&O x 3 Skin: no rash, normal turgor, cap refill <2 seconds Dx/Plan (1) PEACE (acute kidney injury) Code(s): N17.9 - ACUTE KIDNEY FAILURE, UNSPECIFIED Status: Acute (2) Bipolar disorder Code(s): F31.9 - BIPOLAR DISORDER, UNSPECIFIED Status: Acute (3) COPD (chronic obstructive pulmonary disease) Status: Acute (4) Elevated troponin Code(s): R79.89 - OTHER SPECIFIED ABNORMAL FINDINGS OF BLOOD CHEMISTRY Status : Acute (5) HLD (hyperlipidemia) Code(s): E78.5 - HYPERLIPIDEMIA, UNSPECIFIED Status: Acute (6) Heart failure, diastolic, chronic Code(s): I50.32 - CHRONIC DIASTOLIC (CONGESTIVE) HEART FAILURE Status: Acute (7) Hypothyroidism Code(s): E03.9 - HYPOTHYROIDISM, UNSPECIFIED Status: Acute (8) Schizophrenia Code(s): F20.9 - SCHIZOPHRENIA, UNSPECIFIED Status: Acute (9) Diabetes Code(s): E11.9 - TYPE 2 DIABETES MELLITUS WITHOUT COMPLICATIONS Status: Acute (10) Hyperglycemia due to type 2 diabetes mellitus Code(s): E11.65 - TYPE 2 DIABETES MELLITUS WITH HYPERGLYCEMIA Status: Acute (11) Anxiety and depression Code(s): F41.8 - OTHER SPECIFIED ANXIETY DISORDERS Status: Chronic (12) Dyslipidemia Code(s): E78.5 - HYPERLIPIDEMIA, UNSPECIFIED Status: Chronic (13) HIV (human immunodeficiency virus infection) Status: Chronic (14) Hypertension Code(s): I10 - ESSENTIAL (PRIMARY) HYPERTENSION Status: Chronic (15) Noncompliance with medication regimen Code(s): Z91.14 - PATIENT'S OTHER NONCOMPLIANCE WITH MEDICATION REGIMEN Status : Chronic - Plan Plan: Patient is a 48F with PMHx of DM2, COPD, HTN, CVA, [place] s/p 4-vessel bypass, HIV, HLD, hypothyroidism, diastolic heart failure admitted to obs for chest pain. NSTEMI Troponins 0.09 -> 0.4. EKG showed NSR, no ST segment elevation. Most recent echo August 2018: EF 50-60%, diastolic heart failure. Last stress test in 2018 showed septal infarct, but nothing that recommended patient to go to [facility] laboratory techn[facility]. - Cardiology consulted - Cath on 02/05 showing 1/3 grafts patent. CV surg consulted - recommend no surgery, medical management. Pt has received >48 hours of anticoagulation which has been held now. Appreciate cards recommendations. Likely LAZARA - needs outpt sleep study referral - CPAP at night ordered DM2 Patient likely non complaint. A1c 13.3. - continue home tresiba - pt with elevated glucose, change lantus to 90 BID for better subQ absorption - Humalog 75 TID HTN - Elevated BP, increased lisinopril. PEACE, resolved Creatinine 1.12, GFR 52. - patient tolerating PO, will encourage PO hydration Hypothyroidism Patient s/p thyroidectomy from thyroid cancer. TSH 37.9, free T3/4 low. - Discussed with patient how to appropriately take medication. Patient likely non compliant. - Continue synthroid COPD - Duonebs prn - Continue to monitor HIV Followed by Dr. Sellers - Continue home genvoya HLD - continue home atorvastatin Psychiatric illnesses: bipolar and schizophrenia - continue home meds Nicotine dependence - Encourage cessation, nicotine patch DVT: enoxaparin, weight based Diet: HH, CC Code: DNR Dispo: CM helping with discharge planning - patient needing HH and home O2 Case discussed with Dr. Billy Addendum - Attending - Attending Attestation Date/Time: 02/07/19 5505 I personally evaluated the patient and discussed the management with Dr. Russell I agree with the History, Examination, Assessment and Plan documented above with any addition or exceptions noted below - Patient sleeping. Arouses easily. Afebrile VSS. A/P: 1) NSTEMI- plan for medical management. 2) DM- BG improved; Continue current meds. 3) Hypothyroidism- continue thryoid replacement. D/c home today with home health and home O2. Outpatient sleep study and follow-up arranged.
[2019-02-07 06:58] LABS: #Eosinphils 0.2 thou/uL (0.0-0.7); #Lymphocytes 1.5 thou/uL (1.20-3.40); #Monocytes 0.7 thou/uL (0.11-0.59); %Basophils 0.1 % (0.0-1.0); %Eosinophils 2.2 % (0.0-10.0); %Lymphocytes 15.7 % (21.0-51.0); %Monocytes 7.3 % (0.0-10.0); %Neutrophils 74.8 % (42.0-75.0); Hemoglobin 11.9 g/dL (12.0-16.0); Mean Corpuscular HGB CONC 31.2 g/dL (32.0-36.0); Mean Corpuscular Hemoglobin 29.2 pg (27.0-31.0); Mean Corpuscular Volume 93.5 fL (78.0-98.0); Mean Platelet Volume 9.2 fL (7.4-10.4); Platelet Count 243 thou/uL (130-400); RBC Distribution Width 14.2 % (11.5-14.5); White Blood Cell (WBC) Count 9.3 thou/uL (4.8-10.8)
[2019-02-07 07:19] LABS: Anion Gap 11 mmol/L (10-20); BUN (Urea Nitrogen) 23 mg/dL (7.0-18.7); Calc. Creatinine Clearance 195 mL/min (70-130); Calcium 8.5 mg/dL (7.8-10.44); Carbon Dioxide 26 mmol/L (22-29); Chloride 101 mmol/L (98-107); Estimated GFR-MDRD 58; Glucose 154 mg/dL (70-105); Potassium 5.2 mmol/L (3.5-5.1); Sodium 133 mmol/L (136-145)
[2019-02-07] MEDS ORDERED: Zolpidem Tartrate 5 MG TAB PO SCH (08:35)
[2019-02-07] MEDS ORDERED: FLUoxetine HCl 20 MG CAP PO SCH (09:00)
[2019-02-07] MEDS: Carvedilol 3.125 MG TAB PO SCH (09:16)
[2019-02-07] MEDS: Mirtazapine 15 MG TAB PO SCH (09:16)
[2019-02-07] MEDS: clonazePAM 0.5 MG TAB PO SCH (09:16)
[2019-02-07] MEDS: Aspirin 325 mg Enteric Coated Tablet PO SCH (09:16)
[2019-02-07] MEDS: Loratadine 10 MG TAB PO SCH (09:17)
[2019-02-07] MEDS: Isosorbide Mononitrate (ER) 30 MG TAB PO SCH (09:17)
[2019-02-07] MEDS: Ezetimibe 10 MG TAB PO SCH (09:17)
[2019-02-07] MEDS: lamoTRIgine 100 MG TAB PO SCH (09:17)
[2019-02-07] MEDS: Lisinopril 10 MG TAB PO SCH (09:18)
[2019-02-07] MEDS: Perphenazine 2 MG TAB PO SCH (09:18)
[2019-02-07] MEDS: Insulin Glargine 95 UNITS in Pre-Filled Syringe 1 EACH SC SCH (09:19)
[2019-02-07] MEDS: HumaLOG 300 UNITS/3 ML VIAL SC SCH ×2 (09:20→13:45)
[2019-02-07 11:22] VITALS: TEMP 98.5
[2019-02-07 12:07] LABS: Anion Gap 10 mmol/L (10-20); BUN (Urea Nitrogen) 22 mg/dL (7.0-18.7); Calc. Creatinine Clearance 203 mL/min (70-130); Calcium 8.6 mg/dL (7.8-10.44); Carbon Dioxide 30 mmol/L (22-29); Chloride 99 mmol/L (98-107); Estimated GFR-MDRD 61; Glucose 186 mg/dL (70-105); Potassium 4.6 mmol/L (3.5-5.1); Sodium 134 mmol/L (136-145)
[2019-02-07 14:43] VITALS: BP 122/58
--- NOTE | 2019-02-08 13:31 | DIS ---
DATE OF ADMISSION: 02/01/2019 DATE OF DISCHARGE: 02/07/2019 RESIDENT: Macy Russell MD ADMITTING ATTENDING: Gunner Bhakta MD. DISCHARGE ATTENDING: Whit Billy MD CONSULTS: Cardiology, CV Surgery, Dietitian, Physical Therapy, and Case Management. PROCEDURES: Heart catheterization on 02/05/2019. DISCHARGE MEDICATIONS: 1. Lipitor 80 mg oral at bedtime. 2. Coreg 3.125 mg oral twice daily with meals. 3. Zetia 10 mg oral daily. 4. Imdur ER 30 mg oral daily. 5. Zestril 10 mg oral daily. 6. Clonazepam 0.5 mg oral twice daily. 7. Mirtazapine 15 mg oral every evening. 8. Fluoxetine 3 capsules oral daily. 9. Synthroid 2 tablets oral daily. 10. Ambien 10 mg oral at bedtime. 11. Tresiba 180 units subcutaneous daily. 12. Humalog 75 units subcutaneous three times daily. 13. Genvoya one tablet oral daily. 14. Trilafon 16 mg oral daily. 15. Lamictal 300 mg oral every morning. 16. Lamictal 150 mg oral daily. 17. Trilafon 16 mg oral every evening. 18. DuoNeb 3 mL nebulizer every 6 hours. DISCONTINUED MEDICATIONS: 1. Atorvastatin one tablet oral daily. 2. Zestril 5 mg oral daily. PRIMARY DIAGNOSES: 1. Okk-KG-estopdapd myocardial infarction. 2. Obstructive sleep apnea. 3. Insulin-dependent diabetes, uncontrolled. 4. Acute kidney injury, resolved. SECONDARY DIAGNOSES: Hypertension, hypothyroidism, chronic obstructive pulmonary disease, HIV, hyperlipidemia, bipolar and schizophrenia, and nicotine dependence. HISTORY OF PRESENT ILLNESS/HOSPITAL COURSE: This is a 48-year-old female with past medical history of diabetes, COPD, hypertension, CVA, and status post NV as well as a 4-vessel bypass, HIV, hyperlipidemia, hypothyroidism, and diastolic heart failure, who presented to the emergency department for chest pain. She described the chest pain as sharp, left-sided pain that radiated to her neck and was alleviated by nitroglycerin given by EMS on the way to the ER. She states that the chest pain had been occurring off and on for several months and that could happen in any position, sitting, standing, or sleeping. She reports that she called EMS at that time because this episode of chest pain had been worse than previous episodes. In the ER, the patient was given a liter of normal saline as well as a DuoNeb. The patient's vital signs were stable on admission with her blood pressure being only slightly elevated. The patient was found to have a creatinine of 1.12, slightly bumped from her baseline. The patient was found to have a glucose of 487. The patient's EKG was read as normal sinus rhythm with no ST elevation. The patient had a CT scan of the chest that showed no acute process as well as a chest x-ray that showed no acute process. The patient was admitted to the hospital for chest pain, ACS rule out. The patient's troponins continued to trend upward from 0.035 to 0.091 and finally to 0.429. Cardiology was consulted for an NSTEMI for this patient. Repeat EKG at that time continued show normal sinus rhythm and no ST changes. A recent echo in August 2018 showed an ejection fraction of 50% to 60% with diastolic dysfunction. A stress test performed in 2017 showed a septal infarct. Dr. Vazquez of Cardiology came to see the patient about doing a heart catheterization and the patient was not interested at that time as she did not want to lay flat for any procedure. Cardiology recommended anticoagulation for 48 hours for medical management of NSTEMI. Over the weekend, the patient changed her mind and was willing to undergo heart catheterization. The patient did receive the full 48 hours of anticoagulation over the weekend. The patient's heart catheterization showed that one of three grafts was patent. At this time, CV Surgery was consulted, who stated that patient had occluded circumflex and right systems, and a patent left internal mammary artery and a patent left anterior descending diagonal system. CV surgery felt that it was a prohibitive reoperative risk and that this is not a consideration nor will it be in the future. The patient had resolution of her chest pain throughout her stay. The patient did complain of some right arm pain during her stay and she received a vascular ultrasound on 02/02/2019, to rule out any DVT. The ultrasound came back normal of the right upper extremity. The patient was found to have an A1c of 13.3 on admission. The patient states that she takes her insulin at home as directed. The patient's insulin regimen was adjusted slightly during her stay to get better control of her glucoses. The patient has a history of thyroid cancer status post thyroidectomy. She is on Synthroid at home. The patient admitted to not taking this medication as directed. Her TSH was found to be 37.99 and her free T3 and T4 were low. The patient was resumed on this medication. Discussed with the patient to take medications as directed. Discussed that she could take all 7 pills one day of the week if this would help with her compliance. The patient also likely has obstructive sleep apnea. She missed an appointment for a sleep study outpatient. CPAP was ordered at night for her while in the hospital. An appointment was set up outpatient for the patient to follow up with this. Case Management was consulted to help with the patient's discharge planning. The patient had home health set up. Also discussed with the patient that she has Medicaid and should be able to get rides to doctor's appointments. Also discussed the importance of medical management and getting aid with this as well. DISPOSITION: Stable. DISCHARGE INSTRUCTIONS: 1. Location: Home. 2. Diet: Heart healthy and consistent carbohydrate. 3. Activity: Ad lynn. 4. Follow up with PCP on 02/27 at 1:00 pm. Follow up with Dr. Mandel within 3 -4 weeks. Follow up with Dr. Sellers on 03/15 at 10:30 a.m. Follow up with cardiac rehab within one week and follow up with the Sleep Study Lab on 02/26 at 7:15 p.m. Job ID: [id number] [email or web address]
== END 2019-02-07 14:40 | disposition home health service (06) | DRG 281 ==
LOC: ERS 21:16 → OBSVTOIN 02-01 00:40 → ERHOLD 02-01 00:40 → 2SW 02-01 03:25 → 2NO 02-01 20:19
PROVIDERS: ADMIT Family Medicine; ATTEND Family Medicine
PROC: 4A023N7 Measurement of Cardiac Sampling and Pressure, Left Heart, Percutaneous Approach (ICD-10-PCS; principal; 2019-02-05)
PROC: B2101ZZ Fluoroscopy of Single Coronary Artery using Low Osmolar Contrast (ICD-10-PCS; 2019-02-05)
PROC: B2151ZZ Fluoroscopy of Left Heart using Low Osmolar Contrast (ICD-10-PCS; 2019-02-05)
DX: I21.4 Non-ST elevation (NSTEMI) myocardial infarction (principal); N17.9 Acute kidney failure, unspecified; I50.32 Chronic diastolic (congestive) heart failure; I25.810 Atherosclerosis of coronary artery bypass graft(s) without angina pectoris; Z68.44 Body mass index [BMI] 60.0-69.9, adult; E11.9 Type 2 diabetes mellitus without complications; E78.5 Hyperlipidemia, unspecified; Z66 Do not resuscitate; Z21 Asymptomatic human immunodeficiency virus [HIV] infection status; E03.9 Hypothyroidism, unspecified; F31.9 Bipolar disorder, unspecified; E66.01 Morbid (severe) obesity due to excess calories; E11.65 Type 2 diabetes mellitus with hyperglycemia; I11.0 Hypertensive heart disease with heart failure; J44.9 Chronic obstructive pulmonary disease, unspecified; Z86.73 Personal history of transient ischemic attack (TIA), and cerebral infarction without residual deficits; I25.2 Old myocardial infarction; Z88.8 Allergy status to other drugs, medicaments and biological substances; Z91.040 Latex allergy status; Z90.710 Acquired absence of both cervix and uterus; Z79.4 Long term (current) use of insulin; Z95.1 Presence of aortocoronary bypass graft; Z90.49 Acquired absence of other specified parts of digestive tract
CPT/HCPCS: 36415; 36416; 71045; 71275; 76942; 80048; 80053; 80061; 82010; 82553; 82565; 83036; 84439; 84443; 84481; 84484; 84703; 85014; 85018; 85025; 85049; 85347; 85520; 85610; 85730; 90471; 90686; 93005; 93459; 93798; 94760; 96360; 99152; 99153; C1769; G0008; J1644; J1650; J1815; J2001; J2250; J2720; J3010; J7620; Q0175; Q9966; Q9967

== ENCOUNTER 2019-02-26 19:30 | Outpatient (CLI) | payer MEDICARE, OTHER | END 2019-02-26 19:31 | disposition home or self-care (01) | LOC: SLEEPLAB 19:30 | PROVIDERS: ATTEND Internal Medicine Pulmonary Disease | DX: G47.33 Obstructive sleep apnea (adult) (pediatric) (principal); F51.9 Sleep disorder not due to a substance or known physiological condition, unspecified; G47.10 Hypersomnia, unspecified; R53.83 Other fatigue; R40.0 Somnolence; F31.9 Bipolar disorder, unspecified; F41.9 Anxiety disorder, unspecified; R06.83 Snoring; G47.00 Insomnia, unspecified; E66.9 Obesity, unspecified; Z68.43 Body mass index [BMI] 50.0-59.9, adult | CPT/HCPCS: 95811 ==

== ENCOUNTER 2019-04-09 12:29 | Emergency (ER) | payer MEDICARE, OTHER ==
[2019-04-09 13:11] LABS: #Eosinphils 0.2 thou/uL (0.0-0.7); #Lymphocytes 2.4 thou/uL (1.20-3.40); #Monocytes 0.4 thou/uL (0.11-0.59); #Neutrophils 6.4 thou/uL (1.40-6.50); %Basophils 0.1 % (0.0-1.0); %Eosinophils 2.5 % (0.0-10.0); %Lymphocytes 25.3 % (21.0-51.0); %Monocytes 3.9 % (0.0-10.0); %Neutrophils 68.2 % (42.0-75.0); Hemoglobin 12.6 g/dL (12.0-16.0); Mean Corpuscular HGB CONC 32.3 g/dL (32.0-36.0); Mean Corpuscular Hemoglobin 28.6 pg (27.0-31.0); Mean Corpuscular Volume 88.5 fL (78.0-98.0); Mean Platelet Volume 9.3 fL (7.4-10.4); Platelet Count 288 thou/uL (130-400); RBC Distribution Width 14.4 % (11.5-14.5); White Blood Cell (WBC) Count 9.4 thou/uL (4.8-10.8)
--- NOTE | 2019-04-09 13:21 | RAD ---
PORTABLE CHEST 1 VIEW: DATE: 04/09/2019. TIME: 12:53 p.m. HISTORY: Dyspnea. FINDINGS/IMPRESSION: Comparison is made with the exam of 01/31/2019. The heart size is enlarged. There are postop changes of a median sternotomy. There is continued jose luis vation of the right hemidiaphragm. No lobar consolidation, pneumothoraces, or pleural effusions are seen. There is mild prominence of the pulmonary vasculature. POS: TPC
[2019-04-09 13:38] LABS: ALT (SGPT) 15 U/L (8-55); AST (SGOT) 9 U/L (5-34); Albumin 3.4 g/dL (3.5-5.0); Alkaline Phosphatase 141 U/L (40-110); Anion Gap 17 mmol/L (10-20); BUN (Urea Nitrogen) 18 mg/dL (7.0-18.7); Bilirubin, Total 0.2 mg/dL (0.2-1.2); Calc. Creatinine Clearance 0 mL/min (70-130); Calcium 8.7 mg/dL (7.8-10.44); Carbon Dioxide 23 mmol/L (22-29); Chloride 100 mmol/L (98-107); Estimated GFR-MDRD 49; Globulin 2.3 g/dL (2.4-3.5); Potassium 4.6 mmol/L (3.5-5.1); Protein, Total 5.7 g/dL (6.0-8.3); Sodium 135 mmol/L (136-145)
[2019-04-09 13:46] LABS: Glucose 628 mg/dL (70-105)
[2019-04-09] MEDS ORDERED: Ketorolac Tromethamine 30 MG/ML VIAL ONE (13:58)
[2019-04-09] MEDS ORDERED: Acetaminophen 500 MG TAB ONE (13:58)
[2019-04-09] MEDS ORDERED: Insulin Regular 300 UNITS/3 ML VIAL ONE (13:58)
== END 2019-04-09 15:39 | disposition left against medical advice (07) ==
LOC: ERS 12:29
DX: J44.1 Chronic obstructive pulmonary disease with (acute) exacerbation (principal); E11.9 Type 2 diabetes mellitus without complications; B20 Human immunodeficiency virus [HIV] disease; I25.2 Old myocardial infarction; F41.9 Anxiety disorder, unspecified; F31.9 Bipolar disorder, unspecified; F20.9 Schizophrenia, unspecified; E05.90 Thyrotoxicosis, unspecified without thyrotoxic crisis or storm; F17.210 Nicotine dependence, cigarettes, uncomplicated; Z86.73 Personal history of transient ischemic attack (TIA), and cerebral infarction without residual deficits; Z87.01 Personal history of pneumonia (recurrent); Z79.899 Other long term (current) drug therapy; Z79.891 Long term (current) use of opiate analgesic
CPT/HCPCS: 36415; 36416; 71045; 80053; 83880; 84484; 85025; 93005; 96374; 96375; J1815; J1885

== ENCOUNTER 2019-04-12 15:12 | Inpatient (IN) | payer MEDICARE, OTHER ==
[~2019-04-12 15:12] MED LIST changes: -ISOVUE-370 76%-LOCM 1 ML ONE; +Iopamidol-370 76% 500 ML 1 ML ONE
[2019-04-12] MEDS ORDERED: methylPREDNISolone Sod Succ/PF 125 MG/2 ML VIAL ONE (16:03)
[2019-04-12 16:22] LABS: Hemoglobin 12.4 g/dL (12.0-16.0); Mean Corpuscular HGB CONC 32.9 g/dL (32.0-36.0); Mean Corpuscular Hemoglobin 29.3 pg (27.0-31.0); Mean Corpuscular Volume 89.1 fL (78.0-98.0); Mean Platelet Volume 9.6 fL (7.4-10.4); Platelet Count 307 thou/uL (130-400); RBC Distribution Width 14.8 % (11.5-14.5); Red Blood Cell (RBC) Count 4.23 mill/uL (4.20-5.40); White Blood Cell (WBC) Count 10.5 thou/uL (4.8-10.8)
[2019-04-12 16:37] LABS: Band 6 % (5-11); Eosinophils 1 % (0-10); Lymphocytes 24 % (21-51); MDiff Complete? YES; Monocytes 6 % (0-10); Neutrophil 63 % (42-75); Platelet Morphology Comment Appears Adequate; RBC Morphology Normal
[2019-04-12 16:38] LABS: ALT (SGPT) 18 U/L (8-55); AST (SGOT) 15 U/L (5-34); Albumin 3.3 g/dL (3.5-5.0); Alkaline Phosphatase 146 U/L (40-110); Anion Gap 14 mmol/L (10-20); BUN (Urea Nitrogen) 20 mg/dL (7.0-18.7); Bilirubin, Total 0.3 mg/dL (0.2-1.2); Calc. Creatinine Clearance 0 mL/min (70-130); Calcium 8.9 mg/dL (7.8-10.44); Carbon Dioxide 28 mmol/L (22-29); Chloride 99 mmol/L (98-107); Estimated GFR-MDRD 67; Globulin 2.8 g/dL (2.4-3.5); Glucose 353 mg/dL (70-105); Lipase 8 U/L (8-78); Magnesium 1.7 mg/dL (1.6-2.6); Potassium 4.7 mmol/L (3.5-5.1); Protein, Total 6.1 g/dL (6.0-8.3); Sodium 136 mmol/L (136-145)
--- NOTE | 2019-04-12 17:07 | CT ---
EXAM: CT pulmonary angiogram with IV contrast and 3-D MIP reconstructions PROVIDED CLINICAL HISTORY: Shortness of breath COMPARISON: 01/31/2019 FINDINGS: There is no evidence for central or segmental pulmonary embolus. Dilated main pulmonary artery and va scular calcification including coronary calcium redemonstrated. Median sternotomy changes redemonstrated. The lungs are free of significant opacity. No pleural fluid or pneumothorax apparent. No evidence for thoracic lymph node enlargement. The airway appears patent and of normal caliber. The visualized portions of the upper abdomen demonstrate no acute findings. The osseous structures de monstrate no concerning lytic or blastic lesions. IMPRESSION: No evidence for central or segmental pulmonary embolus.
--- NOTE | 2019-04-12 17:27 | RAD ---
EXAM: Portable chest PROVIDED CLINICAL HISTORY: Shortness of breath COMPARISON: 04/09/2019 FINDINGS: Evaluation is limited by patient body habitus. Cardiac silhouette remains enlarged. Median sternotomy changes are again seen. No focal consolidation, pleural fluid or pneumothorax evident. IMPRESSION: No evidence for an acute cardiopulmonary process.
--- NOTE | 2019-04-12 17:43 | ULT ---
EXAM: Left lower extremity venous Doppler PROVIDED CLINICAL HISTORY: Pain and swelling FINDINGS: Grayscale and color Doppler sonography with spectral analysis was performed of the left common femora l, proximal and mid femoral, popliteal, posterior tibial, greater saphenous and profunda femoral veins. The distal femoral vein is not visualized. The evaluated venous structures demonstrate a juani l sonographic appearance. IMPRESSION: No sonographic evidence for left lower extremity deep venous thrombosis.
--- NOTE | 2019-04-12 19:45 | PDOC.FPRHP ---
- History of Present Illness Chief Complaint: SOB History of Present Illness: Patient is a 48F with PMHx of DM2, COPD, HTN, CVA s/p [place] (january 2015), 4- vessel bypass, HIV, HLD, hypothyroidism, diastolic heart failure, methamphetamine drug abuse presents with SOB. Per patient her symptoms have been persistent for the last several weeks, including SOB, cough productive of brown/ovalle sputum. Patient denies fever though reports feeling warm today. ED Course: duoneb, methylprednisolone - Allergies/Adverse Reactions Allergies Allergy/AdvReac Type Severity Reaction Status Date / Time latex Allergy Rash Verified 04/12/19 22:38 quetiapine [From Seroquel] Allergy Verified 04/12/19 22:38 ziprasidone [From Geodon] Allergy Anaphylaxis Verified 04/12/19 22:38 - Home Medications Medication Instructions Recorded Confirmed Type Atorvastatin Calcium [Lipitor] 2 tab PO HS 04/12/19 04/13/19 History Carvedilol [Coreg] 3.125 mg PO BID 04/12/19 04/12/19 History Dolutegravir Sodium/Lamivudine 1 each PO DAILY 04/12/19 04/12/19 History [Dovato 50-300 mg Tablet] Esomeprazole Magnesium [NexIUM] 20 mg PO DAILY 04/12/19 04/12/19 History Ezetimibe [Zetia] 10 mg PO DAILY 04/12/19 04/12/19 History FLUoxetine HCl [Prozac] 3 cap PO DAILY 04/12/19 04/13/19 History HumaLOG 75 unit SC TID-WM 04/12/19 04/12/19 History Insulin Degludec [Tresiba] 180 unit SQ DAILY 04/12/19 04/13/19 History Isosorbide Mononitrate [Imdur ER] 30 mg PO DAILY 04/12/19 04/12/19 History Lamotrigine [lamoTRIgine] 150 mg PO DAILY 04/12/19 04/12/19 History Lamotrigine [lamoTRIgine] 300 mg PO HS 04/12/19 04/12/19 History Levothyroxine Sodium 250 mcg PO DAILY 04/12/19 04/12/19 History Lisinopril 10 mg PO DAILY 04/12/19 04/12/19 History Mirtazapine 15 mg PO HS 04/12/19 04/12/19 History Perphenazine [Trilafon] 16 mg PO HS 04/12/19 04/12/19 History Zolpidem Tartrate [Ambien] 10 mg PO HS 04/12/19 04/12/19 History clonazePAM [Clonazepam] 0.5 mg PO BID 04/12/19 04/12/19 History traMADol HCl [Tramadol HCl] 50 mg PO BID PRN 04/12/19 04/12/19 History - History PMHx: DM2, COPD, HTN, CVA s/p [place] (january 2015), 4-vessel bypass, HIV, HLD, hypothyroidism, diastolic heart failure, methamphetamine drug abuse PSHx: hysterectomy, cholecystectomy, right breast biopsy, cardiac 4-vessel bypass, left knee tendon repair, thyroidectomy s/p thyroid cancer FHx: mother and maternal grandmother passed of [place] at age 64 Social: smokes 12 cigarettes/day, denies etoh use; recent UDS + methamphetamine in clinic - Review of Systems General: denies: fever/chills, weight/appetite/sleep changes Eyes: denies: eye pain, vision changes ENT: denies: nasal congestion, rhinorrhea Respiratory: reports: cough, shortness of breath Cardiovascular: reports: edema (BLE swelling). denies: chest pain Gastrointestinal: denies: nausea, vomiting, diarrhea Genitourinary: denies: polyuria, discharge Skin: denies: lesions, jaundice Musculoskeletal: denies: tenderness, stiffness Neurological: denies: syncope, seizure Psychological: denies: anxiety, depression - Vital signs BP: [147/74] HR: [94] RR: [19] Tmax: [99.1] Pox: [96]% on [RA] Wt: [164.65kg] - Physical Exam Constitutional: NAD, awake, alert and oriented, well developed HEENT: EOMI, MMM Neck: supple, FROM Chest: no-tender to palpation, no lesions Heart: RRR, normal S1/S2 Lungs: no respiratory distress, other (poor air movement) Abdomen: soft, other (mildly ttp throughout) Musculoskeletal: normal tone, ROM grossly normal Neurological: no focal deficit, normal sensation Skin: no rash/lesions, good turgor Heme/Lymphatic: no unusual bruising or bleeding, no purpura Psychiatric: normal mood and affect, good judgment and insight FMR H&P: Results - Labs Result Diagrams: 04/12/19 15:47 04/12/19 15:47 Lab results: WBC 10.5 thou/uL (4.8-10.8) 04/12/19 15:47 Hgb 12.4 g/dL (12.0-16.0) 04/12/19 15:47 Hct 37.7 % (36.0-47.0) 04/12/19 15:47 MCV 89.1 fL (78.0-98.0) 04/12/19 15:47 Plt Count 307 thou/uL (130-400) 04/12/19 15:47 Band Neuts % (Manual) 6 % (5-11) 04/12/19 15:47 Sodium 136 mmol/L (136-145) 04/12/19 15:47 Potassium 4.7 mmol/L (3.5-5.1) 04/12/19 15:47 Chloride 99 mmol/L (98-107) 04/12/19 15:47 Carbon Dioxide 28 mmol/L (22-29) 04/12/19 15:47 BUN 20 mg/dL (7.0-18.7) H 04/12/19 15:47 Creatinine 0.90 mg/dL (0.6-1.1) 04/12/19 15:47 Glucose 353 mg/dL (70-105) H 04/12/19 15:47 Calcium 8.9 mg/dL (7.8-10.44) 04/12/19 15:47 Total Bilirubin 0.3 mg/dL (0.2-1.2) 04/12/19 15:47 AST 15 U/L (5-34) 04/12/19 15:47 ALT 18 U/L (8-55) 04/12/19 15:47 Alkaline Phosphatase 146 U/L (40-110) H 04/12/19 15:47 B-Natriuretic Peptide 148.7 pg/mL (0-100) H 04/12/19 15:47 Serum Total Protein 6.1 g/dL (6.0-8.3) 04/12/19 15:47 Albumin 3.3 g/dL (3.5-5.0) L 04/12/19 15:47 Lipase 8 U/L (8-78) 04/12/19 15:47 - Radiology Interpretation Chest x-ray Status: report reviewed by me (no acute intrathoracic process) Other Status: report reviewed by me (CTA: negative for intrathoracic process Venous doppler: negative for DVT) FMR H&P: A/P - Problem List (1) Acute exacerbation of chronic obstructive pulmonary disease (COPD) Current Visit: Yes Status: Acute Code(s): J44.1 - CHRONIC OBSTRUCTIVE PULMONARY DISEASE W (ACUTE) EXACERBATION (2) Heart failure, diastolic, chronic Current Visit: No Status: Acute Code(s): I50.32 - CHRONIC DIASTOLIC ( CONGESTIVE) HEART FAILURE (3) Hyperglycemia due to type 2 diabetes mellitus Current Visit: No Status: Acute Code(s): E11.65 - TYPE 2 DIABETES MELLITUS WITH HYPERGLYCEMIA (4) Hypothyroidism Current Visit: No Status: Acute Code(s): E03.9 - HYPOTHYROIDISM, UNSPECIFIED (5) Schizophrenia Current Visit: No Status: Acute Code(s): F20.9 - SCHIZOPHRENIA, UNSPECIFIED (6) Anxiety and depression Current Visit: No Status: Chronic Code(s): F41.8 - OTHER SPECIFIED ANXIETY DISORDERS (7) Dyslipidemia Current Visit: No Status: Chronic Code(s): E78.5 - HYPERLIPIDEMIA, UNSPECIFIED Comment: Continue with home meds. (8) HIV (human immunodeficiency virus infection) Current Visit: No Status: Chronic (9) Hypertension Current Visit: No Status: Chronic Code(s): I10 - ESSENTIAL (PRIMARY) HYPERTENSION Comment: Home meds. (10) Morbid obesity with BMI of 50.0-59.9, adult Current Visit: No Status: Chronic Code(s): E66.01 - MORBID (SEVERE) OBESITY DUE TO EXCESS CALORIES; Z68.43 - BODY MASS INDEX (BMI) 50.0-59.9, ADULT - Plan Patient is a 48F with PMHx of DM2, COPD, HTN, CVA s/p [place] (january 2015), 4- vessel bypass, HIV, HLD, hypothyroidism, diastolic heart failure, methamphetamine drug abuse is admitted for COPD exacerbation #Acute on chronic COPD exacerbation -patient has had SOB for past few weeks, cough and increased sputum production -afebrile, satting well on RA at this time -CXR negative for acute process -continued oxygen monitoring with supplemental oxygen as needed -scheduled duonebs -azithromycin qd -started on methylprednisolone in ED, continue 40mg prednisone #HTN -continue home meds #DM2 -continue home meds -ISS #HIV -continue home meds #HLD -continue home meds #Hypothyroidism -continue home meds #Diastolic heart failure -continue home meds -appears to be slightly volume up, will give dose of lasix and continue to monitor DVT ppx: lovenox Dispo: obs for COPD exacerbation, continued respiratory monitoring and respiratory support Code: DNAR PCP: Ariadne FMR H&P: Upper Level - Plan Date/Time: 04/12/191944 I, Florentin Yu MD, have evaluated this patient and agree with findings/ plan as outlined by training intern resident. Pertinent changes/additions are listed here. 48 yo female who has been hospitalized in recent months due to COPD presents for increased SOB. She notes she continues to smoke daily. 1. Mild COPD exacerbation - No oxygen requirement at this time - Symptoms point toward fluid overload vs Pickwickian syndrome - Will attempt diuresis - Will continue steroids. - Consider antibiotics 2. Hyperglycemia in DM2 - Restart home regimen - Likely will need additional medication while hospitalized - Recommend continued outpatient follow up 3. HIV - Continue home regimen All other chronic conditions reviewed and home medications to be restarted as appropriate. PCP: _ CODE STATUS: DNAR Disposition: Stable, will admit for observation evaluation and monitoring with likely discharge tomorrow. Addendum - Attending - Attending Attestation Date/Time: 04/13/19 7290 I personally evaluated the patient and discussed the management with the team. I agree with the History, Examination, Assessment and Plan documented above with any addition or exceptions noted below.
[2019-04-12] MEDS ORDERED: Albuterol Sulfate 2.5 mg/0.5 ml Neb NEB PRN (22:12)
[2019-04-12] MEDS ORDERED: Ondansetron ODT 4 MG TAB SL PRN (22:13)
[2019-04-12] MEDS ORDERED: Ondansetron PF 4 MG/2 ML Vial IVP PRN (22:13)
[2019-04-12] MEDS ORDERED: Acetaminophen 325 MG TAB PO PRN ×2 (22:13→22:20)
[2019-04-12] MEDS ORDERED: Ondansetron ODT 4 MG TAB PO PRN (22:20)
[2019-04-12] MEDS ORDERED: HYDROcodone/Acetaminophen 5/325 mg Tablet PO ONE (22:20)
[2019-04-12] MEDS ORDERED: Famotidine 20 MG TAB PO PRN (22:20)
[2019-04-12] MEDS ORDERED: Furosemide 20 MG/2 ML VIAL SLOW IVP SCH (22:30)
[2019-04-12] MEDS ORDERED: traMADol HCl 50 MG TAB PO PRN (22:57)
[2019-04-12] MEDS ORDERED: Nicotine 21 MG PATCH TD SCH (23:00)
[2019-04-12] MEDS ORDERED: Dextrose 5% in Water 1,000 ML IV PRN (23:01)
[2019-04-12] MEDS ORDERED: Dextrose 50% Abboject 50 ML SYRINGE SLOW IVP PRN (23:01)
[2019-04-12] MEDS ORDERED: HumaLOG 300 UNITS/3 ML VIAL SC PRN (23:01)
[2019-04-13 00:15] VITALS: BMI 60.3
[2019-04-13] MEDS: HumaLOG 300 UNITS/3 ML VIAL SC PRN ×2 (00:47→11:47)
[2019-04-13] MEDS ORDERED: Levothyroxine Sodium 125 MCG TAB PO SCH (06:00)
--- NOTE | 2019-04-13 06:25 | PDOC.FM ---
- Subjective Subjective: Lindsay is equivocal this morning. She states that she is in significant pain, however, this is the same chronic pain that we are working to resolve outpatient. She has a history of opioid abuse and illegal drug abuse, recently. We discussed pain management options. She still has a significant cough and dyspnea on exertion. - Objective MAR Reviewed: Yes Vital Signs & Weight: Vital Signs (12 hours) Temp Pulse Resp BP Pulse Ox 04/13/19 04:57 97.7 F 91 20 130/65 94 L 04/12/19 23:37 97 04/12/19 23:34 20 97 04/12/19 22:07 97.8 F 96 18 167/92 H 97 Weight Weight 164.5 kg Result Diagrams: 04/13/19 07:26 04/13/19 07:26 Phys Exam - Physical Examination Constitutional: NAD HEENT: moist MMs, sclera anicteric Neck: supple, full ROM Respiratory: no wheezing Tight breath sounds bilaterally, poor air movement. Cardiovascular: RRR, no significant murmur, no rub Gastrointestinal: soft, non-tender Musculoskeletal: pulses present, edema present Neurological: non-focal, normal sensation, moves all 4 limbs Psychiatric: normal affect, A&O x 3 Skin: no rash, normal turgor Dx/Plan (1) Dyspnea Code(s): R06.00 - DYSPNEA, UNSPECIFIED Status: Resolved (2) Diabetes Code(s): E11.9 - TYPE 2 DIABETES MELLITUS WITHOUT COMPLICATIONS Status: Acute (3) Hypothyroidism Code(s): E03.9 - HYPOTHYROIDISM, UNSPECIFIED Status: Acute (4) COPD (chronic obstructive pulmonary disease) Status: Acute (5) HLD (hyperlipidemia) Code(s): E78.5 - HYPERLIPIDEMIA, UNSPECIFIED Status: Acute (6) Heart failure, diastolic, chronic Code(s): I50.32 - CHRONIC DIASTOLIC (CONGESTIVE) HEART FAILURE Status: Acute (7) Bipolar disorder Code(s): F31.9 - BIPOLAR DISORDER, UNSPECIFIED Status: Acute - Plan Plan: Patient is a 48F with PMHx of DM2, COPD, HTN, [place] (jan[place] 2015), 4- vessel bypass, HIV, HLD, hypothyroidism, diastolic heart failure, methamphetamine drug abuse is admitted for COPD exacerbation COPD exacerbation, acute on chronic - afebrile, satting well on RA at this time, CXR negative for acute process, CTA and venous dopplers negative. - Scheduled DuoNeb, Azithromycin qDay, 40mg Prednisone. - Will d/c with complete course of azithro and prednisone, will verify that she has nebulizer at home. Chronic pain - she has been referred to pain specialist. She may benefit from suboxone therapy, with her history. - Currently on Gabapentin and Tramadol. Will continue this regimen. Avoid opioids. HTN - continue home meds DM2 - continue home meds - ISS, hypoglycemia protocol HIV - continue home meds HLD - continue home meds Hypothyroidism, s/p thyroidectomy - continue home meds Diastolic heart failure -continue home meds - s/p 1x dose of lasix. will monitor fluid status. - will give one more small dose of lasix today, she is still edematous. DVT ppx: lovenox Dispo: obs for COPD exacerbation, continued respiratory monitoring and respiratory support Code: DNAR PCP: Ariadne
[2019-04-13] MEDS: HumaLOG 300 UNITS/3 ML VIAL SC SCH ×2 (06:43→11:46)
[2019-04-13] MEDS: Benzonatate 100 MG CAP PO PRN ×2 (06:43→13:31)
[2019-04-13 07:40] LABS: #Eosinphils 0.1 thou/uL (0.0-0.7); #Lymphocytes 1.6 thou/uL (1.20-3.40); #Monocytes 0.5 thou/uL (0.11-0.59); #Neutrophils 13.2 thou/uL (1.40-6.50); %Basophils 0.1 % (0.0-1.0); %Eosinophils 0.5 % (0.0-10.0); %Lymphocytes 10.4 % (21.0-51.0); %Monocytes 3.2 % (0.0-10.0); %Neutrophils 85.9 % (42.0-75.0); Hemoglobin 12.8 g/dL (12.0-16.0); Mean Corpuscular HGB CONC 33.4 g/dL (32.0-36.0); Mean Corpuscular Hemoglobin 29.4 pg (27.0-31.0); Mean Corpuscular Volume 87.9 fL (78.0-98.0); Mean Platelet Volume 9.3 fL (7.4-10.4); Platelet Count 354 thou/uL (130-400); RBC Distribution Width 14.8 % (11.5-14.5); Red Blood Cell (RBC) Count 4.37 mill/uL (4.20-5.40); White Blood Cell (WBC) Count 15.4 thou/uL (4.8-10.8)
[2019-04-13 08:00] LABS: Anion Gap 16 mmol/L (10-20); BUN (Urea Nitrogen) 24 mg/dL (7.0-18.7); Calc. Creatinine Clearance 180 mL/min (70-130); Calcium 9.7 mg/dL (7.8-10.44); Carbon Dioxide 26 mmol/L (22-29); Chloride 98 mmol/L (98-107); Estimated GFR-MDRD 60; Glucose 424 mg/dL (70-105); Potassium 4.2 mmol/L (3.5-5.1); Sodium 136 mmol/L (136-145)
[2019-04-13] MEDS ORDERED: INSULIN GLARGINE SC SCH (09:00)
[2019-04-13] MEDS ORDERED: PRE FILLED SC SCH (09:00)
[2019-04-13] MEDS ORDERED: Azithromycin 250 MG TAB PO SCH (09:00)
[2019-04-13] MEDS ORDERED: Ezetimibe 10 MG TAB PO SCH (09:00)
[2019-04-13] MEDS ORDERED: FLUoxetine HCl 20 MG CAP PO SCH (09:00)
[2019-04-13] MEDS ORDERED: lamoTRIgine 100 MG TAB PO SCH ×2 (09:00→21:00)
[2019-04-13] MEDS ORDERED: INSULIN DEGLUDEC 180 UNIT SQ SCH (09:00)
[2019-04-13] MEDS ORDERED: clonazePAM 1 MG TAB PO SCH (09:00)
[2019-04-13] MEDS ORDERED: predniSONE 20 MG TAB PO SCH (09:00)
[2019-04-13] MEDS ORDERED: Dolutegravir Sodium/Lamivudine [Dovato 50-300 Mg Tablet] PO SCH (09:00)
[2019-04-13] MEDS ORDERED: Lisinopril 10 MG TAB PO SCH (09:00)
[2019-04-13] MEDS ORDERED: Carvedilol 3.125 MG TAB PO SCH (09:00)
[2019-04-13] MEDS ORDERED: Isosorbide Mononitrate (ER) 30 MG TAB PO SCH (09:00)
[2019-04-13] MEDS ORDERED: Enoxaparin Sodium 40 MG/0.4 ML SYRINGE SC SCH (09:00)
[2019-04-13 14:25] VITALS: BP 167/92; TEMP 97.9
[2019-04-13] MEDS ORDERED: Gabapentin 300 MG CAP PO SCH (15:00)
[2019-04-13] MEDS ORDERED: Atorvastatin Calcium 40 MG TAB PO SCH (21:00)
[2019-04-13] MEDS ORDERED: Mirtazapine 15 MG TAB PO SCH (21:00)
[2019-04-13] MEDS ORDERED: Zolpidem Tartrate 5 MG TAB PO SCH (21:00)
[2019-04-13] MEDS ORDERED: Perphenazine 2 MG TAB PO SCH (21:00)
== END 2019-04-13 15:40 | disposition home or self-care (01) | DRG 191 ==
LOC: ERS 15:12 → ERHOLD 18:22 → T4-A 22:11
PROVIDERS: ADMIT Emergency Medicine; ATTEND Emergency Medicine
DX: J44.1 Chronic obstructive pulmonary disease with (acute) exacerbation (principal); I50.32 Chronic diastolic (congestive) heart failure; Z68.43 Body mass index [BMI] 50.0-59.9, adult; Z66 Do not resuscitate; Z21 Asymptomatic human immunodeficiency virus [HIV] infection status; E78.5 Hyperlipidemia, unspecified; F15.10 Other stimulant abuse, uncomplicated; F17.210 Nicotine dependence, cigarettes, uncomplicated; E66.01 Morbid (severe) obesity due to excess calories; E11.65 Type 2 diabetes mellitus with hyperglycemia; F20.9 Schizophrenia, unspecified; F41.9 Anxiety disorder, unspecified; I11.0 Hypertensive heart disease with heart failure; F31.9 Bipolar disorder, unspecified; G89.29 Other chronic pain; E89.0 Postprocedural hypothyroidism; I25.2 Old myocardial infarction; Z86.73 Personal history of transient ischemic attack (TIA), and cerebral infarction without residual deficits; Z95.1 Presence of aortocoronary bypass graft; Z88.8 Allergy status to other drugs, medicaments and biological substances; Z88.1 Allergy status to other antibiotic agents; Z91.040 Latex allergy status; Z79.899 Other long term (current) drug therapy; Z79.4 Long term (current) use of insulin; Z79.890 Hormone replacement therapy; Z90.49 Acquired absence of other specified parts of digestive tract; Z90.710 Acquired absence of both cervix and uterus
CPT/HCPCS: 36415; 36416; 71045; 71275; 80048; 80053; 83690; 83735; 83880; 84145; 84484; 85025; 87804; 93005; 94640; 96374; 96375; J1650; J1815; J1885; J1940; J2930; J7512; J7620

== ENCOUNTER 2019-06-11 19:53 | Emergency (ER) | payer MEDICARE, OTHER ==
[2019-06-11 20:47] LABS: #Basophils 0.1 thou/uL (0.0-0.2); #Eosinphils 0.1 thou/uL (0.0-0.7); #Lymphocytes 3.1 thou/uL (1.20-3.40); #Monocytes 0.4 thou/uL (0.11-0.59); #Neutrophils 7.4 thou/uL (1.40-6.50); %Eosinophils 1.2 % (0.0-10.0); %Monocytes 3.3 % (0.0-10.0); %Neutrophils 66.6 % (42.0-75.0); Hemoglobin 14.2 g/dL (12.0-16.0); Mean Corpuscular HGB CONC 33.8 g/dL (32.0-36.0); Mean Corpuscular Hemoglobin 30.4 pg (27.0-31.0); Mean Platelet Volume 10.4 fL (7.4-10.4); Platelet Count 278 thou/uL (130-400); RBC Distribution Width 15.3 % (11.5-14.5); Red Blood Cell (RBC) Count 4.67 mill/uL (4.20-5.40); White Blood Cell (WBC) Count 11.2 thou/uL (4.8-10.8)
--- NOTE | 2019-06-11 20:48 | RAD ---
Chest AP view INDICATION: Shortness of breath COMPARISON: April 12, 2019 FINDINGS: Lungs:The lungs are clear Cardiac silhouette:Post-CABG change and mild cardiomegaly is stable Pulmonary vasculature:Normal Pleural spaces:No pleural effusion or pneumothorax is demonstrated. Upper abdomen:No abnormality seen. Osseous structures: No acute osseous abnormality. Additional findings:None. IMPRESSION: No acute cardiopulmonary abnormality.
[2019-06-11 21:04] LABS: Base Excess-Venous 2.9 mmol/L (-2.0 to 3.0); Bicarbonate (HCO3v) 28.8 mmol/L (22.0-28.0); CO2 Tension (PvCO2) 47.8 mmHg (40.0-50.0); Calcium, Ionized 1.28 mmol/L (See Comments:); Chloride 96 mmol/L (98-107); Hemoglobin - Calc 14.2 g/dL (12.0-16.0); Potassium 4.9 mmol/L (3.5-5.1); Sodium 134 mmol/L (138-145); T. Carbon Dioxide 30.3 mmol/L (22.0-28.0); vO2 Saturation-calc 91.7 % (60.0-85.0)
[2019-06-11 21:07] LABS: ALT (SGPT) 8 U/L (8-55); AST (SGOT) 6 U/L (5-34); Alkaline Phosphatase 108 U/L (40-110); BUN (Urea Nitrogen) 35 mg/dL (7.0-18.7); Bilirubin, Total 0.2 mg/dL (0.2-1.2); Calc. Creatinine Clearance 0 mL/min (70-130); Carbon Dioxide 28 mmol/L (22-29); Estimated GFR-MDRD 30; Globulin 2.9 g/dL (2.4-3.5); Protein, Total 6.9 g/dL (6.0-8.3)
[2019-06-11 21:12] LABS: Glucose 561 mg/dL (70-105)
[2019-06-11 21:23] LABS: Chloride 95 mmol/L (98-107); Potassium 4.6 mmol/L (3.5-5.1); Sodium 133 mmol/L (136-145)
[2019-06-11 21:25] LABS: Anion Gap 16 mmol/L (10-20)
== END 2019-06-11 22:35 | disposition home or self-care (01) ==
LOC: ERS 19:53 → EEVIPCON 19:53 → ERS 22:35
DX: R06.00 Dyspnea, unspecified (principal); R05 Cough; E05.90 Thyrotoxicosis, unspecified without thyrotoxic crisis or storm; J44.9 Chronic obstructive pulmonary disease, unspecified; E11.9 Type 2 diabetes mellitus without complications; B20 Human immunodeficiency virus [HIV] disease; E78.5 Hyperlipidemia, unspecified; F41.9 Anxiety disorder, unspecified; F31.9 Bipolar disorder, unspecified; F20.9 Schizophrenia, unspecified; F17.210 Nicotine dependence, cigarettes, uncomplicated; I10 Essential (primary) hypertension; Z86.73 Personal history of transient ischemic attack (TIA), and cerebral infarction without residual deficits; Z87.01 Personal history of pneumonia (recurrent); Z79.899 Other long term (current) drug therapy
CPT/HCPCS: 71045; 80053; 82330; 82803; 83880; 84484; 85025; 93005

== ENCOUNTER 2019-08-08 05:30 | Emergency (ER) | payer MEDICARE, MEDICAID ==
[2019-08-08 05:57] LABS: Base Excess-Venous -0.9 mmol/L (-2.0 to 3.0); Bicarbonate (HCO3v) 24.6 mmol/L (22.0-28.0); CO2 Tension (PvCO2) 42.9 mmHg (40.0-50.0); Calcium, Ionized 1.13 mmol/L (See Comments:); Chloride 100 mmol/L (98-107); Hemoglobin - Calc 15.4 g/dL (12.0-16.0); Sodium 133 mmol/L (138-145); vO2 Saturation-calc 85.5 % (60.0-85.0)
[2019-08-08 05:59] LABS: #Eosinphils 0.2 thou/uL (0.0-0.7); #Lymphocytes 2.3 thou/uL (1.20-3.40); #Monocytes 0.5 thou/uL (0.11-0.59); #Neutrophils 8.7 thou/uL (1.40-6.50); %Eosinophils 1.5 % (0.0-10.0); %Lymphocytes 19.8 % (21.0-51.0); %Monocytes 4.5 % (0.0-10.0); %Neutrophils 74.2 % (42.0-75.0); Mean Corpuscular HGB CONC 32.8 g/dL (32.0-36.0); Mean Corpuscular Hemoglobin 29.8 pg (27.0-31.0); Mean Corpuscular Volume 90.9 fL (78.0-98.0); Mean Platelet Volume 10.2 fL (7.4-10.4); Platelet Count 317 thou/uL (130-400); Red Blood Cell (RBC) Count 4.69 mill/uL (4.20-5.40); White Blood Cell (WBC) Count 11.8 thou/uL (4.8-10.8)
[2019-08-08 06:02] LABS: BHCG - Serum Negative (NEGATIVE); Pregs Control Background? CLEAR/WHITE (CLR/WHITE); Pregs Control Bar Appear? YES (CONTROL BAR)
[2019-08-08] MEDS ORDERED: traMADol HCl 50 MG TAB ONE ×2 (06:16→06:18)
[2019-08-08 06:18] LABS: ALT (SGPT) 15 U/L (8-55); AST (SGOT) 17 U/L (5-34); Alkaline Phosphatase 115 U/L (40-110); Anion Gap 17 mmol/L (10-20); BUN (Urea Nitrogen) 31 mg/dL (7.0-18.7); Bilirubin, Total 0.2 mg/dL (0.2-1.2); Calc. Creatinine Clearance 0 mL/min (70-130); Calcium 9.9 mg/dL (7.8-10.44); Carbon Dioxide 22 mmol/L (22-29); Chloride 98 mmol/L (98-107); Estimated GFR-MDRD 33; Globulin 3.3 g/dL (2.4-3.5); Glucose 448 mg/dL (70-105); Magnesium 1.7 mg/dL (1.6-2.6); Potassium 4.9 mmol/L (3.5-5.1); Protein, Total 7.3 g/dL (6.0-8.3); Sodium 132 mmol/L (136-145)
[2019-08-08] MEDS ORDERED: Insulin Regular 300 UNITS/3 ML VIAL ONE (06:46)
--- NOTE | 2019-08-08 07:06 | RAD ---
SINGLE VIEW CHEST: Date: 08/08/2019 COMPARISON: 06/11/2019. HISTORY: Shortness of breath and hyperglycemia. FINDINGS: Single view of the chest shows an enlarged but stable cardiomediastinal silhouette. The patient is st atus post sternotomy. There is no evidence of consolidation, mass, or pleural effusion. IMPRESSION: Stable cardiomegaly. POS: [facility]
--- NOTE | 2019-08-09 14:50 | EKG ---
Test Reason : HYPERGLYCEMIA Blood Pressure : / mmHG Vent. Rate : 080 BPM Atrial Rate : 080 BPM P-R Int : 186 ms QRS Dur : 100 ms QT Int : 378 ms P-R-T Axes : 053 050 011 degrees QTc Int : 435 ms Normal sinus rhythm Low voltage QRS Borderline ECG Confirmed by LENI SEARS DO ([id number]), digital editor PRETTY GALEANO ([id number]) on 08/09/2019 2:50:10 PM Referred By: Confirmed By:LENI SEARS DO
== END 2019-08-08 08:35 | disposition home or self-care (01) ==
LOC: ERS 05:30
DX: E11.65 Type 2 diabetes mellitus with hyperglycemia (principal); E05.90 Thyrotoxicosis, unspecified without thyrotoxic crisis or storm; J44.9 Chronic obstructive pulmonary disease, unspecified; B20 Human immunodeficiency virus [HIV] disease; E78.5 Hyperlipidemia, unspecified; I10 Essential (primary) hypertension; I25.2 Old myocardial infarction; F31.9 Bipolar disorder, unspecified; F41.9 Anxiety disorder, unspecified; F20.9 Schizophrenia, unspecified; F17.210 Nicotine dependence, cigarettes, uncomplicated; Z79.899 Other long term (current) drug therapy; Z86.73 Personal history of transient ischemic attack (TIA), and cerebral infarction without residual deficits
CPT/HCPCS: 36416; 71045; 80053; 82010; 82330; 82803; 83735; 83880; 84703; 85025; 93005; 96374; J1815

== ENCOUNTER 2019-08-08 19:13 | Emergency (ER) | payer MEDICARE, MEDICAID ==
[2019-08-08] MEDS ORDERED: Ondansetron ODT 4 MG TAB ONE (19:43)
[2019-08-08] MEDS ORDERED: Ketorolac Tromethamine 30 MG/ML VIAL ONE (19:43)
[2019-08-08 20:14] LABS: Bilirubin Negative (Negative); Blood, Urine Trace (Negative); Clarity Turbid (Clear); Glucose, Urine (Dipstick) Greater than 1000 mg/dL (Negative); Leukocyte 500 Leu/uL (Negative); Nitrite Negative (Negative); Protein, Urine (Dipstick) 100 mg/dL (Neg-Trace); Squamous Epithelial 21-50 HPF (0-3); Urobilinogen Normal mg/dL (Less than 2); WBC/HPF 21-50 HPF (0-3); Yeast-Budding 1+ HPF (None Seen)
[2019-08-08 20:22] LABS: Bacteria/HPF 2+ HPF (None Seen)
== END 2019-08-08 20:50 | disposition home or self-care (01) ==
LOC: ERS 19:13
DX: M79.641 Pain in right hand (principal); R30.0 Dysuria; E05.90 Thyrotoxicosis, unspecified without thyrotoxic crisis or storm; J44.9 Chronic obstructive pulmonary disease, unspecified; E11.9 Type 2 diabetes mellitus without complications; B20 Human immunodeficiency virus [HIV] disease; E78.5 Hyperlipidemia, unspecified; I10 Essential (primary) hypertension; F31.9 Bipolar disorder, unspecified; F41.9 Anxiety disorder, unspecified; F20.9 Schizophrenia, unspecified; F17.210 Nicotine dependence, cigarettes, uncomplicated; Z87.891 Personal history of nicotine dependence; Z86.73 Personal history of transient ischemic attack (TIA), and cerebral infarction without residual deficits
CPT/HCPCS: 36416; 81003; 81015; 87077; 87086; 96372; 99283; J1885; Q0162

== ENCOUNTER 2019-10-12 16:51 | Emergency (ER) | payer MEDICARE, MEDICAID ==
[2019-10-12] MEDS ORDERED: Acetaminophen 500 MG TAB ONE ×2 (17:50→18:12)
[2019-10-12] MEDS ORDERED: Metoclopramide HCl 10 MG/2 ML VIAL ONE (17:51)
[2019-10-12] MEDS ORDERED: Ketorolac Tromethamine 30 MG/ML VIAL ONE ×2 (17:51→17:53)
[2019-10-12] MEDS ORDERED: diphenhydrAMINE 50 MG/ML VIAL ONE (17:51)
--- NOTE | 2019-10-12 18:40 | CT ---
HEAD CT WITHOUT CONTRAST: 10/12/19 HISTORY: Migraine headache times two days. Blurred vision in the right eye. FINDINGS: No parenchymal hemorrhage. No extra-axial hematoma. No midline shift. Basilar cisterns are patent. Brain volume, age appropriate. Cortical spears-white matter differentiatio n is preserved. No hydrocephalus. Adequate aeration of the sinuses and mastoid air cells. Old left lamina papyracea fracture. Intact calvarium. IMPRESSION: No acute intracranial process. POS: [facility]
== END 2019-10-12 20:29 | disposition home or self-care (01) ==
LOC: ERS 16:51
DX: G43.909 Migraine, unspecified, not intractable, without status migrainosus (principal); N76.4 Abscess of vulva; E03.9 Hypothyroidism, unspecified; J44.9 Chronic obstructive pulmonary disease, unspecified; E11.9 Type 2 diabetes mellitus without complications; B20 Human immunodeficiency virus [HIV] disease; E78.5 Hyperlipidemia, unspecified; I10 Essential (primary) hypertension; Z86.73 Personal history of transient ischemic attack (TIA), and cerebral infarction without residual deficits; I25.2 Old myocardial infarction; F31.9 Bipolar disorder, unspecified; F20.9 Schizophrenia, unspecified; F41.9 Anxiety disorder, unspecified; F17.210 Nicotine dependence, cigarettes, uncomplicated; Z79.899 Other long term (current) drug therapy
CPT/HCPCS: 70450; 96361; 96365; 96375; J1200; J1885; J2765

== ENCOUNTER 2019-10-30 20:34 | Observation (INO) | payer MEDICARE, OTHER ==
[2019-10-30] MEDS ORDERED: Nitroglycerin 2% Ointment 1 INCH/1 GM Packet ONE ×2 (20:59→21:01)
[2019-10-30] MEDS ORDERED: Acetaminophen 500 MG TAB ONE (21:06)
[2019-10-30 21:24] LABS: #Eosinphils 0.2 thou/uL (0.0-0.7); #Lymphocytes 1.6 thou/uL (1.20-3.40); #Monocytes 0.4 thou/uL (0.11-0.59); #Neutrophils 7.6 thou/uL (1.40-6.50); %Basophils 0.5 % (0.0-1.0); %Eosinophils 1.8 % (0.0-10.0); %Monocytes 4.4 % (0.0-10.0); %Neutrophils 77.3 % (42.0-75.0); Hemoglobin 12.3 g/dL (12.0-16.0); Mean Corpuscular HGB CONC 33.3 g/dL (32.0-36.0); Mean Corpuscular Hemoglobin 30.4 pg (27.0-31.0); Mean Corpuscular Volume 91.3 fL (78.0-98.0); Mean Platelet Volume 9.3 fL (7.4-10.4); Platelet Count 292 thou/uL (130-400); RBC Distribution Width 14.6 % (11.5-14.5); Red Blood Cell (RBC) Count 4.06 mill/uL (4.20-5.40); White Blood Cell (WBC) Count 9.8 thou/uL (4.8-10.8)
--- NOTE | 2019-10-30 21:26 | PDOC.FPRHP ---
- History of Present Illness Chief Complaint: Chest pain History of Present Illness: Patient complains of substernal chest pain for the past 1.5 weeks. She states the pain is intermittent throughout the day at both rest and activity. She says the pain occurs daily and has progressively worsened in severity. She describes the pain as pressure and rates it a max 8/10. She says the pain radiated to her neck and left shoulder. The patient notes her chest pain is similar in presentation to her history of NM. She received nitro x 2 prior to admission which relieved her pain. She reports SOB that worsens during an episode of chest pain, chills, and nausea. She also notes worsening generalized edema, paroxysmal nocturnal dyspnea and orthopnea. She denies sweating, vomiting, and abdominal pain. The patient has been keeping her grandchildren for the past week and says she has been anxious about living on for them. Most recent echo was completed on 09/29/18. The patient has a history of 4 vessel CABG with 1 graft patent. Most recent cath was in 04/19. She says she was told she is no longer a surgical candidate. ED Course: Patient received nitro x 2 which relieved her chest pain. She also received Lasix 40 mg and Tylenol 1 g. - Allergies/Adverse Reactions Allergies Allergy/AdvReac Type Severity Reaction Status Date / Time latex Allergy Rash Verified 04/12/19 22:38 quetiapine [From Seroquel] Allergy Verified 04/12/19 22:38 ziprasidone [From Geodon] Allergy Anaphylaxis Verified 04/12/19 22:38 - Home Medications Medication Instructions Recorded Confirmed Type Atorvastatin Calcium [Lipitor] 2 tab PO HS 04/12/19 10/30/19 History Carvedilol [Coreg] 3.125 mg PO BID 04/12/19 10/30/19 History Dolutegravir Sodium/Lamivudine 1 each PO DAILY 04/12/19 10/30/19 History [Dovato 50-300 mg Tablet] Esomeprazole Magnesium [NexIUM] 20 mg PO DAILY 04/12/19 10/30/19 History Ezetimibe [Zetia] 10 mg PO DAILY 04/12/19 10/30/19 History FLUoxetine HCl [Prozac] 3 cap PO DAILY 04/12/19 10/30/19 History HumaLOG [HumaLOG Vial] 75 unit SC TID-WM 04/12/19 10/30/19 History Insulin Degludec [Tresiba] 180 unit SQ DAILY 04/12/19 10/30/19 History Isosorbide Mononitrate [Imdur ER] 30 mg PO DAILY 04/12/19 10/30/19 History Lamotrigine [lamoTRIgine] 150 mg PO DAILY 04/12/19 10/30/19 History Levothyroxine Sodium 250 mcg PO DAILY 04/12/19 10/30/19 History Lisinopril 10 mg PO DAILY 04/12/19 10/30/19 History Mirtazapine 45 mg PO HS 04/12/19 10/30/19 History Perphenazine [Trilafon] 16 mg PO HS 04/12/19 10/30/19 History Zolpidem Tartrate [Ambien] 10 mg PO HS 04/12/19 10/30/19 History clonazePAM [Clonazepam] 0.5 mg PO BID 04/12/19 10/30/19 History traMADol HCl [Tramadol HCl] 50 mg PO BID PRN 04/12/19 10/30/19 History Azithromycin [Zithromax] 250 mg PO DAILY #4 tab 04/13/19 10/30/19 Rx Fluconazole [Diflucan] 150 mg PO Q3D #2 tablet 04/13/19 10/30/19 Rx Gabapentin 300 mg PO TID 04/13/19 10/30/19 History Nystatin [Nystatin Powder] 1 applic TOP TID #1 bot 04/13/19 10/30/19 Rx lamoTRIgine [LaMICtal] 150 mg PO HS tab 04/13/19 10/30/19 Rx predniSONE 40 mg PO DAILY #4 tab 04/13/19 10/30/19 Rx - History PMHx: HTN, diastolic HF, COPD, DM, HLD, HIV, morbid obesity, hypothyroidism, depression, anxiety, schizophrenia PSHx: 4-vessel CABG with 1 graft patent, hysterectomy, cholecystectomy, R breast biopsy, L knee tendon repair, thyroidectomy s/p thyroid Cancer FHx: Maternal grandmother - [place] Social: Smokes 1 ppd, previous methamphetamine use (last use 1 month ago) - Review of Systems General: reports: fever/chills (Chills). denies: night sweats Eyes: denies: vision changes ENT: reports: nasal congestion. denies: rhinorrhea Respiratory: reports: congestion, shortness of breath, exercise intolerance Cardiovascular: reports: chest pain, edema, paroxysmal nocturnal dyspnea, orthopnea. denies: palpitation Gastrointestinal: reports: nausea. denies: vomiting, diarrhea, abdominal pain Genitourinary: reports: polyuria. denies: dysuria Skin: denies: rashes Musculoskeletal: denies: pain, tenderness Neurological: denies: numbness, weakness Psychological: reports: anxiety. denies: depression - Vital signs BP: [136/88] HR: [96] RR: [20] Tmax: [99] Pox: [97]% on [RA] Wt: [186 kg] - Physical Exam Constitutional: NAD -Constitutional: Morbidly obese HEENT: normocephalic and atraumatic, MMM Neck: supple, trachea midline, no bruits Chest: no-tender to palpation Heart: RRR, normal S1/S2, no murmurs/rubs/gallops, pulses present, no edema (2+ pitting edema, lower extremity bilat; 1+ pitting edema, upper extremity bilat) -Heart: Distant heart sounds due to body habitus Lungs: CTAB, no respiratory distress -Lungs: Distant lung sounds due to body habitus Abdomen: soft, non-tender, bowel sounds present Musculoskeletal: normal structure Neurological: no focal deficit Skin: no rash/lesions Heme/Lymphatic: no unusual bruising or bleeding Psychiatric: normal mood and affect FMR H&P: Results - Labs Result Diagrams: 10/30/19 21:15 10/30/19 21:15 FMR H&P: A/P - Problem List (1) Atypical chest pain Current Visit: Yes Status: Acute Code(s): R07.89 - OTHER CHEST PAIN (2) CHF exacerbation Current Visit: Yes Status: Acute Code(s): I50.9 - HEART FAILURE, UNSPECIFIED (3) Diabetes Current Visit: No Status: Acute Code(s): E11.9 - TYPE 2 DIABETES MELLITUS WITHOUT COMPLICATIONS Comment: Poor control. Patient has not been terribly compliant with diet. Continue with ISS. (4) HLD (hyperlipidemia) Current Visit: No Status: Acute Code(s): E78.5 - HYPERLIPIDEMIA, UNSPECIFIED (5) Hypothyroidism Current Visit: No Status: Acute Code(s): E03.9 - HYPOTHYROIDISM, UNSPECIFIED (6) Schizophrenia Current Visit: No Status: Acute Code(s): F20.9 - SCHIZOPHRENIA, UNSPECIFIED (7) Anxiety and depression Current Visit: No Status: Chronic Code(s): F41.8 - OTHER SPECIFIED ANXIETY DISORDERS (8) HIV (human immunodeficiency virus infection) Current Visit: No Status: Chronic (9) Hypertension Current Visit: No Status: Chronic Code(s): I10 - ESSENTIAL (PRIMARY) HYPERTENSION Comment: Home meds. (10) Morbid obesity with BMI of 50.0-59.9, adult Current Visit: No Status: Chronic Code(s): E66.01 - MORBID (SEVERE) OBESITY DUE TO EXCESS CALORIES; Z68.43 - BODY MASS INDEX (BMI) 50.0-59.9, ADULT - Plan 1. Atypical chest pain Patient has history of similar symptoms in the past. Cause could be anxiety vs. angina. Trop negative. EKG normal. Given hx of NM and CABG, patient placed on obs. -Nitro PRN for chest pain -ASA 325mg daily -Troponin trend -Repeat EKG if chest pain reoccurs -Consider cardio consult in the am 2. HFpEF exacerbation Most recent echo completed on 09/29/18 showed diastolic heart failure. Patient's symptom progression and CXR findings support decompensated HF. BNP 62.8. Lasix 40 mg was given in the ED. -Mag level -Continue coreg -Continue isosorbide monotrate 2. HTN BP stable. -Continue lisinopril 4. DM Patient reports BG in 300s at home. BG 297 in the ED. -Continue Humalog -Continue Tresiba 5. HIV Patient reports recent negative viral load. -Continue Dovato 6. HLD -Continue atorvastatin -Continue Zetia 7. Hypothyroidism 2/2 thyroidectomy -Continue levothyroxine 9. Depression -Continue Prozac -Continue lamotrigine 11. Schizophrenia -Continue perphenazine 12. Tobacco use -Nicotine patch -Encourage smoking cessation 13. Hx methamphetamine use -Encourage continued sobriety PPX: Lovenox Code Status: Full PCP: Javier Dispo: tele obs FMR H&P: Upper Level - Plan Date/Time: 10/30/192122 Bruno Zhou DO, have evaluated this patient and agree with findings/plan as outlined by undergraduate intern resident. Pertinent changes/additions are listed here. 48 yo F w/ pmhx sig extensive cardiac disease, copd, gerd, anxiety She reports chest pain worse than when she had her last heart attack. She describes pressure, sob, and radiation. She was given nitro in the ED which reportedly resolved the pain. She has had cardiac work up in the past and was recently determined to not be a candidate for operative intervention. Her troponin was initially negative, EKG without ST changes. On exam she has distant heart and lung sounds without any other abnormalities, she has SONJA to her tibial plateau. Her chest pain is most likely from one of her other comorbid conditions, however she is at very high risk for recurrent NM with atypical presentation, we will trend troponins, repeat an EKG/give nitro for chest pain, contact cardiology in AM. Pt with overall poor prognosis. See undergraduate intern note for mgmt. of chronic medical issues. Addendum - Attending - Attending Attestation Date/Time: 10/31/19 8598 I personally evaluated the patient and discussed the management with Dr. Munoz/Connor I agree with the History, Examination, Assessment and Plan documented above with any addition or exceptions noted below. see my event note for details.
[2019-10-30 21:45] LABS: ALT (SGPT) 81 U/L (8-55); AST (SGOT) 43 U/L (5-34); Albumin 3.6 g/dL (3.5-5.0); Alkaline Phosphatase 295 U/L (40-110); Anion Gap 14 mmol/L (10-20); BUN (Urea Nitrogen) 18 mg/dL (7.0-18.7); Bilirubin, Total 0.2 mg/dL (0.2-1.2); Calc. Creatinine Clearance 0 mL/min (70-130); Calcium 8.8 mg/dL (7.8-10.44); Carbon Dioxide 24 mmol/L (22-29); Chloride 101 mmol/L (98-107); Estimated GFR-MDRD 55; Glucose 297 mg/dL (70-105); Potassium 4.4 mmol/L (3.5-5.1); Protein, Total 6.6 g/dL (6.0-8.3); Sodium 135 mmol/L (136-145)
--- NOTE | 2019-10-30 21:46 | RAD ---
XR Chest 1 View Portable History: Chest pain Comparison: Radiograph August 08, 2019 Findings: Exam is limited due to underpenetration. Heart size is enlarged. Mild pulmonary edema. No p neumothorax. Impression: Findings of mild decompensated congestive heart failure.
[2019-10-30] MEDS ORDERED: Furosemide 40 MG/4 ML VIAL ONE (22:19)
[2019-10-30] MEDS ORDERED: Ondansetron PF 4 MG/2 ML Vial IVP PRN (22:44)
[2019-10-30] MEDS ORDERED: HYDROcodone/Acetaminophen 5/325 mg Tablet PO PRN ×2 (22:44)
[2019-10-30] MEDS ORDERED: Acetaminophen 325 MG TAB PO PRN (22:44)
[2019-10-30] MEDS ORDERED: Ondansetron ODT 4 MG TAB SL PRN (22:44)
[2019-10-30 22:53] VITALS: BMI 69.1
[2019-10-30] MEDS: Nitroglycerin 2% Ointment 1 INCH/1 GM Packet TOP SCH (23:48)
[2019-10-31] MEDS ORDERED: Dextrose 50% Abboject 50 ML SYRINGE SLOW IVP PRN (00:05)
[2019-10-31] MEDS ORDERED: Nitroglycerin 0.4 MG TAB (25 Tab Bottle) PO PRN (00:05)
[2019-10-31] MEDS ORDERED: HumaLOG 300 UNITS/3 ML VIAL SC PRN ×2 (00:05)
[2019-10-31] MEDS ORDERED: Dextrose 5% in Water 1,000 ML IV PRN (00:05)
--- NOTE | 2019-10-31 00:06 | PDOC.EVN ---
Event Note - Event Note Event Note: Seen and evaluated on 10/29 at 2310. Discussed with residents and agree with their documentation. patient has had intermittent CP for several weeks. Worsening swelling. Has had 4 vx CABG with only 1 graft patent on last cath. Per patient she is a not an operative candidate. her CP resolved with nitro. EKG and labs unremarkble. CXR showed mild CHF. Obs for ACS evaluation, mild HFpEF exacerbation Will continue nitro for pain. trend trops, check mag. Will give IV lasix 40 mg for mild CHF. Consider cards consult in the morning for medical management. Consider repeat TTE. Chronic problems per staff internist office based only note.
[2019-10-31] MEDS ORDERED: Furosemide 40 MG TAB PO SCH (00:30)
[2019-10-31] MEDS: Nicotine 14 MG PATCH TD SCH (00:55)
[2019-10-31 01:13] LABS: Troponin I 0.027 ng/mL (< 0.028)
[2019-10-31] MEDS ORDERED: guaiFENesin ER 600 MG TAB PO SCH (02:15)
[2019-10-31] MEDS: Nitroglycerin 2% Ointment 1 INCH/1 GM Packet TOP SCH (04:03)
[2019-10-31 04:21] LABS: ALT (SGPT) 81 U/L (8-55); AST (SGOT) 41 U/L (5-34); Albumin 3.7 g/dL (3.5-5.0); Alkaline Phosphatase 300 U/L (40-110); Anion Gap 14 mmol/L (10-20); BUN (Urea Nitrogen) 22 mg/dL (7.0-18.7); Bilirubin, Total 0.2 mg/dL (0.2-1.2); Calc. Creatinine Clearance 175 mL/min (70-130); Calcium 8.8 mg/dL (7.8-10.44); Carbon Dioxide 26 mmol/L (22-29); Chloride 98 mmol/L (98-107); Estimated GFR-MDRD 49; Glucose 281 mg/dL (70-105); Potassium 4.3 mmol/L (3.5-5.1); Protein, Total 6.7 g/dL (6.0-8.3); Sodium 134 mmol/L (136-145)
[2019-10-31 04:23] LABS: Troponin I Less than 0.010 ng/mL (< 0.028)
--- NOTE | 2019-10-31 05:57 | PDOC.FM ---
- Subjective Subjective: Pt denies current CP stating she was given a nitroglycerin patch earlier in the night when she was experiencing pain and that it resolved her pain. She denies dyspnea/cough/orthopnea; she states she still has more edema than usual especially in her R arm and L leg which she states tend to swell the most. Pt states she is in a lot of pain in her hips/legs/lower back. She states this pain is chronic s/p back surgery. She has a prescription of Gabapentin for this which she takes at home but which she claims minimally helps with pain. She states she used to take two 800mg q6h but that she stopped taking it because it didn't help. She has since be re-prescribed them and takes four 300mg tabs once daily and that this dosage does not help either. She states she had an appt to start care at a pain management clinic but that the appt was canceled due to COVID. She states she has tried Toradol and Tramadol in the past and that neither have helped. She states the only things that have ever helped with her pain are narcotics. She states she used to take both Oxycontin and Oxycodone which she stopped taking of her own volition because she got tired of w/d sx. She was then prescribed to [place] until the physician took her off of it because she "wanted her to have a clean slate in her body". She states that when that happened she turned to meth for self- medication. She is also complaining of severe nasal congestion and she is asking for Flonase , which is what she takes at home, stating the Mucinex she was given has not helped. 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 She is frustrated because she did not receive any of her medications last night so she was unable to fall asleep until 5 am; she is also frustrated about the NPO order and because the nicotine patch she was given is not curbing her craving. - Objective Vital Signs & Weight: Vital Signs (12 hours) Temp Pulse Resp BP Pulse Ox 10/31/19 04:00 97.5 F L 80 20 104/52 L 97 10/30/19 22:40 99.3 F 89 20 130/60 98 Weight Weight 188.558 kg Result Diagrams: 10/30/19 21:15 10/31/19 03:44 Radiology Reviewed by me: Yes (Heart enlarged, pulm edema. Consistent with decompensated HF.) Phys Exam - Physical Examination Constitutional: NAD Pt is morbidly obese. She has poor dentition. Was using CPAP. EOMI Neck: supple Gastrointestinal: soft Musculoskeletal: edema present (minimal) Neurological: moves all 4 limbs Neuropathy 2/2 DM. 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 Patient has not been terribly compliant with diet. Continue with ISS. (4) HLD (hyperlipidemia) Current Visit: No Status: Acute Code(s): E78.5 - HYPERLIPIDEMIA, UNSPECIFIED (5) Hypothyroidism Current Visit: No Status: Acute Code(s): E03.9 - HYPOTHYROIDISM, UNSPECIFIED (6) Schizophrenia Current Visit: No Status: Acute Code(s): F20.9 - SCHIZOPHRENIA, UNSPECIFIED (7) Anxiety and depression Current Visit: No Status: Chronic Code(s): F41.8 - OTHER SPECIFIED ANXIETY DISORDERS (8) HIV (human immunodeficiency virus infection) Current Visit: No Status: Chronic (9) Hypertension Current Visit: No Status: Chronic Code(s): I10 - ESSENTIAL (PRIMARY) HYPERTENSION Comment: Home meds. (10) Morbid obesity with BMI of 50.0-59.9, adult Current Visit: No Status: Chronic Code(s): E66.01 - MORBID (SEVERE) OBESITY DUE TO EXCESS CALORIES; Z68.43 - BODY MASS INDEX (BMI) 50.0-59.9, ADULT - Plan Atypical chest pain Patient has history of similar symptoms in the past. Cause could be anxiety or angina. Trop negative. EKG normal. Given hx of [place] and CABG, patient placed on obs. - Nitro PRN for chest pain - ASA 325mg daily - Troponin trend: 0.012 > 0.027 > less than 0.01 (10/30) - Repeat EKG ordered (10/30) - Tele showed sinus rhythm and QT prolongation (10/30) --> Review medications to look for exacerbating factors - Last echo was in August 2018: it was inadequate and a repeat was recommended; it showed an EF of 50-60%; impaired movement consistent with HFpEF --> Repeat ordered (10/30) - Cardio consult was discussed but in Jan 2019 Dr. Soto was consulted and opined she was no longer a surgical candidate and that medical management would be her best option. Since consult would not change her tx plan at this time, it has not been ordered. - Will not renew nitroglycerin ointment since she will not be sent home with it. Instead, continue isosorbide monotrate and increase as needed. HFpEF exacerbation Most recent echo completed on 09/29/18 showed diastolic heart failure. Patient's symptom progression (increasing generalized edema, paroxysmal nocturnal dyspnea , and orthopnea), and CXR findings support decompensated HF. BNP 62.8. Lasix 40 mg was given once in the ED. - Mag level 1.6 (10/30) - Continue coreg - Will not renew nitroglycerin ointment since she will not be sent home with it. Instead, continue isosorbide monotrate and increase as needed. QT Prolongation - Tele showed sinus rhythm and QT prolongation (10/30) --> Review medications to look for exacerbating factors - EKG on admission (10/29) normal - repeat EKG ordered (10/30) HTN BP stable. -Continue lisinopril DM Patient reports BG in 300s at home. BG 297 in the ED. - A1c 12.8 (10/30) - Continue Humalog - Continue Tresiba HIV Patient reports appt with Dr. Sellers 6 mo ago where she was toldshe had an undetectable viral load - Continue Dovato - Has f/u appt with Dr. Sellers in 2 wks HLD - Continue atorvastatin - Continue Zetia Hypothyroidism 2/2 thyroidectomy - Continue levothyroxine - Thyroid panel to monitor levels Depression - Continue Prozac - Continue lamotrigine Schizophrenia - Continue perphenazine Tobacco use - Nicotine patch - Encourage smoking cessation Hx methamphetamine use - Encourage continued sobriety - Hx of opioid abuse - encourage to f/u with enrollment at pain management clinic PPX: Lovenox Code Status: Full PCP: Javier Dispo: Pt stable. Discharge pending EKG and echo results. LOS >48h. Addendum - Attending - Attending Attestation Date/Time: 10/31/19 [id number] I personally evaluated the patient and discussed the management with Dr. Yuli Roman I agree with the History, Examination, Assessment and Plan documented above with any addition or exceptions noted below - Patient c/o pain in back and legs ; no further chest pain or SOB. Afebrile VSS. A/P: 1) Chest pain in patient with known CAD- prior eval showed pateitn to be non-surgical and plan for medical management. Trop neg x 3 here; no need for stress test or cath. Will recheck echo as last one was 1 year ago, 2) HFpEF- mild exacerbation- continue lasix; fluid restriction and monitor edema. No recent echo; order placed. Anticipate d/c home tomorrow. 3) DM- will check HgbA1c; continue current meds.
[2019-10-31] MEDS: Levothyroxine Sodium 125 MCG TAB PO SCH (06:12)
[2019-10-31] MEDS: Insulin Glargine 60 UNITS in Pre-Filled Syringe 1 EACH SC SCH ×2 (08:23→08:24)
[2019-10-31] MEDS: HumaLOG 300 UNITS/3 ML VIAL SC SCH ×3 (08:24→18:27)
[2019-10-31] MEDS: Gabapentin 300 MG CAP PO SCH ×3 (08:25→21:23)
[2019-10-31] MEDS: Carvedilol 3.125 MG TAB PO SCH ×2 (08:25→21:23)
[2019-10-31] MEDS: guaiFENesin ER 600 MG TAB PO SCH ×2 (08:25→21:22)
[2019-10-31] MEDS: Lisinopril 10 MG TAB PO SCH (08:25)
[2019-10-31] MEDS: FLUoxetine HCl 20 MG CAP PO SCH (08:25)
[2019-10-31] MEDS: Ezetimibe 10 MG TAB PO SCH (08:26)
[2019-10-31] MEDS ORDERED: INSULIN DEGLUDEC 180 UNIT SQ SCH (09:00)
[2019-10-31] MEDS ORDERED: INSULIN GLARGINE SC SCH (09:00)
[2019-10-31] MEDS ORDERED: Enoxaparin Sodium 40 MG/0.4 ML SYRINGE SC SCH (09:00)
[2019-10-31] MEDS ORDERED: Dolutegravir Sodium/Lamivudine [Dovato 50-300 Mg Tablet] PO SCH (09:00)
[2019-10-31] MEDS ORDERED: PRE FILLED SC SCH (09:00)
[2019-10-31] MEDS ORDERED: Aspirin 325 MG TAB PO SCH (09:00)
[2019-10-31] MEDS ORDERED: Aspirin 325 mg Enteric Coated Tablet PO SCH (09:00)
[2019-10-31 11:27] LABS: Hemoglobin A1c 12.8 % (4.0-6.0)
[2019-10-31 11:36] LABS: Cardiac Risk 6.8 (Less than 4.5); Cholesterol 280 mg/dl (< 200 Desired); HDL Cholesterol 41 mg/dL (>60 Neg Risk); Triglycerides 669 mg/dL (Less than 150)
[2019-10-31 12:17] LABS: HBCM Index 0.05 S/CO (0-0.79); HBSAg Index 0.13 S/CO (0-0.99); Hep A IgM AB Non-Reactive (NonReactive); Hep A IgM S/CO 0.07 S/CO (0-0.79); Hep B Surf Ag Non-Reactive S/CO (NonReactive); Hep C IgG Ab Non-Reactive (NonReactive); Hep C Index 0.05 S/CO (0-0.79); Hepatitis B Core IgM Abs Non-Reactive (NonReactive)
[2019-10-31 12:59] LABS: Free T4 (Free Thyroxine) 0.42 ng/dL (0.70-1.48); Thyroid Stimulating Hormone 38.7468 uIU/mL (0.35-4.94)
--- NOTE | 2019-10-31 18:26 | EKG ---
Test Reason : Blood Pressure : / mmHG Vent. Rate : 074 BPM Atrial Rate : 074 BPM P-R Int : 184 ms QRS Dur : 100 ms QT Int : 434 ms P-R-T Axes : 065 069 034 degrees QTc Int : 481 ms Normal sinus rhythm Prolonged QT Abnormal ECG When compared with ECG of 31-OCT-2019 00:35, (Unconfirmed) No significant change was found Confirmed by DEISI PARISI (2) on 10/31/2019 6:26:11 PM Referred By: RUT *R Confirmed By:DEISI PARISI
[2019-10-31] MEDS ORDERED: lamoTRIgine 100 MG TAB PO SCH (21:00)
[2019-10-31] MEDS ORDERED: Atorvastatin Calcium 40 MG TAB PO SCH (21:00)
[2019-10-31] MEDS ORDERED: Mirtazapine 15 MG TAB PO SCH (21:00)
[2019-10-31] MEDS ORDERED: Perphenazine 2 MG TAB PO SCH (21:00)
[2019-10-31] MEDS: Enoxaparin Sodium 40 MG/0.4 ML SYRINGE SC SCH (21:23)
[2019-11-01] MEDS: Nicotine 14 MG PATCH TD SCH (00:51)
[2019-11-01] MEDS: Levothyroxine Sodium 125 MCG TAB PO SCH (05:02)
[2019-11-01] MEDS ORDERED: Nicotine 14 MG PATCH TD SCH (06:00)
--- NOTE | 2019-11-01 06:16 | PDOC.FM ---
- Subjective Subjective: Pt states she is doing much better today. She states she has had some repeat episodes of CP that resolve quickly and that never reach the severity of the event that brought her to the ER. She states the edema in her R arm and L foot have decreased but are not quite back at baseline. She states the pain in her knees/hips/lower back is at its baseline. She denies cough/CP/SOB/SHEA/dizziness/N /V/diarrhea/new or worsened numbness or tingling/dysuria/hematuria. An echo was done yesterday and the results are pending but will likely not change her management since cardiology already stated she is not a surgical candidate therefore she will likely be discharged today. - Objective Vital Signs & Weight: Vital Signs (12 hours) Temp Pulse Resp BP BP Pulse Ox 11/01/19 04:00 98.7 F 78 20 105/58 L 95 10/31/19 19:00 98.6 F 77 18 122/58 L 95 Weight Weight 190.554 kg I&O: 10/30/19 10/31/19 11/01/19 06:59 06:59 06:59 Intake Total 800 2350 Output Total 600 Balance 800 1750 Result Diagrams: 10/30/19 21:15 10/31/19 03:44 Phys Exam - Physical Examination Constitutional: NAD HEENT: moist MMs Neck: supple, full ROM Respiratory: no wheezing, no rales, no rhonchi, clear to auscultation bilateral (Decreased breath sounds consistent with her dx of COPD) Cardiovascular: RRR, no significant murmur Gastrointestinal: soft Musculoskeletal: pulses present (strong radial pulses b/l ), edema present (In her R forearm and L leg, decreased but not at her baseline) Neurological: moves all 4 limbs (Cannot move her L foot due to having a drop foot) Decreased sensation 2/2 neuropathy, but no changes Psychiatric: normal affect, A&O x 3 Dx/Plan (1) Atypical chest pain Code(s): R07.89 - OTHER CHEST PAIN Status: Acute (2) CHF exacerbation Code(s): I50.9 - HEART FAILURE, UNSPECIFIED Status: Acute (3) Bipolar disorder Code(s): F31.9 - BIPOLAR DISORDER, UNSPECIFIED Status: Chronic (4) COPD (chronic obstructive pulmonary disease) Status: Chronic (5) Diabetes Code(s): E11.9 - TYPE 2 DIABETES MELLITUS WITHOUT COMPLICATIONS Status: Chronic (6) HLD (hyperlipidemia) Code(s): E78.5 - HYPERLIPIDEMIA, UNSPECIFIED Status: Chronic (7) Heart failure, diastolic, chronic Code(s): I50.32 - CHRONIC DIASTOLIC (CONGESTIVE) HEART FAILURE Status: Chronic (8) Hypothyroidism Code(s): E03.9 - HYPOTHYROIDISM, UNSPECIFIED Status: Chronic (9) Schizophrenia Code(s): F20.9 - SCHIZOPHRENIA, UNSPECIFIED Status: Chronic (10) Anxiety and depression Code(s): F41.8 - OTHER SPECIFIED ANXIETY DISORDERS Status: Chronic (11) HIV (human immunodeficiency virus infection) Status: Chronic (12) Morbid obesity with BMI of 50.0-59.9, adult Code(s): E66.01 - MORBID (SEVERE) OBESITY DUE TO EXCESS CALORIES; Z68.43 - BODY MASS INDEX (BMI) 50.0-59.9, ADULT Status: Chronic (13) Dyspnea Code(s): R06.00 - DYSPNEA, UNSPECIFIED Status: Acute - Plan Plan: Atypical chest pain Patient has history of similar symptoms in the past. Cause could be anxiety or angina. Trop negative. EKG normal. Given hx of [place] and CABG, patient placed on obs. - Nitro PRN for chest pain - ASA 325mg daily - Troponin trend: 0.012 > 0.027 > less than 0.01 (10/30) - Repeat EKG showed sinus rhythm and QT prolongation (10/30) --> Review medications to look for exacerbating factors - Last echo was in August 2018: it was inadequate and a repeat was recommended; it showed an EF of 50-60%; impaired movement consistent with HFpEF --> Repeat ordered, results pending (10/30) - Cardio consult was discussed but in Jan 2019 Dr. Soto was consulted and opined she was no longer a surgical candidate and that medical management would be her best option. Since consult would not change her tx plan at this time, it has not been ordered. - Will not renew nitroglycerin ointment since she will not be sent home with it. Instead, continue isosorbide monotrate and increase as needed. HFpEF exacerbation Most recent echo completed on 09/29/18 showed diastolic heart failure. Patient's symptom progression (increasing generalized edema, paroxysmal nocturnal dyspnea , and orthopnea), and CXR findings support decompensated HF. BNP 62.8. Lasix 40 mg was given once in the ED. - Mag level 1.6 (10/29) > 1.7 (10/30) - Continue coreg - Will not renew nitroglycerin ointment since she will not be sent home with it. Instead, continue isosorbide monotrate and increase as needed. QT Prolongation - Tele showed sinus rhythm and QT prolongation (10/30) --> Review medications to look for exacerbating factors - EKG on admission (10/29) normal - repeat EKG showed sinus rhythm and QT prolongation (10/30) - Review medications to look for exacerbating factors (10/30) Mild transaminitis - CMP showed - Likely etiologies include NAFLD, medication-assoc liver injury, viral hepatitis, extrahepatic causes such as thyroid disorder - Investigations included: a) Lipid panel (10/30) showed TG 669, Total chol 280, HDL 41, LDL could not be calc b) A1c (10/30) of 12.8 c) Viral hepatitis panel (10/30) all neg d) Thyroid panel (10/30): TSH elev at 38.75, fT4 low at 0.42 - Will continue to monitor DM Patient reports BG in 300s at home. BG 297 in the ED. - A1c 12.8 (10/30) - Continue Humalog - Continue Tresiba - BG dropped to mid-90s evening of 10/30 > Repeat 158 10/30 - Continue to monitor and adjust insulin as appropriate Chronic pain - Pt complains of pain in her b/l knees, hips, and lower back 2/2 lower back surgery that resulted in placement of several pins and plates - Hx of opioid use/abuse followed by self-medication with meth - On Michaela regimen which she states has never worked: previously, two 800mg q6h; recently, four 300mg JOSE ALFREDO - States she has also tried Tramadol and Toradol which did not help - Discussing non-narcotic pain management options with pharm HTN BP stable. -Continue lisinopril HIV Patient reports appt with Dr. Sellers 6 mo ago where she was told she had an undetectable viral load - Continue Dovato - Has f/u appt with Dr. Sellers in 2 wks HLD - Continue atorvastatin - Continue Zetia - Lipid panel (10/30) showed TG 669, Total chol 280, HDL 41, LDL could not be calc Hypothyroidism 2/2 thyroidectomy - Continue levothyroxine - Thyroid panel (10/30): TSH elev at 38.75, fT4 low at 0.42 Depression - Continue Prozac - Continue lamotrigine Schizophrenia - Continue perphenazine Tobacco use - Nicotine patch dose increased from 14mg to 21mg - Encourage smoking cessation Hx methamphetamine use - Encourage continued sobriety - Hx of opioid abuse - encourage to f/u with enrollment at pain management clinic PPX: Lovenox Code Status: Full PCP: Javier Dispo: Pt stable. Discharge pending echo results. LOS >48h. Addendum - Attending - Attending Attestation Date/Time: 11/01/19 [id number] I personally evaluated the patient and discussed the management with Dr. Yuli Roman I agree with the History, Examination, Assessment and Plan documented above with any addition or exceptions noted below- Patient feeling better today. States that she has not had any further hest pain or SOB. Reports that her edema has improved. Afebrile VSS. A/P: 1) Atypical chest pain- troponins negative; previously dispo'd to medical management. Echo pending. 2) DM- stable ; continue home meds, 3) HIV- continue current meds. Stable for discharge today. F/u at [facility].
[2019-11-01] MEDS: HumaLOG 300 UNITS/3 ML VIAL SC SCH ×2 (09:02→11:45)
[2019-11-01] MEDS: Enoxaparin Sodium 40 MG/0.4 ML SYRINGE SC SCH (09:07)
[2019-11-01] MEDS: Lisinopril 10 MG TAB PO SCH (09:09)
[2019-11-01] MEDS: Carvedilol 3.125 MG TAB PO SCH (09:09)
[2019-11-01] MEDS: guaiFENesin ER 600 MG TAB PO SCH (09:12)
[2019-11-01] MEDS: FLUoxetine HCl 20 MG CAP PO SCH (09:12)
[2019-11-01] MEDS: Ezetimibe 10 MG TAB PO SCH (09:12)
[2019-11-01] MEDS: Gabapentin 300 MG CAP PO SCH ×2 (09:12→15:22)
[2019-11-01] MEDS: Insulin Glargine 60 UNITS in Pre-Filled Syringe 1 EACH SC SCH ×3 (09:13→09:27)
[2019-11-01 11:43] VITALS: BP 129/60; TEMP 97.8
--- NOTE | 2019-11-02 13:59 | DIS ---
DATE OF ADMISSION: 10/30/2019 DATE OF DISCHARGE: 11/01/2019 RESIDENT: Sallie Bates MD ADMITTING ATTENDING: Dexter Bliss MD. DISCHARGE ATTENDING: Whit Billy MD. CONSULTS: None. PROCEDURES: None. PRIMARY DIAGNOSIS: Atypical chest pain. SECONDARY DIAGNOSES: 1. Heart failure with preserved ejection fraction. 2. Hypertension. 3. Congestive heart failure exacerbation. 4. Dyspnea. 5. Diabetes mellitus. 6. Hyperlipidemia. 7. Chronic obstructive pulmonary disease. 8. Human immunodeficiency virus. 9. Hypothyroidism. 10. Morbid obesity. 11. Schizophrenia. 12. Bipolar disorder. 13. Depression. 14. Anxiety. 15. Tobacco use disorder. 16. History of methamphetamine use. 17. Mild transaminitis DISCHARGE MEDICATIONS: 1. Atorvastatin 80 mg by mouth at bedtime. 2. Carvedilol 3.125 mg by mouth b.i.d. 3. Ezetimibe 10 mg by mouth daily. 4. Fluoxetine 20 mg, 3 capsules by mouth daily. 5. Gabapentin 300 mg capsules by mouth daily. 6. Humalog 100 unit per mL vial 75 units subcu t.i.d. 7. Tresiba 100 unit per mL vial, 180 units subcu daily. 8. Isosorbide mononitrate 30 mg tab by mouth daily. 9. Levothyroxine 250 mcg by mouth daily. 10. Lisinopril 10 mg tab by mouth daily. 11. Mirtazepine 45 mg by mouth at bedtime. 12. Perphenazine 16 mg by mouth at bedtime. 13. Clonazepam 0.5 mg by mouth b.i.d. 14. Truvada 50/300 mg tablet 1 by mouth daily. 15. Lamotrigine 150 mg by mouth daily. 16. Tramadol 50 mg tablet by mouth b.i.d. 17. Zolpidem 10 mg by mouth at bedtime. DISCONTINUED MEDICATIONS: 1. Dextrose 50% 2. Lovenox 40 mg 3. Esomeprazole 20 mg. 4. Pantoprazole 40 mg. 5. Glucagon. 6. Mucinex. 7. Nicotine patch. 8. Nitroglycerin tablet. 9. Dextrose 5% in water. 10. Insulin glargine. HISTORY OF PRESENT ILLNESS/HOSPITAL COURSE: Atypical chest pain: The patient is a 48-year-old female who presented to the ED complaining of substernal chest pain for the past 1 to 2 weeks. She stated the pain was intermittent, at both rest and at activity, had occurred daily, and had worsened in severity. She described the pain as pressure and rated it as 8/10, stating it radiates to her neck and left shoulder. She stated the chest pain was similar in presentation to the chest pain she had prior to her [place] and when she received 2 nitroglycerin tablets in the ED it relieved her pain. In addition to that chest pain, she reported shortness of breath, chills, nausea as well as worsening generalized edema, paroxysmal nocturnal dyspnea and orthopnea. Of note, she has a lot of anxiety about her comorbidities and being able to live on her for her grandchildren whom she wants to see grow up. Her most recent echo was completed on 09/29/2018; history of 4 vessel CABG with one graft stent placed. Her most recent cath was in 04/2019 after which she was told she is no longer a surgical candidate and that medical management would be the best option for her heart failure. Three troponins were negative and a repeat echo was ordered which was normal. and initial EKG was normal but given her history of [place] and CABG, the patient was placed in observation. Repeat EKG showed QT prolongation which could be related to her high Fluoxetine dose and should be monitored. Her chest pain/dyspnea/cough/orthopnea/edema were back to baseline by 11/01/2019 and she was discharged. Chronic pain: The pt's greatest complaint during her stay was in regard to chronic pain in her bilateral hips, knees, lower back s/p back surgery. She claimed she has tried Gabapentin, Tramadol, and Toradol with no relief and that narcotics are the only effective analgesics. She has a hx of opioid use and abuse as well as self-medication with meth. She states she is trying to enroll in a pain management clinic but other non- narcotic options suggested by pharmacology include Pregabalin and Amitriptyline and should be considered. Mild transaminitis: Upon admission, a CMP was drawn, which showed mild transaminitis, so the following lab work was done: - A1c which returned at 12.8. - Lipid panel, which showed triglycerides of 669, total cholesterol 280. - Thyroid panel showed TSH of 38.75 and T4 of 0.42. - Viral hepatitis panel was negative. The suspected cause of the transaminitis is non-alcoholic fatty liver disease, although medication-associated liver injury and thyroid disorder are also possible causes. These liver enzyme values should be followed up with. DISPOSITION: The patient was discharged to her home with instructions to continue activity as tolerated, to follow a bariatric/diabetic/heart healthy/renal diet, and to continue using her CPAP machine at night. She was encouraged to follow up with her PCP in 2-3 weeks and to continue attempted enrollment in a pain management clinic. The importance of smoking cessation was discussed. Job ID: [id number] [facility]
--- NOTE | 2019-11-05 10:01 | EKG ---
Test Reason : Blood Pressure : / mmHG Vent. Rate : 087 BPM Atrial Rate : 087 BPM P-R Int : 178 ms QRS Dur : 088 ms QT Int : 396 ms P-R-T Axes : 053 071 039 degrees QTc Int : 476 ms Normal sinus rhythm Normal ECG When compared with ECG of 08-AUG-2019 05:58, No significant change was found Confirmed by DEISI PARISI (2) on 11/05/2019 10:01:31 AM Referred By: BETHEL Confirmed By:DEISI PARISI
== END 2019-11-01 16:15 | disposition home or self-care (01) ==
LOC: ERS 20:34 → 2NO 21:09
PROVIDERS: ADMIT Family Medicine; ATTEND Family Medicine
DX: R07.89 Other chest pain (principal); I11.0 Hypertensive heart disease with heart failure; I50.33 Acute on chronic diastolic (congestive) heart failure; R06.00 Dyspnea, unspecified; E11.9 Type 2 diabetes mellitus without complications; E78.5 Hyperlipidemia, unspecified; J44.9 Chronic obstructive pulmonary disease, unspecified; E89.0 Postprocedural hypothyroidism; F20.9 Schizophrenia, unspecified; F31.9 Bipolar disorder, unspecified; F41.8 Other specified anxiety disorders; F17.210 Nicotine dependence, cigarettes, uncomplicated; R74.0 Nonspecific elevation of levels of transaminase and lactic acid dehydrogenase [LDH]; I25.2 Old myocardial infarction; G89.29 Other chronic pain; R94.31 Abnormal electrocardiogram [ECG] [EKG]; E66.01 Morbid (severe) obesity due to excess calories; Z68.44 Body mass index [BMI] 60.0-69.9, adult; Z21 Asymptomatic human immunodeficiency virus [HIV] infection status; Z86.73 Personal history of transient ischemic attack (TIA), and cerebral infarction without residual deficits; Z79.4 Long term (current) use of insulin; Z79.899 Other long term (current) drug therapy; Z88.8 Allergy status to other drugs, medicaments and biological substances; Z91.040 Latex allergy status; Z95.1 Presence of aortocoronary bypass graft
CPT/HCPCS: 36415; 36416; 71045; 80053; 80061; 80074; 83036; 83735; 83880; 84439; 84443; 84484; 85025; 93005; 93010; 93306; 94760; 96372; 96374; G0378; J1650; J1815; J1940; Q0175

== ENCOUNTER 2019-11-03 22:59 | Emergency (ER) | payer MEDICARE, OTHER ==
[2019-11-04 01:15] LABS: #Eosinphils 0.1 thou/uL (0.0-0.7); #Lymphocytes 1.5 thou/uL (1.20-3.40); #Monocytes 0.7 thou/uL (0.11-0.59); #Neutrophils 9.2 thou/uL (1.40-6.50); %Basophils 0.2 % (0.0-1.0); %Eosinophils 0.9 % (0.0-10.0); %Lymphocytes 13.3 % (21.0-51.0); %Monocytes 6.1 % (0.0-10.0); %Neutrophils 79.5 % (42.0-75.0); Hemoglobin 11.9 g/dL (12.0-16.0); Mean Corpuscular HGB CONC 33.2 g/dL (32.0-36.0); Mean Corpuscular Hemoglobin 30.6 pg (27.0-31.0); Mean Corpuscular Volume 92.3 fL (78.0-98.0); Mean Platelet Volume 9.8 fL (7.4-10.4); Platelet Count 297 thou/uL (130-400); White Blood Cell (WBC) Count 11.5 thou/uL (4.8-10.8)
[2019-11-04 01:31] LABS: ALT (SGPT) 45 U/L (8-55); AST (SGOT) 30 U/L (5-34); Albumin 3.6 g/dL (3.5-5.0); Alkaline Phosphatase 258 U/L (40-110); Anion Gap 17 mmol/L (10-20); BUN (Urea Nitrogen) 24 mg/dL (7.0-18.7); Bilirubin, Total Less than 0.2 mg/dL (0.2-1.2); Calc. Creatinine Clearance 0 mL/min (70-130); Calcium 8.9 mg/dL (7.8-10.44); Carbon Dioxide 25 mmol/L (22-29); Chloride 101 mmol/L (98-107); Estimated GFR-MDRD 43; Globulin 3.4 g/dL (2.4-3.5); Glucose 134 mg/dL (70-105); Sodium 138 mmol/L (136-145)
--- NOTE | 2019-11-04 09:21 | CT ---
PRELIMINARY REPORT/DIRECT RADIOLOGY/EMERGENCY AFTER HOURS PROCEDURE EXAM: CT Head Without Intravenous Contrast. CLINICAL HISTORY: Pt states she started feeling short of breath tonight while lying in bed. Denies fe isa, cough, or chest pain. No alleviating or aggravating factors. Pt has history of COPD and is suppo sed to be on continuous O2 at home, but states she only uses it "about half the day". She also still smokes. No relief with home inhaler today. Pt also states she tripped and fell at approx. 1800 today, striking her head. Denies LOC or vomiting, initially, but now has nausea and "floaters" in her visio n TECHNIQUE: Axial computed tomography images of the head/brain without intravenous contrast. COMPARISON: CT\\SR - CT BRAIN WO CON - 10/12/2019 05:49 PM CDT FINDINGS: BRAIN: No acute intraparenchymal hemorrhage. No mass lesion. No CT evidence for acute territorial inf arct. Preserved spears-white matter differentiation. No midline shift or extra-axial collection. VENTRICLES: Normal size of the ventricles. No sulcal effacement. Preserved basal cisterns. ORBITS: The orbits are unremarkable. SINUSES AND MASTOIDS: Partial opacification of the left mid ethmoid sinus. The paranasal sinuses and mastoid air cells are otherwise clear. SOFT TISSUES: No significant facial or scalp soft tissue swelling evident. No radiopaque foreign body is seen. BONES: No acute skull fracture. IMPRESSION: No acute intracranial abnormality. ELECTRONICALLY SIGNED BY: Chidi Zhang MD Nov 04, 2019 1:48:52 AM CDT FINAL REPORT EMERGENT AFTER HOURS CT BRAIN: IMPRESSION: Agree with the preliminary interpretation. No evidence for intracranial hemorrhage or skull fracture . POS: BAO
--- NOTE | 2019-11-04 09:56 | RAD ---
PORTABLE CHEST: DATE: 11/04/2019. PROVIDED CLINICAL HISTORY: Shortness of breath. FINDINGS: Comparison 10/30/2019. Evaluation is limited by patient body habitus. Cardiac silhouette appears sim ilar. Median sternotomy changes are again seen. No lobar consolidation, pleural fluid, or pneumotho rax apparent. IMPRESSION: No definite evidence for an acute cardiopulmonary process. POS: BAO
== END 2019-11-04 03:55 | disposition home or self-care (01) ==
LOC: ERS 22:59
DX: R06.02 Shortness of breath (principal); E05.90 Thyrotoxicosis, unspecified without thyrotoxic crisis or storm; E11.9 Type 2 diabetes mellitus without complications; B20 Human immunodeficiency virus [HIV] disease; E78.5 Hyperlipidemia, unspecified; I10 Essential (primary) hypertension; Z86.73 Personal history of transient ischemic attack (TIA), and cerebral infarction without residual deficits; I25.2 Old myocardial infarction; F41.9 Anxiety disorder, unspecified; F31.9 Bipolar disorder, unspecified; F17.210 Nicotine dependence, cigarettes, uncomplicated; F20.9 Schizophrenia, unspecified; Z79.899 Other long term (current) drug therapy
CPT/HCPCS: 70450; 71045; 80053; 83880; 84484; 85025; 93005; J7620

== ENCOUNTER 2019-11-24 01:09 | Emergency (ER) | payer MEDICARE, OTHER ==
[2019-11-24 01:48] LABS: #Eosinphils 0.2 thou/uL (0.0-0.7); #Lymphocytes 1.7 thou/uL (1.20-3.40); #Monocytes 0.4 thou/uL (0.11-0.59); #Neutrophils 4.8 thou/uL (1.40-6.50); %Basophils 0.2 % (0.0-1.0); %Eosinophils 2.3 % (0.0-10.0); %Lymphocytes 23.9 % (21.0-51.0); %Monocytes 5.8 % (0.0-10.0); %Neutrophils 67.8 % (42.0-75.0); Hemoglobin 12.6 g/dL (12.0-16.0); Mean Corpuscular HGB CONC 31.9 g/dL (32.0-36.0); Mean Corpuscular Hemoglobin 29.8 pg (27.0-31.0); Mean Corpuscular Volume 93.3 fL (78.0-98.0); Mean Platelet Volume 9.3 fL (7.4-10.4); Platelet Count 279 thou/uL (130-400); RBC Distribution Width 14.5 % (11.5-14.5); Red Blood Cell (RBC) Count 4.24 mill/uL (4.20-5.40); White Blood Cell (WBC) Count 7.1 thou/uL (4.8-10.8)
[2019-11-24 02:11] LABS: ALT (SGPT) 86 U/L (8-55); AST (SGOT) 50 U/L (5-34); Alkaline Phosphatase 264 U/L (40-110); Anion Gap 12 mmol/L (10-20); BUN (Urea Nitrogen) 19 mg/dL (7.0-18.7); Bilirubin, Total Less than 0.2 mg/dL (0.2-1.2); Calc. Creatinine Clearance 0 mL/min (70-130); Calcium 9.4 mg/dL (7.8-10.44); Carbon Dioxide 31 mmol/L (22-29); Chloride 100 mmol/L (98-107); Estimated GFR-MDRD 38; Globulin 3.4 g/dL (2.4-3.5); Glucose 322 mg/dL (70-105); Potassium 4.4 mmol/L (3.5-5.1); Protein, Total 7.4 g/dL (6.0-8.3); Sodium 139 mmol/L (136-145)
--- NOTE | 2019-11-24 08:32 | RAD ---
CHEST 1 VIEW: INDICATION: History of chest pain. COMPARISON: Prior exam dated 11/04/2019. FINDINGS: There is cardiomegaly with mild pulmonary vascular congestion and mild perihilar airspace opacity germán picious for edema. There are suspected tiny bilateral pleural effusions. No pneumothorax is evident . IMPRESSION: Recommend correlation for mild congestive heart failure. POS: BH
== END 2019-11-24 03:22 | disposition left against medical advice (07) ==
LOC: ERS 01:09
DX: R07.9 Chest pain, unspecified (principal); E05.90 Thyrotoxicosis, unspecified without thyrotoxic crisis or storm; J44.9 Chronic obstructive pulmonary disease, unspecified; E11.9 Type 2 diabetes mellitus without complications; B20 Human immunodeficiency virus [HIV] disease; E78.5 Hyperlipidemia, unspecified; I10 Essential (primary) hypertension; Z86.73 Personal history of transient ischemic attack (TIA), and cerebral infarction without residual deficits; F31.9 Bipolar disorder, unspecified; F41.9 Anxiety disorder, unspecified; F17.210 Nicotine dependence, cigarettes, uncomplicated
CPT/HCPCS: 71045; 80053; 84484; 85025; 93005

== ENCOUNTER 2019-11-28 17:55 | Observation (INO) | payer MEDICARE, OTHER ==
--- NOTE | 2019-11-28 18:49 | RAD ---
Exam: Chest one view HISTORY:Generalized weakness and shortness of breath. Comparison: 11/24/2019 FINDINGS: Cardiac silhouette:Body megaly. Stable sternotomy wires. Aorta: Unremarkable Pulmonary vessels: Prominent Costophrenic angles: No significant pleural fluid LUNGS: Diffuse interstitial and alveolar opacities suggesting edema. Pneumothorax: None Osseous abnormalities: None IMPRESSION: Worsening congestive heart failure.
[2019-11-28 18:53] LABS: #Eosinphils 0.2 thou/uL (0.0-0.7); #Lymphocytes 1.5 thou/uL (1.20-3.40); #Monocytes 0.5 thou/uL (0.11-0.59); #Neutrophils 5.7 thou/uL (1.40-6.50); %Basophils 0.5 % (0.0-1.0); %Lymphocytes 19.3 % (21.0-51.0); %Monocytes 6.7 % (0.0-10.0); %Neutrophils 71.6 % (42.0-75.0); Hemoglobin 11.5 g/dL (12.0-16.0); Mean Corpuscular HGB CONC 33.9 g/dL (32.0-36.0); Mean Corpuscular Hemoglobin 30.9 pg (27.0-31.0); Mean Corpuscular Volume 91.3 fL (78.0-98.0); Mean Platelet Volume 8.9 fL (7.4-10.4); Platelet Count 299 thou/uL (130-400); RBC Distribution Width 14.3 % (11.5-14.5); Red Blood Cell (RBC) Count 3.72 mill/uL (4.20-5.40); White Blood Cell (WBC) Count 7.9 thou/uL (4.8-10.8)
[2019-11-28 19:07] LABS: ALT (SGPT) 153 U/L (8-55); AST (SGOT) 109 U/L (5-34); Albumin 3.6 g/dL (3.5-5.0); Alkaline Phosphatase 345 U/L (40-110); Anion Gap 17 mmol/L (10-20); BUN (Urea Nitrogen) 29 mg/dL (7.0-18.7); Bilirubin, Total 0.2 mg/dL (0.2-1.2); Calc. Creatinine Clearance 0 mL/min (70-130); Calcium 9.2 mg/dL (7.8-10.44); Carbon Dioxide 26 mmol/L (22-29); Chloride 96 mmol/L (98-107); Estimated GFR-MDRD 46; Globulin 3.1 g/dL (2.4-3.5); Glucose 438 mg/dL (70-105); Potassium 4.9 mmol/L (3.5-5.1); Protein, Total 6.7 g/dL (6.0-8.3); Sodium 134 mmol/L (136-145)
[2019-11-28 19:29] LABS: CKMB 0.9 ng/mL (0-6.6)
[2019-11-28] MEDS ORDERED: Aspirin Chewable 81 MG TAB ONE (19:49)
[2019-11-28] MEDS ORDERED: Furosemide 40 MG/4 ML VIAL ONE (19:49)
[2019-11-28 19:59] LABS: Bacteria/HPF None Seen HPF (None Seen); Bilirubin Negative (Negative); Blood, Urine Negative (Negative); Clarity Clear (Clear); Glucose, Urine (Dipstick) Greater than 1000 mg/dL (Negative); Ketone, Urine Negative (Negative); Leukocyte Negative Leu/uL (Negative); Nitrite Negative (Negative); Protein, Urine (Dipstick) 100 mg/dL (Neg-Trace); RBC/HPF 0-3 HPF (0-3); Specific Gravity, Urine 1.025 (1.002-1.036); Squamous Epithelial 0-3 HPF (0-3); Urobilinogen Normal mg/dL (Less than 2); WBC/HPF 0-3 HPF (0-3); pH, Urine 5.5 (5.0-9.0)
--- NOTE | 2019-11-28 22:03 | PDOC.FPRHP ---
- History of Present Illness Chief Complaint: SOB History of Present Illness: 49-year-old female who presented to ED for shortness of breath. Patient reports increased shortness of breath and weakness over the last 24 hours. She reports shortness of breath is worse with exertion. She has a history of COPD and wears 2.5 L O2 at home. She endorses a chronic cough with increase in her sputum production over the last couple days with the same color/consistency as her baseline. Patient reports that she feels like her knees are going to buckle when she stands due to weakness. 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 Patient denies recent fevers. ED Course: She got 40 mg Lasix and 324 mg ASA - Allergies/Adverse Reactions Allergies Allergy/AdvReac Type Severity Reaction Status Date / Time latex Allergy Rash Verified 11/28/19 22:33 quetiapine [From Seroquel] Allergy Verified 11/28/19 22:33 ziprasidone [From Geodon] Allergy Anaphylaxis Verified 11/28/19 22:33 - Home Medications Medication Instructions Recorded Confirmed Type Atorvastatin Calcium [Lipitor] 2 tab PO HS 04/12/19 11/28/19 History Carvedilol [Coreg] 3.125 mg PO BID 04/12/19 11/28/19 History Dolutegravir Sodium/Lamivudine 1 each PO DAILY 04/12/19 11/28/19 History [Dovato 50-300 mg Tablet] Ezetimibe [Zetia] 10 mg PO DAILY 04/12/19 11/28/19 History FLUoxetine HCl [Prozac] 3 cap PO DAILY 04/12/19 11/28/19 History HumaLOG [HumaLOG Vial] 75 unit SC TID-WM 04/12/19 11/28/19 History Insulin Degludec [Tresiba] 180 unit SQ DAILY 04/12/19 11/28/19 History Isosorbide Mononitrate [Imdur ER] 30 mg PO DAILY 04/12/19 11/28/19 History Lamotrigine [lamoTRIgine] 150 mg PO DAILY 04/12/19 11/28/19 History Levothyroxine Sodium 250 mcg PO DAILY 04/12/19 11/28/19 History Lisinopril 10 mg PO DAILY 04/12/19 11/28/19 History Mirtazapine 45 mg PO HS 04/12/19 11/28/19 History Perphenazine [Trilafon] 16 mg PO HS 04/12/19 11/28/19 History Zolpidem Tartrate [Ambien] 10 mg PO HS 04/12/19 11/28/19 History clonazePAM [Clonazepam] 0.5 mg PO BID 04/12/19 11/28/19 History traMADol HCl [Tramadol HCl] 50 mg PO BID PRN 04/12/19 11/28/19 History Gabapentin 300 mg PO TID 04/13/19 11/28/19 History Furosemide [Lasix] 20 mg PO DAILY 11/28/19 11/28/19 History - History PMHx: COPD, DMII, pulmonary HTN, HIV, HLD, HTN, CAD, substance abuse, anxiety/ depression, thyroid cancer, bipolar disorder, schizophrenia PSHx: thyroidectomy, cholecystectomy, orthopedic surgery, CABG X4, 2C/S, hysterectomy, R breast biopsy FHx: CAD, multiple family members with MT in their 60s, Colon cancer Social: Previous meth user, smokes 1ppd denies etoh use - Review of Systems General: denies: fever/chills, weight/appetite/sleep changes Eyes: denies: eye pain, vision changes ENT: denies: nasal congestion, rhinorrhea Respiratory: reports: cough, shortness of breath, exercise intolerance. denies : congestion Cardiovascular: reports: chest pain, edema, orthopnea Gastrointestinal: denies: nausea, vomiting, diarrhea Skin: reports: lesions. denies: rashes Musculoskeletal: reports: pain, tenderness, stiffness, swelling, arthritis/ arthralgias Neurological: denies: numbness, syncope Psychological: denies: anxiety, depression - Vital signs BP: 168/80, MAP: 109, Pulse: 102, Resp: 20, Temp: 99.5 (Oral), Pain: 8, O2 sat: 95 on (3L Oxygen), Wt 187 kg - Physical Exam Constitutional: NAD, awake, alert and oriented, well developed HEENT: normocephalic and atraumatic, EOMI Heart: RRR, normal S1/S2, no murmurs/rubs/gallops Lungs: CTAB, no respiratory distress -Lungs: poor air movement, on 3 L NC Abdomen: soft, non-tender, bowel sounds present -Abdomen: Appropriately healing skin wound Musculoskeletal: normal structure, normal tone Neurological: no focal deficit, CN II-XII intact Heme/Lymphatic: no unusual bruising or bleeding, no purpura Psychiatric: normal mood and affect, intact recent and remote memory FMR H&P: Results - Labs Result Diagrams: 11/28/19 18:38 11/28/19 18:38 Lab results: WBC 7.9 thou/uL (4.8-10.8) 11/28/19 18:38 Hgb 11.5 g/dL (12.0-16.0) L 11/28/19 18:38 Hct 33.9 % (36.0-47.0) L 11/28/19 18:38 MCV 91.3 fL (78.0-98.0) 11/28/19 18:38 Plt Count 299 thou/uL (130-400) 11/28/19 18:38 Neutrophils % 71.6 % (42.0-75.0) 11/28/19 18:38 Sodium 134 mmol/L (136-145) L 11/28/19 18:38 Potassium 4.9 mmol/L (3.5-5.1) 11/28/19 18:38 Chloride 96 mmol/L (98-107) L 11/28/19 18:38 Carbon Dioxide 26 mmol/L (22-29) 11/28/19 18:38 BUN 29 mg/dL (7.0-18.7) H 11/28/19 18:38 Creatinine 1.25 mg/dL (0.6-1.1) H 11/28/19 18:38 Glucose 438 mg/dL (70-105) H 11/28/19 18:38 Calcium 9.2 mg/dL (7.8-10.44) 11/28/19 18:38 Total Bilirubin 0.2 mg/dL (0.2-1.2) 11/28/19 18:38 AST 109 U/L (5-34) H 11/28/19 18:38 ALT 153 U/L (8-55) H 11/28/19 18:38 Alkaline Phosphatase 345 U/L (40-110) H 11/28/19 18:38 CK-MB (CK-2) 0.9 ng/mL (0-6.6) 11/28/19 18:38 B-Natriuretic Peptide 143.2 pg/mL (0-100) H 11/28/19 18:38 Serum Total Protein 6.7 g/dL (6.0-8.3) 11/28/19 18:38 Albumin 3.6 g/dL (3.5-5.0) 11/28/19 18:38 Urine Ketones Negative mg/dL (Negative) 11/28/19 07:38 Urine Blood Negative (Negative) 11/28/19 07:38 Urine Nitrite Negative (Negative) 11/28/19 07:38 Ur Leukocyte Esterase Negative Daisy/uL (Negative) 11/28/19 07:38 Urine RBC 0-3 HPF (0-3) 11/28/19 07:38 Urine WBC 0-3 HPF (0-3) 11/28/19 07:38 Ur Squamous Epith Cells 0-3 HPF (0-3) 11/28/19 07:38 Urine Bacteria None Seen HPF (None Seen) 11/28/19 07:38 Troponin 0.04 D-Dimer 0.56 - EKG Interpretation EKG: Normal sinus rhythm, no evidence of ischemia - Radiology Interpretation CT scan - chest Status: report reviewed by me (CTA shows no PE, evidence of Pulm HTN and R side HF) Chest x-ray Status: image reviewed by me, report reviewed by me Additional comment: Diffuse opacities likely representing edema FMR H&P: A/P - Plan Acute on chronic hypoxic respiratory failure likely 2/2 COPD exacerbation - HX of 40+ pack year smoking, increased sputum production and SOB, no fever/ chills, low concern for bacterial infection - duonebs Q4h scheduled - prednisone 40 mg qd PO CHF - echo 11/01/19 showing ef 55-60% although difficult exam - troponin mildly elevated to 0.04, bnp 143, likely representing R heart strain - continue home lasix and Coreg Pulmonary HTN - Keep O2 sats in 90-94% with PRN O2 with minimum home 2.5L - Lisinopril HIV - CD4 count in AM Hypothyroidism - TSH check - Home Levothyroxine DMII - Home basal insulin-180 units - Aggressive SSI HLD - Home ezetimibe and atorvastatin CAD - continue home isosorbide mononitrate Anxiety - home Prozac Depression - home Prozac, mirtazapine Bipolar - home Lamotrigine Schizophrenia - home medication DVT ppx: Lovenox 40 qd GI ppx: famotidine 20 BIDtums PCP: ARTHUR Code: DNAR Disposition/LOS: Patient admitted for acute on chronic hypoxic respiratory failure likely 2/2 COPD exacerbation requiring admission to tele obs los < 48 hrs. FMR H&P: Upper Level - Plan Date/Time: 11/28/192202 IDanny DO, have evaluated this patient and agree with findings/plan as outlined by dental intern resident. Pertinent changes/additions are listed here. This is a 49 yo female with a pmh of COPD on home O2, hypothyroidism s/p thyroidectomy 2/2 cancer and radiation, DM2, HIV, HLD, CVA, CAD s/p bipass, schizophrenia, bipolar disorder who presents to the ER with a cc of SOB that has been going on for the last 2 days. She states she was lying in bed at the time when she experienced chest pain and SOB. She states these symptoms have been constant. She reports a baseline cough and baseline sputum production. She has black to spears sputm. She states she is suppose to wear 2.5L of O2 at home with a CPAP at night, however she does not wear the oxygen often due to smoking. She reports headaches in the morning. She denies fevers, chills, nausea , vomiting, diarrhea, or constipation. She reports current chest pain that is central, sharp, and without radiation. She reports that she is currently taking gabapentin, tylenol #4, and others for pain. This patient was seen her on 11/23 in the ER with a cc of chest pain. At that time she had decreased kidney function and a negative troponin. Her CXR at that time showed some interstitial edema but is worse today. She left AMA. Objective: Vitals: General: NAD, sleepy, morbidly obese HEENT: AT/NC Cardio: RRR, difficult exam due to body habitus Respiratory: CTAB, difficult due to body habitus Abdomen: Obese, nontender to palpation Extremities: No calf tenderness, medial knee tenderness bilaterally, trace edema , pulses diminished Skin: Warm, dry, intact Neuro: AAOx3 Acute on chronic hypoxic respiratory failure 2/2 pulmonary hypertension vs COPD -Admit to Tele inpt -D-dimer elevated, will obtain CTA of chest -Maintain O2 saturation between 90-94% -Pt will likely benefit from steroids and diuresis -We will try to treat her underlying conditions for pulmonary HTN Polypharmacy -Likely some degree of sedation due to multiple pain medications, SSRIs, and psychiatric medications. -I am unable to locate this patient on OPERATING SYSTEMS PROGRAMMER aware to confirm her medication lists Elevated troponin -Will trend PEACE on CKD2 -Will monitor with BMP -Baseline Cr of 1 HFpEF -Last echo on 10/2019, EF 50-55%, technically difficult study DM2, poorly controlled -Glucose is 438, urine ketones are negative, bicarb is appropriate, not DKA -Continue home Humalog and tresiba -Diabetic protocol per orders Anxiety, Schizophrenia, bipolar -Continue home clonazepam, Fluoxetine, mirtazapine, perphenazine, lamotrigine Hypothyroidism -Continue home levothyroxine -Last TSH on 10/31/19 was 38.74, will repeat TSH to see if she is on appropriate dose at this time HIV -Currently on Dovato, will continue -Will check CD4 count Morbid obesity with LAZARA -Continue home CPAP Tobacco abuse -Encourage cessation CAD -Continue home medications Code: Full Prophylaxis: Lovenox Family: None at bedside Fluids: SL Diet: HH Disposition: DC in 1-2 days PCP: ARTHUR Urena Addendum - Attending - Attending Attestation Date/Time: 11/28/19 4250 I personally evaluated the patient and discussed the management with Dr. Monaco and Dr. Kaye I agree with the History, Examination, Assessment and Plan documented above with any addition or exceptions noted below. 49 yo female with multiple chronic conditions and poor medication compliance due to multiple issues presents to ER for evaluation of progressive SOB/ROTHMAN over the past 2 days. - Admit. Will continue IV lasix due to pulm edema. BNP borderline. No concerns for ischemia at this time as etiology for mild HF exacerbation. Start steroids and felipe breathing treatments for mild COPD. Has not been wearing home O2 very often. Continues to smoke. Both worsening pHTN. Significant LAZARA. Needs CPAP when lying down or sleeping. Polypharmacy with sedating medication. Obvious on exam heavily medicated. Recently had several medication doses increased. Need to start weaning medications. Start VTE ppx. Elton
[2019-11-28] MEDS ORDERED: Acetaminophen 325 MG TAB PO PRN ×2 (22:09→23:18)
[2019-11-28] MEDS ORDERED: Ondansetron PF 4 MG/2 ML Vial IVP PRN ×2 (22:09→23:18)
[2019-11-28] MEDS ORDERED: Ondansetron ODT 4 MG TAB SL PRN (22:09)
--- NOTE | 2019-11-28 22:13 | CT ---
Exam: CT angiogram of the chest HISTORY: Shortness of breath. Decreased O2 sat. COMPARISON: 04/12/2019 TECHNIQUE: CT angiogram of the chest is performed in the axial plane. Three-dimensional reformatted i mages are submitted for interpretation FINDINGS: Mediastinum: No mass, lymphadenopathy or hematoma. HEART: Normal size. No significant pericardial fluid. Aorta: No aneurysm or dissection Upper solid abdominal viscera: No abnormality enhancement. Trachea and central bronchi: Patent Pleural spaces: No effusion Lung parenchyma: Patchy groundglass opacities suggesting edema. Pneumothorax: None Osseous structures: No lytic or blastic lesions Pulmonary arteries: Adequate contrast opacification pulmonary arterial system to the level of lobar a rteries. Evaluation is limited by timing of contrast bolus. No filling defect to suggest pulmonary embolism to the central pulmonary arteries as well as the main pulmonary trunk are somewhat prominent . Correlate for pulmonary artery hypertension IMPRESSION: 1. No evidence of pulmonary artery levels of the level of the lobar arteries. 2. Prominent main and central pulmonary arteries. Correlate for pulmonary artery hypertension. 3. Scattered groundglass opacities suggesting edema.
[2019-11-28 22:40] VITALS: BP 175/78; TEMP 98.3
[2019-11-28 22:44] VITALS: BMI 68.5
[2019-11-28] MEDS ORDERED: Dextrose 5% in Water 1,000 ML IV PRN (23:18)
[2019-11-28] MEDS ORDERED: Ondansetron ODT 4 MG TAB PO PRN (23:18)
[2019-11-28] MEDS ORDERED: Calcium Carbonate 500 MG ChewTAB PO PRN (23:18)
[2019-11-28] MEDS ORDERED: Acetaminophen 650 MG Suppository PR PRN (23:18)
[2019-11-28] MEDS ORDERED: HumaLOG 300 UNITS/3 ML VIAL SC PRN ×2 (23:18)
[2019-11-28] MEDS ORDERED: Dextrose 50% Abboject 50 ML SYRINGE SLOW IVP PRN (23:18)
[2019-11-28] MEDS ORDERED: Nicotine 14 MG PATCH TD SCH (23:59)
[2019-11-29 00:41] LABS: Troponin I 0.046 ng/mL (< 0.028)
[2019-11-29 05:04] LABS: #Eosinphils 0.2 thou/uL (0.0-0.7); #Lymphocytes 1.4 thou/uL (1.20-3.40); #Monocytes 0.6 thou/uL (0.11-0.59); #Neutrophils 4.8 thou/uL (1.40-6.50); %Basophils 0.4 % (0.0-1.0); %Eosinophils 2.5 % (0.0-10.0); %Neutrophils 69.2 % (42.0-75.0); Mean Corpuscular HGB CONC 30.7 g/dL (32.0-36.0); Mean Corpuscular Hemoglobin 28.2 pg (27.0-31.0); Mean Corpuscular Volume 91.8 fL (78.0-98.0); Mean Platelet Volume 8.9 fL (7.4-10.4); Platelet Count 278 thou/uL (130-400); RBC Distribution Width 14.6 % (11.5-14.5); White Blood Cell (WBC) Count 6.9 thou/uL (4.8-10.8)
[2019-11-29 05:24] LABS: Anion Gap 15 mmol/L (10-20); BUN (Urea Nitrogen) 28 mg/dL (7.0-18.7); Calc. Creatinine Clearance 199 mL/min (70-130); Calcium 9.3 mg/dL (7.8-10.44); Carbon Dioxide 24 mmol/L (22-29); Chloride 98 mmol/L (98-107); Estimated GFR-MDRD 58; Glucose 328 mg/dL (70-105); Sodium 132 mmol/L (136-145)
[2019-11-29 05:28] LABS: Troponin I 0.045 ng/mL (< 0.028)
[2019-11-29] MEDS ORDERED: Levothyroxine Sodium 125 MCG TAB PO SCH (06:00)
--- NOTE | 2019-11-29 06:25 | PDOC.FM ---
- Subjective Subjective: When entering the patient room, was informed that the patient had already left AMA. - Objective MAR Reviewed: Yes Vital Signs & Weight: Vital Signs (12 hours) Temp Pulse Resp BP Pulse Ox 11/29/19 02:12 90 21 H 94 L 11/29/19 01:02 91 19 94 L 11/28/19 22:34 98.3 F 100 22 H 175/78 H 94 L Weight Weight 186.925 kg I&O: 11/27/19 11/28/19 11/29/19 06:59 06:59 06:59 Intake Total 1440 Output Total 1100 Balance 340 Result Diagrams: 11/29/19 04:52 11/29/19 04:52 Dx/Plan - Plan Plan: Upon entering the patient room, was informed that the patient had already signed paperwork and left AMA. Was unable to speak or assess the patient prior to her leaving.
[2019-11-29] MEDS ORDERED: Carvedilol 3.125 MG TAB PO SCH (08:00)
[2019-11-29] MEDS ORDERED: predniSONE 20 MG TAB PO SCH (08:00)
[2019-11-29] MEDS ORDERED: Insulin Glargine 60 UNITS in Pre-Filled Syringe 1 EACH SC SCH ×3 (09:00)
[2019-11-29] MEDS ORDERED: DOLUTEGRAVIR SODIUM PO SCH (09:00)
[2019-11-29] MEDS ORDERED: LAMIVUDINE PO SCH (09:00)
[2019-11-29] MEDS ORDERED: Famotidine 20 MG TAB PO SCH (09:00)
[2019-11-29] MEDS ORDERED: lamoTRIgine 100 MG TAB PO SCH (09:00)
[2019-11-29] MEDS ORDERED: Gabapentin 300 MG CAP PO SCH (09:00)
[2019-11-29] MEDS ORDERED: Enoxaparin Sodium 40 MG/0.4 ML SYRINGE SC SCH (09:00)
[2019-11-29] MEDS ORDERED: Ezetimibe 10 MG TAB PO SCH (09:00)
[2019-11-29] MEDS ORDERED: Furosemide 20 MG TAB PO SCH (09:00)
[2019-11-29] MEDS ORDERED: PRE FILLED SC SCH (09:00)
[2019-11-29] MEDS ORDERED: Lisinopril 10 MG TAB PO SCH (09:00)
[2019-11-29] MEDS ORDERED: FLUoxetine HCl 20 MG CAP PO SCH (09:00)
[2019-11-29] MEDS ORDERED: INSULIN GLARGINE SC SCH (09:00)
[2019-11-29 14:09] LABS: SARS-CoV-2 MS2 Positive; SARS-CoV-2 N Gene Negative; SARS-CoV-2 S Gene Negative; SARS-CoV-2 by NAA Not Detected (NotDetected); SARS-CoV-2 orf1ab Negative
[2019-11-29] MEDS ORDERED: Atorvastatin Calcium 40 MG TAB PO SCH (21:00)
[2019-11-29] MEDS ORDERED: Mirtazapine 15 MG TAB PO SCH (21:00)
[2019-11-30 16:14] LABS: %CD4 (Helper/Inducer) 56.6 % (30.8-58.5); Absolute CD4 792 /uL (359-1519); Lymphocytes/Gated Cell Count 1.4 x10E3/uL (0.7-3.1); Total Lymphocyte 20 % (Not Estab.); WBC Total Count 7.2 x10E3/uL (3.4-10.8)
== END 2019-11-29 07:25 | disposition left against medical advice (07) ==
LOC: ERS 17:55 → 2NO 22:25
PROVIDERS: ADMIT Student in an Organized Health Care Education/Training Program; ATTEND Student in an Organized Health Care Education/Training Program
DX: J96.21 Acute and chronic respiratory failure with hypoxia (principal); I27.20 Pulmonary hypertension, unspecified; I13.0 Hypertensive heart and chronic kidney disease with heart failure and stage 1 through stage 4 chronic kidney disease, or unspecified chronic kidney disease; E11.22 Type 2 diabetes mellitus with diabetic chronic kidney disease; N18.2 Chronic kidney disease, stage 2 (mild); I50.30 Unspecified diastolic (congestive) heart failure; N17.9 Acute kidney failure, unspecified; F41.9 Anxiety disorder, unspecified; F31.9 Bipolar disorder, unspecified; F20.9 Schizophrenia, unspecified; E03.9 Hypothyroidism, unspecified; G47.33 Obstructive sleep apnea (adult) (pediatric); I25.10 Atherosclerotic heart disease of native coronary artery without angina pectoris; E66.01 Morbid (severe) obesity due to excess calories; Z68.44 Body mass index [BMI] 60.0-69.9, adult; Z79.4 Long term (current) use of insulin; Z79.899 Other long term (current) drug therapy; Z91.040 Latex allergy status; Z88.8 Allergy status to other drugs, medicaments and biological substances; Z21 Asymptomatic human immunodeficiency virus [HIV] infection status; Z53.29 Procedure and treatment not carried out because of patient's decision for other reasons; Z20.828 Contact with and (suspected) exposure to other viral communicable diseases
CPT/HCPCS: 51701; 71045; 71275; 80048; 80053; 82553; 83880; 84145; 84443; 84484 ×3; 85025 ×2; 85048; 85379; 86361; 93005; 94640; 94660; 96374; 99285; G0378 ×3; U0003; 36415; 81003; 81015; 87635; J1815; J1940; J7620; Q9967

== ENCOUNTER 2020-02-22 07:18 | Observation (INO) | payer MEDICARE, OTHER, MEDICAID ==
[2020-02-22 08:48] LABS: #Eosinphils 0.2 thou/uL (0.0-0.7); #Lymphocytes 1.6 thou/uL (1.20-3.40); #Monocytes 0.7 thou/uL (0.11-0.59); #Neutrophils 7.9 thou/uL (1.40-6.50); %Basophils 0.4 % (0.0-1.0); %Eosinophils 1.5 % (0.0-10.0); %Lymphocytes 15.1 % (21.0-51.0); %Monocytes 6.2 % (0.0-10.0); %Neutrophils 76.8 % (42.0-75.0); Mean Corpuscular HGB CONC 31.7 g/dL (32.0-36.0); Mean Corpuscular Hemoglobin 28.3 pg (27.0-31.0); Mean Corpuscular Volume 89.3 fL (78.0-98.0); Mean Platelet Volume 9.6 fL (7.4-10.4); Platelet Count 290 thou/uL (130-400); RBC Distribution Width 15.3 % (11.5-14.5); Red Blood Cell (RBC) Count 4.59 mill/uL (4.20-5.40); White Blood Cell (WBC) Count 10.3 thou/uL (4.8-10.8)
[2020-02-22 09:08] LABS: ALT (SGPT) 30 U/L (8-55); AST (SGOT) 15 U/L (5-34); Albumin 3.8 g/dL (3.5-5.0); Alkaline Phosphatase 237 U/L (40-110); Anion Gap 18 mmol/L (10-20); BUN (Urea Nitrogen) 28 mg/dL (7.0-18.7); Bilirubin, Total 0.2 mg/dL (0.2-1.2); CK (CPK) 52 U/L (29-168); Calc. Creatinine Clearance 0 mL/min (70-130); Calcium 9.4 mg/dL (7.8-10.44); Carbon Dioxide 26 mmol/L (22-29); Chloride 97 mmol/L (98-107); Estimated GFR-MDRD 51; Globulin 3.4 g/dL (2.4-3.5); Glucose 227 mg/dL (70-105); Potassium 4.6 mmol/L (3.5-5.1); Protein, Total 7.2 g/dL (6.0-8.3); Sodium 136 mmol/L (136-145)
[2020-02-22 09:26] LABS: CKMB 3.3 ng/mL (0-6.6)
--- NOTE | 2020-02-22 09:35 | PDOC.FPRHP ---
- History of Present Illness Chief Complaint: chest pain History of Present Illness: Pt is a 49 year old female with a PMH of morbid obesity, CAD s/p CABG, COPD, tobacco abuse who presents to the ED with continued chest pain. Was seen in ED and admitted last night, but left AMA. She spent the rest of the night sitting o utside because her son would not pick her up. Upon arrival to ED in am she had O2 sat of 85%, normally is on 3L O2 at home. She was not cooperative with interview so most of history was obtained from previous records. Pain started "couple days ago, described as sharp, located in center of chest, no radiation, lasted about 2 hours, no modifiers. Associated with increased SOB. Denies nausea, diaphoresis, SHEA or vision change. Previously seen by cardiology, Dr. Mandel, but has not followed up outpatient in many years. In last hospitalization, reports she was told nothing surgical can be done due to co- morbidities. States that she has not been taking her medications as prescribed except for her psych meds prescribed by [facility]. ED Course: lovenox 1mg/kg, aspirin - Allergies/Adverse Reactions Allergies Allergy/AdvReac Type Severity Reaction Status Date / Time ziprasidone [From Geodon] Allergy Severe Anaphylaxis Verified 02/22/20 15:37 quetiapine [From Seroquel] Allergy Intermediate Verified 02/22/20 15:37 gabapentin Allergy Mild Anxiety Verified 02/22/20 15:37 latex Allergy Mild Rash Verified 02/22/20 15:37 - Home Medications Medication Instructions Recorded Confirmed Type Atorvastatin Calcium [Lipitor] 2 tab PO HS 04/12/19 02/22/20 History Carvedilol [Coreg] 3.125 mg PO BID 04/12/19 02/22/20 History Dolutegravir Sodium/Lamivudine 1 each PO DAILY 04/12/19 02/22/20 History [Dovato 50-300 mg Tablet] Ezetimibe [Zetia] 10 mg PO DAILY 04/12/19 02/22/20 History FLUoxetine HCl [Prozac] 3 cap PO DAILY 04/12/19 02/22/20 History HumaLOG [HumaLOG Vial] 75 unit SC TID-WM 04/12/19 02/22/20 History Insulin Degludec [Tresiba] 180 unit SQ DAILY 04/12/19 02/22/20 History Isosorbide Mononitrate [Imdur ER] 30 mg PO DAILY 04/12/19 02/22/20 History Lamotrigine [lamoTRIgine] 150 mg PO DAILY 04/12/19 02/22/20 History Levothyroxine Sodium 250 mcg PO DAILY 04/12/19 02/22/20 History Mirtazapine 45 mg PO HS 04/12/19 02/22/20 History Perphenazine [Trilafon] 16 mg PO HS 04/12/19 02/22/20 History Zolpidem Tartrate [Ambien] 10 mg PO HS 04/12/19 02/22/20 History clonazePAM [Clonazepam] 0.5 mg PO BID 04/12/19 02/22/20 History traMADol HCl [Tramadol HCl] 50 mg PO BID PRN 04/12/19 02/22/20 History Furosemide [Lasix] 20 mg PO DAILY 11/28/19 02/22/20 History Aspirin [Ecotrin Low Strength] 81 mg PO DAILY #30 tab 01/16/20 02/22/20 Rx Lisinopril 10 mg PO BID #60 tablet 01/17/20 02/22/20 Rx Ranolazine [Ranexa] 500 mg PO BID #60 tab 01/17/20 02/22/20 Rx - History PMHx: COPD, DMII, pulmonary HTN, HIV, HLD, HTN, CAD, substance abuse, anxiety/depression, thyroid cancer, bipolar disorder, schizophrenia PSHx: thyroidectomy, cholecystectomy, orthopedic surgery, CABG X4, 2C/S, hysterectomy, R breast biopsy FHx: CAD, multiple family members with AK in their 60s, Colon cancer Social: Previous meth user, smokes 0.5ppd, denies etoh use - Review of Systems General: denies: fever/chills, weight/appetite/sleep changes Eyes: denies: vision changes ENT: denies: nasal congestion, rhinorrhea Respiratory: reports: shortness of breath. denies: cough, congestion Cardiovascular: reports: chest pain. denies: palpitation, edema Gastrointestinal: denies: nausea, vomiting, diarrhea Genitourinary: denies: dysuria Skin: denies: rashes, lesions Musculoskeletal: reports: pain (knee pain). denies: tenderness Neurological: denies: numbness, syncope Psychological: denies: depression - Vital signs BP:111/52, HR 90, RR 25, O2 96% on 4.5L, T 98.2F - Physical Exam -Constitutional: morbidly obese, accessory muscle use for respiration HEENT: normocephalic and atraumatic, grossly normal vision, grossly normal hearing -HEENT: poor dentition Neck: supple, FROM -Neck: unable to assess JVD due to body habitus Chest: no-tender to palpation Heart: RRR, no murmurs/rubs/gallops, pulses present -Heart: 1+ pitting edema bilateral LE Lungs: CTAB -Lungs: poor air movement, auscultation limited by body habitus Abdomen: soft, non-tender, bowel sounds present Musculoskeletal: ROM grossly normal Neurological: no focal deficit, normal sensation Skin: no rash/lesions, no jaundice Heme/Lymphatic: no unusual bruising or bleeding -Psychiatric: odd affect FMR H&P: Results - Labs Result Diagrams: 02/22/20 08:32 02/22/20 08:32 Lab results: WBC 10.3 thou/uL (4.8-10.8) 02/22/20 08:32 Hgb 13.0 g/dL (12.0-16.0) 02/22/20 08:32 Hct 41.0 % (36.0-47.0) 02/22/20 08:32 MCV 89.3 fL (78.0-98.0) 02/22/20 08:32 Plt Count 290 thou/uL (130-400) 02/22/20 08:32 Neutrophils % 76.8 % (42.0-75.0) H 02/22/20 08:32 Sodium 136 mmol/L (136-145) 02/22/20 08:32 Potassium 4.6 mmol/L (3.5-5.1) 02/22/20 08:32 Chloride 97 mmol/L (98-107) L 02/22/20 08:32 Carbon Dioxide 26 mmol/L (22-29) 02/22/20 08:32 BUN 28 mg/dL (7.0-18.7) H 02/22/20 08:32 Creatinine 1.13 mg/dL (0.6-1.1) H 02/22/20 08:32 Glucose 227 mg/dL (70-105) H 02/22/20 08:32 Calcium 9.4 mg/dL (7.8-10.44) 02/22/20 08:32 Total Bilirubin 0.2 mg/dL (0.2-1.2) 02/22/20 08:32 AST 15 U/L (5-34) 02/22/20 08:32 ALT 30 U/L (8-55) 02/22/20 08:32 Alkaline Phosphatase 237 U/L (40-110) H 02/22/20 08:32 Creatine Kinase 52 U/L (29-168) 02/22/20 08:32 CK-MB (CK-2) 3.3 ng/mL (0-6.6) 02/22/20 08:32 B-Natriuretic Peptide 232.3 pg/mL (0-100) H 02/22/20 08:32 Serum Total Protein 7.2 g/dL (6.0-8.3) 02/22/20 08:32 Albumin 3.8 g/dL (3.5-5.0) 02/22/20 08:32 - EKG Interpretation EKG: reviewed, no ST changes. FMR H&P: A/P - Plan #NSTEMI type II -trop 0.3, 0.5 on 02/20, 0.9 on 02/21. will trend. Ekg no ST changes -cath in 01/2019- occlusion of circumflex and right systems. Per Dr. Soto's note, surgery not an option due to co-morbidities, recommend medical management. -given therapeutic dose of lovenox 1mg/kg in ED, will continue bid -will check anti-Xa tonight -consulted cardiology, Taylor. Appreciate recs #HFpEF exacerbation -BNP 232. CXR: pulmonary vascular congestion, small b/l pleural effusions, diffuse interstitial and airspace opacities -Received 40mg Lasix in ED. Additional 40mg IV given -Strict I&Os, daily weights -Continue home meds #DM2 - Hx uncontrolled IDDM2 - Continue home meds - SSI, ACHS accuchecks #HTN -Continue home meds #HIV -Continue home meds #HLD -Continue home meds #Hypothyroidism 2/2 thyroidectomy -Continue levothyroxine #Bipolar disorder/Schizophrenia -pt not taking meds, sees [facility] -continue home meds #Tobacco abuse -Nicotine patch -Encourage smoking cessation #COPD -duonebs q4h prn -Continue home meds #Morbid obesity -Aware #LAZARA -Cpap at night PPX: Lovenox Code Status: Full PCP: Javier Dispo:Admit inpatient tele, cardiology consulted, LOS>48hrs. FMR H&P: Upper Level - Plan Date/Time: 02/22/20 0935 49yo female with pmh of CAD, hx CABG x4 vessels 2015, failed bypass, morbid obesity, HIV, prior meth use, current smoker, pulm HTN presents reportedly for chest pain, SOB however when I ask her she will only state that she is hungry. Per Chart review chest pain is substernal, sharp, stabbing and similar to prior AK or cardiac events. Endorsed SOB. On 2L O2 at baseline. Last night she was admitted for NSTEMI type 2 and started on Ther lovenox. She left AMA to go smoke a PE: General: Morbidly obese CV: RRR Pulm: expiratory wheezing in upper lung bowers NSTEMI - EKG with no ST segment changes. - Last cath 01/2019. Hx of failed bypasses- not surgical candidate and medical management - Troponin 0.366-> 0.54, 0.799, 0.931 - Continue therapeutic lovenox. Can dose IV if outside wt limit for SQ. IV is dosed 30mg IV followed by 1mg/kg up to 100mg. - Consult Cards, Dr Vazquez - HEART Score: 6 - Keep NPO HFpEF exacerbation - CXR: interval development of prominent cardiomegaly, pulv vasc congestion, bilateral pleural effusions - Monitor strict I/Os, daily wt - BNP: 294 - Ordered dose of IV lasix PEACE - Cr 1.36-> 1.13 ICharlotte, have evaluated this patient and agree with findings/plan as outlined by integrated marketing intern resident. Pertinent changes/additions are listed here.
[2020-02-22] MEDS ORDERED: Aspirin Chewable 81 MG TAB ONE (09:42)
--- NOTE | 2020-02-22 09:53 | RAD ---
PORTABLE CHEST: Date: 02/22/2020 HISTORY: Chest pain. COMPARISON: 01/15/2020. FINDINGS/IMPRESSION: Cardiomegaly with postop sternotomy change. Mild vascular engorgement. Soft tissue attenuation limits the exam. No consolidation. No significant change from 01/15/2020. Upright PA and lateral views woul d be of benefit to better evaluate the lung bowers as clinically indicated. POS: OFF
[2020-02-22] MEDS ORDERED: Enoxaparin Sodium 100 MG/ML SYRINGE ONE (11:19)
[2020-02-22 12:07] LABS: Troponin I 0.799 ng/mL (< 0.028)
[2020-02-22 12:35] VITALS: BMI 72.0
[2020-02-22] MEDS ORDERED: Dextrose 50% Abboject 50 ML SYRINGE SLOW IVP PRN (13:17)
[2020-02-22] MEDS ORDERED: Insulin Regular 300 UNITS/3 ML VIAL SC PRN ×2 (13:17)
[2020-02-22] MEDS ORDERED: Dextrose 5% in Water 1,000 ML IV PRN (13:17)
[2020-02-22] MEDS: Nicotine 14 MG PATCH TD PRN (13:41)
[2020-02-22] MEDS ORDERED: Furosemide 40 MG/4 ML VIAL SLOW IVP SCH (14:00)
[2020-02-22 15:16] LABS: Critical Call Chem Troponin I RESULT DECREASING; Troponin I 0.685 ng/mL (< 0.028)
[2020-02-22] MEDS: traMADol HCl 50 MG TAB PO PRN (17:39)
[2020-02-22] MEDS: HumaLOG 300 UNITS/3 ML VIAL SC SCH (18:26)
--- NOTE | 2020-02-22 18:32 | CON ---
DATE OF CONSULTATION: 02/22/2020 REASON FOR CONSULTATION: Chest pain and elevated troponins. PRIMARY GOLF PLAYER ASSISTANT: Wily Mandel. HISTORY OF PRESENT ILLNESS: Ms. Page is a 49-year-old white female, who comes to the hospital for chest pain. She came in yesterday and was recommended for admission. She left against medical advice, sat outside of the ER pretty much all night long as she could not get a ride, but she left AMA because she needed to smoke. Apparently came back into the ER in the morning and was hypoxic and was admitted. Currently on my evaluation, Ms. Page is sleeping. When I wake her up, she starts screaming and I asked her if she is having any chest pain, she tells me that she always has chest pain and then she just dozes off and falls asleep again. I am not sure if she is sleeping or just closing her eyes and not responding to the questions from what I am being told. She has been very belligerent to some of the nurses as well. I eventually was able to have a brief conversation with her about possibly doing another heart catheterization and she told me that she has been through those before and she is not interested in having anything done at this time. PAST MEDICAL HISTORY: 1. HIV positive. 2. Coronary artery disease, status post CABG, most recent catheterization about a year ago and just one of three grafts was open. 3. COPD. 4. Type 2 diabetes. 5. Pulmonary hypertension. 6. Hyperlipidemia. 7. Hypertension. 8. Substance abuse. 9. Anxiety and depression. 10. Thyroid cancer in the past. 11. Bipolar disorder. 12. Schizophrenia. SURGICAL HISTORY: 1. Thyroidectomy. 2. Cholecystectomy. 3. Several orthopedic surgeries. 4. CABG x4 in 2014. 5. Cardiac catheterization in 2019. 6. Hysterectomy. 7. Right breast biopsy. FAMILY HISTORY: Coronary artery disease and colon cancer. SOCIAL HISTORY: Former abuser of meth. Continues to smoke. No alcohol use. OUTPATIENT MEDICATIONS: 1. Tramadol p.r.n. 2. Clonazepam. 3. Zolpidem. 4. Ranexa. 5. Perphenazine. 6. Mirtazapine. 7. Lisinopril 10 mg b.i.d. 8. Levothyroxine 250 mcg a day. 9. Lamotrigine. 10. Imdur 30 mg a day. 11. Tresiba. 12. Humalog. 13. Lasix. 14. Prozac. 15. Zetia. 16. Dovato 50/300. 17. Carvedilol 3.125 b.i.d. 18. Atorvastatin. 19. Aspirin 81. ALLERGIES: 1. GEODON. 2. SEROQUEL. 3. GABAPENTIN. 4. LATEX. REVIEW OF SYSTEMS: Unobtainable as the patient is not contributing to history. PHYSICAL EXAMINATION: VITAL SIGNS: Temperature 98, pulse 89, respiratory rate 18, saturating 91% on 2 L nasal cannula, blood pressure 129/63. GENERAL: Awake, alert, oriented to person only, however, difficult to obtain as she is not cooperative, in no distress. HEENT: Normocephalic, atraumatic. NECK: Supple. LUNGS: Clear. CARDIOVASCULAR: Distant heart sounds. ABDOMEN: Soft with positive bowel sounds prominent. EXTREMITIES: 1+ edema. SKIN: Warm and dry. LABORATORY DATA: Laboratory work was reviewed. CBC with a white count of 10, hemoglobin 13, hematocrit 41, platelet count of 290. Chemistry; BUN of 28, creatinine 1.13, GFR 51. Troponin was 0.93, then 0.79, and 0.68. BNP was 232. CK-MB was normal. Albumin was 3.8. ASSESSMENT: 1. Chest pain. 2. Non-STEMI. 3. Medication noncompliance. PLAN: 1. The patient currently not interested in having any further risk stratification with heart catheterization. 2. Plan to treat medically for possible Non-STEMI. 3. Agree with full dose Lovenox versus heparin and IV Lasix for possible heart failure. 4. Echocardiogram pending. Thank you for letting us to participate in the care of your patient. We will follow. Job ID: [id number]
[2020-02-22] MEDS ORDERED: Atorvastatin Calcium 40 MG TAB PO SCH (21:00)
[2020-02-22] MEDS: Perphenazine 2 MG TAB PO SCH (22:15)
[2020-02-22] MEDS: Atorvastatin Calcium 40 MG TAB PO SCH (22:16)
[2020-02-22] MEDS: clonazePAM 0.5 MG TAB PO SCH (22:17)
[2020-02-22] MEDS: Lisinopril 10 MG TAB PO SCH (22:17)
[2020-02-22] MEDS: Carvedilol 3.125 MG TAB PO SCH (22:17)
[2020-02-22] MEDS: Zolpidem Tartrate 5 MG TAB PO SCH (22:17)
[2020-02-22] MEDS: Enoxaparin Sodium 100 MG/ML SYRINGE SC SCH (22:18)
--- NOTE | 2020-02-23 05:42 | PDOC.FM ---
- Subjective Subjective: Pt is a 49 yo F with a PMH of COPD, DMII, pulmonary HTN, HIV, HLD, HTN, CAD, substance abuse, anxiety/depression, thyroid cancer, bipolar disorder, schizophrenia who is admitted for NSTEMI type 2 and CHF exacerbation. Patient is hard to talk to this morning as she is agitated and combative. She is yelling at the nurses, refusing NC and heart monitor. She left AMA a few days ago and was readmitted. She has no complaints other than hip pain. Says she is improved overall from admission. Denies SHEA, CP, vision changes, SOB, abdominal pain. - Objective MAR Reviewed: Yes Vital Signs & Weight: Vital Signs (12 hours) Temp Pulse Resp BP Pulse Ox 02/23/20 04:00 98.0 F 86 20 149/79 H 92 L 02/22/20 23:51 97.8 F 87 20 155/84 H 91 L 02/22/20 20:00 98.0 F 87 22 H 162/85 H 93 L Weight Weight 196.315 kg I&O: 02/21/20 02/22/20 02/23/20 06:59 06:59 06:59 Intake Total 980 Output Total 2400 Balance -1420 Result Diagrams: 02/22/20 08:32 02/23/20 08:16 Phys Exam - Physical Examination Constitutional: NAD HEENT: moist MMs Neck: full ROM Respiratory: no wheezing distant lung sounds Cardiovascular: RRR, no significant murmur distant heart sounds Gastrointestinal: soft, non-tender 1+ pitting edema b/l Neurological: moves all 4 limbs Psychiatric: A&O x 3 Skin: no rash, normal turgor Dx/Plan - Plan Plan: #NSTEMI type II -trop 0.3, 0.5 on 02/20, 0.9 on 02/21 down to .7[address] Ekg no [address] changes -cath in 01/2019- occlusion of circumflex and right systems. Per Dr. Soto's note, surgery not an option due to co-morbidities, recommend medical management. -given therapeutic dose of lovenox 1mg/kg in ED, will continue bid until discharge -anti-Xa therapeutic level -consulted cardiology, Taylor. Appreciate recs -echo pending, ok to discharge once taken as per cards with close follow up outpatient with regular choke setter Dr. Mandel since patient has been deemed medical management only #HFpEF exacerbation -BNP 232. CXR: pulmonary vascular congestion, small b/l pleural effusions, diffuse interstitial and airspace opacities -Received 40mg Lasix in ED. Additional 40mg IV given -Strict I&Os, daily weights -Continue home meds -echo pending #DM2 - Hx uncontrolled IDDM2 - Continue home meds - SSI, ACHS accuchecks #HTN -Continue home meds #HIV -Continue home meds #HLD -Continue home meds #Hypothyroidism 2/2 thyroidectomy -Continue levothyroxine #Bipolar disorder/Schizophrenia -pt not taking meds, sees [facility] -continue home meds #Tobacco abuse -Nicotine patch -Encourage smoking cessation #COPD -duonebs q4h prn -Continue home meds #Morbid obesity -Aware #LAZARA -Cpap at night PPX: Lovenox Code Status: Full PCP: Javier Dispo:Admit inpatient tele, cardiology consulted, LOS>48hrs. Anticipate discharge today pending echo being taken.
[2020-02-23] MEDS: Levothyroxine Sodium 125 MCG TAB PO SCH (06:12)
[2020-02-23 08:51] LABS: Anion Gap 12 mmol/L (10-20); BUN (Urea Nitrogen) 20 mg/dL (7.0-18.7); Calc. Creatinine Clearance 257 mL/min (70-130); Calcium 8.6 mg/dL (7.8-10.44); Carbon Dioxide 30 mmol/L (22-29); Chloride 100 mmol/L (98-107); Estimated GFR-MDRD 74; Glucose 123 mg/dL (70-105); Potassium 4.3 mmol/L (3.5-5.1); Sodium 138 mmol/L (136-145)
[2020-02-23] MEDS ORDERED: Dolutegravir Sodium/Lamivudine [Dovato 50-300 Mg Tablet] PO SCH (09:00)
[2020-02-23] MEDS ORDERED: Non-Formulary Item 1 EACH (Insulin Degludec [Tresiba] 100 UNIT/ML Vial) SQ SCH (09:00)
[2020-02-23] MEDS: HumaLOG 300 UNITS/3 ML VIAL SC SCH ×3 (10:33→16:06)
[2020-02-23] MEDS: Enoxaparin Sodium 100 MG/ML SYRINGE SC SCH ×2 (10:34→20:45)
[2020-02-23] MEDS: Lisinopril 10 MG TAB PO SCH ×2 (10:35→20:44)
[2020-02-23] MEDS: lamoTRIgine 100 MG TAB PO SCH (10:36)
[2020-02-23] MEDS: FLUoxetine HCl 20 MG CAP PO SCH (10:36)
[2020-02-23] MEDS: Carvedilol 3.125 MG TAB PO SCH ×2 (10:36→20:44)
[2020-02-23] MEDS: Furosemide 20 MG TAB PO SCH (10:36)
[2020-02-23] MEDS: Aspirin 81 mg Enteric Coated Tablet PO SCH (10:36)
[2020-02-23] MEDS: Ezetimibe 10 MG TAB PO SCH (10:36)
[2020-02-23] MEDS: Insulin Glargine 60 UNITS in Pre-Filled Syringe 1 EACH SC SCH ×2 (10:37→10:38)
[2020-02-23] MEDS: clonazePAM 0.5 MG TAB PO SCH ×2 (10:50→20:44)
[2020-02-23] MEDS: traMADol HCl 50 MG TAB PO PRN (12:22)
[2020-02-23] MEDS: Nicotine 14 MG PATCH TD PRN (12:27)
--- NOTE | 2020-02-23 12:41 | PDOC.CPN ---
- Subjective Date: 02/23/20 Time: 12:39 Interval history: No new issues. No more chest pain. Very sleepy but easily arousable. - Review of Systems General: denies: fever/chills, weight/appetite/sleep changes, night sweats, fatigue Respiratory: denies: cough, congestion, shortness of breath, exercise intolerance Cardiovascular: denies: chest pain, palpitation, edema, paroxysmal nocturnal dyspnea, orthopnea Gastrointestinal: denies: nausea, vomiting, diarrhea, constipation, abd pain, GI bleeding Musculoskeletal: denies: pain, tenderness, stiffness, swelling, arthritis/arthralgias Neurological: denies: numbness, syncope, seizure, weakness - Objective Allergies/Adverse Reactions: Allergies Allergy/AdvReac Type Severity Reaction Status Date / Time ziprasidone [From Geodon] Allergy Severe Anaphylaxis Verified 02/22/20 15:37 quetiapine [From Seroquel] Allergy Intermediate Verified 02/22/20 15:37 gabapentin Allergy Mild Anxiety Verified 02/22/20 15:37 latex Allergy Mild Rash Verified 02/22/20 15:37 Visit Medications: Current Medications Albuterol/Ipratropium (Ipratropium/Albuterol Sulfate 3 Ml Neb) 3 ml NEB [id number] PRN PRN Reason: SOB &/or Wheezing Aspirin (Aspirin 81 Mg Enteric Coated Tablet) 81 mg PO DAILY [facility] Last Admin: 02/23/20 10:36 Dose: 81 mg Documented by: Atorvastatin Calcium (Atorvastatin Calcium 40 Mg Tab) 80 mg PO HS [facility] Last Admin: 02/22/20 22:16 Dose: 80 mg Documented by: Carvedilol (Carvedilol 3.125 Mg Tab) 3.125 mg PO BID [facility] Last Admin: 02/23/20 10:36 Dose: 3.125 mg Documented by: Clonazepam (Clonazepam 0.5 Mg Tab) 0.5 mg PO BID [facility] Last Admin: 02/23/20 10:50 Dose: Not Given Documented by: Dextrose/Water (Dextrose 50% Abboject 50 Ml Syringe) 25 gm SLOW IVP PRN PRN PRN Reason: Hypoglycemia Ezetimibe (Ezetimibe 10 Mg Tab) 10 mg PO DAILY [facility] Last Admin: 02/23/20 10:36 Dose: 10 mg Documented by: Enoxaparin Sodium (Enoxaparin Sodium 100 Mg/Ml Syringe) 190 mg SC 0900,2100 [facility] Last Admin: 02/23/20 10:34 Dose: 190 mg Documented by: Fluoxetine HCl (Fluoxetine Hcl 20 Mg Cap) 60 mg PO DAILY [facility] Last Admin: 02/23/20 10:36 Dose: 60 mg Documented by: Furosemide (Furosemide 20 Mg Tab) 20 mg PO DAILY [facility] Last Admin: 02/23/20 10:36 Dose: 20 mg Documented by: Glucagon (Glucagon 1 Mg/Ml Vial) 1 mg IM PRN PRN PRN Reason: Hypoglycemia Dextrose/Water (D5w) 1,000 mls @ 0 mls/hr IV .Q0M PRN PRN Reason: Hypoglycemia Insulin Glargine 60 units/ (Miscellaneous Medication) 0.6 mls @ 0 mls/hr [facility] Last Admin: 02/23/20 10:38 Dose: 0.6 mls Documented by: Insulin Glargine 60 units/ (Miscellaneous Medication) 0.6 mls @ 0 mls/hr SC QAM [facility] Last Admin: 02/23/20 10:37 Dose: 0.6 mls Documented by: Insulin Glargine 60 units/ (Miscellaneous Medication) 0.6 mls @ 0 mls/hr [facility] [place] Last Admin: 02/23/20 10:38 Dose: 0.6 mls Documented by: Insulin Human Lispro (Humalog 300 Units/3 Ml Vial) 75 units SC TID-WM [facility] Last Admin: 02/23/20 12:14 Dose: 75 unit Documented by: Insulin Human Regular (Insulin Regular 300 Units/3 Ml Vial) 0 units SC .BEDTIME SLIDING SC PRN PRN Reason: Bedtime Correctional Scale Insulin Human Regular (Insulin Regular 300 Units/3 Ml Vial) 0 units SC .AGGRESSIVE SLIDING PRN PRN Reason: Aggressive Correctional Scale Isosorbide Mononitrate (Isosorbide Mononitrate Er 30 Mg Tab) 30 mg PO DAILY [facility] Last Admin: 02/23/20 10:37 Dose: 30 mg Documented by: Lamotrigine (Lamotrigine 100 Mg Tab) 150 mg PO DAILY [facility] Last Admin: 02/23/20 10:36 Dose: 150 mg Documented by: Levothyroxine Sodium (Levothyroxine Sodium 125 Mcg Tab) 250 mcg PO 0600 [facility] Last Admin: 10/24/20 06:12 Dose: 250 mcg Documented by: Lisinopril (Lisinopril 10 Mg Tab) 10 mg PO BID [facility] Last Admin: 02/23/20 10:35 Dose: 10 mg Documented by: Nicotine (Nicotine 14 Mg Patch) 14 mg TD Q24HR PRN PRN Reason: Smoking Cessation Last Admin: 02/23/20 12:27 Dose: 14 mg Documented by: Dolutegravir Sodium/Lamivudine [Dovato 50-300 Mg Tablet] 1 each PO DAILY [facility] Perphenazine (Perphenazine 2 Mg Tab) 16 mg PO [facility] Last Admin: 02/22/20 22:15 Dose: 16 mg Documented by: Ranolazine (Ranolazine 500 Mg Tab) 500 mg PO BID [facility] Last Admin: 02/23/20 10:36 Dose: 500 mg Documented by: Sodium Chloride (Flush - Normal Saline 10 Ml Syringe) 10 ml IVF Q12HR [facility] Last Admin: 02/23/20 12:16 Dose: 10 ml Documented by: Sodium Chloride (Flush - Normal Saline 10 Ml Syringe) 10 ml IVF PRN PRN PRN Reason: Saline Flush Tramadol HCl (Tramadol Hcl 50 Mg Tab) 50 mg PO BID PRN PRN Reason: pain Last Admin: 02/23/20 12:22 Dose: 50 mg Documented by: Zolpidem Tartrate (Zolpidem Tartrate 5 Mg Tab) 10 mg PO [facility] Last Admin: 02/22/20 22:17 Dose: 10 mg Documented by: Vital Signs & Weight: Vital Signs Temp Pulse Resp BP BP Pulse Ox 02/23/20 11:44 97.5 F L 85 20 133/83 95 02/23/20 08:00 97.5 F L 76 22 H 134/71 95 02/23/20 04:00 98.0 F 86 20 149/79 H 92 L Weight 432 lb 12.8 oz - Physical Exam General: alert & oriented x3 HEENT: mucus membranes moist Neck: supple neck Cardiac: regular rate and rhythm Lungs: clear to auscultation Neuro: no lateralizing findings Abdomen: active bowel sounds Extremities: 1+ LE edema Skin: clear Musculoskeletal: no pain - Labs Result Diagrams: 02/22/20 08:32 02/23/20 08:16 Troponin/CKMB CK-MB (CK-2) 3.3 ng/mL (0-6.6) 02/22/20 08:32 Troponin I 0.685 ng/mL (< 0.028) H* 02/22/20 14:24 - Telemetry Sinus rhythms and dysrhythmias: sinus rhythm - Assessment/Plan Assessment/Plan: 1. NSTEMI 2. CAD 3. S/P CABG PLAN: - Continue to not want heart catheterization. - Medical therapy for now. Needs 48 hrs of full anticoagulation. - LV function seems normal on echo. - Home tomorrow if she remains stable.
[2020-02-23] MEDS: Atorvastatin Calcium 40 MG TAB PO SCH (20:44)
[2020-02-23] MEDS: Zolpidem Tartrate 5 MG TAB PO SCH (20:44)
[2020-02-23] MEDS ORDERED: Perphenazine 2 MG TAB PO SCH (21:00)
[2020-02-23] MEDS: Perphenazine 2 MG TAB PO SCH (21:01)
[2020-02-24] MEDS: traMADol HCl 50 MG TAB PO PRN (05:11)
[2020-02-24] MEDS: Levothyroxine Sodium 125 MCG TAB PO SCH (05:11)
[2020-02-24 05:47] LABS: Anion Gap 13 mmol/L (10-20); BUN (Urea Nitrogen) 20 mg/dL (7.0-18.7); Calc. Creatinine Clearance 260 mL/min (70-130); Calcium 8.5 mg/dL (7.8-10.44); Carbon Dioxide 29 mmol/L (22-29); Chloride 99 mmol/L (98-107); Estimated GFR-MDRD 76; Glucose 135 mg/dL (70-105); Potassium 4.2 mmol/L (3.5-5.1); Sodium 137 mmol/L (136-145)
--- NOTE | 2020-02-24 06:13 | PDOC.FM ---
- Subjective Subjective: Pt doing well this morning. Wants to go home. Denies CP, SOB, SHEA, vision changes, abdominal pain. - Objective MAR Reviewed: Yes Vital Signs & Weight: Vital Signs (12 hours) Temp Pulse Resp BP BP BP Pulse Ox 02/24/20 04:00 98.1 F 68 18 97/42 L 98 02/23/20 20:44 147/66 H 02/23/20 20:00 98.2 F 76 18 147/66 H 93 L 02/23/20 19:00 98.2 F 76 18 147/66 H 93 L Weight Weight 193.503 kg I&O: 02/22/20 02/23/20 02/24/20 06:59 06:59 06:59 Intake Total 980 3296 Output Total 2400 3300 Balance -1420 -4 Result Diagrams: 02/22/20 08:32 02/24/20 04:50 Phys Exam - Physical Examination Constitutional: NAD CPAP in place Neck: supple, full ROM Respiratory: no wheezing, clear to auscultation bilateral Cardiovascular: RRR, no significant murmur Gastrointestinal: soft, non-tender Musculoskeletal: no edema, pulses present Neurological: moves all 4 limbs Psychiatric: normal affect, A&O x 3 Skin: normal turgor Dx/Plan - Plan Plan: #NSTEMI type II -trop 0.3, 0.5 on 02/20, 0.9 on 02/21 down to .7[address] Ekg no [address] changes -cath in 01/2019- occlusion of circumflex and right systems. Per Dr. Soto's note, surgery not an option due to co-morbidities, recommend medical management. -given therapeutic dose of lovenox 1mg/kg in ED, will continue bid until discharge. Patient needs 4 total doses before discharge as per cardiology recs -anti-Xa therapeutic level -consulted cardiology, Taylor. Appreciate recs -echo EF 50-55% Grade 2/3 diastolic dysfunction, mitral regurg, aortic valve sclerosis #HFpEF exacerbation -BNP 232. CXR: pulmonary vascular congestion, small b/l pleural effusions, diffuse interstitial and airspace opacities -Received 40mg Lasix in ED. Additional 40mg IV given -Strict I&Os, daily weights -Continue home meds -echo EF 50-55%, see above #DM2 - Hx uncontrolled IDDM2 - Continue home meds - SSI, ACHS accuchecks #HTN -Continue home meds #HIV -Continue home meds #HLD -Continue home meds #Hypothyroidism 2/2 thyroidectomy -Continue levothyroxine #Bipolar disorder/Schizophrenia -pt not taking meds, sees [facility] -continue home meds #Tobacco abuse -Nicotine patch -Encourage smoking cessation #COPD -duonebs q4h prn -Continue home meds #Morbid obesity -Aware #LAZARA -Cpap at night PPX: Lovenox Code Status: Full PCP: Javier Dispo:Admit inpatient tele, cardiology consulted, LOS>48hrs. Discharge today.
[2020-02-24 07:52] VITALS: BP 110/56; TEMP 97.5
[2020-02-24] MEDS: FLUoxetine HCl 20 MG CAP PO SCH (08:21)
[2020-02-24] MEDS: Enoxaparin Sodium 100 MG/ML SYRINGE SC SCH (08:21)
[2020-02-24] MEDS: Ezetimibe 10 MG TAB PO SCH (08:21)
[2020-02-24] MEDS: Lisinopril 10 MG TAB PO SCH (08:22)
[2020-02-24] MEDS: Furosemide 20 MG TAB PO SCH (08:22)
[2020-02-24] MEDS: lamoTRIgine 100 MG TAB PO SCH (08:22)
[2020-02-24] MEDS: Carvedilol 3.125 MG TAB PO SCH (08:22)
[2020-02-24] MEDS: Aspirin 81 mg Enteric Coated Tablet PO SCH (08:22)
[2020-02-24] MEDS: Insulin Glargine 60 UNITS in Pre-Filled Syringe 1 EACH SC SCH ×2 (08:23→08:25)
[2020-02-24] MEDS: HumaLOG 300 UNITS/3 ML VIAL SC SCH (08:23)
[2020-02-24] MEDS: clonazePAM 0.5 MG TAB PO SCH (08:25)
--- NOTE | 2020-02-24 12:12 | EKG ---
Test Reason : Blood Pressure : / mmHG Vent. Rate : 088 BPM Atrial Rate : 088 BPM P-R Int : 188 ms QRS Dur : 102 ms QT Int : 384 ms P-R-T Axes : 032 042 005 degrees QTc Int : 464 ms Normal sinus rhythm Prolonged QT Abnormal ECG When compared with ECG of 22-FEB-2020 08:06, (Unconfirmed) No significant change was found Confirmed by DEISI PARISI (2) on 02/24/2020 12:11:43 PM Referred By: KAIN Confirmed By:DEISI PARISI
--- NOTE | 2020-02-26 14:56 | DIS ---
DATE OF ADMISSION: 02/22/2020 DATE OF DISCHARGE: 02/24/2020 RESIDENT: Lilly Bhagat MD, PGY-1. ADMITTING ATTENDING: Dr. Bhakta. DISCHARGE ATTENDING: Dr. Bhakta. CONSULTS: Cardiology. PROCEDURES: Chest x-ray, which showed cardiomegaly with postop sternotomy change, mild vascular engorgement, soft-tissue attenuation limits the exam consolidation. No significant change from 01/15/2020. Electrocardiogram showed normal sinus rhythm, prolonged QT. Echo showed a technically difficult exam, but ejection fraction is around 50% to 55% with grade 2-3 diastolic dysfunction. . Mild mitral regurgitation present. Aortic valve sclerosis but opens well. Mild tricuspid regurgitation. Aortic root measured at 4.0 cm. PRIMARY DIAGNOSES: 1. Levothyroxine 250 mcg p.o. daily. 2. Mirtazapine 45 mg p.o. at bedtime. 3. Prozac Capsules p.o. daily 60 mg. 4. Klonopin 0.5 mg p.o. b.i.d. 5. Tramadol 50 mg p.o. b.i.d. p.r.n. 6. Imdur 30 mg p.o. daily. 7. Ezetimibe 10 mg p.o. daily. 8. Coreg 3.125 mg p.o. b.i.d. 9. Lipitor 80 mg two tabs p.o. at bedtime. 10. Lamotrigine 150 mg p.o. daily. 11. Ambien 10 mg p.o. at bedtime. 12. Perphenazine 16 mg p.o. at bedtime. 13. Humalog 75 units subcu t.i.d. with meals. 14. Dovato 50/300 mg tablet one daily. 15. Tresiba 180 units subcu daily. 16. Lasix 20 mg p.o. daily. 17. Aspirin 81 mg p.o. daily. 18. Lisinopril 10 mg p.o. b.i.d. 19. Ranexa 500 mg p.o. b.i.d. Discontinued medications: None. HISTORY OF PRESENT ILLNESS/HOSPITAL COURSE: The patient is a 49-year-old female with a past medical history of morbid obesity, CAD, status post CABG, COPD, tobacco abuse, who presents to the ED with chest pain. The patient was seen the day before in the ED but left AMA. She spent the rest of the night sitting outside waiting for someone to pick her up. Upon arrival to the ED, she had an O2 saturation of 85%. She is normally on 3 L of oxygen at home. She does not cooperate with the interview, so history was limited. However, she did endorse chest pain that started a couple days ago, described as sharp, located in front of her chest with no radiation that lasted about 2 hours. The chest pain was associated with increased shortness of breath. She denied nausea, diaphoresis, headache, or vision changes. She was previously seen by Cardiology, Dr. Mandel, but has not followed up outpatient many years. During her last hospitalization, she was told that nothing surgical could be done for cardiac issues due to her comorbidities. She says she has not been taking her medications as prescribed except for her psych medications prescribed by [facility]. During hospital stay, the patient was aggressive and combative toward the nurses and did not want to cooperate with care. However, she eventually settled down. She denied any chest pain, shortness of breath, headache. Her vitals remained stable and she used her CPAP at night and chest pain resolved. Cardiology was consulted and helped medical team optimize medical control. Again the patient denied cath and likely this is not the best option given her many comorbidities. DISPOSITION: Stable. DISCHARGE INSTRUCTIONS: 1. Location: Home. 2. Diet: Diabetic diet, heart healthy diet. 3. Activity: Cardiopulmonary limits. 4. Followup with PCP, Dr. Herrera within a week, who can hopefully get patient set up with a rougher helper to regularly follow up with since she has not followed up with Dr. Mandel in many years. Job ID: [id number]
== END 2020-02-24 09:28 | disposition home or self-care (01) ==
LOC: ERS 07:18 → 2SE 09:34
PROVIDERS: ADMIT Family Medicine; ATTEND Family Medicine
DX: I21.A1 Myocardial infarction type 2 (principal); E66.01 Morbid (severe) obesity due to excess calories; J44.9 Chronic obstructive pulmonary disease, unspecified; E11.9 Type 2 diabetes mellitus without complications; I11.0 Hypertensive heart disease with heart failure; I50.30 Unspecified diastolic (congestive) heart failure; N17.9 Acute kidney failure, unspecified; I25.10 Atherosclerotic heart disease of native coronary artery without angina pectoris; E78.5 Hyperlipidemia, unspecified; F41.9 Anxiety disorder, unspecified; F31.9 Bipolar disorder, unspecified; F20.9 Schizophrenia, unspecified; F17.210 Nicotine dependence, cigarettes, uncomplicated; E89.0 Postprocedural hypothyroidism; G47.33 Obstructive sleep apnea (adult) (pediatric); Z68.45 Body mass index [BMI] 70 or greater, adult; Z79.4 Long term (current) use of insulin; Z79.82 Long term (current) use of aspirin; Z79.899 Other long term (current) drug therapy; Z88.8 Allergy status to other drugs, medicaments and biological substances; Z91.040 Latex allergy status; Z95.1 Presence of aortocoronary bypass graft; Z91.14 Patient's other noncompliance with medication regimen; Z21 Asymptomatic human immunodeficiency virus [HIV] infection status
CPT/HCPCS: 36415; 36416; 71045; 80048; 80053; 82550; 82553; 83880; 84484; 85025; 85520; 93005; 93010; 93306; 94660; 96372; G0378; J1650; J1815; J1940; Q0175

== ENCOUNTER 2020-02-27 00:49 | Inpatient (IN) | payer MEDICARE, OTHER ==
[2020-02-27 01:29] LABS: #Eosinphils 0.2 thou/uL (0.0-0.7); #Monocytes 0.6 thou/uL (0.11-0.59); #Neutrophils 8.3 thou/uL (1.40-6.50); %Basophils 0.1 % (0.0-1.0); %Eosinophils 1.5 % (0.0-10.0); %Lymphocytes 18.3 % (21.0-51.0); %Monocytes 5.7 % (0.0-10.0); %Neutrophils 74.4 % (42.0-75.0); Hemoglobin 11.3 g/dL (12.0-16.0); Mean Corpuscular HGB CONC 33.4 g/dL (32.0-36.0); Mean Corpuscular Hemoglobin 30.1 pg (27.0-31.0); Mean Corpuscular Volume 90.1 fL (78.0-98.0); Mean Platelet Volume 8.9 fL (7.4-10.4); Platelet Count 319 thou/uL (130-400); RBC Distribution Width 15.3 % (11.5-14.5); Red Blood Cell (RBC) Count 3.76 mill/uL (4.20-5.40); White Blood Cell (WBC) Count 11.2 thou/uL (4.8-10.8)
[2020-02-27 01:46] LABS: ALT (SGPT) 42 U/L (8-55); AST (SGOT) 31 U/L (5-34); Albumin 3.6 g/dL (3.5-5.0); Alkaline Phosphatase 284 U/L (40-110); Anion Gap 13 mmol/L (10-20); BUN (Urea Nitrogen) 38 mg/dL (7.0-18.7); Bilirubin, Total 0.2 mg/dL (0.2-1.2); Calc. Creatinine Clearance 0 mL/min (70-130); Calcium 9.2 mg/dL (7.8-10.44); Carbon Dioxide 31 mmol/L (22-29); Chloride 94 mmol/L (98-107); Estimated GFR-MDRD 32; Globulin 3.1 g/dL (2.4-3.5); Glucose 89 mg/dL (70-105); Potassium 5.2 mmol/L (3.5-5.1); Protein, Total 6.7 g/dL (6.0-8.3); Sodium 133 mmol/L (136-145)
[2020-02-27 01:51] LABS: Critical Call Chem Troponin I RESULT DECREASING
[2020-02-27 02:09] LABS: CKMB 3.6 ng/mL (0-6.6)
[2020-02-27] MEDS ORDERED: Ondansetron PF 4 MG/2 ML Vial IVP PRN (04:13)
[2020-02-27] MEDS ORDERED: Ondansetron ODT 4 MG TAB PO PRN (04:13)
[2020-02-27] MEDS ORDERED: Insulin Regular 300 UNITS/3 ML VIAL SC PRN (04:17)
[2020-02-27] MEDS ORDERED: Dextrose 50% Abboject 50 ML SYRINGE SLOW IVP PRN (04:17)
[2020-02-27] MEDS ORDERED: Dextrose 5% in Water 1,000 ML IV PRN (04:17)
--- NOTE | 2020-02-27 04:20 | PDOC.FPRHP ---
- History of Present Illness Chief Complaint: Generalized weakness History of Present Illness: Patient is a 49 year old female with a history of morbid obesity, CAD s/p 4 vessell cabg, HFpEF (50-55% on 02/22), COPD, and pulmonary HTN who presents to the ED with complains of generalized weakness resulting in inability to move. The patient was recently admitted on 02/20 for NSTEMI but left AMA that night. She returned to the ED on 02/21 and was discharged on 02/23. Cardiology was consulted during the admission. The patient says she has been weak since discharged home on 02/23. She reports a fall onto her knees with resulting scrapes. She reports worsening SOB this am but says she is now at baseline. Denies headache, vision changes, chest pain, nausea, diaphoresis, abdominal pain and worsening edema. Uses 2L O2 at home. ED Course: In the ED, D-dimer noted to be elevated at 0.64. US of lower extremity completed due to reported left leg edema, per ED physician is negative however official read pending. BP in 130s systolic. - Allergies/Adverse Reactions Allergies Allergy/AdvReac Type Severity Reaction Status Date / Time ziprasidone [From Geodon] Allergy Severe Anaphylaxis Verified 02/27/20 05:39 quetiapine [From Seroquel] Allergy Intermediate Verified 02/27/20 05:39 gabapentin Allergy Mild Anxiety Verified 02/27/20 05:39 latex Allergy Mild Rash Verified 02/27/20 05:39 - Home Medications Medication Instructions Recorded Confirmed Type Atorvastatin Calcium [Lipitor] 2 tab PO HS 04/12/19 02/27/20 History Carvedilol [Coreg] 3.125 mg PO BID 04/12/19 02/27/20 History Dolutegravir Sodium/Lamivudine 1 each PO DAILY 04/12/19 02/27/20 History [Dovato 50-300 mg Tablet] Ezetimibe [Zetia] 10 mg PO DAILY 04/12/19 02/27/20 History FLUoxetine HCl [Prozac] 3 cap PO DAILY 04/12/19 02/27/20 History HumaLOG [HumaLOG Vial] 75 unit SC TID-WM 04/12/19 02/27/20 History Insulin Degludec [Tresiba] 180 unit SQ DAILY 04/12/19 02/27/20 History Isosorbide Mononitrate [Imdur ER] 30 mg PO DAILY 04/12/19 02/27/20 History Lamotrigine [lamoTRIgine] 150 mg PO DAILY 04/12/19 02/27/20 History Levothyroxine Sodium 250 mcg PO DAILY 04/12/19 02/27/20 History Mirtazapine 45 mg PO HS 04/12/19 02/27/20 History Perphenazine [Trilafon] 16 mg PO HS 04/12/19 02/27/20 History Zolpidem Tartrate [Ambien] 10 mg PO HS 04/12/19 02/27/20 History clonazePAM [Clonazepam] 0.5 mg PO BID 04/12/19 02/27/20 History traMADol HCl [Tramadol HCl] 50 mg PO BID PRN 04/12/19 02/27/20 History Furosemide [Lasix] 20 mg PO DAILY 11/28/19 02/27/20 History Aspirin [Ecotrin Low Strength] 81 mg PO DAILY #30 tab 01/16/20 02/27/20 Rx Lisinopril 10 mg PO BID #60 tablet 01/17/20 02/27/20 Rx Ranolazine [Ranexa] 500 mg PO BID #60 tab 01/17/20 02/27/20 Rx - History PMHx: COPD, DMII, pulmonary HTN, HIV, HLD, HTN, CAD, substance abuse, anxiety/depression, thyroid cancer, bipolar disorder, schizophrenia PSHx: thyroidectomy, cholecystectomy, orthopedic surgery, CABG X4, 2C/S, hysterectomy, R breast biopsy FHx: CAD, multiple family members with AL in their 60s, Colon cancer Social: Previous meth user, smokes 0.5ppd, denies etoh use - Review of Systems General: reports: fatigue. denies: fever/chills Eyes: denies: eye pain, vision changes ENT: denies: nasal congestion, rhinorrhea Respiratory: reports: shortness of breath (this am, now at baseline). denies: cough, congestion Cardiovascular: denies: chest pain, palpitation, edema Gastrointestinal: denies: nausea, vomiting, abdominal pain Genitourinary: reports: dysuria Skin: denies: rashes, jaundice Musculoskeletal: denies: pain, tenderness Neurological: reports: weakness (generalized). denies: numbness, syncope Psychological: denies: anxiety, depression - Vital signs BP: [134/67] HR: [74] RR: [15] Tmax: [97.6F] Pox: [96]% on [4L] Wt: [187kg] - Physical Exam Constitutional: NAD, awake, alert and oriented -Constitutional: Morbidly obese HEENT: normocephalic and atraumatic, no scleral icterus, MMM Neck: FROM, trachea midline Chest: no-tender to palpation Heart: RRR, no murmurs/rubs/gallops -Heart: Difficult to auscultate due to body habitus. 2+ pitting edema to knee bilaterally. Lungs: CTAB, no respiratory distress -Lungs: Difficult to auscultate due to body habitus Abdomen: soft, non-tender, bowel sounds present Musculoskeletal: normal structure Neurological: normal sensation -Neurological: Strength 4/5 bilateral lower extremities, chronic left foot drop Skin: no rash/lesions, no jaundice -Skin: Abrasion to knee bilaterally Heme/Lymphatic: no unusual bruising or bleeding Psychiatric: normal mood and affect FMR H&P: Results - Labs Result Diagrams: 02/27/20 01:18 02/27/20 09:51 Lab results: WBC 11.2 thou/uL (4.8-10.8) H 02/27/20 01:18 Hgb 11.3 g/dL (12.0-16.0) L 02/27/20 01:18 Hct 33.9 % (36.0-47.0) L 02/27/20 01:18 MCV 90.1 fL (78.0-98.0) 02/27/20 01:18 Plt Count 319 thou/uL (130-400) 02/27/20 01:18 Neutrophils % 74.4 % (42.0-75.0) 02/27/20 01:18 Sodium 133 mmol/L (136-145) L 02/27/20 01:18 Potassium 5.2 mmol/L (3.5-5.1) H 02/27/20 01:18 Chloride 94 mmol/L (98-107) L 02/27/20 01:18 Carbon Dioxide 31 mmol/L (22-29) H 02/27/20 01:18 BUN 38 mg/dL (7.0-18.7) H 02/27/20 01:18 Creatinine 1.71 mg/dL (0.6-1.1) H 02/27/20 01:18 Glucose 89 mg/dL (70-105) 02/27/20 01:18 Lactic Acid 0.8 mmol/L (0.5-2.2) 02/27/20 01:18 Calcium 9.2 mg/dL (7.8-10.44) 02/27/20 01:18 Total Bilirubin 0.2 mg/dL (0.2-1.2) 02/27/20 01:18 AST 31 U/L (5-34) 02/27/20 01:18 ALT 42 U/L (8-55) 02/27/20 01:18 Alkaline Phosphatase 284 U/L (40-110) H 02/27/20 01:18 CK-MB (CK-2) 3.6 ng/mL (0-6.6) 02/27/20 01:18 B-Natriuretic Peptide 354.1 pg/mL (0-100) H 02/27/20 01:18 Serum Total Protein 6.7 g/dL (6.0-8.3) 02/27/20 01:18 Albumin 3.6 g/dL (3.5-5.0) 02/27/20 01:18 - EKG Interpretation EKG: HR 73, NSR FMR H&P: A/P - Plan Possible HFpEF exacerbation CXR showed cardiomegaly with pulmonary congestion, possibly worsened vs. CXR last admission. Recent echo completed 02/22 showed EF 50-55% with 2/3 diastolic dysfunction. -Admit tele obs for continuous monitoring -Strict I&Os -Order BNP -F/u offical CXR read -Increase home lasix 20mg to 40mg daily -Wean O2 as tolerated with sats > 88%. Currently on 4L. -Continue home medications Elevated troponin CAD s/p cabg Trop 0.46, however decreased from last admission for NSTEMI (0.931 -> 0.799 -> 0.685). Denies CP. -Per cards rec during previous admission, medical management only -EKG shows no ST segment changes -Continue home meds Elevated d-dimer D-dimer was 0.64 in ED. -F/u LE doppler offical read, reportedly negative per ED physician PEACE Cr 1.71 on admission, baseline ~ Cr 1.0 -Order UA to further evaluate Hyperkalemia 5.2 in ED. Previous admission was 5.3. -Monitor with am labs IDDM2 - Hx uncontrolled IDDM2 - Continue home meds - SSI HTN -Continue home meds HIV -Continue home meds HLD -Continue home meds Hypothyroidism 2/2 thyroidectomy -Continue levothyroxine Bipolar disorder Anxiety Schizophrenia -Medications managed by [facility] -Continue home meds Tobacco use -Nicotine patch -Encourage smoking cessation Hx methamphetamine use -Encourage continued sobriety COPD -Continue home meds Morbid obesity -Aware LAZARA -Cpap at night PPX: Lovenox Code Status: Intubate only PCP: Javier Dispo: admit to tele inpatient, expected LOS > 48 hours FMR H&P: Upper Level - Plan Date/Time: 02/27/20419 IHelen, have evaluated this patient and agree with findings/plan as outlined by business development intern resident. Pertinent changes/additions are listed here. 49 yo F with significant CAD presents for generalized weakness. Reports weakness present since discharge but especially on Tuesday when she fell a reported 5 times. No head trauma. Since then she has not fallen. She has been laying in bed. Reports generalized weakness and pains in her hips, back, legs. Denies new chest pain. Reports SOB that is at baseline. Has had normal PO intake. ROS otherwise pretty negative. Chart reviewed: patient with hx CABG x4 vessels 2014 with all bypasses failed, not surgical candidate and medical management only recommended. Last cath 01/2019. most recent echo 01/2020 with EF 50-55%, 2/3 diastolic dysfunciton Also hx pulmonary HTN, morbid obesity, CAD, current smoker, prior meth user, h ypothyroid PE: Gen: NAD HEENT: Moist MM Heart: RRR, no murmurs or extra sounds Lungs: CTAB, No increased work of breathing, difficult exam Abd: soft, nontender Ext: 2+ pitting edema BLE, L foot drop, 4/5 strength BLE Elevated troponin - Initial troponin 0.46, this is decreased compared to recent discharge. At that time plan was for medical management alone and no cath done. Will delta trop. No chest pain. - EKG without ST changes HFpEF, possibly in exacerbation -CXR with cardiomegaly, pulm vasc congestion, effusion, potentially worsened compared to prior. Official read pending. - ECHO 01/2020 EF 50-55%, 2/3 diastolic dysfunction - Monitor strict I/Os - BNP ordered - Requiring 4-5L in ED (baseline is 2L) PEACE - Cr 1.71 on admission, prior Cr 1.0 - Will get UA, Feurea to further evaluate Hyperkalemia - 5.2, recheck in am. Was similar on previous admission Elevated d-dimer - 0.64, had LE doppler completed, reportedly negative but read not resulted PCP: ARTHUR Attending: Lynn Dispo: admit for observation, monitor on telemetry Addendum - Attending - Attending Attestation Date/Time: 02/27/20 7503 I personally evaluated the patient and discussed the management with Dr. Munoz/Isabelle. I agree with the History, Examination, Assessment and Plan documented above with any addition or exceptions noted below.
[2020-02-27 05:08] LABS: Critical Call Chem Troponin I RESULT DECREASING; Troponin I 0.446 ng/mL (< 0.028)
[2020-02-27 05:34] VITALS: BMI 68.5
[2020-02-27 05:36] LABS: Bacteria/HPF 1+ HPF (None Seen); Bilirubin Negative (Negative); Blood, Urine Negative (Negative); Clarity Turbid (Clear); Glucose, Urine (Dipstick) Normal (Negative); Ketone, Urine Negative (Negative); Leukocyte 250 Leu/uL (Negative); Nitrite 2+ (Negative); Protein, Urine (Dipstick) 50 mg/dL (Neg-Trace); RBC/HPF 0-3 HPF (0-3); Specific Gravity, Urine 1.012 (1.002-1.036); Squamous Epithelial 0-3 HPF (0-3); Urobilinogen Normal mg/dL (Less than 2); WBC/HPF 21-50 HPF (0-3)
[2020-02-27] MEDS: Levothyroxine Sodium 125 MCG TAB PO SCH (06:22)
--- NOTE | 2020-02-27 07:40 | ULT ---
PRELIMINARY REPORT/[facility]/EMERGENCY AFTER HOURS PROCEDURE EXAM: US Duplex left Lower Extremity Veins. CLINICAL HISTORY: LLE pain/edema TECHNIQUE: Real-time ultrasound scan of the veins of the left lower extremity with color Doppler flow, spectral waveform analysis and compression. COMPARISON: None provided. FINDINGS: DEEP VEINS: The femoral, and popliteal veins are echolucent and compressible. These vessels demonstrate respirato ry variation and augmentation. There is normal color Doppler flow throughout. The visualized calf veins are also patent. The common femoral vein could not be visualized due to the patient's body hab itus. SUPERFICIAL VEINS: The visualized greater saphenous vein is patent. SOFT TISSUES: No popliteal fossa cyst or other abnormalities. IMPRESSION: No deep venous thrombosis in the left lower extremity. ELECTRONICALLY SIGNED BY: Maxi Melton MD Feb 27, 2020 2:50:37 AM CDT This report is intended for review by the ordering physician only, in accordance of law. If you recei ve this report in error, please call [facility] at [phone]. FINAL REPORT LEFT LOWER EXTREMITY VENOUS DOPPLER ULTRASOUND: 02/27/2020 HISTORY: Edema, pain, swelling, assess for DVT. FINDINGS: Detailed assessment of the venous structures of the left lower extremity limited secondary to body cherry bitus. The common femoral vein and the profunda femoral vein could not be assessed/visualized secondary to body habitus. Visualized venous structures are assessed with Doppler interrogation inclu ding color flow and spectral analysis. The femoral vein, profunda femoral vein, popliteal vein, and posterior tibial vein are patent. IMPRESSION: Limited assessment of the left lower extremity venous structures. No evidence for deep venous thrombo sis. This report is in agreement with the preliminary report by [facility]. Transcribed Date/Time: 02/27/2020 8:11 AM
--- NOTE | 2020-02-27 07:53 | RAD ---
EXAM: CHEST ONE VIEW HISTORY: Shortness of breath. Weakness. COMPARISON: 02/22/2020 FINDINGS: Postoperative changes related to median sternotomy are noted. Cardiac silhouette remains enlarged. Th ere is pulmonary vascular congestion. No consolidation or pleural fluid is appreciated. Probable mild atelectasis in the left midlung zone. No other interval change. IMPRESSION: Cardiomegaly and pulmonary vascular congestion suggesting CHF.
[2020-02-27] MEDS: lamoTRIgine 100 MG TAB PO SCH (08:51)
[2020-02-27] MEDS: Lisinopril 10 MG TAB PO SCH ×2 (08:52→21:39)
[2020-02-27] MEDS: Ezetimibe 10 MG TAB PO SCH (08:52)
[2020-02-27] MEDS: Aspirin 81 mg Enteric Coated Tablet PO SCH (08:52)
[2020-02-27] MEDS: Enoxaparin Sodium 40 MG/0.4 ML SYRINGE SC SCH (08:55)
[2020-02-27] MEDS: FLUoxetine HCl 20 MG CAP PO SCH (08:55)
[2020-02-27] MEDS: Carvedilol 3.125 MG TAB PO SCH ×2 (08:55→23:24)
[2020-02-27] MEDS: Nicotine 21 MG PATCH TD SCH (08:56)
[2020-02-27] MEDS ORDERED: DOVATO PO SCH (09:00)
[2020-02-27] MEDS ORDERED: Non-Formulary Item 1 EACH (Insulin Degludec [Tresiba] 100 UNIT/ML Vial) SQ SCH (09:00)
[2020-02-27] MEDS ORDERED: INSULIN GLARGINE SC SCH (09:00)
[2020-02-27] MEDS ORDERED: Furosemide 20 MG TAB PO SCH (09:00)
[2020-02-27] MEDS ORDERED: Furosemide 40 MG/4 ML VIAL SLOW IVP SCH (09:00)
[2020-02-27] MEDS ORDERED: PRE FILLED SC SCH (09:00)
[2020-02-27] MEDS: HumaLOG 300 UNITS/3 ML VIAL SC SCH ×3 (10:05→18:22)
[2020-02-27 10:27] LABS: Anion Gap 17 mmol/L (10-20); BUN (Urea Nitrogen) 34 mg/dL (7.0-18.7); Calc. Creatinine Clearance 134 mL/min (70-130); Calcium 9.1 mg/dL (7.8-10.44); Carbon Dioxide 27 mmol/L (22-29); Chloride 97 mmol/L (98-107); Estimated GFR-MDRD 37; Glucose 103 mg/dL (70-105); Potassium 5.4 mmol/L (3.5-5.1); Sodium 136 mmol/L (136-145)
[2020-02-27 10:38] LABS: SARS-CoV-2 MS2 Positive; SARS-CoV-2 N Gene Negative; SARS-CoV-2 S Gene Negative; SARS-CoV-2 by NAA Not Detected (NotDetected); SARS-CoV-2 orf1ab Negative
--- NOTE | 2020-02-27 11:16 | PQF ---
CLINICAL DOCUMENTATION CLARIFICATION FORM: Dear Dr. Grossman Date: 02/27/20 Please exercise your independent, professional judgment in responding to the clarification form. Clinical indicators are provided on the bottom of this form for your review. Please check appropriate box(es): HEART FAILURE: A. ACUITY [ ] Acute [ X ] Acute on Chronic [ ] Chronic B. TYPE: [ ] Systolic / HFrEF [ X ] Diastolic / HFpEF [ ] Combined Systolic / Diastolic [ ] Hypertensive Heart and Kidney disease [ ] Hypertensive Heart Disease [ ] Hypertensive Kidney Disease [ ] Other diagnosis [ ] Unable to determine In addition, please specify: Present on Admission (POA): [ X ] Yes [ ] No [ ] Unable to determine For continuity of documentation, please document condition throughout progress notes and discharge summary. Thank You. To be completed by CDI/Coding staff for physician review: CLINICAL INDICATORS - SIGNS / SYMPTOMS / LABS / RESULTS AND LOCATION IN EMR H&P: "HFpEF, POSSIBLY IN EXACERBATION" "ECHO 01/2020 EF 50-55%, 2/3 DIASTOLIC DYSFUNCTION" ER NOTE: "WHEEZING PRESENT TO THE LEFT UPPER LOBE, TO THE RIGHT UPPER LOBE. BREATH SOUNDS DIMINISHED, TO THE LEFT LOWER, TO THE RIGHT LOWER LOBE." "PITTING EDEMA LEFT LOWER EXTREMITY" NURSE NOTE 02/26: "INSPIRATORY AND EXPIRATORY CRACKLES" BNP 354.1 RISKS FACTORS / RESULTS AND LOCATION IN EMR RISKS: PULMONARY VASCULAR CONGESTION (H&P- RAJENDRA) PEACE (H&P- RAJENDRA) TREATMENTS / RESULTS AND LOCATION IN EMR TREATMENT: LASIX IV X 1 SUPPLEMENTAL OXYGEN (5 L REQUIRED IN ER-BASELINE IS 2L) CARVEDILOL (02/26- Jun) LISINOPRIL (02/26-Jun) IMDUR(Jun) CDS Signature: Valarie Yuen RN Phone #: [phone] Date: 08/28/19 This is a permanent part of the Medical Record [facility]
[2020-02-27] MEDS: traMADol HCl 50 MG TAB PO PRN (12:05)
[2020-02-27] MEDS: Perphenazine 2 MG TAB PO SCH (21:27)
[2020-02-27] MEDS: Atorvastatin Calcium 40 MG TAB PO SCH (21:28)
[2020-02-27] MEDS: Zolpidem Tartrate 5 MG TAB PO SCH (21:29)
[2020-02-27] MEDS: Mirtazapine 15 MG TAB PO SCH (21:29)
[2020-02-27] MEDS: Acetaminophen 325 MG TAB PO PRN (21:29)
[2020-02-28] MEDS: traMADol HCl 50 MG TAB PO PRN ×2 (03:47→20:50)
[2020-02-28 05:26] LABS: ALT (SGPT) 26 U/L (8-55); AST (SGOT) 14 U/L (5-34); Albumin 3.1 g/dL (3.5-5.0); Alkaline Phosphatase 229 U/L (40-110); Anion Gap 16 mmol/L (10-20); BUN (Urea Nitrogen) 33 mg/dL (7.0-18.7); Bilirubin, Total 0.3 mg/dL (0.2-1.2); Calc. Creatinine Clearance 156 mL/min (70-130); Calcium 8.6 mg/dL (7.8-10.44); Carbon Dioxide 23 mmol/L (22-29); Chloride 99 mmol/L (98-107); Estimated GFR-MDRD 44; Globulin 2.8 g/dL (2.4-3.5); Glucose 135 mg/dL (70-105); Potassium 4.9 mmol/L (3.5-5.1); Protein, Total 5.9 g/dL (6.0-8.3); Sodium 133 mmol/L (136-145)
[2020-02-28] MEDS: Levothyroxine Sodium 125 MCG TAB PO SCH (07:29)
--- NOTE | 2020-02-28 07:58 | PDOC.FM ---
- Subjective Subjective: Pt is doing well. She has no complaints. She attempted to sneak her norco, benzodiazepine into the hospital. She diuresed 1 L overnight. She denies fever, chills. Endorsed LE edema. - Objective Vital Signs & Weight: Vital Signs (12 hours) Temp Pulse Resp BP BP BP Pulse Ox 02/28/20 07:46 95 02/28/20 04:00 97.7 F 73 14 111/56 L 95 02/28/20 02:23 94 L 02/28/20 00:00 97.7 F 75 13 117/47 L 94 L 02/27/20 22:31 93 L 02/27/20 21:39 100/46 L 100/46 L 02/27/20 21:18 98.1 F 75 14 92/55 L 93 L Weight Weight 186.9 kg I&O: 02/27/20 02/28/20 02/29/20 06:59 06:59 06:59 Intake Total 250 580 Output Total 400 1650 Balance -150 -1070 Result Diagrams: 02/28/20 04:40 02/28/20 04:40 Phys Exam - Physical Examination Constitutional: NAD HEENT: PERRLA, moist MMs Respiratory: no wheezing, clear to auscultation bilateral could not appreciate all lung bowers due to size Cardiovascular: RRR, no significant murmur Gastrointestinal: soft, non-tender Musculoskeletal: pulses present 2+ pitting edema Neurological: non-focal, normal sensation Dx/Plan - Plan Plan: Possible HFpEF exacerbation - Continue IV lasix Elevated troponin CAD s/p cabg Trop 0.46, however decreased from last admission for NSTEMI (0.931 -> 0.799 -> 0.685). Denies CP. -Per cards rec during previous admission, medical management only -EKG shows no ST segment changes -Continue home meds Elevated d-dimer D-dimer was 0.64 in ED. -F/u LE doppler offical read, reportedly negative per ED physician PEACE Improved with diuresis Hyperkalemia -monitor IDDM2 - Hx uncontrolled IDDM2 - Continue home meds - SSI HTN -Continue home meds HIV -Continue home meds HLD -Continue home meds Hypothyroidism 2/2 thyroidectomy -Continue levothyroxine Bipolar disorder Anxiety Schizophrenia -Medications managed by [facility] -Continue home meds Tobacco use -Nicotine patch -Encourage smoking cessation Hx methamphetamine use -Encourage continued sobriety COPD -Continue home meds Morbid obesity -Aware LAZARA -Cpap at night PPX: Lovenox Code Status: Intubate only PCP: Javier Dispo: admit to tele inpatient, expected LOS > 48 hours Addendum - Attending - Attending Attestation Date/Time: 02/28/20 9251 I personally evaluated the patient and discussed the management with Dr. Mildred bucio. I agree with the History, Examination, Assessment and Plan documented above with any addition or exceptions noted below.
[2020-02-28 08:06] LABS: Band 2 % (5-11); Hemoglobin 10.7 g/dL (12.0-16.0); Hypochromia SLIGHT = 6-15 cells (100X) (0-5/hpf); Lymphocytes 17 % (21-51); MDiff Complete? YES; Mean Corpuscular HGB CONC 31.1 g/dL (32.0-36.0); Mean Corpuscular Hemoglobin 28.3 pg (27.0-31.0); Mean Corpuscular Volume 91.2 fL (78.0-98.0); Mean Platelet Volume 9.8 fL (7.4-10.4); Monocytes 8 % (0-10); Neutrophil 73 % (42-75); Platelet Count 212 thou/uL (130-400); Platelet Morphology Comment Appears Adequate; RBC Distribution Width 15.7 % (11.5-14.5); Red Blood Cell (RBC) Count 3.78 mill/uL (4.20-5.40); White Blood Cell (WBC) Count 8.7 thou/uL (4.8-10.8)
[2020-02-28] MEDS: HumaLOG 300 UNITS/3 ML VIAL SC SCH ×3 (09:35→16:43)
[2020-02-28] MEDS: Insulin Glargine 60 UNITS in Pre-Filled Syringe 1 EACH SC SCH ×3 (09:36)
[2020-02-28] MEDS: Nicotine 21 MG PATCH TD SCH (09:41)
[2020-02-28] MEDS: Aspirin 81 mg Enteric Coated Tablet PO SCH (09:41)
[2020-02-28] MEDS: Carvedilol 3.125 MG TAB PO SCH ×2 (09:41→20:50)
[2020-02-28] MEDS: Ezetimibe 10 MG TAB PO SCH (09:41)
[2020-02-28] MEDS: Enoxaparin Sodium 40 MG/0.4 ML SYRINGE SC SCH (09:41)
[2020-02-28] MEDS: Furosemide 40 MG/4 ML VIAL SLOW IVP SCH (09:41)
[2020-02-28] MEDS: FLUoxetine HCl 20 MG CAP PO SCH (09:41)
[2020-02-28] MEDS: lamoTRIgine 100 MG TAB PO SCH (09:42)
[2020-02-28] MEDS: Acetaminophen 325 MG TAB PO PRN (09:43)
[2020-02-28] MEDS: Lisinopril 10 MG TAB PO SCH ×2 (09:43→20:50)
[2020-02-28] MEDS ORDERED: Furosemide 20 MG/2 ML VIAL SLOW IVP SCH (15:00)
[2020-02-28] MEDS: Mirtazapine 15 MG TAB PO SCH (20:49)
[2020-02-28] MEDS: Atorvastatin Calcium 40 MG TAB PO SCH (20:49)
[2020-02-28] MEDS: Zolpidem Tartrate 5 MG TAB PO SCH (20:50)
[2020-02-28] MEDS: Perphenazine 2 MG TAB PO SCH (20:51)
[2020-02-29 05:17] LABS: #Eosinphils 0.1 thou/uL (0.0-0.7); #Lymphocytes 1.6 thou/uL (1.20-3.40); #Monocytes 0.7 thou/uL (0.11-0.59); #Neutrophils 7.1 thou/uL (1.40-6.50); %Basophils 0.2 % (0.0-1.0); %Eosinophils 0.7 % (0.0-10.0); %Lymphocytes 16.9 % (21.0-51.0); %Monocytes 7.5 % (0.0-10.0); %Neutrophils 74.7 % (42.0-75.0); Hemoglobin 10.4 g/dL (12.0-16.0); Mean Corpuscular HGB CONC 31.9 g/dL (32.0-36.0); Mean Corpuscular Hemoglobin 28.8 pg (27.0-31.0); Mean Corpuscular Volume 90.1 fL (78.0-98.0); Mean Platelet Volume 8.7 fL (7.4-10.4); Platelet Count 319 thou/uL (130-400); RBC Distribution Width 15.8 % (11.5-14.5); Red Blood Cell (RBC) Count 3.62 mill/uL (4.20-5.40); White Blood Cell (WBC) Count 9.5 thou/uL (4.8-10.8)
[2020-02-29 05:23] LABS: ALT (SGPT) 23 U/L (8-55); AST (SGOT) 15 U/L (5-34); Albumin 3.3 g/dL (3.5-5.0); Alkaline Phosphatase 242 U/L (40-110); Anion Gap 14 mmol/L (10-20); BUN (Urea Nitrogen) 24 mg/dL (7.0-18.7); Bilirubin, Total 0.2 mg/dL (0.2-1.2); Calc. Creatinine Clearance 199 mL/min (70-130); Calcium 8.9 mg/dL (7.8-10.44); Carbon Dioxide 31 mmol/L (22-29); Chloride 96 mmol/L (98-107); Estimated GFR-MDRD 58; Globulin 2.7 g/dL (2.4-3.5); Glucose 204 mg/dL (70-105); Potassium 4.4 mmol/L (3.5-5.1); Sodium 137 mmol/L (136-145)
[2020-02-29] MEDS: HumaLOG 300 UNITS/3 ML VIAL SC PRN ×2 (05:41→12:54)
[2020-02-29] MEDS: Levothyroxine Sodium 125 MCG TAB PO SCH (05:41)
--- NOTE | 2020-02-29 06:25 | PDOC.FM ---
- Subjective Subjective: Pt is doing well today. She denies any complaints. She states her breathing has improved. She thinks her legs are decreased in size but L > R as when she presented. She brought her HIV medication. - Objective Vital Signs & Weight: Vital Signs (12 hours) Temp Pulse Resp BP BP Pulse Ox 02/29/20 04:00 98.4 F 102 H 20 140/63 97 02/29/20 01:46 91 L 02/28/20 20:00 96.8 F L 77 20 140/63 Weight Weight 186.9 kg I&O: 02/27/20 02/28/20 02/29/20 06:59 06:59 06:59 Intake Total 250 580 300 Output Total 400 1650 1650 Balance -150 -1070 -1350 Result Diagrams: 02/29/20 04:31 02/29/20 04:31 Phys Exam - Physical Examination Constitutional: NAD HEENT: PERRLA, sclera anicteric Neck: no JVD, full ROM Respiratory: no wheezing, no rales, no rhonchi, clear to auscultation bilateral Cardiovascular: RRR, no significant murmur Gastrointestinal: soft, positive bowel sounds Musculoskeletal: pulses present trace pitting edema to L foot Neurological: non-focal, normal sensation Psychiatric: normal affect, A&O x 3 Dx/Plan - Plan Plan: HFpEF exacerbation - Continue IV lasix, pt at baseline. Will discuss d/c today. Elevated troponin CAD s/p cabg Trop 0.46, however decreased from last admission for NSTEMI (0.931 -> 0.799 -> 0.685). Denies CP. -Per cards rec during previous admission, medical management only -EKG shows no ST segment changes -Continue home meds Elevated d-dimer D-dimer was 0.64 in ED. -doppler negative PEACE Improved with diuresis - returning to baseline 0.8. Hyperkalemia -monitor IDDM2 - non compliant - Hx uncontrolled IDDM2 - Continue home meds - SSI HTN -Continue home meds HIV -Continue home meds; discussed with pharmacy pt brought meds and will need them administered today. HLD -Continue home meds Hypothyroidism 2/2 thyroidectomy -Continue levothyroxine Bipolar disorder Anxiety Schizophrenia -Medications managed by [facility] -Continue home meds Tobacco use -Nicotine patch -Encourage smoking cessation in the setting of NSTEMI. Discussed case with p juan pablo team. Hx methamphetamine use -Encourage continued sobriety COPD -Continue home meds Morbid obesity -Aware LAZARA -Cpap at night PPX: Lovenox Code Status: Intubate only PCP: Javier Dispo: hopeful discharge today. Addendum - Attending - Attending Attestation Date/Time: 02/29/20 1290 I personally evaluated the patient and discussed the management with Dr. Villela. I agree with the History, Examination, Assessment and Plan documented above with any addition or exceptions noted below. Patient overall stable and feels back to baseline. She is stable for discharge from a respiratory and cardiac standpoint. She is high risk for recurrent admissions and complications due to her sedentary lifestyle, med noncompliance, and obesity.
[2020-02-29] MEDS: Ezetimibe 10 MG TAB PO SCH (08:43)
[2020-02-29] MEDS: traMADol HCl 50 MG TAB PO PRN (08:43)
[2020-02-29] MEDS: Aspirin 81 mg Enteric Coated Tablet PO SCH (08:43)
[2020-02-29] MEDS: lamoTRIgine 100 MG TAB PO SCH (08:44)
[2020-02-29] MEDS: Lisinopril 10 MG TAB PO SCH (08:44)
[2020-02-29] MEDS: Nicotine 21 MG PATCH TD SCH (08:45)
[2020-02-29] MEDS: Carvedilol 3.125 MG TAB PO SCH (08:45)
[2020-02-29] MEDS: Furosemide 40 MG/4 ML VIAL SLOW IVP SCH (08:45)
[2020-02-29] MEDS: FLUoxetine HCl 20 MG CAP PO SCH (08:45)
[2020-02-29] MEDS: Enoxaparin Sodium 40 MG/0.4 ML SYRINGE SC SCH (08:45)
[2020-02-29] MEDS: HumaLOG 300 UNITS/3 ML VIAL SC SCH ×2 (10:30→12:46)
[2020-02-29] MEDS: Insulin Glargine 60 UNITS in Pre-Filled Syringe 1 EACH SC SCH ×2 (10:34→10:35)
[2020-02-29 11:44] VITALS: BP 124/71; TEMP 98.2
[2020-02-29] MEDS ORDERED: Insulin Glargine 45 UNITS in Pre-Filled Syringe 1 EACH SC SCH ×2 (12:30→13:00)
[2020-02-29] MEDS: Insulin Glargine 90 UNITS in Pre-Filled Syringe 1 EACH SC SCH ×2 (12:48→14:25)
[2020-02-29] MEDS ORDERED: GENVOYA PO SCH (13:30)
--- NOTE | 2020-02-29 19:05 | DIS ---
DATE OF ADMISSION: 02/27/2020 DATE OF DISCHARGE: 02/29/2020 RESIDENT: Lizandro Villela DO ADMITTING ATTENDING: Kimberly Whitehead MD DISCHARGE ATTENDING: Curry Villavicencio MD CONSULTS: None. PROCEDURES: 1. Chest x-ray on 02/27/2020, revealed cardiomegaly and pulmonary vascular congestion suggesting CHF. 2. Vascular ultrasound on 02/27/2020, revealed no evidence of a DVT. PRIMARY DIAGNOSES: 1. Heart failure preserved ejection fraction exacerbation. 2. Elevated troponins in the setting of prior non-ST elevation myocardial infarction. 3. Elevated D-dimer. 4. Acute kidney injury. 5. Elevated potassium. 6. Uncontrolled insulin-dependent type 2 diabetes. SECONDARY DIAGNOSES: 1. Hypertension. 2. Human immunodeficiency virus. 3. Hyperlipidemia. 4. Hypothyroidism. 5. Bipolar disorder. 6. Anxiety. 7. Schizophrenia. 8. Tobacco abuse. 9. History of methamphetamine use. 10. Chronic obstructive pulmonary disease. 11. Morbid obesity. 12. Obstructive sleep apnea. DISCHARGE MEDICATIONS: 1. Levothyroxine 250 mcg p.o. daily. 2. Mirtazapine 45 mg p.o. at night. 3. Fluoxetine 60 mg p.o. daily. 4. Clonazepam 0.5 mg p.o. b.i.d. 5. Tramadol 50 mg p.o. b.i.d. p.r.n. pain. 6. Imdur extended release 30 mg p.o. daily. 7. Zetia 10 mg p.o. daily. 8. Coreg 3.125 mg p.o. b.i.d. 9. Atorvastatin 80 mg p.o. at bedtime. 10. Lamotrigine 150 mg p.o. daily. 11. Zolpidem 10 mg p.o. at night. 12. Trilafon 60 mg p.o. at night. 13. Humalog 75 units subcu t.i.d. with meals. 14. Tresiba 180 units subcu daily. 15. Furosemide 20 mg p.o. daily. 16. Aspirin 81 mg p.o. daily. 17. Lisinopril 80 mg p.o. b.i.d. 18. Ranexa 500 mg p.o. b.i.d. 19. Genvoya one tablet p.o. daily. DISCONTINUED MEDICATIONS: None. HISTORY OF PRESENT ILLNESS/HOSPITAL COURSE: Lindsay Obrien is a 49-year-old female with an extensive past medical history including heart failure preserved ejection fraction, who presented with shortness of breath. She was noted to have congestion on her chest x-ray and lower extremity swelling. Her BNP was elevated to 354. We started the patient on Lasix 40 mg IV daily. She also had an PEACE secondary to the CHF. Her creatinine was elevated 1.71 in her baseline and is anywhere from 0.8 to 1. With aggressive diuresis, the patient was able to remove few liters of fluid and her creatinine returned to baseline of 1.01 on discharge. Of note, she also required up to 4 L of oxygen at rest, but at the time of discharge each time I saw her, she had no oxygen on. She was saturating greater than 88%, which is acceptable in the setting of COPD. She was also using her CPAP machine for most of the day, which she states she uses even throughout the day at home. She states this makes her feel better. Of note, the patient is likely noncompliant as she is on high amounts of insulin and levothyroxine. While she was here, she did not require all of her home insulin likely secondary to this noncompliance. This needs to be discussed in the outpatient setting as I am sure it has been. She did miss an office visit with Dr. Sellers and with [facility]. I discussed with her before discharge that she should reschedule both of these for next week. Of note, her previous A1c was 9.7 in December. COVID not detected. Ultrasound of her lower extremity was performed due to her left leg being slightly larger than the right. No DVT was found. She also had an elevated D-dimer at 0.64. She was also recently discharged from the hospital with an NSTEMI. She wanted medical management for this. She needs to follow up with Cardiology as well. DISPOSITION: Stable. DISCHARGE INSTRUCTIONS: 1. Location: [facility]. 2. Diet: Heart healthy, diabetic diet. 3. Activity: Ad lynn. 4. Followup: a. Follow up with Dr. Sellers within 1 week. b. Follow up with [facility] within 1 week. c. Follow up with Cardiology. Job ID: [id number] [facility]irk
== END 2020-02-29 15:42 | disposition home or self-care (01) | DRG 280 ==
LOC: ERS 00:49 → 2SE 03:28
PROVIDERS: ADMIT Student in an Organized Health Care Education/Training Program; ATTEND Student in an Organized Health Care Education/Training Program
PROC: 5A09457 Assistance with Respiratory Ventilation, 24-96 Consecutive Hours, Continuous Positive Airway Pressure (ICD-10-PCS; principal; 2020-02-28)
DX: I13.2 Hypertensive heart and chronic kidney disease with heart failure and with stage 5 chronic kidney disease, or end stage renal disease (principal); I21.4 Non-ST elevation (NSTEMI) myocardial infarction; I50.33 Acute on chronic diastolic (congestive) heart failure; N17.9 Acute kidney failure, unspecified; Z68.44 Body mass index [BMI] 60.0-69.9, adult; E03.9 Hypothyroidism, unspecified; F31.9 Bipolar disorder, unspecified; F41.9 Anxiety disorder, unspecified; F20.9 Schizophrenia, unspecified; E87.5 Hyperkalemia; J44.9 Chronic obstructive pulmonary disease, unspecified; Z21 Asymptomatic human immunodeficiency virus [HIV] infection status; E78.5 Hyperlipidemia, unspecified; G47.33 Obstructive sleep apnea (adult) (pediatric); E66.01 Morbid (severe) obesity due to excess calories; I25.10 Atherosclerotic heart disease of native coronary artery without angina pectoris; E11.22 Type 2 diabetes mellitus with diabetic chronic kidney disease; N18.9 Chronic kidney disease, unspecified; E89.0 Postprocedural hypothyroidism; Z20.828 Contact with and (suspected) exposure to other viral communicable diseases; Z79.4 Long term (current) use of insulin; Z86.73 Personal history of transient ischemic attack (TIA), and cerebral infarction without residual deficits; I25.2 Old myocardial infarction; Z90.49 Acquired absence of other specified parts of digestive tract; Z95.1 Presence of aortocoronary bypass graft; Z90.710 Acquired absence of both cervix and uterus; Z88.8 Allergy status to other drugs, medicaments and biological substances; Z91.040 Latex allergy status
CPT/HCPCS: 36415; 36416; 36600; 71045; 80048; 80053; 81001; 82553; 83605; 83880; 84484; 85025; 85379; 85520; 87635; 93005; 93306; 94660; 96372; G0378; J1650; J1815; J1940; Q0175; U0003